=== PATIENT | male | born 1940 | race Caucasian/White ===

== ENCOUNTER 2023-04-29 07:05 | Outpatient (OUT) | payer MEDICARE, SELFPAY ==
[2023-04-29 07:43] LABS: Basophils Absolute Auto 0.1 10^3/uL (0.0-0.1); Basophils Percent Auto 0.6 % (0.2-2.0); Eosinophils Absolute Auto 0.2 10^3/uL (0.0-0.7); Eosinophils Percent Auto 1.9 % (0.9-7.0); Hematocrit 42.4 % (42.0-54.0); Hemoglobin 14.6 g/dL (14.0-18.0); Immature Granulocytes Abs Auto 0.09 10^3/uL (0.00-0.03); Immature Granulocytes Pct Auto 0.8 % (0.0-0.5); Lymphocytes Absolute Auto 1.8 10^3/uL (1.2-3.8); Lymphocytes Percent Auto 16.1 % (20.5-60.0); Mean Corpuscular HGB Conc 34.4 g/dL (29.9-35.2); Mean Corpuscular Hemoglobin 31.8 pg (25.9-34.0); Mean Corpuscular Volume 92.4 fL (80.0-94.0); Mean Platelet Volume 10.5 fL (9.5-13.5); Monocytes Absolute Auto 1.2 10^3/uL (0.3-0.8); Monocytes Percent Auto 10.7 % (1.7-12.0); Neutrophils Absolute Auto 7.7 10^3/uL (1.4-6.5); Neutrophils Percent Auto 69.9 % (43.0-75.0); Platelet Count 269 10^3/uL (150-450); Red Blood Count 4.59 10^6/uL (4.70-6.10); Red Cell Distribution Width 12.8 % (11.0-15.0); White Blood Count 11.1 10^3/uL (4.0-11.0)
[2023-04-29 08:25] LABS: Creatinine Urine Random 38.92 mg/dL (20.00-300.00); Microalbum Creatinine Ratio Ur 1384.8 mg/g (0.0-29.9); Microalbumin Urine Random 53.9 mg/dL (<=30.0)
[2023-04-29 08:27] LABS: Bilirubin Urine NEGATIVE (NEGATIVE); Blood Urine SMALL (NEGATIVE); Clarity Urine CLEAR (CLEAR); Color Urine LT. YELLOW (YELLOW); Glucose Urine UA NEGATIVE (NEGATIVE); Ketones Urine NEGATIVE (NEGATIVE); Leukocyte Esterase Urine NEGATIVE (NEGATIVE); Nitrite Urine NEGATIVE (NEGATIVE); Protein Urine 100 mg/dL (NEG/TRACE); Specific Gravity Urine 1.015 (1.005-1.025); Urobilinogen Urine 0.2 EU/dL (0.2-1.0); pH Urine 6.5 (5.0-9.0)
[2023-04-29 08:31] LABS: Percent Iron Saturation 34.3 %
[2023-04-29 08:34] LABS: Alanine Aminotransferase 17 U/L (16-63); Albumin Level 3.9 g/dL (3.4-5.0); Alkaline Phosphatase 97 U/L (46-116); Anion Gap 12.5; Aspartate Amino Transferase 16 U/L (15-37); BUN Creatinine Ratio 24.2; Bilirubin Total 0.6 mg/dL (0.2-1.0); Calcium 9.3 mg/dL (8.5-10.1); Carbon Dioxide 30.7 mmol/L (21.0-32.0); Chloride 97 mmol/L (98-107); Estimated GFR (African America >60 (>=60); Estimated GFR (Non-African Ame >60 (>=60); Globulin 3.9 g/dL; Glucose 148 mg/dL (74-106); Potassium 4.2 mmol/L (3.5-5.1); Sodium 136 mmol/L (136-145); Total Protein 7.8 g/dL (6.4-8.2)
[2023-04-29 08:41] LABS: Bacteria Urine NONE SEEN #/HPF (NONE SEEN); Cast Seen? NONE SEEN #/LPF (NONE SEEN); Crystals Seen? None Seen #/HPF (None Seen); Mucus Urine NONE SEEN (NONE SEEN); Squamous Epithelial Cell Urine NONE SEEN #/LPF (NONE/RARE); Urine Culture Indicated ALREADY ORDERED; WBC Urine NONE SEEN #/HPF (NONE SEEN)
[2023-04-29 13:12] LABS: Estimated Average Glucose 137 mg/dL; Glycohemoglobin A1C 6.4 % (4.5-6.2)
[2023-04-30 12:30] LABS: Chol HDL Ratio 4.1; Cholesterol 159 mg/dL (<=200); HDL Cholesterol 39 mg/dL (40-60); Triglycerides 175 mg/dL (<=150)
== END 2023-04-29 07:06 | disposition home or self-care (01) ==
LOC: LAB 07:11
PROVIDERS: PCP Family Medicine; Visit Provider Family Medicine
DX: E78.5 Hyperlipidemia, unspecified (principal); D64.9 Anemia, unspecified; E53.8 Deficiency of other specified B group vitamins; R79.89 Other specified abnormal findings of blood chemistry; E11.9 Type 2 diabetes mellitus without complications; R80.9 Proteinuria, unspecified; R35.1 Nocturia
CPT/HCPCS: 36415; 80053; 80061; 81001; 82043; 82570; 82607; 82728; 82746; 83036; 83540; 83550; 85025; 87086

== ENCOUNTER 2023-09-04 07:31 | Outpatient (OUT) | payer MEDICARE, SELFPAY ==
[2023-09-04 07:57] LABS: Basophils Absolute Auto 0.1 10^3/uL (0.0-0.1); Basophils Percent Auto 0.6 % (0.2-2.0); Eosinophils Absolute Auto 0.2 10^3/uL (0.0-0.7); Eosinophils Percent Auto 1.2 % (0.9-7.0); Hematocrit 40.8 % (42.0-54.0); Hemoglobin 13.7 g/dL (14.0-18.0); Immature Granulocytes Abs Auto 0.06 10^3/uL (0.00-0.03); Immature Granulocytes Pct Auto 0.5 % (0.0-0.5); Lymphocytes Absolute Auto 1.4 10^3/uL (1.2-3.8); Lymphocytes Percent Auto 11.2 % (20.5-60.0); Mean Corpuscular HGB Conc 33.6 g/dL (29.9-35.2); Mean Corpuscular Hemoglobin 31.8 pg (25.9-34.0); Mean Corpuscular Volume 94.7 fL (80.0-94.0); Mean Platelet Volume 10.5 fL (9.5-13.5); Monocytes Percent Auto 7.6 % (1.7-12.0); Neutrophils Percent Auto 78.9 % (43.0-75.0); Platelet Count 259 10^3/uL (150-450); Red Blood Count 4.31 10^6/uL (4.70-6.10); White Blood Count 12.6 10^3/uL (4.0-11.0)
[2023-09-04 08:29] LABS: Alanine Aminotransferase 15 U/L (16-63); Albumin Level 3.5 g/dL (3.4-5.0); Alkaline Phosphatase 88 U/L (46-116); Anion Gap 11.6; Aspartate Amino Transferase 15 U/L (15-37); Bilirubin Total 0.6 mg/dL (0.2-1.0); Calcium 8.7 mg/dL (8.5-10.1); Carbon Dioxide 30.3 mmol/L (21.0-32.0); Chloride 98 mmol/L (98-107); Chol HDL Ratio 3.5; Cholesterol 145 mg/dL (<=200); Estimated GFR (African America >60 (>=60); Estimated GFR (Non-African Ame >60 (>=60); Globulin 3.6 g/dL; Glucose 130 mg/dL (74-106); HDL Cholesterol 41 mg/dL (40-60); LDL Cholesterol Calculated 79.8 mg/dL; Potassium 3.9 mmol/L (3.5-5.1); Sodium 136 mmol/L (136-145); Thyroid Stimulating Hormone 1.117 uIU/mL (0.358-3.740); Total Protein 7.1 g/dL (6.4-8.2); Triglycerides 121 mg/dL (<=150); VLDL CHOLESTEROL 24.2 mg/dL
[2023-09-04 08:38] LABS: Estimated Average Glucose 134 mg/dL; Glycohemoglobin A1C 6.3 % (4.5-6.2)
[2023-09-04 08:56] LABS: Percent Iron Saturation 30.5 %
== END 2023-09-04 07:32 | disposition home or self-care (01) ==
LOC: LAB 07:33
PROVIDERS: PCP Family Medicine; Visit Provider Family Medicine
DX: D72.829 Elevated white blood cell count, unspecified (principal); E78.5 Hyperlipidemia, unspecified; E53.8 Deficiency of other specified B group vitamins; D64.9 Anemia, unspecified; E11.9 Type 2 diabetes mellitus without complications; R63.4 Abnormal weight loss
CPT/HCPCS: 36415; 80053; 80061; 82607; 82728; 82746; 83036; 83540; 83550; 84443; 85025

== ENCOUNTER 2024-01-20 07:09 | Outpatient (OUT) | payer MEDICARE, SELFPAY ==
--- OUTSIDE RECORDS SUMMARY | 2024-01-20 07:14 | XMS_ITS | CCD ---
Author Organization [facility] Care Team Providers Care Foundation Engineer Name Role Phone DUKE HEADLEY Surgeon Unavailable [place] Procedure Practitioner Unavailab MIGNON Felipe Primary Care Unavailable TRELL, MIGNON Referring Unavailable DUKE HEADLEY Admitting Unavailable DUKE HEADLEY Attending Unavailable Mignon Cai Unavailable TRELL, DR CROW Admitting Unavailable GIRVIN, DR CROW Attending Unavailable GIRVIN, DR CROW Primary Care Unavailable GIRVIN, DR CROW Consulting Unavailable GIRCAROLINA, DR CROW Primary Care Unavailable CHAPIS ., DR SVETLANA Abernathy Admitting Unavailable NATION ., DR SVETLANA Abernathy Attending Unavailable NATION ., DR SVETLANA Abernathy Consulting Unavailable ZIEBER, DR JOSEPH Martin Consulting Unavailable KATSRAVANTHI KONG Consulting Unavailable FAWSHAIKH Belen ANDERSON Consulting Unavailable GIRCAROLINA, DR CROW Admitting Unavailable GIRVIN, DR CROW Attending Unavailable GIRVIN, DR CROW Primary Care Unavailable GIRVIN, DR CROW Consulting Unavailable GIRVIN, DR CROW Admitting Unavailable GIRVIN, DR CROW Attending Unavailable GIRVIN, DR CROW Referring Unavailable GIRVIN, DR CROW Primary Care Unavailable GIRCAROLINA, DR CROW Consulting Unavailable GIRCAROLINA, DR CROW Admitting Unavailable GIRVIN, DR CROW Attending Unavailable GIRVIN, DR CROW Primary Care Unavailable GIRVIN, DR CROW Consulting Unavailable Mignon Cai DO Primary Care Provider SERVICE, RADHA Referring Unavailable MIGNON CAI Primary Care Unavailable SERVICE, RADHA Referring Unavailable MIGNON CAI Primary Care Unavailable SERVICE, RADHA Referring Unavailable MIGNON CAI Primary Care Unavailable Allergies Allergy Classification Reported Allergen(s) Allergy Type Date of Onset Reaction(s) Facility Unclassified (1 source) ASA; Translations: [ASA] Propensity to adverse reactions (disorder) 1 [facility] Repository (20 sources) Aspirin; Translations: [ASPIRIN] Drug Allergy 4 [facility] (1 source) Aspirin Drug Allergy 4 [facility] Repository Medications Current Medications Medication Drug Class(es) Dates Sig (Normalized) Sig (Original) amLODIPine 10 mg oral tablet (20 sources) Dihydropyridine Calcium Channel Jose Roberto take 1 tablet by mouth in the morning amLODIPine (NORVASC) 10 mg tablet Take 1 tablet (10 mg total) by mouth in the morning. 0 Active glyBURIDE 2.5 mg oral tablet (20 sources) Sulfonylurea glyBURIDE (DIABETA) 2.5 mg tablet Taking 1/2 tablet three times a day 0 Active glyBURIDE 2.5 TA KE ONE-HALF TABLET BY MOUTH THREE TIMES A DAY Orally Once a day for 90 days Active glyBURIDE 2.5 TA KE ONE-HALF TABLET BY MOUTH THREE TIMES A DAY Orally Once a day Active hydroCHLOROthiazide 25 mg / lisinopril 20 mg oral tablet (20 sources) Thiazide Diuretic, Angiotensin Converting Enzyme Inhibitor Start: 10-20-2017 take 1 tablet by mouth every twenty-four hours Lisinopril-hydroCHLOROthiazide 20-25 MG 1 tablet Orally Once a day Oct, Active take 1 tablet by vnaessa th once in the morning lisinopril-hydrochlorothiazide (PRINZIDE ,ZESTORETIC) 20-25 mg per tablet Take 1 tablet by mouth in the morning. 0 Active metoprolol tartrate 50 mg oral tablet (20 sources) beta-Adrenergic Jose Roberto Start: 09-26-2023 take 2 tablets by mouth once daily in the morning, then take 1 tablet by mouth once daily in the evening metoprolol tartrate (LOPRESSOR) 50 mg tablet TAKE 2 TABLETS BY MOUTH DAILY IN THE MORNING THEN TAKE 1 TABLET BY MOUTH DAILY IN THE EVENING 270 tablet 3 09/26/2023 Active take 2 tablets by mo uth in the morning, then take 1 tablet by mouth in the evening Metoprolol Tartrate 50 MG 2 tablets in A.m. Orally 1 tablet in p.m. Active OneTouch Ultra - (9 sources) OneTouch Ultra - USE TO TEST BLOOD SUGAR ONCE DAILY Active OneTouch Ultra - USE TO TEST BLOOD SUGAR ONCE DAILY for 50 Active OneTouch Ultra - USE ONE STRIP TO TEST DAILY Active OneTouch Ultra - USE ONE STRIP TO TEST DAILY for 50 Active OneTouch Ultra Blue - (8 sources) OneTouch Ultra B lue - TEST USE ONE STRIP TO TEST DAILY Active OneTouch Ultra B lue - TEST USE ONE STRIP TO TEST DAILY for 50 Active warfarin sodium 2.5 mg oral tablet (20 sources) Vitamin K Antagonist Start: 09-03-2023 take 0.5-1 tablets by mouth in the evening warfarin (COUMADIN) 2.5 mg tablet Indications: Persistent atrial fibrillation (CMS-HCC) , FPC (current) use of anticoagulants Take 0.5-1 tablets (1.25-2.5 mg total) by mouth in the evening. As directed by Radha DURONM.. 90 tablet 1 09/03/2023 Active take 1 tablet by vanessa th every week, then take 0.5 tablet by mouth every week Warfarin Sodium 5 MG 1 tablet Orally tab one day per week, then 1/2 tab the other days of the week 1/2/tab 2 days a week Active Completed/Discontinued Medications Medication Drug Class(es) Dates Sig (Normalized) Sig (Original) Fish Oils (2 sources) Start: 09-15-2013 take 1 capsule by mouth once daily Fish Oil 1000 MG 1 capsule Orally Once a day Sep, Not-Taking Problems Active Problems Problem Classification Problem Date Documented Da te Episodic/Chronic Cardiac dysrhythmias (20 sources) Atrial fibrillation; Translations: [Unspecified atrial fibrillation] Onset: 01-16-2017 Resolved: 04-25-2022 Chronic Deficiency and other anemia (17 sources) Anemia; Translations: [Anemia, unspecified] Episodic Deficiency and other anemia (6 sources) Anemia, unspecified; Translations: [ANEMIA UNSPECIFIED] Onset: 04-25-2022 Resolved: 04-25-2022 Episodic Diabetes mellitus with complications (1 source) Type 2 diabetes mellitus with hyperglycemia; Translations: [TYPE 2 DM W/HYPERGLYCEMIA] Onset: 03-06-2022 Chronic Diabetes mellitus without complication (20 sources) Type 2 diabetes mellitus well controlled; Translations: [Type 2 diabetes mellitus without complications] Onset: 08-23-2011 Resolved: 04-25-2022 Chronic Diseases of white blood cells (20 sources) Increased blood leukocyte number; Translations: [Elevated white blood cell count, unspecified] Onset: 04-25-2022 Resolved: 04-25-2022 Chronic Disorders of lipid metabolism (20 sources) Hyperlipidemia; Translations: [Hyperlipidemia, unspecified] Onset: 04-25-2022 Resolved: 04-25-2022 Chronic Essential hypertension (20 sources) Hypertensive disorder; Translations: [Essential (primary) hypertension] Onset: 07-12-2010 Resolved: 04-25-2022 Chronic Genitourinary symptoms and ill-defined conditions (20 sources) Nocturia; Translations: [Nocturia] Onset: 04-25-2022 Resolved: 04-25-2022 Episodic Nutritional deficiencies (20 sources) Vitamin B12 deficiency (non anemic); Translations: [Deficiency of other specified B group vitamins] Onset: 04-25-2022 Resolved: 04-25-2022 Episodic Open wounds of extremities (1 source) Laceration without foreign body, unspecified knee, initial encounter Episodic Other aftercare (6 sources) Long-term current use of anticoagulant; Translations: [terminologist (current) use of anticoagulants] Onset: 01-16-2017 10-14-2023 Episodic Other aftercare (1 source) Encounter for therapeutic drug level monitoring; Translations: [Encounter for therapeutic drug level monitoring] Onset: 12-23-2023 Episodic Other connective tissue disease (1 source) Presence of right artificial knee joint; Translations: [PRESENCE RT ARTIFICIAL KNEE JOINT] Onset: 03-06-2022 Chronic Other connective tissue disease (3 sources) History of total knee arthroplasty; Translations: [Presence of right artificial knee joint] Onset: 02-19-2022 02-19-2022 Chronic Other hereditary and degenerative nervous system conditions (1 source) Mild cognitive impairment, so stated; Translations: [MILD COGNITIVE IMPAIRMENT SO STATED] Onset: 03-06-2022 Chronic Other non-traumatic joint disorders (2 sources) Pain in unspecified knee Onset: 04-25-2022 Resolved: 04-25-2022 Episodic Other nutritional; endocrine; and metabolic disorders (5 sources) Abnormal weight loss; Translations: [ABNORMAL WEIGHT LOSS] Onset: 04-25-2022 Resolved: 04-25-2022 Episodic Other nutritional; endocrine; and metabolic disorders (1 source) Abnormal weight gain Episodic Other screening for suspected conditions (not mental disorders or infectious disease) (3 sources) Other specified abnormal findings of blood chemistry; Translations: [Encounter for screening for malignant neoplasm of prostate] Onset: 04-17-2022 Episodic Spondylosis; intervertebral disc disorders; other back problems (1 source) Cervicalgia Episodic Unclassified (1 source) CONTACT W/AND (SUSP) EXPOS COVID-19; Translations: [CONTACT W/AND (SUSP) EXPOS COVID-19] Onset: 03-06-2022 Unclassified (1 source) Other persistent atrial fibrillation; Translations: [Other persistent atrial fibrillation] Onset: 08-26-2017 Past or Other Problems Problem Classification Problem Date Documented Date Episodic/Chronic Acute posthemorrhagic anemia (1 source) Acute posthemorrhagic anemia; Translations: [ACUTE POSTHEMORRHAGIC ANEMIA] Onset: 03-06-2022 Episodic Malaise and fatigue (2 sources) Weakness; Translations: [WEAKNESS] Onset: 02-22-2022 Episodic Other aftercare (2 sources) FPC (current) use of anticoagulants; Translations: [SHELTER CURRNT USE ANTICOAGULANTS] Onset: 01-16-2017 Episodic Other aftercare (1 source) Other care home (current) drug therapy; Translations: [OTH SHELTER CURRENT DRUG THERAPY] Onset: 03-06-2022 Episodic Other connective tissue disease (1 source) Muscle weakness (generalized); Translations: [MUSCLE WEAKNESS GENERALIZED] Onset: 03-06-2022 Episodic Other non-traumatic joint disorders (1 source) Pain in right knee Onset: 11-14-2021 Resolved: 11-14-2021 Episodic Other non-traumatic joint disorders (1 source) Effusion, right knee; Translations: [EFFUSION RIGHT KNEE] Onset: 03-06-2022 Episodic Residual codes; unclassified (1 source) Patient's other noncompliance with medication regimen; Translations: [PT OTH NONCOMPLIANCE W/ MED REGIMEN] Onset: 03-06-2022 Episodic Screening and history of mental health and substance abuse codes (1 source) Personal history of nicotine dependence; Translations: [PERSONAL HISTORY OF NICOTINE DEPEND] Onset: 03-06-2022 Episodic Results Test Name Value Interpretation Reference Range Facility POCT Protime / INRon 12-22-2 024 INR Coag (PPP) [Relative time] 2.2 {INR} Abnormal 0.8 - 1.2 [facility] Interpretation and review of laboratory results Abnormal [facility] POCT Protime / INRon 11-11-2 024 INR Coag (PPP) [Relative time] 1.9 {INR} Abnormal 0.8 - 1.2 [facility] Interpretation and review of laboratory results Abnormal [facility] POCT Protime / INRon 024 INR Coag (PPP) [Relative time] 1.8 {INR} Abnormal 0.8 - 1.2 [facility] Interpretation and review of laboratory results Abnormal [facility] CBC AUTO DIFFon 12-24-2022 BASO # 0.1 103/ul Normal 0.0-0.1 [facility] Comment on above: Performed By: #### C MP, LIPID #### [facility] [address] [place] [address] Dr. Miles Murphy Basophils/100 WBC (Bld) 0.7 % Normal 0.2-2.0 [facility] Comment on above: Performed By: #### C MP, LIPID #### [facility] [address] [place] [address] Dr. Miles Murphy EO # 0.2 103/ul Normal 0.0-0.7 [facility] Comment on above: Performed By: #### C MP, LIPID #### [facility] [address] [place] [address] Dr. Miles Murphy Eosinophils/100 WBC (Bld) 1.5 % Normal 0.9-7.0 [facility] Comment on above: Performed By: #### C MP, LIPID #### [facility] [address] [place] [address] Dr. Miles Murphy Erythrocyte distribution width (RBC) [Ratio] 14.0 % Normal 11.0-15.0 [facility] Comment on above: Performed By: #### C MP, LIPID #### [facility] [address] [place] [address] Dr. Miles Murphy Hematocrit (Bld) [Volume fraction] 44.0 % Normal 42.0-54.0 [facility] Comment on above: Performed By: #### C MP, LIPID #### [facility] [address] [place] [address] Dr. Miles Murphy Hemoglobin (Bld) [Mass/Vol] 14.7 g/dL Normal 14.0-18.0 [facility] Comment on above: Performed By: #### C MP, LIPID #### [facility] [address] [address] [address] Miles Murphy IG # 0.08 10e3/ul Critically high 0.00-0.03 [facility] Comment on above: Performed By: #### C MP, LIPID #### [facility] [address] [address] [address] Miles Murphy IG % 0.8 % Critically high 0.0-0.5 [facility] Comment on above: Performed By: #### C MP, LIPID #### [facility] [address] [address] [address] Miles Murphy LYMPH # 2.0 103/ul Normal 1.2-3.8 [facility] Comment on above: Performed By: #### C MP, LIPID #### [facility] [address] [place] [address] Dr. Miles Murphy Lymphocytes/100 WBC (Bld) 19.2 % Critically low 20.5-60.0 [facility] Comment on above: Performed By: #### C MP, LIPID #### [facility] [address] [address] [address] Miles Murphy MANUAL DIFF REQ NO Normal [facility] Comment on above: Performed By: #### C MP, LIPID #### [facility] [address] [address] [address] Miles Murphy MCH (RBC) [Entitic mass] 31.0 pg Normal 25.9-34.0 [facility] Comment on above: Performed By: #### C MP, LIPID #### [facility] [address] [address] [address] Miles Murphy MCHC (RBC) [Mass/Vol] 33.4 g/dL Normal 29.9-35.2 [facility] Comment on above: Performed By: #### C MP, LIPID #### [facility] [address] [address] [address] Miles Murphy MCV (RBC) [Entitic vol] 92.8 fL Normal 80.0-94.0 [facility] Comment on above: Performed By: #### C MP, LIPID #### [facility] [address] [address] [address] Miles Murphy MONO # 1.0 103/ul Critically high 0.3-0.8 [facility] Comment on above: Performed By: #### C MP, LIPID #### [facility] [address] [address] [address] Miles Murphy Monocytes/100 WBC (Bld) 9.6 % Normal 1.7-12.0 [facility] Comment on above: Performed By: #### C MP, LIPID #### [facility] [address] [address] [address] Miles Murphy NEUT # 7.0 103/ul Critically high 1.4-6.5 [facility] Comment on above: Performed By: #### C MP, LIPID #### [facility] [address] [place] [address] Dr. Miles Murphy Neutrophils/100 WBC (Bld) 68.2 % Normal 43.0-75.0 [facility] Comment on above: Performed By: #### C MP, LIPID #### [facility] [address] [place] [address] Dr. Miles Murphy Platelet mean volume (Bld) [Entitic vol] 10.4 fL Normal 9.5-13.5 [facility] Comment on above: Performed By: #### C MP, LIPID #### [facility] [address] [place] [address] Dr. Miles Murphy PLT 266 103/ul Normal 150-450 [facility] Comment on above: Performed By: #### C MP, LIPID #### [facility] [address] [place] [address] Dr. Miles Murphy RBC 4.74 106/ul Normal 4.70-6.10 [facility] Comment on above: Performed By: #### C MP, LIPID #### [facility] [address] [place] [address] Dr. Miles Murphy WBC 10.3 103/ul Normal 4.0-11.0 [facility] Comment on above: Performed By: #### C MP, LIPID #### [facility] [address] [address] [address] Miles Murphy FERRITINon 12-24-2022 Ferritin [Mass/Vol] 144.0 ng/mL Normal 26.0-388.0 [facility] Comment on above: Performed By: #### P OCGLUC #### [facility] [address] [address] [address] Miles Murphy GLYCOHEMOGLOBIN A1Con 2022 ADA RECOMMENDATION SEE BELOW Normal [facility] Comment on above: Result Comment: ADA RECOMMENDED LIMIT 4.0 - 6.0 ADA THERAPEUTIC TARGET < 7.0 ACTION SUGGESTED > 7.0 Performed By: #### P OCGLUC #### [facility] [address] [address] [address] Miles Murphy Glucose [Mass/Vol] 137 mg/dL Normal [facility] Comment on above: Performed By: #### P OCGLUC #### [facility] [address] [address] [address] Miles Murphy HbA1c (Bld) [Mass fraction] 6.4 % Critically high 4.5-6.2 [facility] Comment on above: Performed By: #### P OCGLUC #### [facility] [address] [address] [address] Miles Murphy IRON AND TIBCon 12-24-2022 % SATURATION 39.2 % Normal [facility] Comment on above: Performed By: #### P OCGLUC #### [facility] [address] [address] [address] Miles Murphy Iron [Mass/Vol] 111.0 ug/dL Normal 65.0-175.[address] [facility] Comment on above: Performed By: #### P OCGLUC #### [facility] [address] [address] [address] Miles Murphy TIBC DIRECT 283.0 ug/dL Normal 250.0-450.0 [facility] Comment on above: Performed By: #### P OCGLUC #### [facility] [address] [address] [address] Miles Murphy LIPID PROFILEon 12-24-2022 CHOL-HDL RATIO NORM SEE BELOW Normal [facility] Comment on above: Result Comment: 3.3 - 4.4 LOW RISK 4.4 - 7.1 AVERAGE RISK 7.1 - 11.0 MODERATE RISK >11.0 HIGH RISK Performed By: #### F ERR, FETIBC, B12FOL, PSAD #### [facility] [address] [address] [address] Miles Murphy Cholesterol [Mass/Vol] 164 mg/dL Normal <=200 [facility] Comment on above: Performed By: #### F ERR, FETIBC, B12FOL, PSAD #### [facility] [address] [place] [address] Dr. Miles Murphy Cholesterol in HDL [Mass/Vol] 35 mg/dL Critically low 40-60 [facility] Comment on above: Performed By: #### F ERR, FETIBC, B12FOL, PSAD #### [facility] [address] [address] [address] Miles Murphy Cholesterol in LDL [Mass/Vol] 84.8 mg/dL Normal [facility] Comment on above: Performed By: #### F ERR, FETIBC, B12FOL, PSAD #### [facility] [address] [place] [address] Dr. Miles Murphy Cholesterol.total/C holesterol in HDL [Mass ratio] 4.7 {ratio} Normal [facility] Comment on above: Performed By: #### F ERR, FETIBC, B12FOL, PSAD #### [facility] [address] [address] [address] Miles Murhpy HDL NORMAL > or = 60 mg/dl - LO W CARDIOVASCULAR RISK <40 mg/dl - HIGH CARDIOVASCULAR RISK Normal [facility] Comment on above: Performed By: #### F ERR, FETIBC, B12FOL, PSAD #### [facility] [address] [place] [address] Dr. Miles Murphy LDL CALC NORMAL SEE BELOW Normal [facility] Comment on above: Result Comment: <100 mg/dl OPTIMAL 100 - 129 mg/dl NEAR OR ABOVE OPTIMAL 130 - 159 mg/dl BORDERLINE HIGH 160 - 189 mg/dl HIGH >190 mg/dl VERY HIGH Performed By: #### F ERR, FETIBC, B12FOL, PSAD #### [facility] [address] [place] [address] Dr. Miles Murphy Triglyceride [Mass/Vol] 221 mg/dL Critically high <=150 [facility] Comment on above: Performed By: #### F ERR, FETIBC, B12FOL, PSAD #### [facility] [address] [place] [address] Dr. Miles Murphy VLDL CALC 44.2 mg/dL Normal [facility] Comment on above: Performed By: #### F ERR, FETIBC, B12FOL, PSAD #### [facility] [address] [place] [address] Dr. Miles Murphy PROF 14(COMP METB)on 023 Albumin [Mass/Vol] 3.6 g/dL Normal 3.4-5.0 [facility] Comment on above: Performed By: #### F ERR, FETIBC, B12FOL, PSAD #### [facility] [address] [place] [address] Dr. Miles Murphy Albumin/Globulin [Mass ratio] 1.0 {ratio} Normal [facility] Comment on above: Performed By: #### F ERR, FETIBC, B12FOL, PSAD #### [facility] [address] [place] [address] Dr. Miles Murphy ALP [Catalytic activity/Vol] 79 U/L Normal 46-116 [facility] Comment on above: Performed By: #### F ERR, FETIBC, B12FOL, PSAD #### [facility] [address] [place] [address] Dr. Miles Murphy ALT [Catalytic activity/Vol] 16 U/L Normal 16-63 [facility] Comment on above: Performed By: #### F ERR, FETIBC, B12FOL, PSAD #### [facility] [address] [place] [address] Dr. Miles Murphy Anion gap [Moles/Vol] 12.7 mmol/L Normal [facility] Comment on above: Performed By: #### F ERR, FETIBC, B12FOL, PSAD #### [facility] [address] [place] [address] Dr. Miles Murphy AST [Catalytic activity/Vol] 17 U/L Normal 15-37 [facility] Comment on above: Performed By: #### F ERR, FETIBC, B12FOL, PSAD #### [facility] [address] [place] [address] Dr. Miles Murphy Bilirubin [Mass/Vol] 0.5 mg/dL Normal 0.2-1.0 [facility] Comment on above: Performed By: #### F ERR, FETIBC, B12FOL, PSAD #### [facility] [address] [place] [address] Dr. Miles Murphy Calcium [Mass/Vol] 9.3 mg/dL Normal 8.5-10.1 [facility] Comment on above: Performed By: #### F ERR, FETIBC, B12FOL, PSAD #### [facility] [address] [place] [address] Dr. Miles Murphy Chloride [Moles/Vol] 100 mmol/L Normal 98-107 [facility] Comment on above: Performed By: #### F ERR, FETIBC, B12FOL, PSAD #### [facility] [address] [place] [address] Dr. Miles Murphy CO2 [Moles/Vol] 29.8 mmol/L Normal 21.0-32.[address] [facility] Comment on above: Performed By: #### F ERR, FETIBC, B12FOL, PSAD #### [facility] [address] [place] [address] Dr. Miles Murphy Creatinine [Mass/Vol] 1.00 mg/dL Normal 0.70-1.30 [facility] Comment on above: Performed By: #### F ERR, FETIBC, B12FOL, PSAD #### [facility] [address] [place] [address] Dr. Miles Murphy EGFR-AF CZECH >60 Normal >=60 [facility] Comment on above: Performed By: #### F ERR, FETIBC, B12FOL, PSAD #### [facility] [address] [place] [address] Dr. Miles Murphy EGFR-NON AF CZECH >60 Normal >=60 [facility] Comment on above: Performed By: #### F ERR, FETIBC, B12FOL, PSAD #### [facility] [address] [place] [address] Dr. Miles Mruphy Globulin (S) [Mass/Vol] 3.5 g/dL Normal [facility] Comment on above: Performed By: #### F ERR, FETIBC, B12FOL, PSAD #### [facility] [address] [address] [address] Miles Murphy Glucose [Mass/Vol] 135 mg/dL Critically high 74-106 [facility] Comment on above: Performed By: #### F ERR, FETIBC, B12FOL, PSAD #### [facility] [address] [address] [address] Miles Murphy Potassium [Moles/Vol] 4.5 mmol/L Normal 3.5-5.1 [facility] Comment on above: Performed By: #### F ERR, FETIBC, B12FOL, PSAD #### [facility] [address] [address] [address] Miles Murphy Protein [Mass/Vol] 7.1 g/dL Normal 6.4-8.2 [facility] Comment on above: Performed By: #### F ERR, FETIBC, B12FOL, PSAD #### [facility] [address] [address] [address] Miles Murphy Sodium [Moles/Vol] 138 mmol/L Normal 136-145 [facility] Comment on above: Performed By: #### F ERR, FETIBC, B12FOL, PSAD #### [facility] [address] [place] [address] Dr. Miles Murphy Urea nitrogen [Mass/Vol] 21.0 mg/dL Critically high 7.0-18.0 [facility] Comment on above: Performed By: #### F ERR, FETIBC, B12FOL, PSAD #### [facility] [address] [place] [address] Dr. Miles Murphy Urea nitrogen/Creatinine [Mass ratio] 21.0 mg/mg Normal [facility] Comment on above: Performed By: #### F ERR, FETIBC, B12FOL, PSAD #### [facility] [address] [place] [address] Dr. Miles Murphy VIT B12 AND FOLATEon 023 Cobalamin (Vitamin B12) [Mass/Vol] 488.0 pg/mL Normal 193.0-986.0 [facility] Comment on above: Performed By: #### P OCGLUC #### [facility] [address] [place] [address] Dr. Miles Murphy FOLATE 21.30 ng/mL Normal 8.60-58.90 [facility] Comment on above: Performed By: #### P OCGLUC #### [facility] [address] [place] [address] Dr. Miles Murphy URINE MICROSCOPIC ONLYon BACTERIA NONE SEEN Normal NONE SEEN [facility] Comment on above: Performed By: #### F ERR, FETIBC, B12FOL, PSAD #### [facility] [address] [place] [address] Dr. Miles Murphy Bacteria identified Cx Nom (U) NOT INDICATED Normal [facility] Comment on above: Performed By: #### F ERR, FETIBC, B12FOL, PSAD #### [facility] [address] [place] [address] Dr. Miles Murphy CAST NONE SEEN Normal NONE SEEN [facility] Comment on above: Performed By: #### F ERR, FETIBC, B12FOL, PSAD #### [facility] [address] [place] [address] Dr. Miles Murphy Crystals LM Nom (Urine sed) NONE SEEN Normal NONE SEEN [facility] Comment on above: Performed By: #### F ERR, FETIBC, B12FOL, PSAD #### [facility] [address] [place] [address] Dr. Miles Murphy Epithelial cells LM Ql (Urine sed) NONE SEEN Normal NONE SEEN /RARE [facility] Comment on above: Performed By: #### F ERR, FETIBC, B12FOL, PSAD #### [facility] [address] [place] [address] Dr. Miles Murphy MUCOUS NONE SEEN Normal NONE SEEN [facility] Comment on above: Performed By: #### F ERR, FETIBC, B12FOL, PSAD #### [facility] [address] [place] [address] Dr. Miles Murphy RBC 2-5 Abnormal 0-2 [facility] Comment on above: Performed By: #### F ERR, FETIBC, B12FOL, PSAD #### [facility] [address] [place] [address] Dr. Miles Murphy WBC NONE SEEN Normal NONE SEEN [facility] Comment on above: Performed By: #### F ERR, FETIBC, B12FOL, PSAD #### [facility] [address] [place] [address] Dr. Miles Murphy CBC AUTO DIFFon 08-21-2022 BASO # 0.1 103/ul Normal 0.0-0.1 [facility] Comment on above: Performed By: #### F ERR, FETIBC, B12FOL, PSAD #### [facility] [address] [place] [address] Dr. Miles Murphy Basophils/100 WBC (Bld) 0.5 % Normal 0.2-2.0 [facility] Comment on above: Performed By: #### F ERR, FETIBC, B12FOL, PSAD #### [facility] [address] [place] [address] Dr. Miles Murphy EO # 0.2 103/ul Normal 0.0-0.7 [facility] Comment on above: Performed By: #### F ERR, FETIBC, B12FOL, PSAD #### [facility] [address] [place] [address] Dr. Miles Murphy Eosinophils/100 WBC (Bld) 1.6 % Normal 0.9-7.0 [facility] Comment on above: Performed By: #### F ERR, FETIBC, B12FOL, PSAD #### [facility] [address] [place] [address] Dr. Miles Murphy Erythrocyte distribution width (RBC) [Ratio] 13.7 % Normal 11.0-15.0 [facility] Comment on above: Performed By: #### F ERR, FETIBC, B12FOL, PSAD #### [facility] [address] [place] [address] Dr. Miles Murphy Hematocrit (Bld) [Volume fraction] 41.3 % Critically low 42.0-54.0 [facility] Comment on above: Performed By: #### F ERR, FETIBC, B12FOL, PSAD #### [facility] [address] [place] [address] Dr. Miles Murphy Hemoglobin (Bld) [Mass/Vol] 13.7 g/dL Critically low 14.0-18.0 [facility] Comment on above: Performed By: #### F ERR, FETIBC, B12FOL, PSAD #### [facility] [address] [place] [address] Dr. Miles Murphy IG # 0.07 10e3/ul Critically high 0.00-0.03 [facility] Comment on above: Performed By: #### F ERR, FETIBC, B12FOL, PSAD #### [facility] [address] [place] [address] Dr. Miles Murphy IG % 0.5 % Normal 0.0-0.5 [facility] Comment on above: Performed By: #### F ERR, FETIBC, B12FOL, PSAD #### [facility] [address] [place] [address] Dr. Miles Murphy LYMPH # 1.8 103/ul Normal 1.2-3.8 [facility] Comment on above: Performed By: #### F ERR, FETIBC, B12FOL, PSAD #### [facility] [address] [place] [address] Dr. Miles Murphy Lymphocytes/100 WBC (Bld) 13.3 % Critically low 20.5-60.0 [facility] Comment on above: Performed By: #### F ERR, FETIBC, B12FOL, PSAD #### [facility] [address] [place] [address] Dr. Miles Murphy MANUAL DIFF REQ NO Normal [facility] Comment on above: Performed By: #### F ERR, FETIBC, B12FOL, PSAD #### [facility] [address] [place] [address] Dr. Miles Murphy MCH (RBC) [Entitic mass] 31.6 pg Normal 25.9-34.0 [facility] Comment on above: Performed By: #### F ERR, FETIBC, B12FOL, PSAD #### [facility] [address] [place] [address] Dr. Miles Murphy MCHC (RBC) [Mass/Vol] 33.2 g/dL Normal 29.9-35.2 [facility] Comment on above: Performed By: #### F ERR, FETIBC, B12FOL, PSAD #### [facility] [address] [place] [address] Dr. Miles Murphy MCV (RBC) [Entitic vol] 95.2 fL Critically high 80.0-94.0 [facility] Comment on above: Performed By: #### F ERR, FETIBC, B12FOL, PSAD #### [facility] [address] [place] [address] Dr. Miles Murphy MONO # 1.1 103/ul Critically high 0.3-0.8 [facility] Comment on above: Performed By: #### F ERR, FETIBC, B12FOL, PSAD #### [facility] [address] [place] [address] Dr. Miles Murphy Monocytes/100 WBC (Bld) 8.7 % Normal 1.7-12.0 [facility] Comment on above: Performed By: #### F ERR, FETIBC, B12FOL, PSAD #### [facility] [address] [address] [address] Miles Murphy NEUT # 9.9 103/ul Critically high 1.4-6.5 [facility] Comment on above: Performed By: #### F ERR, FETIBC, B12FOL, PSAD #### [facility] [address] [place] [address] Dr. Miles Murphy Neutrophils/100 WBC (Bld) 75.4 % Critically high 43.0-75.0 [facility] Comment on above: Performed By: #### F ERR, FETIBC, B12FOL, PSAD #### [facility] [address] [place] [address] Dr. Miles Murphy Platelet mean volume (Bld) [Entitic vol] 10.5 fL Normal 9.5-13.5 [facility] Comment on above: Performed By: #### F ERR, FETIBC, B12FOL, PSAD #### [facility] [address] [place] [address] Dr. Miles Murphy PLT 295 103/ul Normal 150-450 [facility] Comment on above: Performed By: #### F ERR, FETIBC, B12FOL, PSAD #### [facility] [address] [place] [address] Dr. Miles Murphy RBC 4.34 106/ul Critically low 4.70-6.10 [facility] Comment on above: Performed By: #### F ERR, FETIBC, B12FOL, PSAD #### [facility] [address] [place] [address] Dr. Miles Murphy WBC 13.1 103/ul Critically high 4.0-11.[address] [facility] Comment on above: Performed By: #### F ERR, FETIBC, B12FOL, PSAD #### [facility] [address] [place] [address] Dr. Miles Murphy CULTURE URINEon 08-21-2022 CULTURE URINE Culture Observations : LIGHT GROWTH OF MIXED SKIN YOGI. NO POTENTIAL PATHOGENS SEEN. Normal [facility] Comment on above: Performed By: #### F ERR, FETIBC, B12FOL, PSAD #### [facility] [address] [address] [address] Miles Murphy FERRITINon 08-21-2022 Ferritin [Mass/Vol] 100.0 ng/mL Normal 26.0-388.0 [facility] Comment on above: Performed By: #### F ERR, FETIBC, B12FOL, PSAD #### [facility] [address] [place] [address] Dr. Miles Murphy GLYCOHEMOGLOBIN A1Con 2021 ADA RECOMMENDATION SEE BELOW Normal [facility] Comment on above: Result Comment: ADA RECOMMENDED LIMIT 4.0 - 6.0 ADA THERAPEUTIC TARGET < 7.0 ACTION SUGGESTED > 7.0 Performed By: #### F ERR, FETIBC, B12FOL, PSAD #### [facility] [address] [place] [address] Dr. Miles Murphy Glucose [Mass/Vol] 137 mg/dL Normal [facility] Comment on above: Performed By: #### F ERR, FETIBC, B12FOL, PSAD #### [facility] [address] [place] [address] Dr. Miles Murphy HbA1c (Bld) [Mass fraction] 6.4 % Critically high 4.5-6.2 [facility] Comment on above: Performed By: #### F ERR, FETIBC, B12FOL, PSAD #### [facility] [address] [address] [address] Miles Murphy IRON AND TIBCon 08-21-2022 % SATURATION 30.6 % Normal [facility] Comment on above: Performed By: #### F ERR, FETIBC, B12FOL, PSAD #### [facility] [address] [place] [address] Dr. Miles Murphy Iron [Mass/Vol] 97.0 ug/dL Normal 65.0-175.0 [facility] Comment on above: Performed By: #### F ERR, FETIBC, B12FOL, PSAD #### [facility] [address] [address] [address] Miles Murphy TIBC DIRECT 317.0 ug/dL Normal 250.0-450.0 [facility] Comment on above: Performed By: #### F ERR, FETIBC, B12FOL, PSAD #### [facility] [address] [address] [address] Miles Murphy LIPID PROFILEon 08-21-2022 CHOL-HDL RATIO NORM SEE BELOW Normal [facility] Comment on above: Result Comment: 3.3 - 4.4 LOW RISK 4.4 - 7.1 AVERAGE RISK 7.1 - 11.0 MODERATE RISK >11.0 HIGH RISK Performed By: #### F ERR, FETIBC, B12FOL, PSAD #### [facility] [address] [address] [address] Miles Murphy Cholesterol [Mass/Vol] 157 mg/dL Normal <=200 [facility] Comment on above: Performed By: #### F ERR, FETIBC, B12FOL, PSAD #### [facility] [address] [address] [address] Miles Murphy Cholesterol in HDL [Mass/Vol] 36 mg/dL Critically low 40-60 [facility] Comment on above: Performed By: #### F ERR, FETIBC, B12FOL, PSAD #### [facility] [address] [address] [address] Miles Murphy Cholesterol in LDL [Mass/Vol] 84.4 mg/dL Normal [facility] Comment on above: Performed By: #### F ERR, FETIBC, B12FOL, PSAD #### [facility] [address] [address] [address] Miles Murphy Cholesterol.total/C holesterol in HDL [Mass ratio] 4.4 {ratio} Normal [facility] Comment on above: Performed By: #### F ERR, FETIBC, B12FOL, PSAD #### [facility] [address] [address] [address] Miles Murphy HDL NORMAL > or = 60 mg/dl - LO W CARDIOVASCULAR RISK <40 mg/dl - HIGH CARDIOVASCULAR RISK Normal [facility] Comment on above: Performed By: #### F ERR, FETIBC, B12FOL, PSAD #### [facility] [address] [place] [address] Dr. Miles Murphy LDL CALC NORMAL SEE BELOW Normal [facility] Comment on above: Result Comment: <100 mg/dl OPTIMAL 100 - 129 mg/dl NEAR OR ABOVE OPTIMAL 130 - 159 mg/dl BORDERLINE HIGH 160 - 189 mg/dl HIGH >190 mg/dl VERY HIGH Performed By: #### F ERR, FETIBC, B12FOL, PSAD #### [facility] [address] [address] [address] Miles Muprhy Triglyceride [Mass/Vol] 183 mg/dL Critically high <=150 [facility] Comment on above: Performed By: #### F ERR, FETIBC, B12FOL, PSAD #### [facility] [address] [place] [address] Dr. Miles Murphy VLDL CALC 36.6 mg/dL Normal [facility] Comment on above: Performed By: #### F ERR, FETIBC, B12FOL, PSAD #### [facility] [address] [place] [address] Dr. Miles Murphy MICROALB CREAT RATIO RANDOMo n 08-21-2022 mALB 20.9 mg/L Normal <=30.0 [facility] Comment on above: Performed By: #### M CRR #### [facility] [address] [place] [address] Dr. Miles Murphy MALB CR RATIO 446.6 mg/g Critically high 0.0-29.9 [facility] Comment on above: Performed By: #### M CRR #### [facility] [address] [place] [address] Dr. Miles PRASADB CR RATIO RANGE SEE BELOW Normal [facility] Comment on above: Result Comment: NO M ICROALBUMINURIA 0-29 MG/G CLINICAL MICROALBUMINURIA 30-300 MG/G MACROALBUMINURIA >300 MG/G Performed By: #### M CRR #### [facility] [address] [place] [address] Dr. Miles Murphy URINE CREAT 46.80 mg/dL Normal 20.00-300.00 [facility] Comment on above: Performed By: #### M CRR #### [facility] [address] [place] [address] Dr. Miles Murphy PROF 14(COMP METB)on 022 Albumin [Mass/Vol] 3.5 g/dL Normal 3.4-5.0 [facility] Comment on above: Performed By: #### F ERR, FETIBC, B12FOL, PSAD #### [facility] [address] [place] [address] Dr. Miles Murphy Albumin/Globulin [Mass ratio] 0.9 {ratio} Normal [facility] Comment on above: Performed By: #### F ERR, FETIBC, B12FOL, PSAD #### [facility] [address] [place] [address] Dr. Miles Murphy ALP [Catalytic activity/Vol] 78 U/L Normal 46-116 [facility] Comment on above: Performed By: #### F ERR, FETIBC, B12FOL, PSAD #### [facility] [address] [place] [address] Dr. Miles Murphy ALT [Catalytic activity/Vol] 17 U/L Normal 16-63 [facility] Comment on above: Performed By: #### F ERR, FETIBC, B12FOL, PSAD #### [facility] [address] [place] [address] Dr. Miles Murphy Anion gap [Moles/Vol] 9.5 mmol/L Normal [facility] Comment on above: Performed By: #### F ERR, FETIBC, B12FOL, PSAD #### [facility] [address] [place] [address] Dr. Miles Murphy AST [Catalytic activity/Vol] 17 U/L Normal 15-37 [facility] Comment on above: Performed By: #### F ERR, FETIBC, B12FOL, PSAD #### [facility] [address] [address] [address] Miles Murphy Bilirubin [Mass/Vol] 0.6 mg/dL Normal 0.2-1.0 [facility] Comment on above: Performed By: #### F ERR, FETIBC, B12FOL, PSAD #### [facility] [address] [place] [address] Dr. Miles Murphy Calcium [Mass/Vol] 9.1 mg/dL Normal 8.5-10.1 [facility] Comment on above: Performed By: #### F ERR, FETIBC, B12FOL, PSAD #### [facility] [address] [place] [address] Dr. Miles Murphy Chloride [Moles/Vol] 99 mmol/L Normal 98-107 [facility] Comment on above: Performed By: #### F ERR, FETIBC, B12FOL, PSAD #### [facility] [address] [place] [address] Dr. Miles Murphy CO2 [Moles/Vol] 32.6 mmol/L Critically high 21.0-32.0 [facility] Comment on above: Performed By: #### F ERR, FETIBC, B12FOL, PSAD #### [facility] [address] [place] [address] Dr. Miles Murpyh Creatinine [Mass/Vol] 0.90 mg/dL Normal 0.70-1.30 [facility] Comment on above: Performed By: #### F ERR, FETIBC, B12FOL, PSAD #### [facility] [address] [place] [address] Dr. Miles Murphy EGFR-AF CZECH >60 Normal >=[address] [facility] Comment on above: Performed By: #### F ERR, FETIBC, B12FOL, PSAD #### [facility] [address] [place] [address] Dr. Miles Murphy EGFR-NON AF CZECH >60 Normal >=60 [facility] Comment on above: Performed By: #### F ERR, FETIBC, B12FOL, PSAD #### [facility] [address] [place], [place] [id number] Dr. Miles Murphy Globulin (S) [Mass/Vol] 3.7 g/dL Normal [facility] Comment on above: Performed By: #### F ERR, FETIBC, B12FOL, PSAD #### [facility] [address] [place] [address] Dr. Miles Murphy Glucose [Mass/Vol] 134 mg/dL Critically high 74-[address] [facility] Comment on above: Performed By: #### F ERR, FETIBC, B12FOL, PSAD #### [facility] [address] [place] [address] Dr. Miles Murphy Potassium [Moles/Vol] 4.1 mmol/L Normal 3.5-5.1 [facility] Comment on above: Performed By: #### F ERR, FETIBC, B12FOL, PSAD #### [facility] [address] [place] [address] Dr. Miles Murphy Protein [Mass/Vol] 7.2 g/dL Normal 6.4-8.2 [facility] Comment on above: Performed By: #### F ERR, FETIBC, B12FOL, PSAD #### [facility] [address] [place] [address] Dr. Miles Murphy Sodium [Moles/Vol] 137 mmol/L Normal 136-145 [facility] Comment on above: Performed By: #### F ERR, FETIBC, B12FOL, PSAD #### [facility] [address] [place] [address] Dr. Miles Murphy Urea nitrogen [Mass/Vol] 18.0 mg/dL Normal 7.0-18.0 [facility] Comment on above: Performed By: #### F ERR, FETIBC, B12FOL, PSAD #### [facility] [address] [place] [address] Dr. Miles Murphy Urea nitrogen/Creatinine [Mass ratio] 20.0 mg/mg Normal [facility] Comment on above: Performed By: #### F ERR, FETIBC, B12FOL, PSAD #### [facility] [address] [address] [address] Miles Murphy TSHon 08-21-2022 TSH 1.335 uIU/mL Normal 0.358-3.740 [facility] Comment on above: Performed By: #### F ERR, FETIBC, B12FOL, PSAD #### [facility] [address] [address] [address] Miles Murphy UA RANDOMon 08-21-2022 Bilirubin Ql (U) Negative Normal NEGATIVE [facility] Comment on above: Performed By: #### F ERR, FETIBC, B12FOL, PSAD #### [facility] [address] [address] [address] Miles Murphy Clarity (U) CLEAR Normal CLEAR [facility] Comment on above: Performed By: #### F ERR, FETIBC, B12FOL, PSAD #### [facility] [address] [place] [address] Dr. Miles Murphy Color (U) YELLOW Normal YELLOW [facility] Comment on above: Performed By: #### F ERR, FETIBC, B12FOL, PSAD #### [facility] [address] [place] [address] Dr. Miles Murphy Glucose Ql (U) Negative Normal NEGATIVE [facility] Comment on above: Performed By: #### F ERR, FETIBC, B12FOL, PSAD #### [facility] [address] [address] [address] Miles Murphy Hemoglobin Ql (U) SMALL Abnormal NEGATIVE [facility] Comment on above: Performed By: #### F ERR, FETIBC, B12FOL, PSAD #### [facility] [address] [address] [address] Miles Murphy Ketones Ql (U) Negative Normal NEGATIVE [facility] Comment on above: Performed By: #### F ERR, FETIBC, B12FOL, PSAD #### [facility] [address] [place] [address] Dr. Miles Murphy LEUKOCYTES Negative Normal NEGATIVE [facility] Comment on above: Performed By: #### F ERR, FETIBC, B12FOL, PSAD #### [facility] [address] [place] [address] Dr. Miles Murphy Nitrite Ql (U) Negative Normal NEGATIVE [facility] Comment on above: Performed By: #### F ERR, FETIBC, B12FOL, PSAD #### [facility] [address] [place] [address] Dr. Miles Murphy pH (U) 6.5 [pH] Normal 5-9 [facility] Comment on above: Performed By: #### F ERR, FETIBC, B12FOL, PSAD #### [facility] [address] [place] [address] Dr. Miles Murphy SPEC GRAVITY 1.020 Normal 1.005-<=1.025 [facility] Comment on above: Performed By: #### F ERR, FETIBC, B12FOL, PSAD #### [facility] [address] [place] [address] Dr. Miles Murphy UA PROTEIN 100 mg/dl Abnormal NEGATIVE/ TRACE [facility] Comment on above: Performed By: #### F ERR, FETIBC, B12FOL, PSAD #### [facility] [address] [place] [address] Dr. Miles Murphy Urobilinogen Qn (U) 0.2 {Christopher'U}/dL Normal 0.2 - 1. 0 [facility] Comment on above: Performed By: #### F ERR, FETIBC, B12FOL, PSAD #### [facility] [address] [place] [address] Dr. Miles Murphy VIT B12 AND FOLATEon 022 Cobalamin (Vitamin B12) [Mass/Vol] 483.0 pg/mL Normal 193.0-986.0 [facility] Comment on above: Performed By: #### F ERR, FETIBC, B12FOL, PSAD #### [facility] [address] [place] [address] Dr. Miles Murphy FOLATE 17.50 ng/mL Normal 8.60-58.90 [facility] Comment on above: Performed By: #### F ERR, FETIBC, B12FOL, PSAD #### [facility] [address] [place] [address] Dr. Miles Murphy CBC AUTO DIFFon 04-15-2022 BASO # 0.1 103/ul Normal 0.0-0.1 [facility] Comment on above: Performed By: #### F ERR, FETIBC, B12FOL, PSAD #### [facility] [address] [place] [address] Dr. Miles Murphy Basophils/100 WBC (Bld) 0.5 % Normal 0.2-2.0 [facility] Comment on above: Performed By: #### F ERR, FETIBC, B12FOL, PSAD #### [facility] [address] [place] [address] Dr. Miles Murphy EO # 0.2 103/ul Normal 0.0-0.7 [facility] Comment on above: Performed By: #### F ERR, FETIBC, B12FOL, PSAD #### [facility] [address] [place] [address] Dr. Miles Murphy Eosinophils/100 WBC (Bld) 1.4 % Normal 0.9-7.0 [facility] Comment on above: Performed By: #### F ERR, FETIBC, B12FOL, PSAD #### [facility] [address] [place] [address] Dr. Miles Murphy Erythrocyte distribution width (RBC) [Ratio] 13.4 % Normal 11.0-15.0 [facility] Comment on above: Performed By: #### F ERR, FETIBC, B12FOL, PSAD #### [facility] [address] [place] [address] Dr. Miles Murphy Hematocrit (Bld) [Volume fraction] 39.5 % Critically low 42.0-54.0 [facility] Comment on above: Performed By: #### F ERR, FETIBC, B12FOL, PSAD #### [facility] [address] [place] [address] Dr. Miles Murphy Hemoglobin (Bld) [Mass/Vol] 13.0 g/dL Critically low 14.0-18.0 [facility] Comment on above: Performed By: #### F ERR, FETIBC, B12FOL, PSAD #### [facility] [address] [address] [address] Miles Murphy IG # 0.10 10e3/ul Critically high 0.00-0.03 [facility] Comment on above: Performed By: #### F ERR, FETIBC, B12FOL, PSAD #### [facility] [address] [place] [address] Dr. Miles Murphy IG % 0.8 % Critically high 0.0-0.5 [facility] Comment on above: Performed By: #### F ERR, FETIBC, B12FOL, PSAD #### [facility] [address] [place] [address] Dr. Miles Murphy LYMPH # 2.0 103/ul Normal 1.2-3.8 [facility] Comment on above: Performed By: #### F ERR, FETIBC, B12FOL, PSAD #### [facility] [address] [place] [address] Dr. Miles Murphy Lymphocytes/100 WBC (Bld) 15.9 % Critically low 20.5-60.0 [facility] Comment on above: Performed By: #### F ERR, FETIBC, B12FOL, PSAD #### [facility] [address] [place] [address] Dr. Miles Murphy MANUAL DIFF REQ NO Normal [facility] Comment on above: Performed By: #### F ERR, FETIBC, B12FOL, PSAD #### [facility] [address] [place] [address] Dr. Miles Murphy MCH (RBC) [Entitic mass] 31.1 pg Normal 25.9-34.0 [facility] Comment on above: Performed By: #### F ERR, FETIBC, B12FOL, PSAD #### [facility] [address] [place] [address] Dr. Miles Murphy MCHC (RBC) [Mass/Vol] 32.9 g/dL Normal 29.9-35.2 [facility] Comment on above: Performed By: #### F ERR, FETIBC, B12FOL, PSAD #### [facility] [address] [place] [address] Dr. Miles Murphy MCV (RBC) [Entitic vol] 94.5 fL Critically high 80.0-94.0 [facility] Comment on above: Performed By: #### F ERR, FETIBC, B12FOL, PSAD #### [facility] [address] [place] [address] Dr. Miles Murphy MONO # 1.1 103/ul Critically high 0.3-0.8 [facility] Comment on above: Performed By: #### F ERR, FETIBC, B12FOL, PSAD #### [facility] [address] [place] [address] Dr. Miles Murphy Monocytes/100 WBC (Bld) 8.7 % Normal 1.7-12.0 [facility] Comment on above: Performed By: #### F ERR, FETIBC, B12FOL, PSAD #### [facility] [address] [place] [address] Dr. Miles Murphy NEUT # 9.0 103/ul Critically high 1.4-6.5 [facility] Comment on above: Performed By: #### F ERR, FETIBC, B12FOL, PSAD #### [facility] [address] [place] [address] Dr. Miles Murphy Neutrophils/100 WBC (Bld) 72.7 % Normal 43.0-75.0 [facility] Comment on above: Performed By: #### F ERR, FETIBC, B12FOL, PSAD #### [facility] [address] [place] [address] Dr. Miles Murphy Platelet mean volume (Bld) [Entitic vol] 9.6 fL Normal 9.5-13.5 [facility] Comment on above: Performed By: #### F ERR, FETIBC, B12FOL, PSAD #### [facility] [address] [address] [address] Miles Murphy PLT 267 103/ul Normal 150-450 [facility] Comment on above: Performed By: #### F ERR, FETIBC, B12FOL, PSAD #### [facility] [address] [address] [address] Miles Murphy RBC 4.18 106/ul Critically low 4.70-6.10 [facility] Comment on above: Performed By: #### F ERR, FETIBC, B12FOL, PSAD #### [facility] [address] [address] [address] Miles Murphy WBC 12.4 103/ul Critically high 4.0-11.[address] [facility] Comment on above: Performed By: #### F ERR, FETIBC, B12FOL, PSAD #### [facility] [address] [address] [address] Miles Murphy FERRITINon 04-15-2022 Ferritin [Mass/Vol] 175.0 ng/mL Normal 26.0-388.0 [facility] Comment on above: Performed By: #### F ERR, FETIBC, B12FOL, PSAD #### [facility] [address] [address] [address] Miles Murphy GLYCOHEMOGLOBIN A1Con 2021 ADA RECOMMENDATION SEE BELOW Normal [facility] Comment on above: Result Comment: ADA RECOMMENDED LIMIT 4.0 - 6.0 ADA THERAPEUTIC TARGET < 7.0 ACTION SUGGESTED > 7.0 Performed By: #### F ERR, FETIBC, B12FOL, PSAD #### [facility] [address] [address] [address] Miles Murphy Glucose [Mass/Vol] 117 mg/dL Normal [facility] Comment on above: Performed By: #### F ERR, FETIBC, B12FOL, PSAD #### [facility] [address] [address] [address] Miles Murphy HbA1c (Bld) [Mass fraction] 5.7 % Normal 4.5-6.2 [facility] Comment on above: Performed By: #### F ERR, FETIBC, B12FOL, PSAD #### [facility] [address] [address] [address] Miles Murphy IRON AND TIBCon 04-15-2022 % SATURATION 24.8 % Normal [facility] Comment on above: Performed By: #### F ERR, FETIBC, B12FOL, PSAD #### [facility] [address] [address] [address] Miles Murphy Iron [Mass/Vol] 78.0 ug/dL Normal 65.0-175.0 [facility] Comment on above: Performed By: #### F ERR, FETIBC, B12FOL, PSAD #### [facility] [address] [address] [address] Miles Murphy TIBC DIRECT 315.0 ug/dL Normal 250.0-450.0 [facility] Comment on above: Performed By: #### F ERR, FETIBC, B12FOL, PSAD #### [facility] [address] [place] [address] Dr. Miles Murphy LIPID PROFILEon 04-15-2022 CHOL-HDL RATIO NORM SEE BELOW Normal [facility] Comment on above: Result Comment: 3.3 - 4.4 LOW RISK 4.4 - 7.1 AVERAGE RISK 7.1 - 11.0 MODERATE RISK >11.0 HIGH RISK Performed By: #### C MP, LIPID #### [facility] [address] [place] [address] Dr. Miles Murphy Cholesterol [Mass/Vol] 161 mg/dL Normal <=200 [facility] Comment on above: Performed By: #### C MP, LIPID #### [facility] [address] [address] [address] Miles Murphy Cholesterol in HDL [Mass/Vol] 37 mg/dL Critically low 40-60 [facility] Comment on above: Performed By: #### C MP, LIPID #### [facility] [address] [address] [address] Miles Murphy Cholesterol in LDL [Mass/Vol] 94.0 mg/dL Normal [facility] Comment on above: Performed By: #### C MP, LIPID #### [facility] [address] [address] [address] Miles Murphy Cholesterol.total/C holesterol in HDL [Mass ratio] 4.4 {ratio} Normal [facility] Comment on above: Performed By: #### C MP, LIPID #### [facility] [address] [address] [address] Miles Murphy HDL NORMAL > or = 60 mg/dl - LO W CARDIOVASCULAR RISK <40 mg/dl - HIGH CARDIOVASCULAR RISK Normal [facility] Comment on above: Performed By: #### C MP, LIPID #### [facility] [address] [address] [address] Miles Murphy LDL CALC NORMAL SEE BELOW Normal [facility] Comment on above: Result Comment: <100 mg/dl OPTIMAL 100 - 129 mg/dl NEAR OR ABOVE OPTIMAL 130 - 159 mg/dl BORDERLINE HIGH 160 - 189 mg/dl HIGH >190 mg/dl VERY HIGH Performed By: #### C MP, LIPID #### [facility] [address] [address] [address] Miles Murphy Triglyceride [Mass/Vol] 150 mg/dL Normal <=150 [facility] Comment on above: Performed By: #### C MP, LIPID #### [facility] [address] [address] [address] Miels Murphy VLDL CALC 30.0 mg/dL Normal [facility] Comment on above: Performed By: #### C MP, LIPID #### [facility] [address] [address] [address] Miles Murphy MICROALB CREAT RATIO RANDOMo n 04-15-2022 mALB 25.9 mg/L Normal <=30.0 [facility] Comment on above: Performed By: #### F ERR, FETIBC, B12FOL, PSAD #### [facility] [address] [address] [address] Miles Murphy MALB CR RATIO 358.4 mg/g Critically high 0.0-29.9 [facility] Comment on above: Performed By: #### F ERR, FETIBC, B12FOL, PSAD #### [facility] [address] [place] [address] Dr. Miles Murphy MALB CR RATIO RANGE SEE BELOW Normal [facility] Comment on above: Result Comment: NO M ICROALBUMINURIA 0-29 MG/G CLINICAL MICROALBUMINURIA 30-300 MG/G MACROALBUMINURIA >300 MG/G Performed By: #### F ERR, FETIBC, B12FOL, PSAD #### [facility] [address] [address] [address] Miles Murphy URINE CREAT 72.27 mg/dL Normal 20.00-300.00 [facility] Comment on above: Performed By: #### F ERR, FETIBC, B12FOL, PSAD #### [facility] [address] [place] [address] Dr. Miles Murphy PROF 14(COMP METB)on 022 Albumin [Mass/Vol] 3.3 g/dL Critically low 3.4-5.0 [facility] Comment on above: Performed By: #### C MP, LIPID #### [facility] [address] [place] [address] Dr. Miles Murphy Albumin/Globulin [Mass ratio] 0.9 {ratio} [facility] Comment on above: Performed By: #### C MP, LIPID #### [facility] [address] [place] [address] Dr. Miles Murphy ALP [Catalytic activity/Vol] 91 U/L Normal 46-116 [facility] Comment on above: Performed By: #### C MP, LIPID #### [facility] [address] [place] [address] Dr. Miles Murphy ALT [Catalytic activity/Vol] 14 U/L Critically low 16-63 [facility] Comment on above: Performed By: #### C MP, LIPID #### [facility] [address] [place] [address] Dr. Miles Murphy Anion gap [Moles/Vol] 11.3 mmol/L Normal [facility] Comment on above: Performed By: #### C MP, LIPID #### [facility] [address] [address] [address] Miles Murphy AST [Catalytic activity/Vol] 14 U/L Critically low 15-37 [facility] Comment on above: Performed By: #### C MP, LIPID #### [facility] [address] [address] [address] Miles Murphy Bilirubin [Mass/Vol] 0.4 mg/dL Normal 0.2-1.0 [facility] Comment on above: Performed By: #### C MP, LIPID #### [facility] [address] [address] [address] Miles Murphy Calcium [Mass/Vol] 9.1 mg/dL Normal 8.5-10.1 [facility] Comment on above: Performed By: #### C MP, LIPID #### [facility] [address] [place] [address] Dr. Miles Murphy Chloride [Moles/Vol] 98 mmol/L Normal 98-107 [facility] Comment on above: Performed By: #### C MP, LIPID #### [facility] [address] [address] [address] Miles Murphy CO2 [Moles/Vol] 29.7 mmol/L Normal 21.0-32.0 [facility] Comment on above: Performed By: #### C MP, LIPID #### [facility] [address] [place] [address] Dr. Miles Murphy Creatinine [Mass/Vol] 0.89 mg/dL Normal 0.70-1.30 [facility] Comment on above: Performed By: #### C MP, LIPID #### [facility] [address] [place] [address] Dr. Miles Murphy EGFR-AF CZECH >60 Normal >=[address] [facility] Comment on above: Performed By: #### C MP, LIPID #### [facility] [address] [address] [address] Miles Murphy EGFR-NON AF CZECH >60 Normal >=60 [facility] Comment on above: Performed By: #### C MP, LIPID #### [facility] [address] [address] [address] Miles Murphy Globulin (S) [Mass/Vol] 3.7 g/dL Normal [facility] Comment on above: Performed By: #### C MP, LIPID #### [facility] [address] [address] [address] Miles Murphy Glucose [Mass/Vol] 142 mg/dL Critically high 74-[address] [facility] Comment on above: Performed By: #### C MP, LIPID #### [facility] [address] [place] [address] Dr. Miles Murphy Potassium [Moles/Vol] 4.0 mmol/L Normal 3.5-5.1 [facility] Comment on above: Performed By: #### C MP, LIPID #### [facility] [address] [place] [address] Dr. Miles Murphy Protein [Mass/Vol] 7.0 g/dL Normal 6.4-8.2 [facility] Comment on above: Performed By: #### C MP, LIPID #### [facility] [address] [address] [address] Miles Murphy Sodium [Moles/Vol] 135 mmol/L Critically low 136-145 [facility] Comment on above: Performed By: #### C MP, LIPID #### [facility] [address] [place] [address] Dr. Miles Murphy Urea nitrogen [Mass/Vol] 14.0 mg/dL Normal 7.0-18.0 [facility] Comment on above: Performed By: #### C MP, LIPID #### [facility] [address] [address] [address] Miles Murphy Urea nitrogen/Creatinine [Mass ratio] 15.7 mg/mg Normal [facility] Comment on above: Performed By: #### C MP, LIPID #### [facility] [address] [place] [address] Dr. Miles Murphy VIT B12 AND FOLATEon 022 Cobalamin (Vitamin B12) [Mass/Vol] 447.0 pg/mL Normal 193.0-986.0 [facility] Comment on above: Performed By: #### F ERR, FETIBC, B12FOL, PSAD #### [facility] [address] [place] [address] Dr. Miles Murphy FOLATE >20.00 Normal 8.60-58.90 [facility] Comment on above: Performed By: #### F ERR, FETIBC, B12FOL, PSAD #### [facility] [address] [place] [address] Dr. Miles Murphy CBC AUTO DIFFon 02-25-2022 BASO # 0.1 103/ul Normal 0.0-0.1 [facility] Comment on above: Performed By: #### P OCGLUC #### [facility] [address] [place] [address] Dr. Miles Murphy Basophils/100 WBC (Bld) 0.3 % Normal 0.2-2.0 [facility] Comment on above: Performed By: #### P OCGLUC #### [facility] [address] [place] [address] Dr. Miles Murphy EO # 0.1 103/ul Normal 0.0-0.7 [facility] Comment on above: Performed By: #### P OCGLUC #### [facility] [address] [place] [address] Dr. Miles Murphy Eosinophils/100 WBC (Bld) 0.7 % Critically low 0.9-7.0 [facility] Comment on above: Performed By: #### P OCGLUC #### [facility] [address] [place] [address] Dr. Miles Murphy Erythrocyte distribution width (RBC) [Ratio] 13.4 % Normal 11.0-15.0 [facility] Comment on above: Performed By: #### P OCGLUC #### [facility] [address] [place] [address] Dr. Miles Murphy Hematocrit (Bld) [Volume fraction] 28.1 % Critically low 42.0-54.0 [facility] Comment on above: Performed By: #### P OCGLUC #### [facility] [address] [place] [address] Dr. Miles Murphy Hemoglobin (Bld) [Mass/Vol] 9.1 g/dL Critically low 14.0-18.0 [facility] Comment on above: Performed By: #### P OCGLUC #### [facility] [address] [address] [address] Miles Murphy IG # 0.40 10e3/ul Critically high 0.00-0.03 [facility] Comment on above: Performed By: #### P OCGLUC #### [facility] [address] [address] [address] Miles Murphy IG % 2.3 % Critically high 0.0-0.5 [facility] Comment on above: Performed By: #### P OCGLUC #### [facility] [address] [address] [address] Miles Murphy LYMPH # 2.1 103/ul Normal 1.2-3.8 [facility] Comment on above: Performed By: #### P OCGLUC #### [facility] [address] [address] [address] Miles Murphy Lymphocytes/100 WBC (Bld) 11.7 % Critically low 20.5-60.0 [facility] Comment on above: Performed By: #### P OCGLUC #### [facility] [address] [address] [address] Miles Murphy MANUAL DIFF REQ NO Normal [facility] Comment on above: Performed By: #### P OCGLUC #### [facility] [address] [address] [address] Miles Murphy MCH (RBC) [Entitic mass] 32.3 pg Normal 25.9-34.0 [facility] Comment on above: Performed By: #### P OCGLUC #### [facility] [address] [address] [address] Miles Murphy MCHC (RBC) [Mass/Vol] 32.4 g/dL Normal 29.9-35.2 [facility] Comment on above: Performed By: #### P OCGLUC #### [facility] [address] [address] [address] Miles Murphy MCV (RBC) [Entitic vol] 99.6 fL Critically high 80.0-94.0 [facility] Comment on above: Performed By: #### P OCGLUC #### [facility] [address] [address] [address] Miles Murphy MONO # 2.4 103/ul Critically high 0.3-0.8 [facility] Comment on above: Performed By: #### P OCGLUC #### [facility] [address] [address] [address] Miles Murphy Monocytes/100 WBC (Bld) 13.6 % Critically high 1.7-12.0 [facility] Comment on above: Performed By: #### P OCGLUC #### [facility] [address] [address] [address] Miles Murphy NEUT # 12.5 103/ul Critically high 1.4-6.5 [facility] Comment on above: Performed By: #### P OCGLUC #### [facility] [address] [address] [address] Miles Murphy Neutrophils/100 WBC (Bld) 71.4 % Normal 43.0-75.0 [facility] Comment on above: Performed By: #### P OCGLUC #### [facility] [address] [address] [address] Miles Murphy Platelet mean volume (Bld) [Entitic vol] 10.1 fL Normal 9.5-13.5 [facility] Comment on above: Performed By: #### P OCGLUC #### [facility] [address] [address] [address] Miles Murphy PLT 297 103/ul Normal 150-450 [facility] Comment on above: Performed By: #### P OCGLUC #### [facility] [address] [address] [address] Miles Murphy RBC 2.82 106/ul Critically low 4.70-6.10 [facility] Comment on above: Performed By: #### P OCGLUC #### [facility] [address] [address] [address] Miles Murphy WBC 17.6 103/ul Critically high 4.0-11.0 [facility] Comment on above: Performed By: #### P OCGLUC #### [facility] [address] [address] [address] Miles Murphy POINT OF CARE GLUCOSEon 05 Glucose [Mass/Vol] 144 mg/dL Critically high 74-106 [facility] Comment on above: Performed By: #### C MP, LIPID #### [facility] [address] [address] [address] Miles Murphy Glucose [Mass/Vol] 172 mg/dL Critically high -106 [facility] Comment on above: Performed By: #### F ERR, FETIBC, B12FOL, PSAD #### [facility] [address] [address] [address] Miles Murphy Glucose [Mass/Vol] 190 mg/dL Critically high -106 [facility] Comment on above: Performed By: #### F ERR, FETIBC, B12FOL, PSAD #### [facility] [address] [address] [address] Miles Murphy PROF CHEM 8 (BAS METB)on Anion gap [Moles/Vol] 12.6 mmol/L Normal [facility] Comment on above: Performed By: #### F ERR, FETIBC, B12FOL, PSAD #### [facility] [address] [address] [address] Miles Murphy Calcium [Mass/Vol] 8.2 mg/dL Critically low 8.5-10.1 [facility] Comment on above: Performed By: #### F ERR, FETIBC, B12FOL, PSAD #### [facility] [address] [place] [address] Dr. Miles Murphy Chloride [Moles/Vol] 97 mmol/L Critically low 98-107 [facility] Comment on above: Performed By: #### F ERR, FETIBC, B12FOL, PSAD #### [facility] [address] [place] [address] Dr. Miles Murphy CO2 [Moles/Vol] 28.1 mmol/L Normal 21.0-32.0 [facility] Comment on above: Performed By: #### F ERR, FETIBC, B12FOL, PSAD #### [facility] [address] [place] [address] Dr. Miles Murphy Creatinine [Mass/Vol] 0.78 mg/dL Normal 0.70-1.30 [facility] Comment on above: Performed By: #### F ERR, FETIBC, B12FOL, PSAD #### [facility] [address] [place] [address] Dr. Miles Murphy EGFR-AF CZECH >60 Normal >=60 [facility] Comment on above: Performed By: #### F ERR, FETIBC, B12FOL, PSAD #### [facility] [address] [place] [address] Dr. Miles Murphy EGFR-NON AF CZECH >60 Normal >=60 [facility] Comment on above: Performed By: #### F ERR, FETIBC, B12FOL, PSAD #### [facility] [address] [place] [address] Dr. Miles Murphy Glucose [Mass/Vol] 147 mg/dL Critically high 74-[address] [facility] Comment on above: Performed By: #### F ERR, FETIBC, B12FOL, PSAD #### [facility] [address] [place] [address] Dr. Miles Murphy Potassium [Moles/Vol] 3.7 mmol/L Normal 3.5-5.1 [facility] Comment on above: Performed By: #### F ERR, FETIBC, B12FOL, PSAD #### [facility] [address] [place] [address] Dr. Miles Murphy Sodium [Moles/Vol] 134 mmol/L Critically low 136-145 [facility] Comment on above: Performed By: #### F ERR, FETIBC, B12FOL, PSAD #### [facility] [address] [place] [address] Dr. Miles Murphy Urea nitrogen [Mass/Vol] 20.0 mg/dL Critically high 7.0-18.0 [facility] Comment on above: Performed By: #### F ERR, FETIBC, B12FOL, PSAD #### [facility] [address] [place] [address] Dr. Miles Murphy Urea nitrogen/Creatinine [Mass ratio] 25.6 mg/mg Normal [facility] Comment on above: Performed By: #### F ERR, FETIBC, B12FOL, PSAD #### [facility] [address] [address] [address] Miles Murphy PROTIMEon 02-25-2022 INR Coag (PPP) [Relative time] 1.22 {INR} Normal [facility] Comment on above: Performed By: #### F ERR, FETIBC, B12FOL, PSAD #### [facility] [address] [place] [address] Dr. Miles Murphy INR GUIDELINES SEE BELOW Normal [facility] Comment on above: Result Comment: COLEEN RED INR: 2.0 - 3.0 CONDITIONS NOT LISTED BELOW 2.5 - 3.5 FOR PROSTHETIC HEART VALVE REPLACEMENT 2.5 - 3.5 RECURRENT THROMBOSIS Performed By: #### F ERR, FETIBC, B12FOL, PSAD #### [facility] [address] [place] [address] Dr. Miles Murphy PT Coag (PPP) [Time] 13.0 s Critically high 9.0-11.6 [facility] Comment on above: Performed By: #### F ERR, FETIBC, B12FOL, PSAD #### [facility] [address] [place] [address] Dr. Miles Murphy CBC AUTO DIFFon 02-24-2022 BASO # 0.1 103/ul Normal 0.0-0.1 [facility] Comment on above: Performed By: #### F ERR, FETIBC, B12FOL, PSAD #### [facility] [address] [place] [address] Dr. Miles Murphy Basophils/100 WBC (Bld) 0.4 % Normal 0.2-2.0 [facility] Comment on above: Performed By: #### F ERR, FETIBC, B12FOL, PSAD #### [facility] [address] [place] [address] Dr. Miles Murphy EO # 0.2 103/ul Normal 0.0-0.7 [facility] Comment on above: Performed By: #### F ERR, FETIBC, B12FOL, PSAD #### [facility] [address] [place] [address] Dr. Miles Murphy Eosinophils/100 WBC (Bld) 0.8 % Critically low 0.9-7.0 [facility] Comment on above: Performed By: #### F ERR, FETIBC, B12FOL, PSAD #### [facility] [address] [place] [address] Dr. Miles Murphy Erythrocyte distribution width (RBC) [Ratio] 13.4 % Normal 11.0-15.0 [facility] Comment on above: Performed By: #### F ERR, FETIBC, B12FOL, PSAD #### [facility] [address] [place] [address] Dr. Miles Murphy Hematocrit (Bld) [Volume fraction] 29.4 % Critically low 42.0-54.0 [facility] Comment on above: Performed By: #### F ERR, FETIBC, B12FOL, PSAD #### [facility] [address] [place] [address] Dr. Miles Murphy Hemoglobin (Bld) [Mass/Vol] 9.4 g/dL Critically low 14.0-18.0 [facility] Comment on above: Performed By: #### F ERR, FETIBC, B12FOL, PSAD #### [facility] [address] [place] [address] Dr. Miles Murphy IG # 0.48 10e3/ul Critically high 0.00-0.03 [facility] Comment on above: Performed By: #### F ERR, FETIBC, B12FOL, PSAD #### [facility] [address] [place] [address] Dr. Miles Murphy IG % 2.6 % Critically high 0.0-0.5 [facility] Comment on above: Performed By: #### F ERR, FETIBC, B12FOL, PSAD #### [facility] [address] [place] [address] Dr. Miles Murphy LYMPH # 1.6 103/ul Normal 1.2-3.8 [facility] Comment on above: Performed By: #### F ERR, FETIBC, B12FOL, PSAD #### [facility] [address] [place] [address] Dr. Miles Murphy Lymphocytes/100 WBC (Bld) 8.7 % Critically low 20.5-60.0 [facility] Comment on above: Performed By: #### F ERR, FETIBC, B12FOL, PSAD #### [facility] [address] [place] [address] Dr. Miles Murphy MANUAL DIFF REQ NO Normal [facility] Comment on above: Performed By: #### F ERR, FETIBC, B12FOL, PSAD #### [facility] [address] [place] [address] Dr. Miles Murphy MCH (RBC) [Entitic mass] 32.2 pg Normal 25.9-34.0 [facility] Comment on above: Performed By: #### F ERR, FETIBC, B12FOL, PSAD #### [facility] [address] [place] [address] Dr. Miles Murphy MCHC (RBC) [Mass/Vol] 32.0 g/dL Normal 29.9-35.2 [facility] Comment on above: Performed By: #### F ERR, FETIBC, B12FOL, PSAD #### [facility] [address] [place] [address] Dr. Miles Murphy MCV (RBC) [Entitic vol] 100.7 fL Critically high 80.0-94.0 [facility] Comment on above: Performed By: #### F ERR, FETIBC, B12FOL, PSAD #### [facility] [address] [place] [address] Dr. Miles Murphy MONO # 2.4 103/ul Critically high 0.3-0.8 [facility] Comment on above: Performed By: #### F ERR, FETIBC, B12FOL, PSAD #### [facility] [address] [place] [address] Dr. Miles Murphy Monocytes/100 WBC (Bld) 12.8 % Critically high 1.7-12.0 [facility] Comment on above: Performed By: #### F ERR, FETIBC, B12FOL, PSAD #### [facility] [address] [place] [address] Dr. Miles Murphy NEUT # 13.8 103/ul Critically high 1.4-6.[address] [facility] Comment on above: Performed By: #### F ERR, FETIBC, B12FOL, PSAD #### [facility] [address] [place] [address] Dr. Miles Murphy Neutrophils/100 WBC (Bld) 74.7 % Normal 43.0-75.0 [facility] Comment on above: Performed By: #### F ERR, FETIBC, B12FOL, PSAD #### [facility] [address] [place] [address] Dr. Miles Murphy Platelet mean volume (Bld) [Entitic vol] 10.3 fL Normal 9.5-13.5 [facility] Comment on above: Performed By: #### F ERR, FETIBC, B12FOL, PSAD #### [facility] [address] [place] [address] Dr. Miles Murphy PLT 278 103/ul Normal 150-450 [facility] Comment on above: Performed By: #### F ERR, FETIBC, B12FOL, PSAD #### [facility] [address] [place] [address] Dr. Miles Murphy RBC 2.92 106/ul Critically low 4.70-6.10 [facility] Comment on above: Performed By: #### F ERR, FETIBC, B12FOL, PSAD #### [facility] [address] [address] [address] Miles Murphy WBC 18.4 103/ul Critically high 4.0-11.0 [facility] Comment on above: Performed By: #### F ERR, FETIBC, B12FOL, PSAD #### [facility] [address] [address] [address] Miles Murphy POINT OF CARE GLUCOSEon 02-04 Glucose [Mass/Vol] 226 mg/dL Critically high 74-106 [facility] Comment on above: Performed By: #### F ERR, FETIBC, B12FOL, PSAD #### [facility] [address] [address] [address] Miles Murphy Glucose [Mass/Vol] 95 mg/dL Normal 74-106 [facility] Comment on above: Performed By: #### P OCGLUC #### [facility] [address] [place] [address] Dr. Miles Murphy Glucose [Mass/Vol] 138 mg/dL Critically high -106 [facility] Comment on above: Performed By: #### F ERR, FETIBC, B12FOL, PSAD #### [facility] [address] [place] [address] Dr. Miles Murphy Glucose [Mass/Vol] 143 mg/dL Critically high -106 [facility] Comment on above: Performed By: #### F ERR, FETIBC, B12FOL, PSAD #### [facility] [address] [place] [address] Dr. Miles Murphy PROF CHEM 8 (BAS METB)on Anion gap [Moles/Vol] 10.3 mmol/L Normal [facility] Comment on above: Performed By: #### F ERR, FETIBC, B12FOL, PSAD #### [facility] [address] [place] [address] Dr. Miles Murphy Calcium [Mass/Vol] 8.5 mg/dL Normal 8.5-10.1 [facility] Comment on above: Performed By: #### F ERR, FETIBC, B12FOL, PSAD #### [facility] [address] [address] [address] Miles Murphy Chloride [Moles/Vol] 99 mmol/L Normal 98-107 [facility] Comment on above: Performed By: #### F ERR, FETIBC, B12FOL, PSAD #### [facility] [address] [place] [address] Dr. Miles Murphy CO2 [Moles/Vol] 29.5 mmol/L Normal 21.0-32.[address] [facility] Comment on above: Performed By: #### F ERR, FETIBC, B12FOL, PSAD #### [facility] [address] [address] [address] Miles Murphy Creatinine [Mass/Vol] 0.89 mg/dL Normal 0.70-1.30 [facility] Comment on above: Performed By: #### F ERR, FETIBC, B12FOL, PSAD #### [facility] [address] [place] [address] Dr. Miles Murphy EGFR-AF CZECH >60 Normal >=60 [facility] Comment on above: Performed By: #### F ERR, FETIBC, B12FOL, PSAD #### [facility] [address] [place] [address] Dr. Miles Murphy EGFR-NON AF CZECH >60 Normal >=60 [facility] Comment on above: Performed By: #### F ERR, FETIBC, B12FOL, PSAD #### [facility] [address] [address] [address] Miles Murphy Glucose [Mass/Vol] 148 mg/dL Critically high 74-[address] [facility] Comment on above: Performed By: #### F ERR, FETIBC, B12FOL, PSAD #### [facility] [address] [place] [address] Dr. Miles Murphy Potassium [Moles/Vol] 3.8 mmol/L Normal 3.5-5.1 [facility] Comment on above: Performed By: #### F ERR, FETIBC, B12FOL, PSAD #### [facility] [address] [address] [address] Miles Murphy Sodium [Moles/Vol] 135 mmol/L Critically low 136-145 [facility] Comment on above: Performed By: #### F ERR, FETIBC, B12FOL, PSAD #### [facility] [address] [address] [address] Miles Murphy Urea nitrogen [Mass/Vol] 21.0 mg/dL Critically high 7.0-18.0 [facility] Comment on above: Performed By: #### F ERR, FETIBC, B12FOL, PSAD #### [facility] [address] [address] [address] Miles Murphy Urea nitrogen/Creatinine [Mass ratio] 23.6 mg/mg Normal [facility] Comment on above: Performed By: #### F ERR, FETIBC, B12FOL, PSAD #### [facility] [address] [place] [address] Dr. Miles Murphy PROTIMEon 02-24-2022 INR Coag (PPP) [Relative time] 1.13 {INR} Normal [facility] Comment on above: Performed By: #### F ERR, FETIBC, B12FOL, PSAD #### [facility] [address] [place] [address] Dr. Miles Murphy INR GUIDELINES SEE BELOW Normal [facility] Comment on above: Result Comment: COLEEN RED INR: 2.0 - 3.0 CONDITIONS NOT LISTED BELOW 2.5 - 3.5 FOR PROSTHETIC HEART VALVE REPLACEMENT 2.5 - 3.5 RECURRENT THROMBOSIS Performed By: #### F ERR, FETIBC, B12FOL, PSAD #### [facility] [address] [place] [address] Dr. Miles Murphy PT Coag (PPP) [Time] 12.1 s Critically high 9.0-11.6 [facility] Comment on above: Performed By: #### F ERR, FETIBC, B12FOL, PSAD #### [facility] [address] [place] [address] Dr. Miles Murphy CBC W MANUAL DIFFon 02-24-20 ATYPICAL LYMPH # Normal [facility] Comment on above: Performed By: #### F ERR, FETIBC, B12FOL, PSAD #### [facility] [address] [place] [address] Dr. Miles Murphy ATYPICAL LYMPH % Normal [facility] Comment on above: Performed By: #### F ERR, FETIBC, B12FOL, PSAD #### [facility] [address] [place] [address] Dr. Miles Murphy BAND # 0.3 103/ul Normal 0.0-0.3 [facility] Comment on above: Performed By: #### F ERR, FETIBC, B12FOL, PSAD #### [facility] [address] [place] [address] Dr. Miles Murphy BAND % 2 % Normal 0-5 [facility] Comment on above: Performed By: #### F ERR, FETIBC, B12FOL, PSAD #### [facility] [address] [place] [address] Dr. Miles Murphy BASOM # 0.00 103/ul Normal 0.00-0.10 [facility] Comment on above: Performed By: #### F ERR, FETIBC, B12FOL, PSAD #### [facility] [address] [place] [address] Dr. Miles Murphy BASOM % 0.0 % Critically low 0.2-2.0 [facility] Comment on above: Performed By: #### F ERR, FETIBC, B12FOL, PSAD #### [facility] [address] [place] [address] Dr. Miles Murphy BLAST # Normal [facility] Comment on above: Performed By: #### F ERR, FETIBC, B12FOL, PSAD #### [facility] [address] [place] [address] Dr. Miles Murphy BLAST % Normal [facility] Comment on above: Performed By: #### F ERR, FETIBC, B12FOL, PSAD #### [facility] [address] [place] [address] Dr. Miles Murphy CORRECTED WBC Normal 4.0-11.0 [facility] Comment on above: Performed By: #### F ERR, FETIBC, B12FOL, PSAD #### [facility] [address] [place] [address] Dr. Miles Murphy EOS # 0.17 103/ul Normal 0.00-0.70 [facility] Comment on above: Performed By: #### F ERR, FETIBC, B12FOL, PSAD #### [facility] [address] [place] [address] Dr. Miles Murphy EOS% 1.0 % Normal 0.9-7.0 [facility] Comment on above: Performed By: #### F ERR, FETIBC, B12FOL, PSAD #### [facility] [address] [place] [address] Dr. Miles Murphy HCT 30.2 % Critically low 42.0-54.0 [facility] Comment on above: Performed By: #### F ERR, FETIBC, B12FOL, PSAD #### [facility] [address] [place] [address] Dr. Miles Murphy HGB 9.8 g/dl Critically low 14.0-18.0 [facility] Comment on above: Performed By: #### F ERR, FETIBC, B12FOL, PSAD #### [facility] [address] [place] [address] Dr. Miles Murphy LYMPHM # 1.83 103/ul Normal 1.20-3.80 [facility] Comment on above: Performed By: #### F ERR, FETIBC, B12FOL, PSAD #### [facility] [address] [place] [address] Dr. Miles Murphy LYMPHM% 11.0 % Critically low 20.5-60.0 [facility] Comment on above: Performed By: #### F ERR, FETIBC, B12FOL, PSAD #### [facility] [address] [place] [address] Dr. Miles Murphy MCH 32.3 pg Normal 25.9-34.0 [facility] Comment on above: Performed By: #### F ERR, FETIBC, B12FOL, PSAD #### [facility] [address] [place] [address] Dr. Miles Murphy MCHC 32.5 g/dl Normal 29.9-35.2 [facility] Comment on above: Performed By: #### F ERR, FETIBC, B12FOL, PSAD #### [facility] [address] [place] [address] Dr. Miles Murphy MCV 99.7 fL Critically high 80.0-94.0 [facility] Comment on above: Performed By: #### F ERR, FETIBC, B12FOL, PSAD #### [facility] [address] [place] [address] Dr. Miles Murphy METAMYELOCYTE # Normal [facility] Comment on above: Performed By: #### F ERR, FETIBC, B12FOL, PSAD #### [facility] [address] [place] [address] Dr. Miles Murphy METAMYELOCYTE % Normal [facility] Comment on above: Performed By: #### F ERR, FETIBC, B12FOL, PSAD #### [facility] [address] [place] [address] Dr. Miles Murphy MONOM# 1.83 103/ul Critically high 0.30-0.[address] [facility] Comment on above: Performed By: #### F ERR, FETIBC, B12FOL, PSAD #### [facility] [address] [place] [address] Dr. Miles Murphy MONOM% 11.0 % Normal 1.7-12.0 [facility] Comment on above: Performed By: #### F ERR, FETIBC, B12FOL, PSAD #### [facility] [address] [place] [address] Dr. Miles Murphy MPV 10.5 fL Normal 9.5-13.5 [facility] Comment on above: Performed By: #### F ERR, FETIBC, B12FOL, PSAD #### [facility] [address] [address] [address] Miles Murphy MYELOCYTE # Normal [facility] Comment on above: Performed By: #### F ERR, FETIBC, B12FOL, PSAD #### [facility] [address] [address] [address] Miles Murphy MYELOCYTE % Normal [facility] Comment on above: Performed By: #### F ERR, FETIBC, B12FOL, PSAD #### [facility] [address] [address] [address] Miles Murphy NRBC Normal [facility] Comment on above: Performed By: #### F ERR, FETIBC, B12FOL, PSAD #### [facility] [address] [address] [address] Miles Murphy PLT 230 103/ul Normal 150-450 [facility] Comment on above: Performed By: #### F ERR, FETIBC, B12FOL, PSAD #### [facility] [address] [place] [address] Dr. Miles Murphy RBC 3.03 106/ul Critically low 4.70-6.10 [facility] Comment on above: Performed By: #### F ERR, FETIBC, B12FOL, PSAD #### [facility] [address] [address] [address] Miles Murphy RDW 13.5 % Normal 11.0-15.0 [facility] Comment on above: Performed By: #### F ERR, FETIBC, B12FOL, PSAD #### [facility] [address] [address] [address] Miles Murphy SEG # 12.45 103/ul Critically high 1.40-6.50 [facility] Comment on above: Performed By: #### F ERR, FETIBC, B12FOL, PSAD #### [facility] [address] [address] [address] Miles Murphy SEG % 75.0 % Normal 43.0-75.0 [facility] Comment on above: Performed By: #### F ERR, FETIBC, B12FOL, PSAD #### [facility] [address] [address] [address] Miles Murphy WBC 16.6 103/ul Critically high 4.0-11.0 [facility] Comment on above: Performed By: #### F ERR, FETIBC, B12FOL, PSAD #### [facility] [address] [address] [address] Miles Murphy IRON AND TIBCon 02-23-2022 % SATURATION 9.1 % Normal [facility] Comment on above: Performed By: #### F ERR, FETIBC, B12FOL, PSAD #### [facility] [address] [address] [address] Miles Murphy Iron [Mass/Vol] 17.0 ug/dL Critically low 65.0-175.0 [facility] Comment on above: Performed By: #### F ERR, FETIBC, B12FOL, PSAD #### [facility] [address] [address] [address] Miles Murphy TIBC DIRECT 186.0 ug/dL Critically low 250.0-450.0 [facility] Comment on above: Performed By: #### F ERR, FETIBC, B12FOL, PSAD #### [facility] [address] [address] [address] Miles Murphy POINT OF CARE GLUCOSEon 02-04 Glucose [Mass/Vol] 158 mg/dL Critically high 74-106 [facility] Comment on above: Performed By: #### F ERR, FETIBC, B12FOL, PSAD #### [facility] [address] [address] [address] Miles Murphy Glucose [Mass/Vol] 209 mg/dL Critically high 74-106 [facility] Comment on above: Performed By: #### F ERR, FETIBC, B12FOL, PSAD #### [facility] [address] [address] [address] Miles Murphy Glucose [Mass/Vol] 195 mg/dL Critically high 74-106 [facility] Comment on above: Performed By: #### F ERR, FETIBC, B12FOL, PSAD #### [facility] [address] [place] [address] Dr. Miles Murphy PROF CHEM 8 (BAS METB)on Anion gap [Moles/Vol] 11.8 mmol/L Normal [facility] Comment on above: Performed By: #### F ERR, FETIBC, B12FOL, PSAD #### [facility] [address] [place] [address] Dr. Miles Murphy Calcium [Mass/Vol] 8.5 mg/dL Normal 8.5-10.1 [facility] Comment on above: Performed By: #### F ERR, FETIBC, B12FOL, PSAD #### [facility] [address] [place] [address] Dr. Miles Mruphy Chloride [Moles/Vol] 98 mmol/L Normal 98-107 [facility] Comment on above: Performed By: #### F ERR, FETIBC, B12FOL, PSAD #### [facility] [address] [place] [address] Dr. Miles Murphy CO2 [Moles/Vol] 28.0 mmol/L Normal 21.0-32.0 [facility] Comment on above: Performed By: #### F ERR, FETIBC, B12FOL, PSAD #### [facility] [address] [place] [address] Dr. Miles Murphy Creatinine [Mass/Vol] 0.84 mg/dL Normal 0.70-1.30 [facility] Comment on above: Performed By: #### F ERR, FETIBC, B12FOL, PSAD #### [facility] [address] [place] [address] Dr. Miles Murphy EGFR-AF CZECH >60 Normal >=60 [facility] Comment on above: Performed By: #### F ERR, FETIBC, B12FOL, PSAD #### [facility] [address] [place] [address] Dr. Miles Murphy EGFR-NON AF CZECH >60 Normal >=60 [facility] Comment on above: Performed By: #### F ERR, FETIBC, B12FOL, PSAD #### [facility] [address] [place] [address] Dr. Miles Murphy Glucose [Mass/Vol] 122 mg/dL Critically high 74-[address] [facility] Comment on above: Performed By: #### F ERR, FETIBC, B12FOL, PSAD #### [facility] [address] [address] [address] Miles Murphy Potassium [Moles/Vol] 3.8 mmol/L Normal 3.5-5.1 [facility] Comment on above: Performed By: #### F ERR, FETIBC, B12FOL, PSAD #### [facility] [address] [place] [address] Dr. Miles Murphy Sodium [Moles/Vol] 134 mmol/L Critically low 136-145 [facility] Comment on above: Performed By: #### F ERR, FETIBC, B12FOL, PSAD #### [facility] [address] [place] [address] Dr. Miles Murphy Urea nitrogen [Mass/Vol] 22.0 mg/dL Critically high 7.0-18.0 [facility] Comment on above: Performed By: #### F ERR, FETIBC, B12FOL, PSAD #### [facility] [address] [place] [address] Dr. Miles Murphy Urea nitrogen/Creatinine [Mass ratio] 26.2 mg/mg Normal [facility] Comment on above: Performed By: #### F ERR, FETIBC, B12FOL, PSAD #### [facility] [address] [place] [address] Dr. Miles Murphy CBC W MANUAL DIFFon 02-23-20 ATYPICAL LYMPH # Normal [facility] Comment on above: Performed By: #### F ERR, FETIBC, B12FOL, PSAD #### [facility] [address] [place] [address] Dr. Miles Murphy ATYPICAL LYMPH % Normal [facility] Comment on above: Performed By: #### F ERR, FETIBC, B12FOL, PSAD #### [facility] [address] [place] [address] Dr. Miles Murphy BAND # 0.3 103/ul Normal 0.0-0.3 [facility] Comment on above: Performed By: #### F ERR, FETIBC, B12FOL, PSAD #### [facility] [address] [place] [address] Dr. Miles Murphy BAND % 2 % Normal 0-5 [facility] Comment on above: Performed By: #### F ERR, FETIBC, B12FOL, PSAD #### [facility] [address] [place], [place] [id number] Dr. Miles Murphy BASOM # 0.00 103/ul Normal 0.00-0.10 [facility] Comment on above: Performed By: #### F ERR, FETIBC, B12FOL, PSAD #### [facility] [address] [place] [address] Dr. Miles Murphy BASOM % 0.0 % Critically low 0.2-2.0 [facility] Comment on above: Performed By: #### F ERR, FETIBC, B12FOL, PSAD #### [facility] [address] [place] [address] Dr. Miles Murphy BLAST # Normal [facility] Comment on above: Performed By: #### F ERR, FETIBC, B12FOL, PSAD #### [facility] [address] [place] [address] Dr. Miles Murphy BLAST % Normal [facility] Comment on above: Performed By: #### F ERR, FETIBC, B12FOL, PSAD #### [facility] [address] [place] [address] Dr. Miles Murphy CORRECTED WBC Normal 4.0-11.0 [facility] Comment on above: Performed By: #### F ERR, FETIBC, B12FOL, PSAD #### [facility] [address] [place] [address] Dr. Miles Murphy EOS # 0.15 103/ul Normal 0.00-0.70 [facility] Comment on above: Performed By: #### F ERR, FETIBC, B12FOL, PSAD #### [facility] [address] [address] [address] Miles Murphy EOS% 1.0 % Normal 0.9-7.0 [facility] Comment on above: Performed By: #### F ERR, FETIBC, B12FOL, PSAD #### [facility] [address] [place] [address] Dr. Miles Murphy HCT 28.9 % Critically low 42.0-54.0 [facility] Comment on above: Performed By: #### F ERR, FETIBC, B12FOL, PSAD #### [facility] [address] [place] [address] Dr. Miles Murphy HGB 9.6 g/dl Critically low 14.0-18.0 [facility] Comment on above: Performed By: #### F ERR, FETIBC, B12FOL, PSAD #### [facility] [address] [place] [address] Dr. Miles Murphy LYMPHM # 1.80 103/ul Normal 1.20-3.80 [facility] Comment on above: Performed By: #### F ERR, FETIBC, B12FOL, PSAD #### [facility] [address] [place] [address] Dr. Miles Murphy LYMPHM% 12.0 % Critically low 20.5-60.0 [facility] Comment on above: Performed By: #### F ERR, FETIBC, B12FOL, PSAD #### [facility] [address] [place] [address] Dr. Miles Murphy MCH 32.9 pg Normal 25.9-34.0 [facility] Comment on above: Performed By: #### F ERR, FETIBC, B12FOL, PSAD #### [facility] [address] [place] [address] Dr. Miles Murphy MCHC 33.2 g/dl Normal 29.9-35.2 [facility] Comment on above: Performed By: #### F ERR, FETIBC, B12FOL, PSAD #### [facility] [address] [place] [address] Dr. Miles Murphy MCV 99.0 fL Critically high 80.0-94.0 [facility] Comment on above: Performed By: #### F ERR, FETIBC, B12FOL, PSAD #### [facility] [address] [place] [address] Dr. Miles Murphy METAMYELOCYTE # Normal [facility] Comment on above: Performed By: #### F ERR, FETIBC, B12FOL, PSAD #### [facility] [address] [place] [address] Dr. Miles Murphy METAMYELOCYTE % Normal [facility] Comment on above: Performed By: #### F ERR, FETIBC, B12FOL, PSAD #### [facility] [address] [place] [address] Dr. Miles Murphy MONOM# 1.95 103/ul Critically high 0.30-0.[address] [facility] Comment on above: Performed By: #### F ERR, FETIBC, B12FOL, PSAD #### [facility] [address] [place] [address] Dr. Miles Murphy MONOM% 13.0 % Critically high 1.7-12.0 [facility] Comment on above: Performed By: #### F ERR, FETIBC, B12FOL, PSAD #### [facility] [address] [place] [address] Dr. Miles Murphy MPV 10.8 fL Normal 9.5-13.5 [facility] Comment on above: Performed By: #### F ERR, FETIBC, B12FOL, PSAD #### [facility] [address] [place] [address] Dr. Miles Murphy MYELOCYTE # Normal [facility] Comment on above: Performed By: #### F ERR, FETIBC, B12FOL, PSAD #### [facility] [address] [address] [address] Miles Murphy MYELOCYTE % Normal [facility] Comment on above: Performed By: #### F ERR, FETIBC, B12FOL, PSAD #### [facility] [address] [address] [address] Miles Murphy NRBC Normal [facility] Comment on above: Performed By: #### F ERR, FETIBC, B12FOL, PSAD #### [facility] [address] [address] [address] Miles Murphy PLT 209 103/ul Normal 150-450 [facility] Comment on above: Performed By: #### F ERR, FETIBC, B12FOL, PSAD #### [facility] [address] [address] [address] Miles Murphy RBC 2.92 106/ul Critically low 4.70-6.10 [facility] Comment on above: Performed By: #### F ERR, FETIBC, B12FOL, PSAD #### [facility] [address] [place] [address] Dr. Miles Murphy RDW 13.7 % Normal 11.0-15.0 [facility] Comment on above: Performed By: #### F ERR, FETIBC, B12FOL, PSAD #### [facility] [address] [place] [address] Dr. Miles Murphy SEG # 10.80 103/ul Critically high 1.40-6.50 [facility] Comment on above: Performed By: #### F ERR, FETIBC, B12FOL, PSAD #### [facility] [address] [address] [address] Miles Murphy SEG % 72.0 % Normal 43.0-75.0 [facility] Comment on above: Performed By: #### F ERR, FETIBC, B12FOL, PSAD #### [facility] [address] [address] [address] Miles Murphy WBC 15.0 103/ul Critically high 4.0-11.0 [facility] Comment on above: Performed By: #### F ERR, FETIBC, B12FOL, PSAD #### [facility] [address] [address] [address] Miles Murphy POINT OF CARE GLUCOSEon 02-04 Glucose [Mass/Vol] 240 mg/dL Critically high 74-106 [facility] Comment on above: Performed By: #### F ERR, FETIBC, B12FOL, PSAD #### [facility] [address] [address] [address] Miles Murphy Glucose [Mass/Vol] 82 mg/dL Normal 74-106 [facility] Comment on above: Performed By: #### F ERR, FETIBC, B12FOL, PSAD #### [facility] [address] [place] [address] Dr. Miles Murphy Glucose [Mass/Vol] 214 mg/dL Critically high 74-106 [facility] Comment on above: Performed By: #### F ERR, FETIBC, B12FOL, PSAD #### [facility] [address] [place] [address] Dr. Miles Murphy Glucose [Mass/Vol] 110 mg/dL Critically high -106 [facility] Comment on above: Performed By: #### P OCGLUC #### [facility] [address] [place] [address] Dr. Miles Murphy PROF CHEM 8 (BAS METB)on Anion gap [Moles/Vol] 11.5 mmol/L Normal [facility] Comment on above: Performed By: #### F ERR, FETIBC, B12FOL, PSAD #### [facility] [address] [place] [address] Dr. Miles Murphy Calcium [Mass/Vol] 8.4 mg/dL Critically low 8.5-10.1 [facility] Comment on above: Performed By: #### F ERR, FETIBC, B12FOL, PSAD #### [facility] [address] [place] [address] Dr. Miles Murphy Chloride [Moles/Vol] 99 mmol/L Normal 98-107 [facility] Comment on above: Performed By: #### F ERR, FETIBC, B12FOL, PSAD #### [facility] [address] [place] [address] Dr. Miles Murphy CO2 [Moles/Vol] 28.2 mmol/L Normal 21.0-32.0 [facility] Comment on above: Performed By: #### F ERR, FETIBC, B12FOL, PSAD #### [facility] [address] [address] [address] Miles Murphy Creatinine [Mass/Vol] 0.77 mg/dL Normal 0.70-1.30 [facility] Comment on above: Performed By: #### F ERR, FETIBC, B12FOL, PSAD #### [facility] [address] [place] [address] Dr. Miles Murphy EGFR-AF CZECH >60 Normal >=60 [facility] Comment on above: Performed By: #### F ERR, FETIBC, B12FOL, PSAD #### [facility] [address] [place] [address] Dr. Miles Murphy EGFR-NON AF CZECH >60 Normal >=60 [facility] Comment on above: Performed By: #### F ERR, FETIBC, B12FOL, PSAD #### [facility] [address] [place] [address] Dr. Miles Murphy Glucose [Mass/Vol] 96 mg/dL Normal 74-106 [facility] Comment on above: Performed By: #### F ERR, FETIBC, B12FOL, PSAD #### [facility] [address] [place] [address] Dr. Milse Murphy Potassium [Moles/Vol] 3.7 mmol/L Normal 3.5-5.1 [facility] Comment on above: Performed By: #### F ERR, FETIBC, B12FOL, PSAD #### [facility] [address] [place] [address] Dr. Miles Murphy Sodium [Moles/Vol] 135 mmol/L Critically low 136-145 [facility] Comment on above: Performed By: #### F ERR, FETIBC, B12FOL, PSAD #### [facility] [address] [place] [address] Dr. Miles Murphy Urea nitrogen [Mass/Vol] 18.0 mg/dL Normal 7.0-18.0 [facility] Comment on above: Performed By: #### F ERR, FETIBC, B12FOL, PSAD #### [facility] [address] [place] [address] Dr. Miles Murphy Urea nitrogen/Creatinine [Mass ratio] 23.4 mg/mg Normal [facility] Comment on above: Performed By: #### F ERR, FETIBC, B12FOL, PSAD #### [facility] [address] [place] [address] Dr. Miles Murphy CBC AUTO DIFFon 02-21-2022 BASO # 0.1 103/ul Normal 0.0-0.1 [facility] Comment on above: Performed By: #### F ERR, FETIBC, B12FOL, PSAD #### [facility] [address] [place] [address] Dr. Miles Murphy Basophils/100 WBC (Bld) 0.3 % Normal 0.2-2.0 [facility] Comment on above: Performed By: #### F ERR, FETIBC, B12FOL, PSAD #### [facility] [address] [place] [address] Dr. Miles Murphy EO # 0.0 103/ul Normal 0.0-0.7 [facility] Comment on above: Performed By: #### F ERR, FETIBC, B12FOL, PSAD #### [facility] [address] [place] [address] Dr. Miles Murphy Eosinophils/100 WBC (Bld) 0.1 % Critically low 0.9-7.0 [facility] Comment on above: Performed By: #### F ERR, FETIBC, B12FOL, PSAD #### [facility] [address] [place] [address] Dr. Miles Murphy Erythrocyte distribution width (RBC) [Ratio] 13.8 % Normal 11.0-15.0 [facility] Comment on above: Performed By: #### F ERR, FETIBC, B12FOL, PSAD #### [facility] [address] [place] [address] Dr. Miles Murphy Hematocrit (Bld) [Volume fraction] 31.2 % Critically low 42.0-54.0 [facility] Comment on above: Performed By: #### F ERR, FETIBC, B12FOL, PSAD #### [facility] [address] [place] [address] Dr. Miles Murphy Hemoglobin (Bld) [Mass/Vol] 10.3 g/dL Critically low 14.0-18.0 [facility] Comment on above: Performed By: #### F ERR, FETIBC, B12FOL, PSAD #### [facility] [address] [place] [address] Dr. Miles Murphy IG # 0.15 10e3/ul Critically high 0.00-0.03 [facility] Comment on above: Performed By: #### F ERR, FETIBC, B12FOL, PSAD #### [facility] [address] [place] [address] Dr. Miles Murphy IG % 0.9 % Critically high 0.0-0.5 [facility] Comment on above: Performed By: #### F ERR, FETIBC, B12FOL, PSAD #### [facility] [address] [place] [address] Dr. Miles Murphy LYMPH # 1.4 103/ul Normal 1.2-3.8 [facility] Comment on above: Performed By: #### F ERR, FETIBC, B12FOL, PSAD #### [facility] [address] [place] [address] Dr. Miles Murphy Lymphocytes/100 WBC (Bld) 8.0 % Critically low 20.5-60.0 [facility] Comment on above: Performed By: #### F ERR, FETIBC, B12FOL, PSAD #### [facility] [address] [place] [address] Dr. Miles Murphy MANUAL DIFF REQ NO Normal [facility] Comment on above: Performed By: #### F ERR, FETIBC, B12FOL, PSAD #### [facility] [address] [place] [address] Dr. Miles Murphy MCH (RBC) [Entitic mass] 32.3 pg Normal 25.9-34.0 [facility] Comment on above: Performed By: #### F ERR, FETIBC, B12FOL, PSAD #### [facility] [address] [place] [address] Dr. Miles Murphy MCHC (RBC) [Mass/Vol] 33.0 g/dL Normal 29.9-35.2 [facility] Comment on above: Performed By: #### F ERR, FETIBC, B12FOL, PSAD #### [facility] [address] [place] [address] Dr. Miles Murphy MCV (RBC) [Entitic vol] 97.8 fL Critically high 80.0-94.0 [facility] Comment on above: Performed By: #### F ERR, FETIBC, B12FOL, PSAD #### [facility] [address] [place] [address] Dr. Miles Murphy MONO # 2.6 103/ul Critically high 0.3-0.8 [facility] Comment on above: Performed By: #### F ERR, FETIBC, B12FOL, PSAD #### [facility] [address] [place] [address] Dr. Miles Murphy Monocytes/100 WBC (Bld) 14.5 % Critically high 1.7-12.0 [facility] Comment on above: Performed By: #### F ERR, FETIBC, B12FOL, PSAD #### [facility] [address] [place] [address] Dr. Miles Murphy NEUT # 13.5 103/ul Critically high 1.4-6.5 [facility] Comment on above: Performed By: #### F ERR, FETIBC, B12FOL, PSAD #### [facility] [address] [place] [address] Dr. Miles Murphy Neutrophils/100 WBC (Bld) 76.2 % Critically high 43.0-75.0 [facility] Comment on above: Performed By: #### F ERR, FETIBC, B12FOL, PSAD #### [facility] [address] [address] [address] Miles Murphy Platelet mean volume (Bld) [Entitic vol] 10.8 fL Normal 9.5-13.5 [facility] Comment on above: Performed By: #### F ERR, FETIBC, B12FOL, PSAD #### [facility] [address] [place] [address] Dr. Miles Murphy PLT 223 103/ul Normal 150-450 [facility] Comment on above: Performed By: #### F ERR, FETIBC, B12FOL, PSAD #### [facility] [address] [place] [address] Dr. Miles Murphy RBC 3.19 106/ul Critically low 4.70-6.10 [facility] Comment on above: Performed By: #### F ERR, FETIBC, B12FOL, PSAD #### [facility] [address] [place] [address] Dr. Miles Murphy WBC 17.6 103/ul Critically high 4.0-11.[address] [facility] Comment on above: Performed By: #### F ERR, FETIBC, B12FOL, PSAD #### [facility] [address] [place] [address] Dr. Miles Murphy [facility]03 SARS-CoV-2 (COVID-19) RNA AZUCENA+probe Ql (Unsp spec) Not detected Normal NOT DETECTED [facility] Comment on above: Result Comment: This test is not yet approved or cleared by the [place] FDA. When there are no FDA-approved or cleared tests available, and other criteria are met, FDA can make tests available under an emergency access mechanism called an Emergency Use Authorization (EUA). The EUA for this test is supported by the Royal of Health and Human Service's (HHS's) declaration that circumstances exist to justify the emergency use of in vitro diagnostics for the detection and/or diagnosis of the virus that causes COVID-19. This EUA will remain in effect (meaning this test can be used) for the duration of the COVID-19 declaration justifying emergency of IVDs, unless it is terminated or revoked by FDA (after which the test may no longer be used). When diagnostic testing is negative, the possibility of a false negative should be considered in the context of a patient's recent exposures and the presence of clinical signs and symptoms consistent with SARS-CoV-2. Performed By: #### P OCGLUC #### [facility] [address] [place] [address] Dr. Miles Murphy ER URINE PROFILEon 2 Bilirubin Ql (U) Negative Normal NEGATIVE [facility] Comment on above: Performed By: #### U MICRO, ERUR #### [facility] [address] [place] [address] Dr. Miles Murphy Clarity (U) CLEAR Normal CLEAR [facility] Comment on above: Performed By: #### U MICRO, ERUR #### [facility] [address] [place] [address] Dr. Miles Murphy Color (U) YELLOW Normal YELLOW [facility] Comment on above: Performed By: #### U MICRO, ERUR #### [facility] [address] [place] [address] Dr. Miles MATA A micrscopic examination will be performed if indicated. Normal [facility] Comment on above: Performed By: #### U MICRO, ERUR #### [facility] [address] [place] [address] Dr. Miles Murphy Glucose Ql (U) Negative Normal NEGATIVE [facility] Comment on above: Performed By: #### U MICRO, ERUR #### [facility] [address] [place] [address] Dr. Miles Murphy Hemoglobin Ql (U) SMALL Abnormal NEGATIVE [facility] Comment on above: Performed By: #### U MICRO, ERUR #### [facility] [address] [place] [address] Dr. Yilan Murphy Ketones Ql (U) Negative Normal NEGATIVE [facility] Comment on above: Performed By: #### U MICRO, ERUR #### [facility] [address] [place] [address] Dr. Miles Murphy LEUKOCYTES Negative Normal NEGATIVE [facility] Comment on above: Performed By: #### U MICRO, ERUR #### [facility] [address] [address] [address] Miles Murphy Nitrite Ql (U) Negative Normal NEGATIVE [facility] Comment on above: Performed By: #### U MICRO, ERUR #### [facility] [address] [address] [address] Miles Murphy pH (U) 6.0 [pH] Normal 5-9 [facility] Comment on above: Performed By: #### U MICRO, ERUR #### [facility] [address] [place] [address] Dr. Miles Murphy SPEC GRAVITY 1.010 Normal 1.005-<=1.025 [facility] Comment on above: Performed By: #### U MICRO, ERUR #### [facility] [address] [address] [address] Miles Murphy UA PROTEIN Negative Normal NEGATIVE/ TRACE [facility] Comment on above: Performed By: #### U MICRO, ERUR #### [facility] [address] [place] [address] Dr. Miles Murphy UR MICRO IND INDICATED Normal [facility] Comment on above: Performed By: #### U MICRO, ERUR #### [facility] [address] [place] [address] Dr. Miles Murphy Urobilinogen Qn (U) 1.0 {Christopher'U}/dL Normal 0.2 - 1. 0 [facility] Comment on above: Performed By: #### U MICRO, ERUR #### [facility] [address] [place] [address] Dr. Miles Murphy POINT OF CARE GLUCOSEon 05-1 Glucose [Mass/Vol] 95 mg/dL Normal 74-106 [facility] Comment on above: Performed By: #### P OCGLUC #### [facility] [address] [place] [address] Dr. Miles Murphy PROF CHEM 8 (BAS METB)on Anion gap [Moles/Vol] 11.8 mmol/L Normal [facility] Comment on above: Performed By: #### F ERR, FETIBC, B12FOL, PSAD #### [facility] [address] [place] [address] Dr. Miles Murphy Calcium [Mass/Vol] 8.5 mg/dL Normal 8.5-10.1 [facility] Comment on above: Performed By: #### F ERR, FETIBC, B12FOL, PSAD #### [facility] [address] [place] [address] Dr. Miles Murphy Chloride [Moles/Vol] 104 mmol/L Normal 98-107 [facility] Comment on above: Performed By: #### F ERR, FETIBC, B12FOL, PSAD #### [facility] [address] [place] [address] Dr. Miles Murphy CO2 [Moles/Vol] 26.2 mmol/L Normal 21.0-32.[address] [facility] Comment on above: Performed By: #### F ERR, FETIBC, B12FOL, PSAD #### [facility] [address] [place] [address] Dr. Miles Murphy Creatinine [Mass/Vol] 0.95 mg/dL Normal 0.70-1.30 [facility] Comment on above: Performed By: #### F ERR, FETIBC, B12FOL, PSAD #### [facility] [address] [place] [address] Dr. Miles Murphy EGFR-AF CZECH >60 Normal >=[address] [facility] Comment on above: Performed By: #### F ERR, FETIBC, B12FOL, PSAD #### [facility] [address] [place] [address] Dr. Miles Murphy EGFR-NON AF CZECH >60 Normal >=60 [facility] Comment on above: Performed By: #### F ERR, FETIBC, B12FOL, PSAD #### [facility] [address] [address] [address] Miles Murphy Glucose [Mass/Vol] 119 mg/dL Critically high 74-[address] [facility] Comment on above: Performed By: #### F ERR, FETIBC, B12FOL, PSAD #### [facility] [address] [address] [address] Miles Murphy Potassium [Moles/Vol] 4.2 mmol/L Normal 3.5-5.1 [facility] Comment on above: Performed By: #### F ERR, FETIBC, B12FOL, PSAD #### [facility] [address] [address] [address] Miles Murphy Sodium [Moles/Vol] 138 mmol/L Normal 136-145 [facility] Comment on above: Performed By: #### F ERR, FETIBC, B12FOL, PSAD #### [facility] [address] [address] [address] Miles Murphy Urea nitrogen [Mass/Vol] 26.0 mg/dL Critically high 7.0-18.0 [facility] Comment on above: Performed By: #### F ERR, FETIBC, B12FOL, PSAD #### [facility] [address] [address] [address] Miles Murphy Urea nitrogen/Creatinine [Mass ratio] 27.3 mg/mg Normal [facility] Comment on above: Performed By: #### F ERR, FETIBC, B12FOL, PSAD #### [facility] [address] [place] [address] Dr. Miles Murphy PROTIMEon 02-21-2022 INR Coag (PPP) [Relative time] 1.48 {INR} Normal [facility] Comment on above: Performed By: #### P OCGLUC #### [facility] [address] [place] [address] Dr. Miles Murphy INR GUIDELINES SEE BELOW Normal [facility] Comment on above: Result Comment: COLEEN RED INR: 2.0 - 3.0 CONDITIONS NOT LISTED BELOW 2.5 - 3.5 FOR PROSTHETIC HEART VALVE REPLACEMENT 2.5 - 3.5 RECURRENT THROMBOSIS Performed By: #### P OCGLUC #### [facility] [address] [place] [address] Dr. Miles Murphy PT Coag (PPP) [Time] 15.6 s Critically high 9.0-11.6 [facility] Comment on above: Performed By: #### P OCGLUC #### [facility] [address] [place] [address] Dr. Miles Murphy URINE MICROSCOPIC ONLYon BACTERIA NONE SEEN Normal NONE SEEN [facility] Comment on above: Performed By: #### U MICRO, ERUR #### [facility] [address] [place] [address] Dr. Miles Murphy Bacteria identified Cx Nom (U) NOT INDICATED Normal [facility] Comment on above: Performed By: #### U MICRO, ERUR #### [facility] [address] [place] [address] Dr. Miles Murphy CAST NONE SEEN Normal NONE SEEN [facility] Comment on above: Performed By: #### U MICRO, ERUR #### [facility] [address] [place] [address] Dr. Miles Murphy Crystals LM Nom (Urine sed) NONE SEEN Normal NONE SEEN [facility] Comment on above: Performed By: #### U MICRO, ERUR #### [facility] [address] [place] [address] Dr. Miles Murphy Epithelial cells LM Ql (Urine sed) RARE Normal NONE SEEN /RARE [facility] Comment on above: Performed By: #### U MICRO, ERUR #### [facility] [address] [place] [address] Dr. Miles Murphy MUCOUS SMALL Abnormal NONE SEEN [facility] Comment on above: Performed By: #### U MICRO, ERUR #### [facility] [address] [place] [address] Dr. Miles Murphy RBC 5-10 Abnormal 0-2 [facility] Comment on above: Performed By: #### U MICRO, ERUR #### [facility] [address], [place] [address] Dr. Miles Murphy WBC NONE SEEN Normal NONE SEEN [facility] Comment on above: Performed By: #### U MICRO, ERUR #### [facility] [address], [place] [address] Dr. Miles Murphy XR CHEST 1 Von 02-21-2022 XR CHEST 1 V EXAMINATION: XR CHES T 1 V HISTORY: Asthenia COMPARISON: XR chest 11/13/2019 FINDINGS: LUNGS: No significant pulmonary parenchymal abnormalities. VASCULATURE: No increased pulmonary vasculature. PLEURA: No pneumothorax, effusion, or pleural thickening. CARDIAC: Mild cardiomegaly. MEDIASTINUM: No visible mass or adenopathy. BONES: No fracture or visible bone lesion. OTHER: Negative. IMPRESSION: 1. Low lung volume examination without infiltrates or acute process. Electronically authenticated by: JOSEPH PRINCE Date: 2022-02-21 14:38 Normal [facility] 12-26-2021 CNPN Telephone (HEMASA) LANI MCLEAN ([id number]) 1940 M Date Time Provider Department 12/26/21 JONNATHAN NATARAJAN During your visit today, we recorded the following information about you: Jonnathan Natarajan RN 12/26/2021 3:03 PM Signed Received call from pt's daughter wanting to know if pt's appt on 01/01 is needed since pt's labs were negative and also if Dr Sherman let Dr Tineo know pt is cleared for sx. BRM: Please advise. JENNIFER Villa MD 12/26/2021 4:49 PM Signed Okay to cancel upcoming appointment. Please contact Dr. Acosta's office in the morning that we can clear him for surgery (and if he is available I can talk with him). Thanks, BRM Jonnathan Natarajan RN 12/27/2021 2:00 PM Addendum Spoke with Saray at Dr Tineo's office. Office note faxed. They will fax over surgical clearance paper. Daughter, Aminta notified. PSS: Please cancel pt's appt on 01/01. Thank you. JENNIFER Villa Pss 12/27/2021 2:05 PM Signed Appointment on 01/01 cancelled Allergies As of Date: 12/26/2021 Noted Allergy Reaction ASPIRIN 11/29/2021 14 - Other: See Comments Date Reviewed: 12/04/2021 Reviewed by: Deirdre Liu - Fully Assessed Reason for Visit: Patient Question [5677] Prescriptions as of 12/27/2021 - warfarin (COUMADIN) 5 mg tablet Take 5 mg by mouth daily as directed. - metoprolol tartrate, short acting, (LOPRESSOR) 50 mg tablet Take 50 mg by mouth twice daily. - amLODIPine (NORVASC) 10 mg tablet Take 10 mg by mouth once daily. - lisinopril-hydroCHLORO thiazide (PRINZIDE, ZESTORETIC) 20-25 mg per tablet Take 1 tablet by mouth once daily. - glyBURIDE (DIABETA) 2.5 mg tablet Take 2.5 mg by mouth daily with breakfast. - blood sugar diagnostic (ONE TOUCH TEST [facility]) - Pnkvb-8-NUD-EPA-Fish Oil (FISH OIL) 1,000 mg (120 mg-180 mg) cap Take 2 g by mouth twice daily. Problem List As Of Date: 12/26/2021 (None) Encounter Status:Closed by JONNATHAN NATARAJAN on 12/27/21 [facility] 12-24-2021 [facility] Telephone (WILLIE) LANI MCLEAN ([id number]) 1940 M Date Time Provider Department 12/24/21 ULYSSES SHERMAN During your visit today, we recorded the following information about you: Deirdre Liu 12/24/2021 1:26 PM Signed Please add lab orders if needed. Patient coming in on Friday01/01/22 for follow up. 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 - metoprolol tartrate, short acting, (LOPRESSOR) 50 mg tablet Take 50 mg by mouth twice daily. - amLODIPine (NORVASC) 10 mg tablet Take 10 mg by mouth once daily. - lisinopril-hydroCHLORO thiazide (PRINZIDE, ZESTORETIC) 20-25 mg per tablet Take 1 tablet by mouth once daily. - glyBURIDE (DIABETA) 2.5 mg tablet Take 2.5 mg by mouth daily with breakfast. - blood sugar diagnostic (ONE TOUCH TEST [facility]) - Ioakq-7-TPU-EPA-Fish Oil (FISH OIL) 1,000 mg (120 mg-180 mg) cap Take 2 g by mouth twice daily. Problem List As Of Date: 12/24/2021 (None) Encounter Status:Closed by DEIRDRE LIU on 12/25/21 [facility] 12-19-2021 [place] Telephone (WILLIE) LANI MCLEAN ([id number]) 1940 M Date Time Provider Department 12/19/21 JONNATHAN NATARAJAN During your visit today, we recorded the following information about you: Jonnathan Natarajan RN 12/19/2021 12:55 PM Signed Received message from pt's requesting results for additional labs Dr Sherman orders. BRM: Please review and advise. JENNIFER Villa MD 12/19/2021 4:34 PM Signed Additional labs that were checked were negative. The patient has no evidence of an underlying bone marrow disease. Most likely the elevated WBC is reactive and not significant. For now I would recommend monitoring. I can see him back as scheduled to review, then discuss how often to monitor. Thanks, BRM Jonnathan Natarajan RN 12/20/2021 10:38 AM Signed Informed pt's of Dr Sherman's response. Aminta verbalized understanding and denies further needs at this time. Jonnathan Natarajan RN Allergies As of Date: 12/19/2021 Noted Allergy Reaction ASPIRIN 11/29/2021 14 - Other: See Comments Date Reviewed: 12/04/2021 Reviewed by: Deirdre Liu - Fully Assessed Reason for Visit: Results [95] Prescriptions as of 12/20/2021 - warfarin (COUMADIN) 5 mg tablet Take 5 mg by mouth daily as directed. - metoprolol tartrate, short acting, (LOPRESSOR) 50 mg tablet Take 50 mg by mouth twice daily. - amLODIPine (NORVASC) 10 mg tablet Take 10 mg by mouth once daily. - lisinopril-hydroCHLORO thiazide (PRINZIDE, ZESTORETIC) 20-25 mg per tablet Take 1 tablet by mouth once daily. - glyBURIDE (DIABETA) 2.5 mg tablet Take 2.5 mg by mouth daily with breakfast. - blood sugar diagnostic (ONE TOUCH TEST [facility]) - Rietd-2-VFJ-EPA-Fish Oil (FISH OIL) 1,000 mg (120 mg-180 mg) cap Take 2 g by mouth twice daily. Problem List As Of Date: 12/19/2021 (None) Encounter Status:Closed by JONNATHAN NATARAJAN on 12/20/21 Normal [facility] BCR-ABL QUALITATIVE MULTIPLE X RT-PCRon 12-04-2021 BCR-ABL QUAL, MULTIPLEX RT-PCR Normal [facility] Comment on above: Order Comment: Order ing Facility: [facility] Address: [address] [id number] Result Comment: BCR ABL1 Multiplex RT-PCR Qualitative Laboratory Accession Number: [id number] Result: BCR/ABL1 fusion transcripts are NOT DETECTED Interpretation: RT-PCR studies are negative for BCR/ABL1 fusion transcripts. For more sensitive residual disease detection in patients with a history of BCR/ABL1 positive chronic myeloid leukemia or acute lymphoblastic leukemia, please order BCR/ABL1 p210 RT-PCR, Quantitative or BCR/ABL1 p190 RT-PCR, Quantitative. Limitations: The limit of detection of this assay is approximately 1% BCR/ABL1 normalized copy numbers (BCRABL1/ABL1). Methodology: RNA was purified from this sample, and cDNA prepared by reverse frame table operator. Multiplex RT-PCR studies were performed using fluorescently labeled primers for BCR/ABL1 fusion transcripts including p210 (e13a2, e14a2, e13a3, e14a3), p190 (e1a2, e1a3), p230 (e19a2) and e6a2 isoforms. As an amplification control, primers for wild-type BCR are also included. PCR products are analyzed by capillary electrophoresis. Although the test is designed to detect certain rare variants, (e13a3, e14a3, e19a2, e6a2), these variants are not reliably evaluated by this test given the absence of available samples for validation. Samples that appear to contain these variants are reflexed to BCR/ABL1 FISH testing and if confirmed are reported as positive for a non-specific rare variant. Disclaimer: This test was developed and its performance characteristics determined by [facility] [place] [facility] [place] ([facility]). It has not been cleared or approved by the FDA. [facility] is regulated under CLIA as certified to perform high- complexity testing. This test is used for clinical purposes. It should not be regarded as investigational or for research. Testing and interpretation performed at [facility], [address] [place] [address]. CLIA Number: [id number] As reviewed by Jaimee Mahan, PhD, [facility] Performed By: #### B CRQL #### [facility] CLIA [id number] [address] [place], [place] [address] [place] [address] [place] CBC W Auto Differential pane l (Bld)on 12-04-2021 Basophils (Bld) [#/Vol] 0.06 10*3/uL Normal <0.11 [facility] Comment on above: Order Comment: Speci men Type: BLOOD SPECIMEN Ordering Facility: [facility] Address: [address] Performed By: #### 5 7021-8 #### [facility] CLIA [id number] [address] [place] [address] Basophils/100 WBC (Bld) 0.4 % Normal [facility] Comment on above: Order Comment: Speci men Type: BLOOD SPECIMEN Ordering Facility: [facility] Address: [address] [place] [address] Performed By: #### 5 7021-8 #### [facility] CLIA [id number] [address] [place] [address]90[address] Differential cell count method Nom (Bld) Auto Normal [facility] Comment on above: Order Comment: Speci men Type: BLOOD SPECIMEN Ordering Facility: [facility] Address: [address] [place], [place] [address] Performed By: #### 5 7021-8 #### [facility] CLIA [id number] [address] [place] [address] Eosinophils (Bld) [#/Vol] 0.11 10*3/uL Normal <0.46 [facility] Comment on above: Order Comment: Speci men Type: BLOOD SPECIMEN Ordering Facility: [facility] Address: [address] [place], [place] [address] Performed By: #### 5 7021-8 #### [facility] CLIA [id number] [address] [place] [address] Eosinophils/100 WBC (Bld) 0.8 % Normal [facility] Comment on above: Order Comment: Speci men Type: BLOOD SPECIMEN Ordering Facility: [facility] Address: [address] [place], [place] [address] Performed By: #### 5 7021-8 #### [facility] CLIA [id number] [address] [place] [address] Erythrocyte distribution width (RBC) [Ratio] 13.7 % Normal 11.5-15.0 [facility] Comment on above: Order Comment: Speci men Type: BLOOD SPECIMEN Ordering Facility: [facility] Address: [address] [place] [address] Performed By: #### 5 7021-8 #### [facility] CLIA [id number] [address] [place] [address] Hematocrit (Bld) [Volume fraction] 44.3 % Normal 39.0-51.0 [facility] Comment on above: Order Comment: Speci men Type: BLOOD SPECIMEN Ordering Facility: [facility] Address: [address] [place] [address] Performed By: #### 5 7021-8 #### [facility] CLIA [id number] [address] [place] [address] Hemoglobin (Bld) [Mass/Vol] 14.6 g/dL Normal 13.0-17.0 [facility] Comment on above: Order Comment: Speci men Type: BLOOD SPECIMEN Ordering Facility: [facility] Address: [address] [place] [address] Performed By: #### 5 7021-8 #### [facility] CLIA [id number] [address] [place] [address]14 IMMATURE GRAN % 0.7 % Normal [facility] Comment on above: Order Comment: Speci men Type: BLOOD SPECIMEN Ordering Facility: [facility] Address: [address] [place] [address] Performed By: #### 5 7021-8 #### [facility] CLIA [id number] [address] [place] [address]77 IMMATURE GRAN ABS 0.10 k/uL High <0.10 [facility] Comment on above: Order Comment: Speci men Type: BLOOD SPECIMEN Ordering Facility: [facility] Address: [address] [place] [address] Performed By: #### 5 7021-8 #### [facility] CLIA [id number] [address] [place] [address] Lymphocytes (Bld) [#/Vol] 2.19 10*3/uL Normal 1.00-4.00 [facility] Comment on above: Order Comment: Speci men Type: BLOOD SPECIMEN Ordering Facility: [facility] Address: [address] [place] [address] Performed By: #### 5 7021-8 #### [facility] CLIA [id number] [address] [place] [address]508 Lymphocytes/100 WBC (Bld) 16.3 % Normal [facility] Comment on above: Order Comment: Speci men Type: BLOOD SPECIMEN Ordering Facility: [facility] Address: [address] [place] [address] Performed By: #### 5 7021-8 #### [facility] CLIA [id number] [address] [place] [address] 60011 MCH (RBC) [Entitic mass] 31.8 pg Normal 26.0-34.0 [facility] Comment on above: Order Comment: Speci men Type: BLOOD SPECIMEN Ordering Facility: [facility] Address: [address] [place] [address] Performed By: #### 5 7021-8 #### [facility] CLIA [id number] [address] [place] [address] 10576 MCHC (RBC) [Mass/Vol] 33.0 g/dL Normal 30.5-36.0 [facility] Comment on above: Order Comment: Speci men Type: BLOOD SPECIMEN Ordering Facility: [facility] Address: [address] [place] [address] Performed By: #### 5 7021-8 #### [facility] CLIA [id number] [address] [place] [address]605 MCV (RBC) [Entitic vol] 96.5 fL Normal 80.0-100.0 [facility] Comment on above: Order Comment: Speci men Type: BLOOD SPECIMEN Ordering Facility: [facility] Address: [address] [place], [place] [address] Performed By: #### 5 7021-8 #### [facility] CLIA [id number] [address] [place] [address] 54627 Monocytes (Bld) [#/Vol] 1.26 10*3/uL High <0.87 [facility] Comment on above: Order Comment: Speci men Type: BLOOD SPECIMEN Ordering Facility: [facility] Address: [address] [place], [place] [address] Performed By: #### 5 7021-8 #### [facility] CLIA [id number] [address] [place] [address] 81168 Monocytes/100 WBC (Bld) 9.4 % Normal [facility] Comment on above: Order Comment: Speci men Type: BLOOD SPECIMEN Ordering Facility: [facility] Address: [address] [place], [place] [address] Performed By: #### 5 7021-8 #### [facility] CLIA [id number] [address] [place] [address]006 Neutrophils (Bld) [#/Vol] 9.73 10*3/uL High 1.45-7.50 [facility] Comment on above: Order Comment: Speci men Type: BLOOD SPECIMEN Ordering Facility: [facility] Address: [address] [place], [place] [address] Performed By: #### 5 7021-8 #### [facility] CLIA [id number] [address] [place] [address] 31356 Neutrophils/100 WBC (Bld) 72.4 % Normal [facility] Comment on above: Order Comment: Speci men Type: BLOOD SPECIMEN Ordering Facility: [facility] Address: [address] [place], [place] [address] Performed By: #### 5 7021-8 #### [facility] CLIA [id number] [address] [place] [address] 30985 Nucleated RBC (Bld) [#/Vol] 10*3/uL Normal <0.01 [facility] Comment on above: Order Comment: Speci men Type: BLOOD SPECIMEN Ordering Facility: [facility] Address: [address] [place] [address] Performed By: #### 5 7021-8 #### [facility] CLIA [id number] [address] [place] [address] 23988 Nucleated RBC/100 WBC (Bld) [Ratio] 0.0 /100 WBC Normal [facility] Comment on above: Order Comment: Speci men Type: BLOOD SPECIMEN Ordering Facility: [facility] Address: [address] [place] [address] Performed By: #### 5 7021-8 #### [facility] CLIA [id number] [address] [place] [address] 54194 Platelet mean volume (Bld) [Entitic vol] 10.7 fL Normal 9.0-12.7 [facility] Comment on above: Order Comment: Speci men Type: BLOOD SPECIMEN Ordering Facility: [facility] Address: [address] [place] [address] Performed By: #### 5 7021-8 #### [facility] CLIA [id number] [address] [place] [address] 22699 Platelets (Bld) [#/Vol] 270 10*3/uL Normal 150-400 [facility] Comment on above: Order Comment: Speci men Type: BLOOD SPECIMEN Ordering Facility: [facility] Address: [address] [place] [address] Performed By: #### 5 7021-8 #### [facility] CLIA [id number] [address] [place] [address] 69137 RBC (Bld) [#/Vol] 4.59 10*6/uL Normal 4.20-6.00 [facility] Comment on above: Order Comment: Speci men Type: BLOOD SPECIMEN Ordering Facility: [facility] Address: [address] [place] [address] Performed By: #### 5 7021-8 #### [facility] CLIA [id number] [address] [place] [address] 69232 WBC (Bld) [#/Vol] 13.45 10*3/uL High 3.70-11.00 [facility] Comment on above: Order Comment: Speci men Type: BLOOD SPECIMEN Ordering Facility: [facility] Address: [address] [place] [address] Performed By: #### 5 7021-8 #### [facility] CLIA [id number] [address] [place] [address] 81060 CNOVSPon 12-04-2021 CNOVSP Visit (SP) Office (HEMASA) LANI MCLEAN ([id number]) 1940 M Date Time Provider Department 12/04/21 11:00 AM ULYSSES SHERMAN During your visit today, we recorded the following information about you: Temperature Pulse Respiration Blood pressure 97.3 degrees 67/minute 16/minute 124/64 Weight Height 84.6 kg 1.72 m Ulysses Sherman MD 12/04/2021 2:34 PM Signed PATIENT NAME: Lani Mclean DATE: 12/04/2021 PRIMARY CARE PHYSICIAN: Mignon Cai, DO OTHER PHYSICIANS: Dr. Tineo, [facility] HPI: This is an 81 year old male with chronic neutrophilia, referred for evaluation. The patient has multiple medical problems, but overall is fairly healthy. Labs since at least 2018 have revealed persistent mild neutrophilia and monocytosis with a total WBC ranging between 11 and 13,000, with 70 to 80% neutrophils and 10% monocytes. His CBC is otherwise fairly normal. The patient was recently seen by orthopedic surgery to evaluate for a right knee replacement. Apparently there are concerns as to the significance of his elevated WBC, and whether or not surgery would be safe. 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 Clinically the patient appears fairly well at this time with no particular complaints. He has been on a diet and lost a few pounds, otherwise no unexplained weight loss, fevers or night sweats. He has chronic arthritic pain, nothing new or severe. He denies any abdominal pain or change in bowel habits. No unusual rash. No fevers or signs of infection. The patient has a history of tobacco abuse, quit in 2003. Does not drink. MEDICATIONS: Current Outpatient Medications Medication Sig - warfarin (COUMADIN) 5 mg tablet Take 5 mg by mouth daily as directed. - metoprolol tartrate, short acting, (LOPRESSOR) 50 mg tablet Take 50 mg by mouth twice daily. - amLODIPine (NORVASC) 10 mg tablet Take 10 mg by mouth once daily. - lisinopril-hydroCHLORO thiazide (PRINZIDE, ZESTORETIC) 20-25 mg per tablet Take 1 tablet by mouth once daily. - glyBURIDE (DIABETA) 2.5 mg tablet Take 2.5 mg by mouth daily with breakfast. - blood sugar diagnostic (ONE TOUCH TEST [facility]) - Klxmv-5-UQJ-EPA-Fish Oil (FISH OIL) 1,000 mg (120 mg-180 mg) cap Take 2 g by mouth twice daily. No current facility-administered medications for this visit. ALLERGIES: ALLERGIES Allergen Reactions - Aspirin Other: See Comments PAST MEDICAL HISTORY: PAST MEDICAL HISTORY Diagnosis Date - Atrial fibrillation (HCC) - Pneumonia PAST SURGICAL HISTORY: PAST SURGICAL HISTORY Procedure Laterality Date - COLONOSCOPY - EKG - EXPLORER EVENT MONITOR - STRESS TEST - TOTAL KNEE REPLACEMENT Left FAMILY HISTORY: FAMILY HISTORY Problem Relation Age of Onset - Aneurysm Mother SOCIAL HISTORY: Social History Tobacco Use - Smoking status: Not on file - Smokeless tobacco: Not on file Substance Use Topics - Alcohol use: Not on file - Drug use: Not on file COMPLETE REVIEW OF SYSTEMS: CONSTITUTION: Negative for pain, fatigue, weight loss, or appetite loss. EENT: Negative for mouth soreness, antibiotics use, epistaxis, visual problems, neck or facial swelling, fever/chills, bleeding gums, or hearing loss. CV: Negative for edema, calf swelling, palpitations, or chest pain. RESPIRATORY: Negative for cough, SOB, hemoptysis, or wheezing. GI: Negative for nausea/vomiting, heartburn, vomiting blood, dysphasia, diarrhea, blood in stool, constipation, early satiety, PICA, vegetarian, poor nutrition, abdominal fullness, or abdominal pain. NEUROLOGICAL: Negative for numbness/tingling, dizziness, gait disturbance, headache, speech disturbance, tremor, hemiparesis/sensory loss, or change in mental status. MUSCULOSKELETAL: Negative for joint pain, joint swelling, or proximal muscle weakness. SKIN: Negative for hair loss, bruising, nail changes, rash, itching, pallor, or jaundice. ENDO/URO: Negative for hot flashes, cold or heat intolerance, urinary frequency, urinary hesitancy, menorrhagia, or hematuria. PSYCH: Negative for anxiety, depression, or other. PHYSICAL EXAM: BP 124/64 Pulse 67 Temp 36.3 ?C (97.3 ?F) (Temporal) Resp 16 Ht 172 cm (5' 7.72 ) Wt 84.6 kg (186 lb 9.6 oz) SpO2 96% BMI 28.61 kg/m? GENERAL EXAM: Well developed/well nourished; in no acute distress. SKIN: Negative for lesions, rashes, or ulcers on the upper and lower extremities and face. Negative for palpations/nodules, purpura, and ecchymosis. EENT: Negative for conjunctiva, mucosal pallor, JVD, LAP, thyromegaly, and glossitis. Supple AND PERRL. EXTREMITIES: Negative for cyanosis, clubbing, and crepitus. LUNGS: Negative to auscultation, respiratory effort, and percussion. CARDIOVASCULAR: Regular rate. Nega (more content not included)... Normal [facility] CRP SerPl-ncon 12-04-2021 CRP [Mass/Vol] 1.2 mg/dL High <0.9 [facility] Comment on above: Order Comment: Speci men Type: BLOOD SPECIMEN Ordering Facility: [facility] Address: [address] [place] [id number] Performed By: #### 1 988-5 #### [facility] CLIA [id number] [address] [facility] [facility] [id number] [id number] [facility] Comprehensive metabolic 2000 panelon 12-04-2021 Albumin [Mass/Vol] 4.5 g/dL Normal 3.9-4.9 [facility] Comment on above: Order Comment: Speci men Type: BLOOD SPECIMEN Ordering Facility: [facility] Address: [address] [place] [address] Performed By: #### 2 4323-8 #### [facility] CLIA [id number] [address] [place] [address]55 ALP [Catalytic activity/Vol] 86 U/L Normal 38-113 [facility] Comment on above: Order Comment: Speci men Type: BLOOD SPECIMEN Ordering Facility: [facility] Address: [address] [place] [address] Performed By: #### 2 4323-8 #### [facility] CLIA [id number] [address] [place] [address] 93124 ALT [Catalytic activity/Vol] 13 U/L Normal 10-54 [facility] Comment on above: Order Comment: Speci men Type: BLOOD SPECIMEN Ordering Facility: [facility] Address: [address] [place] [address] Performed By: #### 2 4323-8 #### [facility] CLIA [id number] [address] [place] [address]3260 Anion gap [Moles/Vol] 11 mmol/L Normal 9-18 [facility] Comment on above: Order Comment: Speci men Type: BLOOD SPECIMEN Ordering Facility: [facility] Address: [address] [place] [address] Performed By: #### 2 4323-8 #### [facility] CLIA [id number] [address] [place] [address] 47659 AST [Catalytic activity/Vol] 16 U/L Normal 14-40 [facility] Comment on above: Order Comment: Speci men Type: BLOOD SPECIMEN Ordering Facility: [facility] Address: [address] [place] [address] Performed By: #### 2 4323-8 #### [facility] CLIA [id number] [address] [place] [address]154 Bilirubin [Mass/Vol] 0.3 mg/dL Normal 0.2-1.3 [facility] Comment on above: Order Comment: Speci men Type: BLOOD SPECIMEN Ordering Facility: [facility] Address: [address] [place] [address] Performed By: #### 2 4323-8 #### [facility] CLIA [id number] [address] [place] [address] 46661 Calcium [Mass/Vol] 10.1 mg/dL Normal 8.5-10.2 [facility] Comment on above: Order Comment: Speci men Type: BLOOD SPECIMEN Ordering Facility: [facility] Address: [address] [place] [address] Performed By: #### 2 4323-8 #### [facility] CLIA [id number] [address] [place] [address] 12877 Chloride [Moles/Vol] 96 mmol/L Low 97-105 [facility] Comment on above: Order Comment: Speci men Type: BLOOD SPECIMEN Ordering Facility: [facility] Address: [address] [place] [address] Performed By: #### 2 4323-8 #### [facility] CLIA [id number] [address] [place] [address] 51584 CO2 [Moles/Vol] 29 mmol/L Normal 22-30 [facility] Comment on above: Order Comment: Speci men Type: BLOOD SPECIMEN Ordering Facility: [facility] Address: [address] [place] [address] Performed By: #### 2 4323-8 #### [facility] CLIA [id number] [address] [place] [address] 14468 Creatinine [Mass/Vol] 1.01 mg/dL Normal 0.73-1.22 [facility] Comment on above: Order Comment: Laura singh Type: BLOOD SPECIMEN Ordering Facility: [facility] Address: [address] [id number] Performed By: #### 2 4323-8 #### [facility] CLIA [id number] [address] [place] [address] ESTIMATED GLOMERULAR FILTRATION RATE 74 mL/min/1.73m??? Normal >=60 [facility] Comment on above: Order Comment: aLura singh Type: BLOOD SPECIMEN Ordering Facility: [facility] Address: [address] [place], [place] [id number] Result Comment: Brit mated Glomerular Filtration Rate (eGFR) is calculated using the 2020 CKD-EPI creatinine equation. This equation utilizes serum creatinine, sex, and age as parameters. The creatinine assay has traceable calibration to isotope dilution-mass spectrometry. Refer to KDIGO guidelines for clinical interpretation. In patients with unstable renal function, e.g. those with acute kidney injury, the eGFR may not accurately reflect actual GFR. Performed By: #### 2 4323-8 #### [facility] CLIA [id number] [address] [place] [address] 07750 Glucose [Mass/Vol] 115 mg/dL High 74-99 [facility] Comment on above: Order Comment: Laura singh Type: BLOOD SPECIMEN Ordering Facility: [facility] Address: [address] [place] [address] Result Comment: The [place] Diabetes Association (ADA) provides guidance for cutoff values for fasting glucose and random glucose. The ADA defines fasting as no caloric intake for at least 8 hours. Fasting plasma glucose results between 100 to 125 mg/dL indicate increased risk for diabetes (prediabetes). Fasting plasma glucose results greater than or equal to 126 mg/dL meet the criteria for diagnosis of diabetes. In the absence of unequivocal hyperglycemia, results should be confirmed by repeat testing. In a patient with classic symptoms of hyperglycemia or hyperglycemic crisis, random plasma glucose results greater than or equal to 200 mg/dL meet the criteria for diagnosis of diabetes. Reference: Standards of Medical Care in Diabetes 2016, [place] Diabetes Association. Diabetes Care. 2016.39(Suppl 1). Performed By: #### 2 4323-8 #### [facility] CLIA [id number] [address] [place] [address] 45776 Potassium [Moles/Vol] 4.2 mmol/L Normal 3.7-5.1 [facility] Comment on above: Order Comment: Speci men Type: BLOOD SPECIMEN Ordering Facility: [facility] Address: [address] [place] [address] Performed By: #### 2 4323-8 #### [facility] CLIA [id number] [address] [place] [address] 83608 Protein [Mass/Vol] 7.4 g/dL Normal 6.3-8.0 [facility] Comment on above: Order Comment: Speci men Type: BLOOD SPECIMEN Ordering Facility: [facility] Address: [address] [place] [address] Performed By: #### 2 4323-8 #### [facility] CLIA [id number] [address] [place] [address] 32713 Sodium [Moles/Vol] 136 mmol/L Normal 136-144 [facility] Comment on above: Order Comment: Speci men Type: BLOOD SPECIMEN Ordering Facility: [facility] Address: [address] [place] [address] Performed By: #### 2 4323-8 #### [facility] CLIA [id number] [address] [place] [address] 13410 Urea nitrogen [Mass/Vol] 25 mg/dL High 9-24 [facility] Comment on above: Order Comment: Speci men Type: BLOOD SPECIMEN Ordering Facility: [facility] Address: [address] [place] [address] Performed By: #### 2 4323-8 #### [facility] CLIA [id number] [address] [place] [address] 43942 ESR Westergren method (Bld) [Velocity]on 12-04-2021 ESR (Bld) [Velocity] 5 mm/h Normal 0-15 [facility] Comment on above: Order Comment: Laura singh Type: BLOOD SPECIMEN Ordering Facility: [facility] Address: [address] [place], [place] [id number] Performed By: #### 4 537-7 #### [facility] CLIA [id number] [address] [place] [address] [id number] JAK2 V617F MUTATION BLOODon 12-04-2021 JAK2 V617F MUTATION RESULT/INTERPRETATI ON Normal [facility] Comment on above: Order Comment: Laura singh Type: BLOOD SPECIMEN Ordering Facility: [facility] Address: [address] [place], [place] [id number] Result Comment: JAK2 V617F Mutation Analysis Laboratory Accession Number: [id number] Sample Type: Peripheral Blood Result: No variant detected. Interpretation: The JAK2 V617F (c.1849G>T, p.Ezd706Owd) variant is not detected. V617F has been reported in a high percentage of cases of polycythemia vera, approximately half of the cases of essential thrombocythemia and chronic idiopathic myelofibrosis, and in a smaller proportion of other myeloid disorders. Methodology: DNA extracted from blood or bone marrow is interrogated for the presence or absence of the V617F (c.1849G>T, p.[id number]; g.[id number]; [id number]) variant (mutation) in JAK2 (NM_[id number]) using droplet digital polymerase chain reaction (PCR). Droplet digital PCR includes partitioning of DNA into droplets, droplet independent PCR, interrogation using allele specific hydrolysis probes, and analysis of droplets using Poisson distribution to calculate the copy number of JAK2 V617F and wild-type JAK2. The reference genome used is GRCh38/hg38. Limitations: This test is designed to detect the V617F variant in the JAK2 gene. Uncommon variants or single nucleotide polymorphisms may affect binding of probes or primers and may rarely result in false negative, false positive, or indeterminate results. Other variants in JAK2 will not be identified by this test. The lower limit of detection of this assay is approximately 0.1% variant allele fraction (vaf) for the JAK2 V617F variant. Although vaf is provided for reference, this value should be interpreted with caution as this test is intended for qualitative purposes and is not validated as a quantitative test. The JAK2 V617F result cannot be used on a standalone basis for diagnosis of myeloid neoplasm. Very low level JAK2 results (eg. less than 1%) in particular may be of unclear significance and should be considered in the context of clinical and morphologic presentation. Disclaimer: This test was developed and its performance characteristics determined by [facility]'s Donte Benja [facility] [place] [facility] [place] ([facility]). It has not been cleared or approved by the FDA. [facility] is regulated under CLIA as certified to perform high- complexity testing. This test is used for clinical purposes. It should not be regarded as investigational or for research. Testing and interpretation performed at [facility], [address] [place] [address]. CLIA Number: [id number] References: 1) Gurwinder DA, Low Smart, Ferdinand R, et al. The 2016 revision to the World Health Organization (WHO) classification of myeloid neoplasms and acute leukemia. Blood 2016. 127(20): 2391-405. 2) Neno Smart, Mishel R, Charanjit IZQUIERDO. Myeloproliferative neoplasms: contemporary diagnosis using histology and genetics. Wilma Rev Clin Oncol 2009. 6:627-37. As reviewed by Mignon Frey MD Performed By: #### J AK2 #### [facility] CLIA [id number] [address] [place], [place] [address] [place] [address] [place] Progress Note - Nurseon 11-07 Progress Note - Nurse spoke to pt's daughter and she stated her father had blood work redrawn today at [facility] due to being elevated oh PAT day and possibly if still high that his procedure would be canceled. Instructed daughter to call [facility] surgery department to keep us informed of lab results and she verbalized understanding. ticket writer will inform charge nurse. [Electronically Signed on: 11/28/2021 11:53 EST] Roseann Landon RN [Verified on: 11/28/2021 11:53 EST] Roseann Landon RN [facility] Progress Note - Nurseon - Progress Note - Nurse Dr Donato requested office notes from latest [facility] cardiology visit- notes from 11-20-21 visit received via fax from [facility] and PAT chart returned to Dr. Donato for further review. Dr. Donato requested to notify Dr. Salguero office of elevated WBC- office had already been notified on 11-15-21 by phone and fax. Dr. Donato also requested labwork CBC and INR on day of surgery. [Electronically Signed on: 11/21/2021 14:19 EST] Chika Chi RN [Verified on: 11/21/2021 14:19 EST] Chika Chi RN [facility] Progress Note - Nurseon 11-06 Progress Note - Nurse Dr. Tineo's office called, wants WBC repeated preop the day of surgery on 11/29/21 [Electronically Signed on: 11/20/2021 11:48 EST] Irina Saini RN [Verified on: 11/20/2021 11:48 EST] Irina Saini RN [facility] Coding Summaryon 11-15-2021 Coding Summary HTMLBase 64 FqtbsduhVIc0oUc+PGhlYW Q+TH6AKESwR44ahTXscP8U Y3vKAV3LBJRIVPONBL7UNA 7vfDI8FUbuK9QsqzHz GfxgfERnNZ96WDl5GGF7sA eiATsjcN3awQLlW1w0PdRm QR80rY87ENdiRLXvMpN9Tw ZpbjsgbWFy B0igMiLdyIFeQdk+PHRhYm xlIHdpZHRoPScxMDAlJyBz yAysCL9vGw1iZDQiLWIzrD xhcHNlOiBj s0uaKJQaGInsZI8wrImoL2 VgaZU4JXCfm5q9Zj28sXP+ RZHgKFF0jIlmSYrci040Zh Jnn2udPRP4 sUTtHLjkIZM4X19xm9P0DO YzNUQnNOG3rEO2aY9hyMns rrlkK8OqqLAqHnH8HJD6aA UogM3viEcc xraneC8eOwa+S02EUD1TPN IBVC6VZbw2F9JlHtyfwOB+ SL53FZDpBA32yVTgsMSah7 idrWy2RaNt WLMnDRT6dTinMNyjm0LkEX RnZ57wlYIdz3D5WZNitGpa cHStIgGmrZF2oJ5dOTlwxh zzq9vnwxji Msdkz9crrk35tL78J00hFK krDXEcCJC7OOKlETUecDvc xr8qtU9yPo2+QNzof4tnn9 dxeQo0LmGt BXGdzaNhiVekVYW0z3DaNw 20X5UwjKhwb1PeZdd3ua37 pWIej3P4oQU1AGrnDZIyxA 5rDOhxGtX4 BRUqJbIjfB46vCJhYMtwWk 8fvNiapWpmQM2nCLBegwxy RIBfxA3iZOTkkDQbmMmfMP 4wNTBpbjtm k536LdDmHXT5YJDqlNFsF3 DrdZ5yGpQnYAOzINOnT2Fw iQYyXUvhB231FDpiYyB8IU JzdzSoS2Ry CVEweNbpKlI8w6Q0Ww5Hu9 WthtatPVO1MJvdIMOiGyOf JiEiPiT3P0WdXhf0JVMilP dqFZ9aB5Hg HJAgeqfigwcejPT6OLBeZB AhhW21aJEeRVztTk9fs7O7 e194UFEfARKxcI88Zc6vpT ogMTBwdCBU kT2fqpwqo5hoyazqZqOkVP DwMCu2NRa9ISSlkUayCxOr AUH4AcE6TKQ1aNZdnR4rpE voqyinfT2f Oyc+Y77paH2sSTV2HOU3da gvHOYligVcSS51SV72Z8Xu PjwvdGFibGU+PGRpdiBzdH onEN2bVaVn z1ihc3LeHKdnC8KrKNFfOT zoAua2LUVkXUE3jJV7bE5v NVNmBGfhd9O3rPY7E9Smvn Fsgc4mo6qw YHPbSCxyS73vaMLqs5C1YK ZosDJ1AKVprYkeCoBldQ04 Oyc+KEScyFhqb0ToTjwhf1 adu5qykMy4 OsKwCOMxycAroGzuXXR6q6 PtRi40O95bKGgwFPOlPYRv EKAjVXMfbJmwls9bmD6fZa 8+PGNvbCB3 nJP5zF3qKPZxGbY8WKfgO6 04MtUytWXhHbgim1ryw6th cLg1RxBtEOBmpzLzmPtdPF M4g1EbSd08 G65oFRcwONWzTZBiWDQnQR UifUybet6lcJ2gWe6+PC9j c0eslm53qH87cPS+PHRkIH V9vKndWTjd ZZNzmI9vLAjaWqD0TTVdIt DtyR07fGYmPFbtSb2yeItq mWbtOC6hOXZqclupo819Wh Ehj9bvWQOf nXCmHOcrNRE4T86pf8U5WR TuIYGfYER5xHM7oV3cxCbs bjogbGVmdDsgdmVydGljYW wsPEooK960 IHRvcDsnPlBhdGllbnQgTm JtQXy7C1OaIjn1FNVfhKnl RT8wsDOcKAfuJg0fqYpreB gdJW8pOCRo cpsda482IsCdo3ppMEOnbG MaJMykMTE9C67jo5T2UENv TPDcXQZ2aEV8fB0pxSshzy ogbGVmdDsg nqMpnRqeUSgdYOrkC211GD RvcDsnPkJpcnRoIERhdGU6 NA22AS66eJRye0L3lIZ6Z9 BhZGRpbmct nvoooWG7OSGuCSNzhS59Lf 5ikLjpPv2lHTUwNWK3MISx wGNrB2IufY5hQjCkBFPoOI NgO0BeoPRn LSkwA859GPftNqI2JEMaqq KhC8EgRSBbcYclYxJ7m4Y3 Pj7AS6H2JC22ID27uVIev9 T4sGC8G2Ms FUArzwxhxdszmFK5IKHdVF VerT57Xg1trBciRm5aKBEm KFG5XCTpwSYcN9FbmJ6uSu AjMDAwMDAw L0GczHIxNHarX630IKprFk V9WOOvxzNyF8WcLMOaqDms DiQ5t9U1Pj2LSZm1XN96KR 71aKCrb4X2 mUC9J9DqDBUnkukqbrbyuZ N0TUNnLEExhQ42Nh7qgCsj Ed3eUFKhOCG4ZYKrsWOmS7 SlhS7jSxZp EDYaRUUsH7NqlRUvPLkwY2 76QVbqSkW3RCZhfuBbV9Zn AGOneCzlKeK1r2E3Dn4WTF DlOZ79OYC2 qAJ4RF43PS40O6GlOwcirX FibGU+PHRhYmxlIHdpZHRo BQgyWLPsWxZdjKmzSH8sRd 9yZGVyLWNv xXdpfKPgEhXfg1osSONzUC svTL9hgChnY6FaxPS6ACVh s6c9Nv83A00mE4ExfYI+PG PhiQK7vUP2 zK0qMzWuRsQ1QZjoJ428Ak SdsMDiLaauu8hxd8fwhEn8 WjL0EARwcnZalMouPLU4u3 QjXz66I73n IHdpZHRoPSIxNSUiIHZhbG fraf1jgH7qYy6+PGNvbCB3 nUH5sJ2oPrZdUuP6IHgmL5 49InRvcCIv Gymqq4gkl7yfcXs6ZrQaIY XntfHwzMucCYZ5q4JzJw47 K3GyrUhcv4PiVtd9go33jL Hwk9G2sNK6 G2XkEXVmidbirBEqjVxgKN 3uVPJbnhztYFYyqW3cZPKi W8u6RaLcPqK4PXuvM8Xggp P7MBItjHNp NJuqQRP7H96lo6T0SCDuKC BoQPW1kIT7iQ5ooAuenxgd bGVmdDsgdmVydGljYWwtYW noC138DDYf oOkhNEOstT2bPCMbeQMhfI rhNO8jIFQdxdwzKunBHT8X ZbhkBj3GQuQDZA93NH87oS Dwr2L0jLL1 T6WjXQNfhvmqhtyuhNX9MO OtKACyxR19mCYdJBmjEs0y k9S4b854INIjLJLboU89Ml 9udDogMTBw yZHIgT8seouhr1hcrjzuFc FgMGKpMLj2PVu8HMPbjNlv OuYpMPY1FeY7LOT0jXMktE 1hbGlnbjog yU6iOew+MDQvMDgvMTkzOD wvdGQ+UCQiGPB6oQmmRLqf MLGanI6zDBVcI3m5DoPfVb T3KIarS9Uz TDIxgfuaQi84yE6kIjQgKf D7MKouY1KuytZ2TDZkaHJw CFhdJZR0W68wp0P6IEAbRL TcMNU0iDK7 zL3pyGahcnoclELyeCmcbn NqhNpfMZylLQyvE363FTPj xRwqCgseQDfyNSOqXZ59ZO 94kPAmh0A3 tLT4Z3AzFJKjnmmphwknuQ W5NAScOZIalU73cVFxOQmx Wp9gh0U0y209KTNyPZDujP 22El7bmDau YEQwsMTPrQ0kexrsg1umga xwAjYoPWJmAMj3FSv9ARZj mWpzEhAmPMC2WcJ4PSM9lS ZpdK4dmLyf fmibcV6fPmt+TUFMRTwvdG Q+RCOsGHP9hZemWTzlLRGe xH9jDTKoP5v6JjAoOcU4BW txE6QnNCPg utxsTt35cP0wMnFtLbL7UD yxQ2TqdbF2RUMjdEAbECvc FYA2P37ne3H5DECmHPOeDL W0qOJ8hM7v bGlnbjogbGVmdDsgdmVydG tvWVbaTNoqJ928ZVZsjFnn Gu0DOC77ER28E5ToZqktfS FibGU+PHRh YmxlIHdpZHRoPScxMDAlJy ZhtNhkHU2bOu2bRIFyIKVa eOlweYOxQlAem3jwUXEcSL exGQ4fkNhn R2JdyWJ9HEUdu9l2Fy30E0 4gA8HztOJ+MTRhxGI0uFT7 pK1cKpFrNlE7YAfaD102Mk RvcCIvPjxj y7nlt1qsiTr9RrIwKTNjiv AonPwcAOD7j3RfLu18W59n IHdpZHRoPSIyMCUiIHZhbG hviq0dwP9o Ii8+RTKhkXF7oUG6dN5aVm QmFzH0TZpsF051BhLxkBNj QjojN94eP9IrmSO+PHRyPj x1XKEplUqi YR2lcKCwVCvwKw2qBAB7Wd DqCkCoWVliZ5AuWEZsxfkc kolkwSX5EABoYZEyjB99Le 3seCfsHy8z YVRdNIW3IRKgrTZqZ4DygE 7xJwNtDEFjBKFwO0YpdXWa QPwqQ211WLuzOmG0GGNjxh CwS6RaUBMg xIvtDlI5r7V6Yw0OqMcpaE SuFW6uXiBsBKa3S4YzNsl4 ZEUazVauNZ2hhULhLCozWu 1yaWdodDog MY9uMHIjvjobr607BiFtw1 mbLHWtmXXxDWbfAVA8F72k k9J6DBVsJYPpYTA9iOB4lV 1hbGlnbjog bGVmdDsgdmVydGljYWwtYW ioX719MXBxqSfwBwNAXli0 C0QvLzy2FFExbXypMQ8rlQ XdMCiaJi7p bHvlnEqsUD2xDMEnspata4 24AfAra5wcXLHkxOMzYSad CAA9Y31lh6Q5PSAaFOIlZX B7hIX0kL3l bGlnbjogbGVmdDsgdmVydG lsGSxvEXbeJ600QWEusOrb Eg8RKex8Y0VpStg6SQYcgC gaIO3mpQTl RUisOs2keRmjgUqsYS1sRW Qrucpxc644IqCoz3vxIIDo nKMkFMlhIIG2R45pn1R6GV MwMDAwMDA7 qHB1gI8suXmmubtnxTDkoU rjegVnrYdhBEyoQCdfP533 IHRvcDsnPlBheWVyOjwvdG Q+NB89ys77 X0WcWvbfCbl9VKFfQVX2yF A1uD1oIZVlHWlpp4Q1uMO8 W0XtaiIcjx7vg3uwIEJfVE ozY02bpDJn c2U (more content not included)... [facility] Progress Note - Nurseon 11-06 Progress Note - Nurse Chart reviewed by Dr. Quesada. Order for INR day of surgery in computer. Called Dr. Tineo's office regarding elevated WBC, results faxed to [facility]. Pt will be seen by cardiology on Friday11/16/2021. Will request notes. [Electronically Signed on: 11/15/2021 10:56 EST] Elsie Gregory RN [Verified on: 11/15/2021 10:56 EST] Elsie Gregory RN [facility] Provider Orderson 11-13-2021 Provider Orders [id number]#1.0 [id number] [facility] .Auto Diff 1on 11-12-2021 [place] % 11 % Normal 12 [facility] Comment on above: Performed By: #### 1 [id number], [id number], [id number] #### [facility] (DEFAULT) [address] [place] [address] Baso Abs# 0.0 x10 Normal 0.0-0.2 [facility] Comment on above: Performed By: #### 1 [id number], [id number], [id number] #### [facility] (DEFAULT) [address] [place] [address] Basophils/100 WBC (Bld) 0.3 % Normal 0.2-2.0 [facility] Comment on above: Performed By: #### 1 [id number], [id number], [id number] #### [facility] (DEFAULT) [address] [place] [address] 16909 Eos Abs# 0.2 x10 Normal 0.0-0.4 [facility] Comment on above: Performed By: #### 1 [id number], [id number], [id number], [id number] #### [facility] (DEFAULT) [address] [place] [address] 30558 Eosinophils/100 WBC (Bld) 1.6 % Normal 0.9-4.0 [facility] Comment on above: Performed By: #### 1 [id number], [id number], [id number], [id number] #### [facility] (DEFAULT) [address] [place] [address] 06851 Lymph Abs# 2.6 x10 Normal 1.3-2.9 [facility] Comment on above: Performed By: #### 1 [id number], [id number], [id number], [id number] #### [facility] (DEFAULT) [address] [place] [address] 40227 Lymphocytes/100 WBC (Bld) 19 % Normal 14-48 [facility] Comment on above: Performed By: #### 1 [id number], [id number], [id number], [id number] #### [facility] (DEFAULT) [address] [place] [address] 23441 [place] Abs# 1.5 x10 High 0.0-0.8 [facility] Comment on above: Performed By: #### 1 [id number], [id number], [id number], [id number] #### [facility] (DEFAULT) [address] [place] [address] 86856 Neut Abs# 9.1 x10 Normal 1.5-9.2 [facility] Comment on above: Performed By: #### 1 [id number], [id number], [id number], [id number] #### [facility] (DEFAULT) [address] [place] [address] 43203 Neutrophils/100 WBC (Bld) 68 % Normal 44-88 [facility] Comment on above: Performed By: #### 1 [id number], [id number], [id number], [id number] #### [facility] (DEFAULT) [address] [place] [address] 81948 BMP Standardon 11-12-2021 eGFR Non AA >60 Invalid Interpretation Code [facility] Comment on above: Performed By: #### 1 [id number], [id number], [id number], [id number] #### [facility] (DEFAULT) [address] [place] [address] 80247 eGFR AA >60 Invalid Interpretation Code [facility] Comment on above: Result Comment: Direct Support Staff Member jasiel Kidney disease could be indicated at eGFRs of less than 60 ml/min/1.73m2. Kidney Failure is indicated at less than 15 ml/min/1.73m2 Performed By: #### 1 [id number], [id number], [id number], [id number] #### [facility] (DEFAULT) [address] [place] [address] 51342 Anion gap [Moles/Vol] 15.0 mmol/L Normal 5.0-19.0 [facility] Comment on above: Performed By: #### 1 [id number], [id number], [id number], [id number] #### [facility] (DEFAULT) [address] [place] [address] 87742 Calcium [Mass/Vol] 9.4 mg/dL Normal 8.9-10.3 [facility] Comment on above: Performed By: #### 1 [id number], [id number], [id number], [id number] #### [facility] (DEFAULT) [address] [place] [address] 31875 Chloride [Moles/Vol] 98 mmol/L Low 101-111 [facility] Comment on above: Performed By: #### 1 [id number], [id number], [id number], [id number] #### [facility] (DEFAULT) [address] [place] [address] 78682 CO2 [Moles/Vol] 26 mmol/L Normal 21-32 [facility] Comment on above: Performed By: #### 1 [id number], [id number], [id number], [id number] #### [facility] (DEFAULT) [address] [place] [address] 10003 Creatinine [Mass/Vol] 0.95 mg/dL Normal 0.90-1.30 [facility] Comment on above: Performed By: #### 1 [id number], [id number], [id number], [id number] #### [facility] (DEFAULT) [address] [place] [address] Glucose [Mass/Vol] 104.0 mg/dL Normal 74.0-118.[address] [facility] Comment on above: Performed By: #### 1 [id number], [id number], [id number], [id number] #### [facility] (DEFAULT) [address] [place] [address] Osmolality 274 mOsm/L Invalid Interpretation Code [facility] Comment on above: Performed By: #### 1 [id number], [id number], [id number], [id number] #### [facility] (DEFAULT) [address] [place] [address] Potassium [Moles/Vol] 4.0 mmol/L Normal 3.6-5.1 [facility] Comment on above: Performed By: #### 1 [id number], [id number], [id number], [id number] #### [facility] (DEFAULT) [address] [place] [address] Sodium [Moles/Vol] 135.0 mmol/L Low 136.0-144.0 [facility] Comment on above: Performed By: #### 1 [id number], [id number], [id number], [id number] #### [facility] (DEFAULT) [address] [place] [address] Urea nitrogen [Mass/Vol] 23 mg/dL Normal 8-26 [facility] Comment on above: Performed By: #### 1 [id number], [id number], [id number], [id number] #### [facility] (DEFAULT) [address] [place] [address] Urea nitrogen/Creatinine [Mass ratio] 24.0 mg/mg High 4.6-16.2 [facility] Comment on above: Performed By: #### 1 [id number], [id number], [id number], [id number] #### [facility] (DEFAULT) [address] [place] [address] CBC w/ Auto Diffon 2 Erythrocyte distribution width (RBC) [Ratio] 14.3 % Normal 11.5-15.0 [facility] Comment on above: Performed By: #### 1 [id number], [id number], [id number], [id number] #### [facility] (DEFAULT) [address] [place] [address] Hematocrit (Bld) [Volume fraction] 45.4 % Normal 34.8-51.9 [facility] Comment on above: Performed By: #### 1 [id number], 6402951, [id number], [id number] #### [facility] (DEFAULT) [address] [place] [address] Hemoglobin (Bld) [Mass/Vol] 14.8 g/dL Normal 11.8-17.7 [facility] Comment on above: Performed By: #### 1 [id number], 7074206, [id number], [id number] #### [facility] (DEFAULT) [address] [place] [address] Instr WBC 13.4 x10 Invalid Interpretation Code [facility] Comment on above: Performed By: #### 1 [id number], 6192216, [id number], [id number] #### [facility] (DEFAULT) [address] [place] [address] Man Diff? Auto Normal [facility] Comment on above: Performed By: #### 1 [id number], [id number], [id number], [id number] #### [facility] (DEFAULT) [address] [place] [address]15 MCH (RBC) [Entitic mass] 32 pg Normal 24-34 [facility] Comment on above: Performed By: #### 1 [id number], 4763911, [id number], [id number] #### [facility] (DEFAULT) [address] [place] [address] MCHC (RBC) [Mass/Vol] 33 g/dL Normal 26-37 [facility] Comment on above: Performed By: #### 1 [id number], [id number], [id number], [id number] #### [facility] (DEFAULT) [address] [place] [address] MCV (RBC) [Entitic vol] 97 fL Normal 81-100 [facility] Comment on above: Performed By: #### 1 [id number], 8608697, [id number], [id number] #### [facility] (DEFAULT) [address] [place] [address] Platelet 274 x10 Normal 138-427 [facility] Comment on above: Performed By: #### 1 [id number], [id number], [id number], [id number] #### [facility] (DEFAULT) [address] [place] [address] Platelet mean volume (Bld) [Entitic vol] 10.0 fL Normal 6.3-10.2 [facility] Comment on above: Performed By: #### 1 [id number], 2789641, [id number], [id number] #### [facility] (DEFAULT) [address] [place] [address] RBC 4.70 x10 Normal 3.70-5.30 [facility] Comment on above: Performed By: #### 1 [id number], 7563196, [id number], [id number] #### [facility] (DEFAULT) [address] [place] [address] WBC 13.4 x10 High 3.5-10.5 [facility] Comment on above: Result Comment: Slid e Reviewed Performed By: #### 1 [id number], 5005407, [id number], [id number] #### [facility] (DEFAULT) [address] [place] [address] HgbA1c Standardon 11-12-2021 .Hb 16.4 Invalid Interpretation Code [facility] Comment on above: Performed By: #### 1 [id number], 8709097, [id number], [id number] #### [facility] (DEFAULT) [address] [place] [address] .Hgb A1c 0.86 g/dL Invalid Interpretation Code [facility] Comment on above: Performed By: #### 1 [id number], 7884011, [id number], [id number] #### [facility] (DEFAULT) [address] [place] [address] Glucose [Mass/Vol] 153 mg/dL Invalid Interpretation Code [facility] Comment on above: Performed By: #### 1 [id number], 3708591, [id number], [id number] #### [facility] (DEFAULT) [address] [place] [address] HbA1c (Bld) [Mass fraction] 6.9 % High 4.6-6.2 [facility] Comment on above: Performed By: #### 1 [id number], 3318748, [id number], [id number] #### [facility] (DEFAULT) [address] [place] [address] UA Yyzra3eu 11-12-2021 UA Bacteria Trace Normal [facility] Comment on above: Order Comment: Urina lysis Microscopic order added on by [employer] Expert Rules system. Performed By: #### 5 [id number], [id number] ####[facility] (DEFAULT)[address] [place] [address] UA RBC 0-2 Normal [facility] Comment on above: Order Comment: Urina lysis Microscopic order added on by [employer] Rules system. Performed By: #### 5 [id number], [id number] ####[facility] (DEFAULT)[address] [place] [address] UA Squam Epi Rare Normal [facility] Comment on above: Order Comment: Urina lysis Microscopic order added on by [employer] Rules system. Performed By: #### 5 [id number], [id number] ####[facility] (DEFAULT)[address] [place] [address] UA WBC 0-2 [facility] Comment on above: Order Comment: Urina lysis Microscopic order added on by [employer] Rules system. Performed By: #### 5 [id number], [id number] ####[facility] (DEFAULT)[address] [place] [address] UA w Culture if Ind Standard on 11-12-2021 Breakpoint UA [facility] Comment on above: Performed By: #### 5 [id number], [id number] ####[facility] (DEFAULT)[address] [place] [address] Color (U) Yellow [facility] Comment on above: Performed By: #### 5 [id number], [id number] ####[facility] (DEFAULT)[address] [place] [address] Culture? Not Indicated Invalid Interpretation Code [facility] Comment on above: Result Comment: Resu lt created by rule GL_MAGR_ADD_UA_CULT Result created by rule GL_MAGR_ADD_UA_CULT Result created by rule GL_MAGR_ADD_UA_CULT1 Performed By: #### 5 [id number], [id number] ####[facility] (DEFAULT)[address] [place] [address] Glucose (U) [Mass/Vol] Negative [facility] Comment on above: Performed By: #### 5 [id number], [id number] ####[facility] (DEFAULT)[address] [place] [address] Ketones Ql (U) Negative [facility] Comment on above: Performed By: #### 5 [id number], [id number] ####[facility] (DEFAULT)[address] [place] [address] Micro? Indicated Invalid Interpretation Code [facility] Comment on above: Result Comment: Resu lt created by rule GL_MAGR_ADD_UA_MICRO Performed By: #### 5 [id number], [id number] ####[facility] (DEFAULT)[address] [place] [address] UA Bilirubin Negative Normal [facility] Comment on above: Performed By: #### 5 [id number], [id number] ####[facility] (DEFAULT)[address] [place] [address] UA Blood SMALL Abnormal NEGATIVE [facility] Comment on above: Performed By: #### 5 [id number], [id number] ####[facility] (DEFAULT)[address] [place] [address] UA Clarity CLEAR Normal CLEAR [facility] Comment on above: Performed By: #### 5 [id number], [id number] ####[facility] (DEFAULT)[address] [place] [address]47[address] UA Leuk Est Negative Normal NEGATIVE [facility] Comment on above: Performed By: #### 5 [id number], [id number] ####[facility] (DEFAULT)[address] [place] [address] UA Nitrite Negative Normal NEGATIVE [facility] Comment on above: Performed By: #### 5 [id number], [id number] ####[facility] (DEFAULT)[address] [place] [address] UA pH 5.5 Normal 5-8 [facility] Comment on above: Performed By: #### 5 [id number], [id number] ####[facility] (DEFAULT)[address] [place] [address] UA Protein 30 Abnormal NEGATIVE [facility] Comment on above: Performed By: #### 5 [id number], [id number] ####[facility] (DEFAULT)[address] [place] [address]571 UA Spec Grav 1.025 Normal 1.001-1.035 [facility] Comment on above: Performed By: #### 5 [id number], [id number] ####[facility] (DEFAULT)[address] [place] [address]23[address] UA Urobilinogen 0.2 mg/dL Normal 0.2-1.0 [facility] Comment on above: Performed By: #### 5 [id number], [id number] ####[facility] (DEFAULT)[address] [place] [address] Urine Source Clean Catch [facility] Comment on above: Performed By: #### 5 [id number], [id number] ####[facility] (DEFAULT)[address] [place] [address] XR Bone Length Studies Scano gramson 11-12-2021 XR Bone Length Studies Scanograms EXAM: XR Bone Length Studies Scanograms HISTORY: B/l Leg Length Study for Total Knee Replacement COMPARISON: None TECHNIQUE: Bone length study was performed with images obtained from the superior pelvic level to the level of the ankle joints. FINDINGS: Marked medial compartment narrowing of the right knee with genu varum noted. Prominent area of degenerative cystic change suggested about the proximal tibia at the tibial plateau level in the midline. There are prosthetic devices about the distal left femur and left tibia plateau which appear unremarkable. Mild degenerative changes about the hip joints. Length of the right lower extremity from the humeral head to the ankle joint measures 89.5 cm, length of the left extremity measures 90.6 cm. The 1.1 cm discrepancy with left lower extremity longer than the right likely related to the degenerative change and the genu varum on the right. IMPRESSION: 1. 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 2. Unremarkable post-arthroplasty changes of the left knee on the provided images. 3. Leg length discrepancy, left lower extremity 1.1 cm longer than the right likely related to advanced degenerative change in the right knee and the right genu varum. 4. Follow-up as needed. Final Dictated by: David Cui MD Dictated DT/TM: 11/13/21 12:05 Signed (Electronic Signature): David Cui MD 11/13/21 2:15 pm Technologist: LT ELVIRA [facility] Operative Reporton 1 Operative Report MR#: [id number] [facility] Pt. Name: Lani Mclean Room #: [id number] Discharge Date: Birthdate: 1940 OPERATIVE REPORT DATE OF SURGERY: 01/08/2021 SURGEON: Duke Headley M.D. ASSISTANTS: 1. Dave Whitehead MD. 2. ALAN Sexton. ANESTHESIA: General anesthesia. ESTIMATED BLOOD LOSS: 100 mL. FLUIDS: Per Anesthesia note. COMPLICATIONS: None. SPECIMENS: None. PREOPERATIVE DIAGNOSIS: Left knee osteoarthritis. POSTOPERATIVE DIAGNOSIS: Left knee osteoarthritis. PROCEDURE: Left total knee arthroplasty. COMPONENTS: 1. Biomet Vanguard size 67.5 femoral component. 2. Size 75 tibial component. 3. 34 oval patella. 4. 14 PS polyethylene insert. 5. Biomet bone cement. INDICATION FOR PROCEDURES: This is an 80-year-old male, who has had persistent pain in his left knee was severe and unremitting pain over time. He also has deformity that is significant as well. He has elected for total knee arthroplasty for treatment of his pain. OPERATIVE COURSE: The patient was brought to the operating room and placed supine on the operating table. General anesthesia was obtained. Left lower extremity a nonsterile tourniquet placed, prepped and draped sterilely. Time-out was completed. Preoperative antibiotics were confirmed and given. The leg was gravity exsanguinated. Tourniquet was inflated. The midline incision was utilized and dissected down the overlying retinaculum. A full-thickness medial flap was raised. Medial parapatellar arthrotomy was made. Fluid was evacuated and appeared to be normal. I dissected the soft tissue away from the anteromedial aspect of the tibia and the medial lateral synovectomy as well. The capsule tissue was injected with Marcaine, epinephrine total solution. I everted the patella and placing the knee in flexion. I then drilled the femur and suctioned the canal. I placed the intramedullary guide jazmin into position and made a distal femoral cut. I made a +2 cut, given his flexion contracture. I then incised some soft tissue from within the box and then marked off the epicondylar axis. I set rotation based on the epicondylar axis. I drilled for the 2 PEG holes and placed the 4 in 1 cut jig into position and made the anterior, posterior, and chamfer cuts. I then subluxed the tibia anteriorly. I cleaned this tibial tray and then set the extramedullary jig into position. I set the appropriate varus valgus slope and height. I then made the cut. The cut appeared to be appropriate. The excess bone was removed. I then incised some soft tissue in the lateral aspect to get the tray clear overall soft tissue. I then injected the posterior capsule Marcaine, epinephrine total solution. I impacted the posterior condyles with osteotome mallet. I then checked the gaps and noted the gaps were equal and symmetric with 14. I then re-exposed the tibia. The tibial tray was set rotation based off the tibial tubercle. I then pinned in position, drilled and punch for the keel. I placed trial in position. I placed a CR femoral trial in position as well and trialed this noted was acceptable with a 14 polyethylene insert. The patella tracked appropriately. I everted the patella and freehand cut the patella and then drilled for 3 PEG holes placed trial in position. I removed some excess bone around the periphery of the patella. This also tracked appropriately. I removed all the trials. The box cut jig was placed in position and the osteotome and his oscillating saw was used to complete the box cut. I removed excess bone to plug the canal. We some extra bone to plug up some subchondral cyst to be out on the femur as well. I then irrigated and dried the bony surfaces. The tourniquet was temporarily deflated and then reinflated. The tibia and the femur cemented in position. Excess bone cement was removed. The polyethylene insert trials placed. Knee was placed in extension. The polyethylene was then cemented the patella as well. I then noted that the 14 was most appropriate. I placed the real polyethylene in position in a locking bar. The arthrotomy was closed itself with #2 interrupted kukgip-ic-opirg suture. The remainder of the incision in layered fashion. Sterile dressing applied. At the conclusion of the case, all sponge and needle counts correct. I was present for the critical portions of this case. Electronically Signed by: Duke Headley M.D. 01/22/2021 05:56 P Duke Headley M.D. Date Dict: 01/08/2021/07:09 P/Duke Headley M.D. Date Trans: 01/09/2021 01:49 A/travis [id number] cc: Mignon Cai D.O. [address] [place] [address] Normal [facility] POC GLUCOSE LABon 01-09-2021 Glucose [Mass/Vol] 201 mg/dL High 70-100 [facility] Comment on above: Performed By: #### 8 [id number] #### [facility] [address] [place] [address], [facility] Glucose [Mass/Vol] 200 mg/dL High 70-100 [facility] Comment on above: Performed By: #### 8 [id number] #### [facility] [address] [place] [address], [facility] POC GLUCOSE LABon 01-08-2021 Glucose [Mass/Vol] 394 mg/dL High 70-100 [facility] Comment on above: Order Comment: NOTE: Result Checked Performed By: #### 8 [id number] #### [facility] [address] [place] [address], [facility] Glucose [Mass/Vol] 134 mg/dL High 70-100 [facility] Comment on above: Performed By: #### 8 [id number] #### [facility] [address] [place] [address], [facility] PORTABLE KNEE LEFT 2 VWSon 0 01-08-2021 PORTABLE KNEE LEFT 2 [facility] Department of Radiology [address] [place] [id number] ======== Patient Name: LANI MCLEAN : 1940 Sex: M Age: Race: White Pt. Location: OUTP Patient Status: O Ordered Date: 01/08/2021 8:45:00 AM Completed Date: 01/08/2021 10:57 AM Requesting Provider: DAVE WHITEHEAD Attending Provider: DUKE HEADLEY Report Copy To: Signs & Symptoms: Pain History: Comments: Hardware Evaluation, will call when in pacu Exam: PORTABLE KNEE LEFT 2 [facility] ======== PORTABLE KNEE LEFT 2 [facility] 01/08/2021 10:57 AM CLINICAL INDICATIONS: Pain TECHNOLOGIST COMMENTS: Post-op hardware evaluation QUESTION FOR THE RADIOLOGIST: Hardware Evaluation, will call when in pacu PROTOCOL: AP(PA) and Lateral views were obtained. COMPARISON: November 16, 2020 FINDINGS: A postoperative imaging. Soft tissue gas and swelling from recent total knee arthroscopy procedure. Vascular calcification. Appropriate positioning of the hardware identified within the knee. IMPRESSION: As above. Electronically signed: Twan Stewart. Transcribed by: [email or web address], User Resident: Electronically Signed by: TWAN STEWART @ 01/08/2021 03:56 PM Normal [facility] Comment on above: Order Comment: Hardw are Evaluation, will call when in pacu KNEE LEFT 3 [facility] 11-16-2020 KNEE LEFT 3 [facility] Department of Radiology [address] [place] [phone] ======== Patient Name: LANI MCLEAN : 1940 Sex: M Age: Race: NA Pt. Location: Patient Status: O Ordered Date: 11/16/2020 2:30:00 PM Completed Date: 11/16/2020 03:01 PM Requesting Provider: DUKE HEADLEY Attending Provider: DUKE HEADLEY Report Copy To: Signs & Symptoms: M17.12 Unilateral primary osteoarthritis, left knee I10 History: [place] Comments: evaluate Exam: KNEE LEFT 3 V[facility] ======== KNEE LEFT 3 VWS CLINICAL INFORMATION: Patient complains of left knee pain for years. VIEWS: AP,Lateral and Tangential views were obtained. COMPARISON: None. IMPRESSION: 1. No evidence of acute fracture. There is varus alignment with severe medial and moderate patellofemoral degenerative changes. Vascular calcifications. Osteopenia. Small knee joint effusion. Normal patellar alignment. Electronically signed: Kota Sierra. Transcribed by: [email or web address], User Resident: Electronically Signed by: KOTA SIERRA @ 11/16/2020 07:42 PM Normal [facility] Comment on above: Order Comment: evalu ate Vital Signs Date Time Vital Sign Value Performing Clinician Facility 09-11-2023 10:30-0500 Body height 172.72 cm Mignon Cai Other [facility] Other 09-11-2023 10:30-0500 Body mass index (BMI) [Ratio] 27.06 kg/m2 Mignon Cai Other [facility] Other 09-11-2023 10:30-0500 Body temperature 98.2 [degF] Mignon Cai Other [facility] Other 09-11-2023 10:30-0500 Body weight 80.74 kg Mignon Cai Other [facility] Other 09-11-2023 10:30-0500 Diastolic blood pressure 82 mm[Hg] Mignon Cai Other [facility] Other 09-11-2023 10:30-0500 Respiratory rate 18 /min Mignon Cai Other [facility] Other 09-11-2023 10:30-0500 SaO2% (BldA) [Mass fraction] 95 % Mignon Cai Other [facility] Other 09-11-2023 10:30-0500 Systolic blood pressure 136 mm[Hg] Mignon Cai Other [facility] Other 05-08-2023 09:10-0400 Body height 172.72 cm Mignon Cai Other [facility] Other 05-08-2023 09:10-0400 Body mass index (BMI) [Ratio] 27.67 kg/m2 Mignon Cai Other [facility] Other 05-08-2023 09:10-0400 Body temperature 98 [degF] Mignon Cai Other [facility] Other 05-08-2023 09:10-0400 Body weight 82.56 kg Mignon Cai Other [facility] Other 05-08-2023 09:10-0400 Diastolic blood pressure 70 mm[Hg] Mignon Cai Other [facility] Other 05-08-2023 09:10-0400 Respiratory rate 18 /min Mignon Cai Other [facility] Other 05-08-2023 09:10-0400 SaO2% (BldA) [Mass fraction] 95 % Mignon Cai Other [facility] Other 05-08-2023 09:10-0400 Systolic blood pressure 138 mm[Hg] Mignon Cai Other [facility] Other 01-02-2023 10:10-0400 Body height 172.72 cm Mignon Cai Other [facility] Other 01-02-2023 10:10-0400 Body mass index (BMI) [Ratio] 27.67 kg/m2 Mignon Cai Other [facility] Other 01-02-2023 10:10-0400 Body weight 82.56 kg Mignon Cai Other [facility] Other 01-02-2023 10:10-0400 Diastolic blood pressure 64 mm[Hg] Mignon Cai Other [facility] Other 01-02-2023 10:10-0400 Respiratory rate 18 /min Mignon Cai Other [facility] Other 01-02-2023 10:10-0400 SaO2% (BldA) [Mass fraction] 97 % Mignon Cai Other [facility] Other 01-02-2023 10:10-0400 Systolic blood pressure 116 mm[Hg] Mignon Cai Other [facility] Other 08-28-2022 10:50-0500 Body height 172.72 cm Mignon Cai Other [facility] Other 08-28-2022 10:50-0500 Body mass index (BMI) [Ratio] 28.89 kg/m2 Mignon Cai Other [facility] Other 08-28-2022 10:50-0500 Body temperature 97.7 [degF] Mignon Cai Other [facility] Other 08-28-2022 10:50-0500 Body weight 86.18 kg Mignon Cai Other [facility] Other 08-28-2022 10:50-0500 Diastolic blood pressure 72 mm[Hg] Mignon Cai Other [facility] Other 08-28-2022 10:50-0500 Respiratory rate 18 /min Mignon Cai Other [facility] Other 08-28-2022 10:50-0500 SaO2% (BldA) [Mass fraction] 97 % Mignon Cai Other [facility] Other 08-28-2022 10:50-0500 Systolic blood pressure 126 mm[Hg] Mignon Cai Other [facility] Other 04-25-2022 10:10-0400 Body height 172.72 cm Mignon Cai Other [facility] Other 04-25-2022 10:10-0400 Body mass index (BMI) [Ratio] 26.45 kg/m2 Mignon Cai Other [facility] Other 04-25-2022 10:10-0400 Body temperature 97.6 [degF] Mignon Cai Other [facility] Other 04-25-2022 10:10-0400 Body weight 78.93 kg Mignon Cai Other [facility] Other 04-25-2022 10:10-0400 Diastolic blood pressure 74 mm[Hg] Mignon Cai Other [facility] Other 04-25-2022 10:10-0400 Respiratory rate 18 /min Mignon Cai Other [facility] Other 04-25-2022 10:10-0400 SaO2% (BldA) [Mass fraction] 98 % Mignon Cai Other [facility] Other 04-25-2022 10:10-0400 Systolic blood pressure 122 mm[Hg] Mignon Cai Other [facility] Other 11-14-2021 15:40-0500 Body height 172.72 cm Mignon Cai Other [facility] Other 11-14-2021 15:40-0500 Body mass index (BMI) [Ratio] 28.73 kg/m2 Mignon Cai Other [facility] Other 11-14-2021 15:40-0500 Body temperature 98.3 [degF] Mignon Cai Other [facility] Other 11-14-2021 15:40-0500 Body weight 85.73 kg Mignon Cai Other [facility] Other 11-14-2021 15:40-0500 Diastolic blood pressure 76 mm[Hg] Mignon Cai Other [facility] Other 11-14-2021 15:40-0500 Respiratory rate 18 /min Mignon Cai Other [facility] Other 11-14-2021 15:40-0500 SaO2% (BldA) [Mass fraction] 96 % Mignon Cai Other [facility] Other 11-14-2021 15:40-0500 Systolic blood pressure 138 mm[Hg] Mignon Cai Other [facility] Other Encounters Encounter Date Encounter Type Care Provider Facility Start: 12-23-2023 End: 12-23-2023 [facility] Start: 12-23-2023 End: 12-23-2023 Follow-up encounter Lani Birmingham MD Work Phone: [facility] Medication Therapy Management Comment on above: Persistent atrial fi brillation (CMS-HCC) (Primary Dx); FPC (current) use of anticoagulants [Z79.01] Start: 11-11-2023 End: 11-11-2023 [facility] Start: 11-11-2023 End: 11-11-2023 Follow-up encounter Lani Birmingham MD Work Phone: [facility] Medication Therapy Management Comment on above: Persistent atrial fi brillation (CMS-HCC) (Primary Dx); FPC (current) use of anticoagulants [Z79.01] Start: 10-14-2023 End: 10-14-2023 [facility] Start: 10-14-2023 End: 10-14-2023 Follow-up encounter Lani Birmingham MD Work Phone: [facility] Medication Therapy Management Comment on above: Persistent atrial fi brillation (CMS-HCC) (Primary Dx); FPC (current) use of anticoagulants [Z79.01] Start: 09-11-2023 End: 09-11-2023 ambulatory Mignon Cai Other [facility] Other Start: 09-11-2023 Office outpatient vi sit 25 minutes Mignon Cai [facility] Start: 09-05-2023 End: 09-05-2023 ambulatory Mignon Cai Other [facility] Other Start: 09-05-2023 Telephone encounter Mignon Cai [facility] Start: 07-14-2023 End: 07-14-2023 ambulatory Mignon Cai Other [facility] Other Start: 07-14-2023 Telephone encounter Mignon Cai [facility] Start: 05-08-2023 End: 05-08-2023 ambulatory Mignon Cai Other [facility] Other Start: 05-08-2023 Office outpatient vi sit 25 minutes Mignon Cai [facility] [place] Start: 01-02-2023 End: 01-02-2023 ambulatory Mignon Cai Other [facility] Other Start: 01-02-2023 Office outpatient vi sit 25 minutes Mignon Cai [facility] Start: 12-27-2022 End: 12-27-2022 ambulatory Mignon Cai Other [facility] Other Start: 12-27-2022 Telephone encounter Mignon Cai [facility] [place] Start: 12-24-2022 End: 12-25-[address] MIGNON CAI Facility:[facility] Start: 09-09-2022 Telephone encounter Mignon Cai [facility] [place] Start: 09-09-2022 End: 09-10-[address] MIGNON CAI [facility] Other Start: 08-28-2022 End: 08-28-2022 ambulatory Mignon Cai Other [facility] Other Start: 08-28-2022 Office outpatient vi sit 25 minutes Mignon Cai [facility] [place] Start: 08-21-2022 End: 08-22-[address] MIGNON CAI Facility:[facility] Start: 08-19-2022 End: 08-19-2022 ambulatory Mignon Cai Other [facility] Other Start: 08-19-2022 Telephone encounter Mignon Cai [facility] [place] Start: 04-25-2022 End: 04-25-2022 ambulatory Mignon Cai Other [facility] Other Start: 04-25-2022 Office outpatient vi sit 25 minutes Mignon Cai [facility] [place] Start: 04-15-2022 End: 04-16-[address] MIGNON CAI Facility:[facility] Start: 04-02-2022 End: 04-02-2022 ambulatory Mignon Cai Other [facility] Other Start: 04-02-2022 Telephone encounter Mignon Cai [facility] [place] Start: 03-19-2022 End: 03-19-2022 ambulatory Mignon Cai Other [facility] Other Start: 03-19-2022 Telephone encounter Mignon Cai [facility] [place] Start: 02-22-2022 End: 02-25-2022 Evaluation and management of inpatient DR MIGNON CAI Facility:[facility] Start: 02-20-2022 End: 02-20-2022 ambulatory Mignon Cai Other [facility] Other Start: 02-20-2022 Telephone encounter Mignon Cai [facility] [place] Start: 12-19-2021 End: 12-19-2021 ambulatory Mignon Cai Other [facility] Other Start: 12-19-2021 Telephone encounter Mignon Cai [facility] [place] Start: 11-28-2021 End: 11-28-2021 ambulatory Mignon Cai Other [facility] Other Start: 11-28-2021 Telephone encounter Mignon Cai [facility] [place] Start: 11-14-2021 End: 11-14-2021 ambulatory Mignon Cai Other [facility] Other Start: 11-14-2021 Encounter for other preprocedural examination Mignon Cai [facility] [place] Start: 11-14-2021 Office outpatient vi sit 15 minutes Mignon Cai [facility] Start: 11-14-2021 Telephone encounter Mignon Cai [facility] Start: 01-08-2021 End: 01-09-2021 ambulatory [facility] Facility:[facility] Procedures Date Procedure Procedure Detail Performing Clinician Start: 12-23-2023 [employer] Work Phone: Start: 11-11-2023 [employer] Work Phone: Start: 10-14-2023 [employer] Work Phone: Start: 08-21-[address] MIGNON CAI Comment on above: Performed By: #### F ERR, FETIBC, B12FOL, PSAD #### [facility] [address] [place] [address] Dr. Miles Murphy Start: 01-08-2021 ANESTH KNEE ARTHROPLASTY [facility] Start: 01-08-2021 Arthrp kne condyle&p latu medial&lat compartments [facility] Plan of Treatment Date Care Activity Detail Author Start: 08-08-2024 Adult BMI Screening Adult BMI Screening [facility] Start: 08-08-2024 Tobacco Screening Tobacco Screening [facility] Start: 02-03-2024 End: 02-03-2024 Follow-up encounter 02/03/2024 11:00 AM EDT Follow Up Anticoagulation [facility] Medication Therapy Management [address] [place] [address] Lani Birmingham MD [address] [place] [address] [facility] Medication Therapy [facility] Start: 12-23-2023 End: 12-23-2023 Follow-up encounter 12/23/2023 11:00 AM EDT Follow Up Anticoagulation [facility] Medication Therapy Management [address] [place] [address] Lani Birmingham MD [address] [place] [address] [facility] Medication Therapy Management Start: 11-11-2023 End: 11-11-2023 Follow-up encounter 11/11/2023 11:00 AM EST Follow Up Anticoagulation [facility] Medication Therapy Management [address] [place] [address] Lani Birmingham MD [address] [place] [address], [address] [place] [address] [facility] Medication Therapy Management Start: 06-06-2023 COVID-19 Vaccine ( season) COVID-19 Vaccine ( season) [facility] Start: 2003 Fall Risk Screening Fall Risk Screening [facility] Start: 01-12-1988 Administration of varicella zoster vaccine Zoster (Shingles) Vaccine (1 of 2) [facility] Start: 1957 DTaP,Tdap and Td Vaccines (1 - Tdap) DTaP,Tdap and Td Vaccines (1 - Tdap) [facility] Start: 01-12-1956 Adult BMI Follow Up Plan Adult BMI Follow Up Plan [facility] Start: 1950 Depression Screening Depression Screening [facility] Start: 1938 Medicare Annual Wellness Visit Medicare Annual Wellness Visit [facility] Immunizations Immunization Date Immunization Notes Care Provider Randa shi 07-15-2023 influenza, seasonal, injectable Mignon Cai Other [facility] Other 09-13-2022 COVID-19 Pfizer (bivalent) Mignon Cai Other [facility] Other 07-04-2021 COVID-19 Vaccine Pfi zer - Documentation Purposes Only Mignon Cai Other [facility] Other 12-15-2020 COVID-19 Vaccine Pfi zer - Documentation Purposes Only Mignon Cai Other [facility] Other 11-24-2020 COVID-19 Vaccine Pfi zer - Documentation Purposes Only Mignon Cai Other [facility] Other 07-10-2020 influenza, seasonal, injectable Mignon Cai Other [facility] Other 07-14-2019 influenza, seasonal, injectable Mignon Cai Other [facility] Other Payers Date Payer Category Payer Medicare AN[employer]M MEDICARE [facility] MEDIC[facility] ADVANTAGE [id number] 2022-[facility] [phone] [address] [place] [address] [id number] 1961 Medicare [id number] 1959 Unknown [id number] 1959 Unknown [id number] 1938 Unknown [id number] 1938 Unknown [id number] 1938 Unknown [id number] 1938 Unknown [id number] 1938 Unknown [id number] 1938 Unknown [id number] 1938 Unknown [id number] 6 1938 Unknown [id number] 6 1938 Unknown [id number] 6 Social History Date Type Detail Facility Unknown if ever smoked [facility] Other Start: 11-02-2020 End: 08-08-2023 Sex Assigned At [facility] [employer] Other Start: 08-08-2023 Tobacco smoking stat [facility] Ex-smoker [facility] History of tobacco use Current smoker Pro [facility] History of tobacco use Cigarette Smoker [employer] [facility] Start: 11-02-2020 End: 08-08-2023 Cigarettes smoked current (pack per day) - Reported 3 [facility] Start: 08-08-2023 Tobacco use and exposure Smokeless tobacco non-user [facility] Start: 08-08-2023 Alcohol intake Current non-dr networking administrator of alcohol (finding) [facility] Housing Instability Unknown [facility] Start: 08-08-2023 Tobacco Comment Quit smoking 2 5 years ago [facility] Start: 1940 Sex Assigned At Not on file [facility] [facility] Medical Equipment Procedure Code Equipment Code Equipment Origin al Text Equipment Identifier Dates One Touch Ultra Test Strips One Touch Cement Bn Bio 40 gm Rpl [id number] - [id number] Start: 02-19-2022 Component Ptlr 3 2mm Persona Alply Kn Strl Lf - Sna - [id number] Start: 02-19-2022 Plate Tib 74x46m m Nxgn Kn Cmnt Mdlr Stm Prect 5 Tiv Pmma Rpl [id number] - Sna - [id number])[id number], [id number] FDA Start: 02-19-2022 Screw Bn 35mm 6. 5mm St Hip Actb Trlg Strl Rpl [id number] + 32 - Sna - [id number])[id number], [id number] [facility] Start: 02-19-2022 Goals Date Patient Goal Desired Activity /State Personal health goal Comment on above: Formatting of this n ote might be different from the original. Evaluation of progress towards goal: Safe dc transition home with [facility] PT and family support. Clinical Notes 11-14-2021 to 12-23-2023 Jonnathan Angeles [facility] - 12/23/2023 11:00 AM Smiley Angeles, [facility] - 11/11/2023 11:00 AM Evie Angeles, [facility] - 10/14/2023 11:00 AM EST Note Date & Type Note Facility 12-23-2023 History of Present illness Narrative 15 minute rupn-iz-nutf follow-up anticoagulation appointment. INR performed in office per protocol. INR 2.2 (goal range: 2.0-3.0). Patient reports: Taking warfarin dosing as documented. Missed or extra doses of warfarin: No Changes to medications: No Changes to lifestyle (diet / alcohol / smoking / activity): No Recent emergency department visit / hospitalization / health changes / new contraindication to current anticoagulant: No Signs/symptoms of bruising/bleeding or clotting or any intolerable adverse events: No Upcoming procedures: No Anticoagulant prescription needed: No Seen referring provider in the last year Duration of therapy reviewed Assessment: INR is remaining stable in therapeutic range on current warfarin regimen. Plan: Patient instructed to continue warfarin 1.25 mg Mon/Fri and 2.5 mg AOD. Check INR in 6 week(s). Patient verbalizes understanding of anticoagulant dosing instructions and information discussed. Dosing regimen, counseling, and follow-up appointment were provided to the patient. Patient reminded to call with questions or any medication changes. Patient instructed to seek medical attention if any major bleeding/bleeding that persists or worsens. Jonnathan Angeles [facility] 12/23/23 1056 documented in this encounter [facility] 11-11-2023 History of Present illness Narrative 15 minute dsky-ut-usoe follow-up anticoagulation appointment. INR performed in office per protocol. INR 1.9 (goal range: 2.0-3.0). Patient reports: Taking warfarin dosing as documented. Missed or extra doses of warfarin: No Changes to medications: No Changes to lifestyle (diet / alcohol / smoking / activity): No Recent emergency department visit / hospitalization / health changes / new contraindication to current anticoagulant: No Signs/symptoms of bruising/bleeding or clotting or any intolerable adverse events: No Upcoming procedures: No Anticoagulant prescription needed: No Seen referring provider in the last year Duration of therapy reviewed Assessment: INR is remaining stable in therapeutic range on current warfarin regimen. Plan: Patient instructed to continue warfarin 1.25 mg Mon/Fri and 2.5 mg AOD. Check INR in 6 week(s). Patient verbalizes understanding of anticoagulant dosing instructions and information discussed. Dosing regimen, counseling, and follow-up appointment were provided to the patient. Patient reminded to call with questions or any medication changes. Patient instructed to seek medical attention if any major bleeding/bleeding that persists or worsens. Jonnathan Angeles RPH 11/11/23 1102 documented in this encounter [employer] 10-14-2023 History of Present illness Narrative 15 minute wjfn-qb-dmyt follow-up anticoagulation appointment. INR performed in office per protocol. INR 1.8 (goal range: 2.0-3.0). Patient reports: Taking warfarin dosing as documented. Missed or extra doses of warfarin: No Changes to medications: No Changes to lifestyle (diet / alcohol / smoking / activity): No Recent emergency department visit / hospitalization / health changes / new contraindication to current anticoagulant: No Signs/symptoms of bruising/bleeding or clotting or any intolerable adverse events: No Upcoming procedures: No Anticoagulant prescription needed: No Seen referring provider in the last year Duration of therapy reviewed Assessment: INR is slightly subtherapeutic for unidentifiable reason. We will boost x1, then resume home dose. Plan: Patient instructed to increase to warfarin 3.75 mg 10/14, then resume 1.25 mg Mon/Fri and 2.5 mg AOD. Check INR in 4 week(s). Patient is usually a 6 week follow up. Patient verbalizes understanding of anticoagulant dosing instructions and information discussed. Dosing regimen, counseling, and follow-up appointment were provided to the patient. Patient reminded to call with questions or any medication changes. Patient instructed to seek medical attention if any major bleeding/bleeding that persists or worsens. Jonnathan Angeles RPH 10/14/23 1110 documented in this encounter [facility] 09-11-2023 Evaluation note Encounter Date Diagnosis Assessment Notes Sep, Hypertension (ICD-10 - I10) His blood pressure is controlled, continue with above medications daily as directed. Sep, Diabetes mellitus, type 2 (ICD-10 - E11.9) Discussed blood sugar results with patient today. Glucose is 130. HgA1C is controlled at 6.3. He is to test his blood sugar one time a day. He voices that he tests his sugar every day in the morning. Today his blood sugar was 140. Again, continue to monitor intake of carbs and sugars. Stay active as tolerated. He does try to walk, he had an issue with his sciatica but he treated this on his own with a heating pad and it is improving. Sep, Hyperlipidemia (ICD-10 - E78.5) Discussed cholesterol results with patient today. Total is 145. HDL is 41. LDL is 79.8. Triglycerides are 121. VLDL is 24.2. I would like him to continue to monitor his intake of carbs and sugars. Stay active as tolerated. Sep, Leukocytosis (ICD-10 - D72.829) His white blood cell count is 12.6. He saw Dr. Sherman in the past for an elevated white count. I did explain to him that this is something that we can continue to monitor. Dr. Sherman felt this was caused by inflammation. He is comfortable continuing to monitor. Sep, Vitamin B12 deficiency (ICD-10 - E53.8) His B12 level is 475.0. Folate is 23.40. Will continue to monitor. Sep, Anemia (ICD-10 - D64.9) His HGB is 13.7. Iron is 90. Ferritin is 137.0. Will continue to monitor. Sep, Atrial fibrillation (ICD-10 - I48.91) Continue to follow with cracking and fanning machine operator as directed. Sep, Nocturia (ICD-10 - R35.1) Sep, Prostate cancer screening (ICD-10 - Z12.5) Sep, Weight loss (ICD-10 - R63.4) He has lost four pounds since last seen. His TSH is normal at 1.117. Sep, Other He voices that he was having trouble with his sciatica, he began to use a heating pad on the area and it is improving. If he is standing his back will hurt so he has to sit down for a period of time and then it will improve. [facility] Other 12-01-2023 Evaluation note* Encounter Date Diagnosis Assessment Notes Treatment Notes Treatment Clinical Notes Sep, Diabetes mellitus, type 2 (ICD-10 - E11.9) Sep, Hypertension (ICD-10 - I10) [facility] Other 10-09-2023 Evaluation note* Encounter Date Diagnosis Assessment Notes Treatment Notes Treatment Clinical Notes Jul, Hypertension (ICD-10 - I10) [facility] Other 08-03-2023 Evaluation note* Encounter Date Diagnosis Assessment Notes Treatment Notes Treatment Clinical Notes May, Hypertension (ICD-10 - I10) Blood pressure is controlled. Continue with above medications daily as directed. May, Diabetes mellitus, type 2 (ICD-10 - E11.9) Discussed blood sugar results with patient today. Glucose is 148. HgA1C is 6.4. He tests his blood sugar once a day and his readings are in the 130. He is to continue with what he is doing. Watch intake of carbs and sugars. Stay active as tolerated. He admits to eating some sweets but he has tried to cut back on these. May, Hyperlipidemia (ICD-10 - E78.5) Discussed cholesterol results with patient today. Total is 159. HDL is 39. LDL is 85. Triglycerides are 175. VLDL is 35. I would like him to continue to monitor his intake of carbs and sugars. Stay active. May, Vitamin B12 deficiency (ICD-10 - E53.8) His B12 is 488. Folate is 20.60. Will continue to monitor. May, Anemia (ICD-10 - D64.9) His HGB is 14.6. Iron is 109. Ferritin is 158. He is not anemic right now, will continue to monitor. May, Leukocytosis (ICD-10 - D72.829) His white blood cell count was 11.1. This is something that we can continue to monitor. May, Atrial fibrillation (ICD-10 - I48.91) He voices that he has his PT/INR checked every six weeks and it has been good. He should continue with above medication as directed. May, Proteinuria (ICD-10 - R80.9) We discussed that his microalbumin/creati nine urine was elevated but he is already on the treatment for this. His microalbumin was 53.9. urine creatinine was 38.92. His ratio was 1384.8. His blood sugar is under control and his kidney studies are good. Will continue to monitor. He needs to keep his blood sugar under control. May, Weight loss (ICD-10 - R63.4) May, Hematuria (ICD-10 - R31.9) His urine showed blood in it, he has never seen any blood. He has never seen a urologist. May, Cervical pain (ICD-10 - M54.2) He saw a chiropractor in [place] for evaluation of his neck. He voices that he was told that the left side of his neck/muscles were the cause of his pain. On exam the muscles are tight. [facility] Other 03-30-2023 Evaluation note* Encounter Date Diagnosis Assessment Notes Treatment Notes Treatment Clinical Notes Dec, Hypertension (ICD-10 - I10) Blood pressure is controlled. Continue with above medication daily as directed. Dec, Diabetes mellitus, type 2 (ICD-10 - E11.9) Discussed blood sugar results with patient today. Glucose is 135. HgA1C is 6.4. He is to test his blood sugar one time a day. He is to continue to monitor his intake of carbs and sugars. Stay active. Dec, Hyperlipidemia (ICD-10 - E78.5) Discussed cholesterol results with patient today. Total is 164. HDL is 35. LDL is 84.8. Triglycerides are 221. VLDL is 44.2. He is to continue to monitor his intake of carbs and sugars. Stay active as tolerated. He expects to be more active as the weather improves. Dec, Vitamin B12 deficiency (ICD-10 - E53.8) His Vitamin B12 level is 488.0. Folate is 21.30. Will continue to monitor. Dec, Leukocytosis (ICD-10 - D72.829) His white blood cell count is 10.3. This is something that we will continue to monitor. Dec, Anemia (ICD-10 - D64.9) His HGB is 14.7. Iron is 111.0. Ferritin is 144.0. He is not anemic at this time. Will continue to monitor. Dec, Nocturia (ICD-10 - R35.1) Dec, Atrial fibrillation (ICD-10 - I48.91) He is to continue to follow with his cracking and fanning machine operator. He voices that he will see his cracking and fanning machine operator once a year and has his blood checked for his Coumadin every six weeks. Dec, Other abnormal blood chemistry (ICD-10 - R79.89) His BUN is 21. Creatinine is up from 0.90 to 1.00. EGFR is >60.0. Will continue to monitor. Dec, Proteinuria (ICD-10 - R80.9) Dec, Weight loss (ICD-10 - R63.4) He voices that he does not feel like eating so he does not eat as much as he used to. He does not think there is anything wrong, feels it is due to aging. Will continue to monitor. [facility] Other 12-05-2022 Evaluation note* Encounter Date Diagnosis Assessment Notes Treatment Notes Treatment Clinical Notes Sep, Hematuria (ICD-10 - R31.9) [facility] Other 11-23-2022 Evaluation note* Encounter Date Diagnosis Assessment Notes Treatment Notes Treatment Clinical Notes Aug, Diabetes mellitus, type 2 (ICD-10 - E11.9) Discussed blood sugar results with patient today. Glucose is 134. HgA1C is up from 5.7 to 6.4 which is higher than we would like to see. He voices that he does drink alot of pop so I did recommend that he cut back on his intake of pop and instead drink water. Cut back on intake of carbs and sugars. Stay active as tolerated. Aug, Hypertension (ICD-10 - I10) Blood pressure is controlled. He is to continue with above medication as directed. Aug, Hyperlipidemia (ICD-10 - E78.5) Discussed cholesterol results with patient today. Total is 157. HDL is 36. LDL is 84.4. Triglycerides are 183. VLDL is 36.6. He is to continue to monitor his intake of carbs and sugars. Stay active. Aug, Atrial fibrillation (ICD-10 - I48.91) Continue to follow with cracking and fanning machine operator as scheduled. Aug, Vitamin B12 deficiency (ICD-10 - E53.8) His Vitamin B12 is 483. Folate is 17.50. Aug, Anemia (ICD-10 - D64.9) His HGB is 13.7. Iron is 97. Ferritin is 100.0. His blood counts are improving. Aug, Leukocytosis (ICD-10 - D72.829) His white blood cell count is 13.1. Will continue to monitor. Aug, Knee pain (ICD-10 - M25.569) right knee He did have a right knee replacement done in the spring. Aug, Nocturia (ICD-10 - R35.1) His PSA is 0.79, no sign of prostate cancer at this time. Aug, Laceration of knee (ICD-10 - S81.019A) A week and a half ago he fell down steps at his daughters house and landed on his right knee that he had surgery on in the spring. He voices that the area is healing well and he believes it is getting better. He has been monitoring this and will continue to monitor it. He did not go to the ER for evaluation. It does not appear to be infected. He is putting Neosporin on the area and covering it with a bandage. He is to continue with this. Aug, Proteinuria (ICD-10 - R80.9) We discussed that his urine has protein in it. His microalbumin/creati nine ratio results were reviewed. I explained to him that this indicates his kidneys are leaking protein. He is already on Lisinopril which is used to help protect his kidneys. He admits to drinking alot of PEPSI and COKE, I did recommend that he instead drink more water, he could alternate between the soda and drink water instead. If his urine protein continues to worsen we may need to discuss having him see a in file operator. Aug, Hematuria (ICD-10 - R31.9) I did advise him that his urine did show blood in it. I would like him to have a urinalysis repeated. He voices that he will take a sample to the hospital lab for further evaluation. He can call for results. Aug, Weight gain (ICD-10 - R63.5) His TSH is 1.335 which is normal. Aug, Other After auscultat ion of his lungs I did recommend that he have a chest x-ray done and he refuses. He voices that he has alot of sinus issues and feels this is the problem. He does not want any testing done. He voices that he chokes sometimes on his food, when he swallows it may come up and then go back down. I do not see anything abnormal on exam but explained to him that the swallowing mechanism is down further. He voices that it only does this 1-2 times a week. On an average day he can eat and drink normally without any issues. He is not worried about it and is going to continue to monitor this. He will call if it worsens. [employer] Other 07-21-2022 Evaluation note* Encounter Date Diagnosis Assessment Notes Treatment Notes Treatment Clinical Notes Apr, Diabetes type 2, controlled (ICD-10 - E11.9) Discussed blood sugar results with patient today. Glucose is 142. HgA1C is down from 6.8 to 5.7 which is excellent. I encouraged him to continue with what he is doing as it is working well. He admits that he still eats ice cream at night but only 2-3 spoonfuls. He is to watch his intake of carbs and sugars. Stay active as tolerated. Apr, Hypertension (ICD-10 - I10) Blood pressure is controlled, continue with above medications. Apr, Proteinuria (ICD-10 - R80.9) I discussed with him that his microalbumin is okay but his ratio was elevated. The treatment for this would be Lisinopril and he is already on this. I would like to check this again in four months. If his ratio is still elevated then we will need to discuss referring him to a in file operator for evaluation. Apr, Hyperlipidemia (ICD-10 - E78.5) Discussed his cholesterol results with him today. His total is 161. HDL is 37. LDL is 94. Triglycerides are 150. Readings are at goal. Apr, Vitamin B12 deficiency (ICD-10 - E53.8) B12 is 447. Folate is >20.00. Will continue to monitor. Apr, Anemia (ICD-10 - D64.9) His hemoglobin has gone back up to 13.0 since surgery. His Iron is 78. Ferritin is 175. He voices that he was given Iron after surgery due to being anemic and this caused him to have black stools but he is no longer on any Iron supplementation. Apr, Atrial fibrillation (ICD-10 - I48.91) He continues to follow with his cracking and fanning machine operator who controls his Coumadin. Apr, Nocturia (ICD-10 - R35.1) Apr, Leukocytosis (ICD-10 - D72.829) His WBC count is 12.4 which is back to his baseline. He did see Dr. Sherman prior to surgery but does not need to return to see him again. Apr, Knee pain (ICD-10 - M25.569) right knee He did have his right knee replaced by Dr. Tineo in February (02-20-22). He is currently going to physical therapy and has three more sessions. Apr, Weight loss (ICD-10 - R63.4) He voices that he has lost weight on purpose by watching what he is eating. He is to continue with what he is doing. He feels that his weight loss is explained by his diet and he is not concerned about this. Apr, Other He voices that he previously had issues with diarrhea so he started watching his diet and avoided coffee and chocolate and he has not had any issues with diarrhea. [employer] Other 05-19-2022 NotePROCEDURE: XR KNEE RT 3V HISTORY: Pain of right knee joint , swelling post surgery COMPARISON: None. FINDINGS: BONES:Total knee replacement without appreciable hardware abnormality or acute bone abnormality. SOFT TISSUES:Prominent anterior soft tissue swelling and edema. Subcutaneous air consistent with recent surgery. Overlying skin marco antonio. EFFUSION:None visible. OTHER: Moderate marked atherosclerotic disease. IMPRESSION: 1. Total knee replacement with prominent anterior soft tissue swelling. Electronically authenticated by: JOSEPH PRINCE Date: 2022-02-21 19:31[facility]03-01-2022 NoteHNO ID: [id number] Author: Ulysses Sherman MD Service: ? Author Type: Physician Type: Progress Notes Filed: 12/04/2021 2:34 PM Note Text: PATIENT NAME: Lani Mclean DATE: 12/04/2021 PRIMARY CARE PHYSICIAN: Mignon Cai, OTHER PHYSICIANS: Dr. Tineo, Dr. 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 The patient has multiple medical problems, but overall is fairly healthy. Labs since at least 2017 have revealed persistent mild neutrophilia and monocytosis with a total WBC ranging between 11 and 13,000, with 70 to 80% neutrophils and 10% monocytes. His CBC is otherwise fairly normal. The patient was recently seen by orthopedic surgery to evaluate for a right knee replacement. Apparently there are concerns as to the significance of his elevated WBC, and whether or not surgery would be safe. 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 Clinically the patient appears fairly well at this time with no particular complaints. He has been on a diet and lost a few pounds, otherwise no unexplained weight loss, fevers or night sweats. He has chronic arthritic pain, nothing new or severe. He denies any abdominal pain or change in bowel habits. No unusual rash. No fevers or signs of infection. The patient has a history of tobacco abuse, quit in 2003. Does not drink. MEDICATIONS: Current Outpatient Medications Medication Sig - warfarin (COUMADIN) 5 mg tablet Take 5 mg by mouth daily as directed. - metoprolol tartrate, short acting, (LOPRESSOR) 50 mg tablet Take 50 mg by mouth twice daily. - amLODIPine (NORVASC) 10 mg tablet Take 10 mg by mouth once daily. - lisinopril-hydroCHLOROthiazide (PRINZIDE, ZESTORETIC) 20-25 mg per tablet Take 1 tablet by mouth once daily. - glyBURIDE (DIABETA) 2.5 mg tablet Take 2.5 mg by mouth daily with breakfast. - blood sugar diagnostic (ONE TOUCH TEST [facility]) - Ebvyk-1-HZW-EPA-Fish Oil (FISH OIL) 1,000 mg (120 mg-180 mg) cap Take 2 g by mouth twice daily. No current facility-administered medications for this visit. ALLERGIES: ALLERGIES Allergen Reactions - Aspirin Other: See Comments PAST MEDICAL HISTORY: PAST MEDICAL HISTORY Diagnosis Date - Atrial fibrillation (HCC) - Pneumonia PAST SURGICAL HISTORY: PAST SURGICAL HISTORY Procedure Laterality Date - COLONOSCOPY - EKG - EXPLORER EVENT MONITOR - STRESS TEST - TOTAL KNEE REPLACEMENT Left FAMILY HISTORY: FAMILY HISTORY Problem Relation Age of Onset - Aneurysm Mother SOCIAL HISTORY: Social History Tobacco Use - Smoking status: Not on file - Smokeless tobacco: Not on file Substance Use Topics - Alcohol use: Not on file - Drug use: Not on file COMPLETE REVIEW OF SYSTEMS: CONSTITUTION: Negative for pain, fatigue, weight loss, or appetite loss. EENT: Negative for mouth soreness, antibiotics use, epistaxis, visual problems, neck or facial swelling, fever/chills, bleeding gums, or hearing loss. CV: Negative for edema, calf swelling, palpitations, or chest pain. RESPIRATORY: Negative for cough, SOB, hemoptysis, or wheezing. GI: Negative for nausea/vomiting, heartburn, vomiting blood, dysphasia, diarrhea, blood in stool, constipation, early satiety, PICA, vegetarian, poor nutrition, abdominal fullness, or abdominal pain. NEUROLOGICAL: Negative for numbness/tingling, dizziness, gait disturbance, headache, speech disturbance, tremor, hemiparesis/sensory loss, or change in mental status. MUSCULOSKELETAL: Negative for joint pain, joint swelling, or proximal muscle weakness. SKIN: Negative for hair loss, bruising, nail changes, rash, itching, pallor, or jaundice. ENDO/URO: Negative for hot flashes, cold or heat intolerance, urinary frequency, urinary hesitancy, menorrhagia, or hematuria. PSYCH: Negative for anxiety, depression, or other. PHYSICAL EXAM: BP 124/64 Pulse 67 Temp 36.3 ?C (97.3 ?F) (Temporal) Resp 16 Ht 172 cm (5' 7.72 ) Wt 84.6 kg (186 lb 9.6 oz) SpO2 96% BMI 28.61 kg/m? GENERAL EXAM: Well developed/well nourished; in no acute distress. SKIN: Negative for lesions, rashes, or ulcers on the upper and lower extremities and face. Negative for palpations/nodules, purpura, and ecchymosis. EENT: Negative for conjunctiva, mucosal pallor, JVD, LAP, thyromegaly, and glossitis. Supple AND PERRL. EXTREMITIES: Negative for cyanosis, clubbing, and crepitus. LUNGS: Negative to auscultation, respiratory effort, and percussion. CARDIOVASCULAR: Regular rate. Negative for murmurs/S3S4/abnormal sounds, edema, and carotid bruits. ABDOMEN: Negative for masses, hernia, and spleen/liver abnormalities. RECTAL: Not done PSYCHIATRIC: Negative for mood/affect changes, recent AND remote memory changes, and judgement and insight. NEUROLOGICAL: Alert, oriented x person, (more content not included)...[facility]02-09-2022 Evaluation note* Encounter Date Diagnosis Assessment Notes Treatment Notes Treatment Clinical Notes Nov, Knee pain, right (ICD-10 - M25.561) He is going to have a right total knee arthroplasty done on 11-29-[address] Tineo. After evaluation he is provided with a letter stating that he is medically cleared for the surgery. He plans on attending physical therapy right after surgery through [facility]. His surgery will be at [facility]. Nov, Pre-op evaluation (ICD-10 - Z01.818) He is here for pre-surgical clearance today. He has had presurgical clearance done and has plans in place for bridging for his Coumadin. He was also started on an Iron supplement and will possibly start Glucerna. [employer] Other Evaluation noteNo InformationNort [place] Other Evaluation note* Diagnosis Persistent atrial fibrillation (CMS-HCC)- Primary Atrial fibrillation terminologist (current) use of anticoagulants [Z79.01] Long-term (current) use of anticoagulants [facility] - Reported* Type Description Date Medical History Follows with [facility] f or Arrhythmia-Atrial Fibrillation Medical History History of Stress Test, EKG, Col onoscopy, Medical History No history of CT Scan Abdomen an d Pelvis Medical History History of Chicken Pox, Measles and Mumps as a child Medical History No history of Fractures Medical History Hx of Rheumatic Fever when child Medical History Pneumonia Vaccine 11-15-14 Surgical History right index fingernail removed due to infection Surgical History heart monitor - Dr Mitchell 08/2017 Surgical History left knee replacement 01/08/2021 Hospitalization History ear aches as a child Hospitalization History pneumonia 06/2014 [employer] Other History general Narrative - Reported* Type Description Date Medical History Follows with [facility] f or Arrhythmia-Atrial Fibrillation Medical History History of Stress Test, EKG, Col onoscopy, Medical History No history of CT Scan Abdomen an d Pelvis Medical History History of Chicken Pox, Measles and Mumps as a child Medical History No history of Fractures Medical History Hx of Rheumatic Fever when child Medical History Pneumonia Vaccine 11-15-14 Surgical History right index fingernail removed due to infection Surgical History heart monitor - Dr Mitchell 08/2017 Surgical History left knee replacement 01/08/2021 Surgical History right knee replacement- Dr. Correa 02-20-22 Hospitalization History ear aches as a child Hospitalization History pneumonia 06/2014 [employer] Other InstructionsNot on filedocumented in this encounter [facility] Summary Purpose Family History No Family History Records FoundNo Family History Records FoundNo Family History Records FoundNo Family History Records FoundNo Family History Records Found Advance Directives No Advanced Directives Records FoundLatest Code Status on File Code Status Date Activated Date Inactivated Comments Full Code 02/19/2022 1:17 PM 02/20/2022 6:18 PM Reason for Referral Reason appt consult for e brit and treatment of hematuria Diagnosis 1 Hematuria (R31.9) Referral Organization [facility] Referring Provider First Name Mignon Referring Provider Last Name Trell Referring Provider Specialty Family Prac gasper Referred Organization Unknown Facility Referred Provider JULISA,EVELYN Referred Provider Specialty Urology Referral Priority Routine General Notes Danielle Rice 09/09/2022 02:17:04 PM > referral faxed with TE message, last visit note, last several UA/culture results and current insurance cards. pt understands he will be contacted to schedule this appt. Additional Source Comments (unrecognized sect ion and content) No Status Records FoundNo Status Records FoundNo Status Records FoundNo Status Records FoundNo Status Records Found INFORMATION SOURCE (unrecogn ized section and content) DATE CREATED AUTHOR 02/08/2021 [facility] DATE CREATED AUTHOR AUTHOR'S ORGANIZ ATION 12/28/2021 [facility] DATE CREATED AUTHOR AUTHOR'S ORGANIZ ATION 02/28/2022 [facility] DATE CREATED AUTHOR AUTHOR'S ORGANIZ ATION 12/29/2022 [facility] DATE CREATED AUTHOR AUTHOR'S ORGANIZ ATION 12/24/2023 [facility] REASON FOR VISIT (unrecogniz ed section and content) fyipresurgical clearanceclin icalclinicalApptAPPTClinical Acute Illnessreview labsclinical FYIreview labsClinicalrefillreview labsreview labsClinicalrefillsreview labs Care Teams (unrecognized sec tion and content) Foundation Engineer Relationship Specialty Start Date End Date Mignon Cai DO [address] [place] [address] [place] [address] PCP - General 03/10/17 FOR RECORDS PERTAINING TO PATIENTS WHO ARE OR HAVE BEEN ENROLLED IN A CHEMICAL DEPENDENCY/SUBSTANCEABUSE PROGRAM, SOME INFORMATION MAY BE OMITTED. This clinical summary was aggregated from multiple sources. Caution should be exercised in using it in the provision of clinical care. This summary normalizes information from multiple sources, and as a consequence, information in this document may materially change the coding, format and clinical context of patient data. In addition, data may be omitted in some cases. CLINICAL DECISIONS SHOULD BE BASED ON THE PRIMARY CLINICAL RECORDS. [employer] [facility]. provides no warranty or guarantee of the accuracy or completeness of information in this document.
[2024-01-20 08:20] LABS: Estimated Average Glucose 143 mg/dL; Glycohemoglobin A1C 6.6 % (4.5-6.2)
[2024-01-20 08:21] LABS: Alanine Aminotransferase 14 U/L (16-63); Albumin Globulin Ratio 0.8; Albumin Level 3.2 g/dL (3.4-5.0); Alkaline Phosphatase 89 U/L (46-116); Anion Gap 14.9; Aspartate Amino Transferase 17 U/L (15-37); Bilirubin Total 0.6 mg/dL (0.2-1.0); Calcium 9.4 mg/dL (8.5-10.1); Carbon Dioxide 27.9 mmol/L (21.0-32.0); Chloride 101 mmol/L (98-107); Chol HDL Ratio 3.9; Cholesterol 156 mg/dL (<=200); Estimated GFR (African America >60 (>=60); Estimated GFR (Non-African Ame >60 (>=60); Glucose 141 mg/dL (74-106); HDL Cholesterol 40 mg/dL (40-60); Potassium 3.8 mmol/L (3.5-5.1); Sodium 140 mmol/L (136-145); Total Protein 7.2 g/dL (6.4-8.2); Triglycerides 151 mg/dL (<=150); VLDL CHOLESTEROL 30.2 mg/dL
[2024-01-20 08:37] LABS: Basophils Absolute Auto 0.1 10^3/uL (0.0-0.1); Basophils Percent Auto 0.6 % (0.2-2.0); Eosinophils Absolute Auto 0.2 10^3/uL (0.0-0.7); Eosinophils Percent Auto 1.4 % (0.9-7.0); Hematocrit 42.6 % (42.0-54.0); Hemoglobin 13.9 g/dL (14.0-18.0); Immature Granulocytes Abs Auto 0.07 10^3/uL (0.00-0.03); Immature Granulocytes Pct Auto 0.6 % (0.0-0.5); Lymphocytes Absolute Auto 1.8 10^3/uL (1.2-3.8); Lymphocytes Percent Auto 13.8 % (20.5-60.0); Mean Corpuscular HGB Conc 32.6 g/dL (29.9-35.2); Mean Corpuscular Hemoglobin 30.8 pg (25.9-34.0); Mean Corpuscular Volume 94.5 fL (80.0-94.0); Mean Platelet Volume 11.4 fL (9.5-13.5); Monocytes Absolute Auto 1.2 10^3/uL (0.3-0.8); Monocytes Percent Auto 9.6 % (1.7-12.0); Neutrophils Absolute Auto 9.4 10^3/uL (1.4-6.5); Platelet Count 321 10^3/uL (150-450); Red Blood Count 4.51 10^6/uL (4.70-6.10); Red Cell Distribution Width 14.1 % (11.0-15.0); White Blood Count 12.6 10^3/uL (4.0-11.0)
[2024-01-20 09:00] LABS: Percent Iron Saturation 33.6 %
[2024-01-20 09:14] LABS: Prostate Specific Antigen Dx 1.18 ng/mL (<=4.00)
== END 2024-01-20 07:10 | disposition home or self-care (01) ==
LOC: LAB 07:11
PROVIDERS: PCP Family Medicine; Visit Provider Family Medicine
DX: E78.5 Hyperlipidemia, unspecified (principal); E53.8 Deficiency of other specified B group vitamins; D64.9 Anemia, unspecified; E11.9 Type 2 diabetes mellitus without complications; R35.1 Nocturia; Z12.5 Encounter for screening for malignant neoplasm of prostate
CPT/HCPCS: 36415; 80053; 80061; 82607; 82728; 82746; 83036; 83540; 83550; 84153; 85025

== ENCOUNTER 2024-03-13 20:05 | Emergency (ER) | payer MEDICARE, SELFPAY ==
[2024-03-13] VITALS (7 sets, daily range): BP systolic 134–148; BP diastolic 61–90; PULSE 64–74; TEMP 36.6–36.7; O2SAT 90–93; BMI 28.2
--- OUTSIDE RECORDS SUMMARY | 2024-03-13 20:15 | XMS_ITS | CCD ---
Author Organization [facility] Care Team Providers Care Administrative Specialist Name Role Phone DUKE HEADLEY Surgeon Unavailable [facility] Procedure Practitioner Unavailab MIGNON Felipe Primary Care Unavailable TRELL, MIGNON Referring Unavailable DUKE HEADLEY Admitting Unavailable DUKE HEADLEY Attending Unavailable Mignon Cai Unavailable TRELL, DR CROW Admitting Unavailable GIRCAROLINA, DR CROW Attending Unavailable GIRCAROLINA, DR CROW Primary Care Unavailable GIRCAROLINA, DR CROW Consulting Unavailable GIRCAROLINA, DR CROW Primary Care Unavailable CHAPIS ., DR SVETLANA Abernathy Admitting Unavailable NATION ., DR SVETLANA Abernathy Attending Unavailable NATION ., DR SVETLANA Abernathy Consulting Unavailable ZIEBER, DR JOSEPH Martin Consulting Unavailable KATSRAVANTHI KONG Consulting Unavailable FAWSHAIKH Belen ANDERSON Consulting Unavailable GIRCAROLINA, DR CROW Admitting Unavailable GIRCAROLINA, DR CROW Attending Unavailable GIRVIN, DR CROW Primary Care Unavailable GIRVIN, DR CROW Consulting Unavailable GIRVIN, DR CROW Admitting Unavailable GIRVIN, DR CROW Attending Unavailable GIRCAROLINA, DR CROW Referring Unavailable GIRCAROLINA, DR CROW Primary Care Unavailable GIRCAROLINA, DR [...] Propensity to adverse reactions (disorder) 1 [facility] Repository (20 sources) Aspirin; Translations: [ASPIRIN] Drug Allergy 4 [facility] (1 source) Aspirin Drug Allergy 4 [facility] Repository Medications Current Medications Medication Drug Class(es) Dates Sig (Normalized) Sig (Original) amLODIPine 10 mg oral tablet (20 sources) Dihydropyridine Calcium Channel Jose Roberto Start: 01-28-2024 End: 01-28-2024 take 1 tablet by mouth once daily Amlodipine Active 10 MG PO Daily January 28, 2024 10:31am FreeTextSig: TAKE ONE TABLET BY MOUTH DAILY; Note: Source Status: Continue; Provider: Trell Swain take 1 tablet by mouth in the mo rning amLODIPine (NORVASC) 10 mg tablet Take 1 tablet (10 mg total) by mouth in the morning. 0 Active glyBURIDE 2.5 mg oral tablet (20 sources) Sulfonylurea Start: 01-28-2024 take 0.5 tablet by mouth three times daily Glyburide Active 2.5 MG PO Three times daily January 28, 2024 12:00am FreeTextSig: TAKE 1/2 TABLET BY MOUTH THREE TIMES A DAY; Note: Source Status: Continue; Provider: Trell Swain glyBURIDE (DIABE TA) 2.5 mg tablet Taking 1/2 tablet three [...] Thiazide Diuretic, Angiotensin Converting Enzyme Inhibitor Start: 01-28-2024 take 1 tablet by mouth once daily Lisinopril-Hydrochlorothiazide Active 1 TAB PO Daily January 28, 2024 12:00am FreeTextSig: TAKE ONE TABLET BY MOUTH DAILY; Note: Source Status: Continue; Provider: Trell Swain Start: 10-20-2017 take 1 tablet by vanessa th every twenty-four hours Lisinopril-hydroCHLOROthiazide 20-25 MG 1 tablet Orally Once a day Oct, Active take 1 tablet by vanessa th once in the morning lisinopril-hydrochlorothiazide (PRINZIDE,ZESTORETIC) 20-25 mg per tablet Take 1 tablet by mouth in the morning. 0 Active metoprolol tartrate 50 mg oral tablet (20 sources) beta-Adrenergic Jose Roberto Start: 01-28-2024 End: 01-28-2024 take 2 tablets by mouth in the morning, then take 1 tablet by mouth in the evening Metoprolol Tartrate Active 50 MG PO January 28, 2024 10:38am FreeTextSi tablets in A.m. Orally 1 tablet in p.m.; Note: Source Status: Continue; Provider: Trell Swain Start: 09-26-2023 take 2 tablets by mo uth once daily in the morning, then take [...] TEST DAILY for 50 Active warfarin sodium 5 mg oral tablet (20 sources) Vitamin K Antagonist Start: 01-28-2024 take 1 tablet by mouth every week, then take 0.5 tablet by mouth every week Warfarin Active MG PO January 28, 2024 12:00am FreeTextSi tablet Orally tab one day per week, then 1/2 tab the other days of the week; Note: Source Status: Continue1/2/tab 2 days a week; Provider: Trell Crow ( ) Start: 09-03-2023 take 0.5-1 tablets b y mouth in the evening warfarin (COUMADIN) 2.5 mg tablet Indications: Persistent atrial fibrillation (CMS-HCC) , skilled nursing (current) use of anticoagulants Take 0.5-1 tablets (1.25-2.5 mg total) by mouth in the evening. As directed by Radha RODRIGUEZ. 90 tablet 1 09/03/2023 Active take 1 [...] Resolved: 04-25-2022 Chronic Deficiency and other anemia (18 sources) Anemia; Translations: [Anemia, unspecified] 01-28-2024 Episodic Deficiency and other anemia (7 sources) Anemia, unspecified; Translations: [Anemia, unspecified] Onset: 04-25-2022 Resolved: 04-25-2022 Episodic Diabetes mellitus [...] unspecified knee, initial encounter Episodic Other aftercare (2 sources) Other custodial (current) drug therapy; Translations: [Long-term (current) use of other medications] Onset: 03-06-2022 01-28-2024 Episodic Other aftercare (6 sources) Long-term current use of anticoagulant; Translations: [skilled nursing (current) use of anticoagulants] Onset: 01-16-2017 10-14-2023 Episodic Other aftercare (1 source) Long-term current use of drug therapy; Translations: [Other buttermaker helper (current) drug therapy] 01-28-2024 Episodic Other aftercare (1 source) Encounter for [...] Onset: 02-22-2022 Episodic Other aftercare (2 sources) skilled nursing (current) use of anticoagulants; Translations: [JAIL CURRNT USE ANTICOAGULANTS] Onset: 01-16-2017 Episodic Other connective tissue disease (1 source) [...] Test Name Value Interpretation Reference Range Facility Basophils Auto (Bld) [#/Vol] on 01-20-2024 Basophils (Bld) [#/Vol] 0.1 10 3/uL 0.0-0.1 [facility] Basophils/100 WBC Auto (Bld) on 01-20-2024 Basophils/100 WBC (Bld) 0.6 % 0.2-2.0 [facility] Cholesterol in LDL Calc [Mas s/Vol]on 01-20-2024 Cholesterol in LDL [Mass/Vol] 86.0 mg/dL [facility] Comment on above: <100 mg/dl [id number] 0-129 mg/dl NEAR OR ABOVE [id number] mg/dl BORDERLINE [id number] mg/dl HIGH>190 mg/dl VERY HIGH Cholesterol in VLDL Calc [Ma ss/Vol]on 01-20-2024 Cholesterol in VLDL [Mass/Vol] 30.2 mg/dL [facility] Eosinophils/100 WBC Auto (Bl d)on 01-20-2024 Eosinophils/100 WBC (Bld) 1.4 % 0.9-7.0 [facility] Erythrocyte distribution wid th Auto (RBC) [Ratio]on 01-20-2024 Erythrocyte distribution width (RBC) [Ratio] 14.1 % 11.0-15.0 [facility] Estimated glomerular filtrat ion rate (GFR) non- Americanon 01-20-2024 GFR/1.73 sq M.predicted among non-blacks MDRD (S/P/Bld) [Vol rate/Area] mL/min/{1.73_m2} >=60 [facility] Globulin Calc (S) [Mass/Vol] on 01-20-2024 Globulin (S) [Mass/Vol] 4.0 g/dL [facility] Glucose mean value [Mass/vol ume] in Blood Estimated from glycated hemoglobinon 01-20-2024 Average glucose Estimated from glycated hemoglobin (Bld) [Mass/Vol] 143 mg/dL [facility] Hematocrit Auto (Bld) [Volum e fraction]on 01-20-2024 Hematocrit (Bld) [Volume fraction] 42.6 % 42.0-54.0 [facility] Hemoglobin [Mass/volume] in Bloodon 01-20-2024 Hemoglobin (Bld) [Mass/Vol] 13.9 g/dL 14.0-18.0 [facility] Iron binding capacity [Mass/ volume] in Serum or Plasmaon 01-20-2024 Iron binding capacity [Mass/Vol] 304.0 ug/dL 250.0-450.0 [facility] Iron saturation [Mass Fracti on] in Serum or Plasmaon 01-20-2024 Iron saturation [Mass fraction] 33.6 % [facility] Laboratory - Chemistry and C hemistry - challengeon 01-20-2024 Albumin [Mass/Vol] 3.2 g/dL 3.4-5.0 [facility] ALP [Catalytic activity/Vol] 89 U/L 46-116 [facility] ALT [Catalytic activity/Vol] 14 U/L 16-63 [facility] AST [Catalytic activity/Vol] 17 U/L 15-37 [facility] Bilirubin [Mass/Vol] 0.6 mg/dL 0.2-1.0 [facility] Calcium [Mass/Vol] 9.4 mg/dL 8.5-10.1 [facility] Chloride [Moles/Vol] 101 mmol/L 98-107 [facility] Cholesterol [Mass/Vol] 156 mg/dL <=200 [facility] Cholesterol in HDL [Mass/Vol] 40 mg/dL 40-60 [facility] Comment on above: > or =60 mg/dl - LOW CARDIOVASCULAR RISK<40 mg/dl - HIGH CARDIOVASCULAR RISK CO2 [Moles/Vol] 27.9 mmol/L 21.0-32.0 [facility] Cobalamin (Vitamin B12) [Mass/Vol] 501.0 pg/mL 193.0-986.0 [facility] Creatinine [Mass/Vol] 1.00 mg/dL 0.70-1.30 [facility] Ferritin [Mass/Vol] 126.0 ng/mL 26.0-388.0 [facility] GFR/1.73 sq M.predicted MDRD (S/P/Bld) [Vol rate/Area] mL/min/{1.73_m2} >=60 [facility] Glucose [Mass/Vol] 141 mg/dL 74-106 [facility] Iron [Mass/Vol] 102.0 ug/dL 65.0-175.0 [facility] Potassium [Moles/Vol] 3.8 mmol/L 3.5-5.1 [facility] Protein [Mass/Vol] 7.2 g/dL 6.4-8.2 [facility] Sodium [Moles/Vol] 140 mmol/L 136-145 [facility] Triglyceride [Mass/Vol] 151 mg/dL <=150 [facility] Urea nitrogen [Mass/Vol] 18.0 mg/dL 7.0-18.0 [facility] Urea nitrogen/Creatinine [Mass ratio] 18.0 mg/mg [facility] Laboratory - Hematology and Cell countson 01-20-2024 HbA1c (Bld) [Mass fraction] 6.6 % 4.5-6.2 [facility] Comment on above: ADA RECOMMENDED LIMI T 4.0 - 6.0ADA THERAPEUTIC TARGET < 7.0ACTION SUGGESTED> 7.0 Immature granulocytes/100 WBC (Bld) 0.6 % 0.0-0.5 [facility] Leukocytes [#/volume] correc rosendo for nucleated erythrocytes in Blood by Automated counon 01-20-2024 WBC corrected for nucl RBC Auto (Bld) [#/Vol] 12.6 10 3/uL 4.0-11.0 [facility] Lymphocytes Auto (Bld) [#/Vo l]on 01-20-2024 Lymphocytes (Bld) [#/Vol] 1.8 10 3/uL 1.2-3.8 [facility] Lymphocytes/100 WBC Auto (Bl d)on 01-20-2024 Lymphocytes/100 WBC (Bld) 13.8 % 20.5-60.0 [facility] MCH Auto (RBC) [Entitic mass ]on 01-20-2024 MCH (RBC) [Entitic mass] 30.8 pg 25.9-34.0 [facility] MCHC Auto (RBC) [Mass/Vol]on 01-20-2024 MCHC (RBC) [Mass/Vol] 32.6 g/dL 29.9-35.2 [facility] MCV Auto (RBC) [Entitic vol] on 01-20-2024 MCV (RBC) [Entitic vol] 94.5 fL 80.0-94.0 [facility] Monocytes Auto (Bld) [#/Vol] on 01-20-2024 Monocytes (Bld) [#/Vol] 1.2 10 3/uL 0.3-0.8 [facility] Monocytes/100 WBC Auto (Bld) on 01-20-2024 Monocytes/100 WBC (Bld) 9.6 % 1.7-12.0 [facility] Neutrophils Auto (Bld) [#/Vo l]on 01-20-2024 Neutrophils (Bld) [#/Vol] 9.4 10 3/uL 1.4-6.5 [facility] Neutrophils/100 WBC Auto (Bl d)on 01-20-2024 Neutrophils/100 WBC (Bld) 74.0 % 43.0-75.0 [facility] No Panel Informationon 01-19 Eosinophils # (Auto) 0.2 10 3/uL 0.0-0.7 [facility] Folate 22.90 ng/mL 8.60-58.90 [facility] Immature Granulocyte # (Auto) 0.07 10 3/uL 0.00-0.03 [facility] Prostate Specific Antigen Total 1.18 ng/mL <=4.00 [facility] Platelet mean volume Auto (B ld) [Entitic vol]on 01-20-2024 Platelet mean volume (Bld) [Entitic vol] 11.4 fL 9.5-13.5 [facility] Platelets Auto (Bld) [#/Vol] on 01-20-2024 Platelets (Bld) [#/Vol] 321 10 3/uL 150-450 [facility] RBC Auto (Bld) [#/Vol]on RBC (Bld) [#/Vol] 4.51 10 6/uL 4.70-6.10 [facility] Serum or plasma albumin/glob ulin mass ratioon 01-20-2024 Albumin/Globulin [Mass ratio] 0.8 {ratio} [facility] Serum or plasma anion gap de terminationon 01-20-2024 Anion gap [Moles/Vol] 14.9 mmol/L [facility] Serum or plasma total choles terol/high density lipoprotein (HDL) cholesterol mass cash 01-20-2024 Cholesterol.total/C holesterol in HDL [Mass ratio] 3.9 {ratio} [facility] Comment on above: 3.3 - 4.4 LOW RISK4. 4 - 7.1 AVERAGE RISK7.1 - 11.0 MODERATE RISK>11.0 HIGH RISK POCT Protime / INRon 12-22- 024 INR Coag (PPP) [Relative time] 2.2 {INR} Abnormal 0.8 - 1.2 [facility] Interpretation and review of laboratory results Abnormal [facility] POCT Protime / INRon 024 INR Coag (PPP) [Relative time] 1.9 {INR} Abnormal 0.8 - 1.2 [facility] Interpretation and review of laboratory results Abnormal [facility] POCT Protime / INRon 024 INR Coag (PPP) [Relative time] 1.8 {INR} Abnormal 0.8 - 1.[address] [facility] Interpretation and review of laboratory results Abnormal [facility] CBC AUTO DIFFon 12-24-2022 BASO # 0.1 103/ul Normal 0.0-0.1 [facility] Comment on above: Performed By: #### C MP, LIPID #### [facility] [address] [place] [address] Dr. Miles Murphy Basophils/100 WBC (Bld) 0.7 % Normal 0.2-2.0 [facility] Comment on above: Performed By: #### C MP, LIPID #### [facility] [address] [place] [address] Dr. Miles Murphy EO # 0.2 103/ul Normal 0.0-0.7 [facility] Comment on above: Performed By: #### C MP, LIPID #### [facility] [address] [place] [address] Dr. Miles Murphy Eosinophils/100 WBC (Bld) 1.5 % Normal 0.9-7.0 [facility] Comment on above: Performed By: #### C MP, LIPID #### [facility] [address] [place] [address] Dr. Miles Murphy Erythrocyte distribution width (RBC) [Ratio] 14.0 % Normal 11.0-15.0 [facility] Comment on above: Performed By: #### C MP, LIPID #### [facility] [address] [place] [address] Dr. Miles Murphy Hematocrit (Bld) [Volume fraction] 44.0 % Normal 42.0-54.0 [facility] Comment on above: Performed By: #### C MP, LIPID #### [facility] [address] [place] [address] Dr. Miles Murphy Hemoglobin (Bld) [Mass/Vol] 14.7 g/dL Normal 14.0-18.0 [facility] Comment on above: Performed By: #### C MP, LIPID #### [facility] [address] [place] [address] Dr. Miles Murphy IG # 0.08 10e3/ul Critically high 0.00-0.03 [facility] Comment on above: Performed By: #### C MP, LIPID #### [facility] [address] [place] [address] Dr. Miles Murphy IG % 0.8 % Critically high 0.0-0.5 [facility] Comment on above: Performed By: #### C MP, LIPID #### [facility] [address] [place] [address] Dr. Miles Murphy LYMPH # 2.0 103/ul Normal 1.2-3.8 [facility] Comment on above: Performed By: #### C MP, LIPID #### [facility] [address] [place] [address] Dr. Miles Murphy Lymphocytes/100 WBC (Bld) 19.2 % Critically low 20.5-60.0 [facility] Comment on above: Performed By: #### C MP, LIPID #### [facility] [address] [place] [address] Dr. Miles Murphy MANUAL DIFF REQ NO Normal [facility] Comment on above: Performed By: #### C MP, LIPID #### [facility] [address] [place] [address] Dr. Miles Murphy MCH (RBC) [Entitic mass] 31.0 pg Normal 25.9-34.0 [facility] Comment on above: Performed By: #### C MP, LIPID #### [facility] [address] [place] [address] Dr. Miles Murphy MCHC (RBC) [Mass/Vol] 33.4 g/dL Normal 29.9-35.2 [facility] Comment on above: Performed By: #### C MP, LIPID #### [facility] [address] [address] [address] Miles Murphy MCV (RBC) [Entitic vol] 92.8 fL Normal 80.0-94.0 [facility] Comment on above: Performed By: #### C MP, LIPID #### [facility] [address] [place] [address] Dr. Miles Murphy MONO # 1.0 103/ul Critically high 0.3-0.8 [facility] Comment on above: Performed By: #### C MP, LIPID #### [facility] [address] [place] [address] Dr. Miles Murphy Monocytes/100 WBC (Bld) 9.6 % Normal 1.7-12.0 [facility] Comment on above: Performed By: #### C MP, LIPID #### [facility] [address] [place] [address] Dr. Miles Murphy NEUT # 7.0 103/ul Critically high 1.4-6.5 [facility] Comment on above: Performed By: #### C MP, LIPID #### [facility] [address] [place] [address] Dr. Miles Murphy Neutrophils/100 WBC (Bld) 68.2 % Normal 43.0-75.0 [facility] Comment on above: Performed By: #### C MP, LIPID #### [facility] [address] [place] [address] Dr. Miles Murphy Platelet mean volume (Bld) [Entitic vol] 10.4 fL Normal 9.5-13.5 [facility] Comment on above: Performed By: #### C MP, LIPID #### [facility] [address] [place] [address] Dr. Miles Murphy PLT 266 103/ul Normal 150-450 [facility] Comment on above: Performed By: #### C MP, LIPID #### [facility] [address] [place] [address] Dr. Miles Murphy RBC 4.74 106/ul Normal 4.70-6.10 [facility] Comment on above: Performed By: #### C MP, LIPID #### [facility] [address] [address] [address] Miles Murphy WBC 10.3 103/ul Normal 4.0-11.0 [facility] Comment on above: Performed By: #### C MP, LIPID #### [facility] [address] [address] [address] Miles Murphy FERRITINon 12-24-2022 Ferritin [Mass/Vol] 144.0 ng/mL Normal 26.0-388.0 [facility] Comment on above: Performed By: #### P OCGLUC #### [facility] [address] [address] [address] Miles Murphy GLYCOHEMOGLOBIN A1Con 2022 ADA RECOMMENDATION SEE BELOW Normal [facility] Comment on above: Result Comment: ADA RECOMMENDED LIMIT 4.0 - 6.0 ADA THERAPEUTIC TARGET < 7.0 ACTION SUGGESTED > 7.0 Performed By: #### P OCGLUC #### [facility] [address] [address] [address] Miles Murphy Glucose [Mass/Vol] 137 mg/dL Normal [facility] Comment on above: Performed By: #### P OCGLUC #### [facility] [address] [address] [address] Miles Murphy HbA1c (Bld) [Mass fraction] 6.4 % Critically high 4.5-6.2 [facility] Comment on above: Performed By: #### P OCGLUC #### [facility] [address] [address] [address] Miles Murphy IRON AND TIBCon 12-24-2022 % SATURATION 39.2 % Normal [facility] Comment on above: Performed By: #### P OCGLUC #### [facility] [address] [address] [address] Miles Murphy Iron [Mass/Vol] 111.0 ug/dL Normal 65.0-175.0 [facility] Comment on above: Performed By: #### P OCGLUC #### [facility] [address] [address] [address] Miles Murphy TIBC DIRECT 283.0 ug/dL Normal 250.0-450.0 [facility] Comment on above: Performed By: #### P OCGLUC #### [facility] [address] [place] [address] Dr. Miles Murphy LIPID PROFILEon 12-24-2022 CHOL-HDL RATIO NORM SEE BELOW Normal [facility] Comment on above: Result Comment: 3.3 - 4.4 LOW RISK 4.4 - 7.1 AVERAGE RISK 7.1 - 11.0 MODERATE RISK >11.0 HIGH RISK Performed By: #### F ERR, FETIBC, B12FOL, PSAD #### [facility] [address] [address] [address] Miles Murphy Cholesterol [Mass/Vol] 164 mg/dL Normal <=200 [facility] Comment on above: Performed By: #### F ERR, FETIBC, B12FOL, PSAD #### [facility] [address] [place] [address] Dr. Miles Murphy Cholesterol in HDL [Mass/Vol] 35 mg/dL Critically low 40-60 [facility] Comment on above: Performed By: #### F ERR, FETIBC, B12FOL, PSAD #### [facility] [address] [place] [address] Dr. Miles Murphy Cholesterol in LDL [Mass/Vol] 84.8 mg/dL Normal [facility] Comment on above: Performed By: #### F ERR, FETIBC, B12FOL, PSAD #### [facility] [address] [place] [address] Dr. Miles Murphy Cholesterol.total/C holesterol in HDL [Mass ratio] 4.7 {ratio} Normal [facility] Comment on above: Performed By: #### F ERR, FETIBC, B12FOL, PSAD #### [facility] [address] [place] [address] Dr. Miles Murphy HDL NORMAL > or = 60 mg/dl - LO W CARDIOVASCULAR RISK <40 mg/dl - HIGH CARDIOVASCULAR RISK Normal [facility] Comment on above: Performed By: #### F ERR, FETIBC, B12FOL, PSAD #### [facility] [address] [address] [address] Miles Murphy LDL CALC NORMAL SEE BELOW Normal [facility] Comment on above: Result Comment: <100 mg/dl OPTIMAL 100 - 129 mg/dl NEAR OR ABOVE OPTIMAL 130 - 159 mg/dl BORDERLINE HIGH 160 - 189 mg/dl HIGH >190 mg/dl VERY HIGH Performed By: #### F ERR, FETIBC, B12FOL, PSAD #### [facility] [address] [address] [address] Miles Murphy Triglyceride [Mass/Vol] 221 mg/dL Critically high <=150 [facility] Comment on above: Performed By: #### F ERR, FETIBC, B12FOL, PSAD #### [facility] [address] [place] [address] Dr. Miles Murphy VLDL CALC 44.2 mg/dL Normal [facility] Comment on above: Performed By: #### F ERR, FETIBC, B12FOL, PSAD #### [facility] [address] [place] [address] Dr. Miles Murphy PROF 14(COMP METB)on 023 Albumin [Mass/Vol] 3.6 g/dL Normal 3.4-5.0 [facility] Comment on above: Performed By: #### F ERR, FETIBC, B12FOL, PSAD #### [facility] [address] [address] [address] Miles Murphy Albumin/Globulin [Mass ratio] 1.0 {ratio} Normal [facility] Comment on above: Performed By: #### F ERR, FETIBC, B12FOL, PSAD #### [facility] [address] [address] [address] Miles Murphy ALP [Catalytic activity/Vol] 79 U/L Normal 46-116 [facility] Comment on above: Performed By: #### F ERR, FETIBC, B12FOL, PSAD #### [facility] [address] [address] [address] Miles Murphy ALT [Catalytic activity/Vol] 16 U/L Normal 16-63 [facility] Comment on above: Performed By: #### F ERR, FETIBC, B12FOL, PSAD #### [facility] [address] [place] [address] Dr. Miles Murphy Anion gap [Moles/Vol] 12.7 mmol/L Normal [facility] Comment on above: Performed By: #### F ERR, FETIBC, B12FOL, PSAD #### [facility] [address] [place] [address] Dr. Miles Murphy AST [Catalytic activity/Vol] 17 U/L Normal 15-37 [facility] Comment on above: Performed By: #### F ERR, FETIBC, B12FOL, PSAD #### [facility] [address] [place] [address] Dr. Miles Murphy Bilirubin [Mass/Vol] 0.5 mg/dL Normal 0.2-1.0 [facility] Comment on above: Performed By: #### F ERR, FETIBC, B12FOL, PSAD #### [facility] [address] [place] [address] Dr. Miles Murphy Calcium [Mass/Vol] 9.3 mg/dL Normal 8.5-10.1 [facility] Comment on above: Performed By: #### F ERR, FETIBC, B12FOL, PSAD #### [facility] [address] [place] [address] Dr. Miles Murphy Chloride [Moles/Vol] 100 mmol/L Normal 98-107 [facility] Comment on above: Performed By: #### F ERR, FETIBC, B12FOL, PSAD #### [facility] [address] [place] [address] Dr. Miles Murphy CO2 [Moles/Vol] 29.8 mmol/L Normal 21.0-32.0 [facility] Comment on above: Performed By: #### F ERR, FETIBC, B12FOL, PSAD #### [facility] [address] [place] [address] Dr. Miles Murphy Creatinine [Mass/Vol] 1.00 mg/dL Normal 0.70-1.30 [facility] Comment on above: Performed By: #### F ERR, FETIBC, B12FOL, PSAD #### [facility] [address] [address] [address] Miles Murphy EGFR-AF AZERBAIJANI >60 Normal >=60 [facility] Comment on above: Performed By: #### F ERR, FETIBC, B12FOL, PSAD #### [facility] [address] [address] [address] Miles Murphy EGFR-NON AF AZERBAIJANI >60 Normal >=60 [facility] Comment on above: Performed By: #### F ERR, FETIBC, B12FOL, PSAD #### [facility] [address] [place] [address] Dr. Miles Murphy Globulin (S) [Mass/Vol] 3.5 g/dL Normal [facility] Comment on above: Performed By: #### F ERR, FETIBC, B12FOL, PSAD #### [facility] [address] [place] [address] Dr. Miles Murphy Glucose [Mass/Vol] 135 mg/dL Critically high 74-106 [facility] Comment on above: Performed By: #### F ERR, FETIBC, B12FOL, PSAD #### [facility] [address] [place] [address] Dr. Miles Murphy Potassium [Moles/Vol] 4.5 mmol/L Normal 3.5-5.1 [facility] Comment on above: Performed By: #### F ERR, FETIBC, B12FOL, PSAD #### [facility] [address] [place] [address] Dr. Miles Murphy Protein [Mass/Vol] 7.1 g/dL Normal 6.4-8.2 [facility] Comment on above: Performed By: #### F ERR, FETIBC, B12FOL, PSAD #### [facility] [address] [place] [address] Dr. Miles Murphy Sodium [Moles/Vol] 138 mmol/L Normal 136-145 [facility] Comment on above: Performed By: #### F ERR, FETIBC, B12FOL, PSAD #### [facility] [address] [place] [address] Dr. Miles Murphy Urea nitrogen [Mass/Vol] 21.0 mg/dL Critically high 7.0-18.0 [facility] Comment on above: Performed By: #### F ERR, FETIBC, B12FOL, PSAD #### [facility] [address] [place] [address] Dr. Miles Murphy Urea nitrogen/Creatinine [Mass ratio] 21.0 mg/mg Normal [facility] Comment on above: Performed By: #### F ERR, FETIBC, B12FOL, PSAD #### [facility] [address] [place] [address] Dr. Miles Murphy VIT B12 AND FOLATEon 023 Cobalamin (Vitamin B12) [Mass/Vol] 488.0 pg/mL Normal 193.0-986.0 [facility] Comment on above: Performed By: #### P OCGLUC #### [facility] [address] [place] [address] Dr. Miles Murphy FOLATE 21.30 ng/mL Normal 8.60-58.90 [facility] Comment on above: Performed By: #### P OCGLUC #### [facility] [address] [place] [address] Dr. Miles Murphy URINE MICROSCOPIC ONLYon BACTERIA NONE SEEN Normal NONE SEEN [facility] Comment on above: Performed By: #### F ERR, FETIBC, B12FOL, PSAD #### [facility] [address] [place] [address] Dr. Miles Murphy Bacteria identified Cx Nom (U) NOT INDICATED Normal [facility] Comment on above: Performed By: #### F ERR, FETIBC, B12FOL, PSAD #### [facility] [address] [place] [address] Dr. Miles Murphy CAST NONE SEEN Normal NONE SEEN [facility] Comment on above: Performed By: #### F ERR, FETIBC, B12FOL, PSAD #### [facility] [address] [place] [address] Dr. Miles Murphy Crystals LM Nom (Urine sed) NONE SEEN Normal NONE SEEN [facility] Comment on above: Performed By: #### F ERR, FETIBC, B12FOL, PSAD #### [facility] [address] [place] [address] Dr. Miles Murphy Epithelial cells LM Ql (Urine sed) NONE SEEN Normal NONE SEEN /RARE [facility] Comment on above: Performed By: #### F ERR, FETIBC, B12FOL, PSAD #### [facility] [address] [place] [address] Dr. Miles Murphy MUCOUS NONE SEEN Normal NONE SEEN [facility] Comment on above: Performed By: #### F ERR, FETIBC, B12FOL, PSAD #### [facility] [address] [place] [address] Dr. Miles Murphy RBC 2-5 Abnormal 0-2 [facility] Comment on above: Performed By: #### F ERR, FETIBC, B12FOL, PSAD #### [facility] [address] [place] [address] Dr. Miles Murphy WBC NONE SEEN Normal NONE SEEN [facility] Comment on above: Performed By: #### F ERR, FETIBC, B12FOL, PSAD #### [facility] [address] [place] [address] Dr. Miles Murphy CBC AUTO DIFFon 08-21-2022 BASO # 0.1 103/ul Normal 0.0-0.1 [facility] Comment on above: Performed By: #### F ERR, FETIBC, B12FOL, PSAD #### [facility] [address] [place] [address] Dr. Miles Murphy Basophils/100 WBC (Bld) 0.5 % Normal 0.2-2.0 [facility] Comment on above: Performed By: #### F ERR, FETIBC, B12FOL, PSAD #### [facility] [address] [place] [address] Dr. Miles Murphy EO # 0.2 103/ul Normal 0.0-0.7 [facility] Comment on above: Performed By: #### F ERR, FETIBC, B12FOL, PSAD #### [facility] [address] [place] [address] Dr. Miles Murphy Eosinophils/100 WBC (Bld) 1.6 % Normal 0.9-7.0 [facility] Comment on above: Performed By: #### F ERR, FETIBC, B12FOL, PSAD #### [facility] [address] [place] [address] Dr. Miles Murphy Erythrocyte distribution width (RBC) [Ratio] 13.7 % Normal 11.0-15.0 [facility] Comment on above: Performed By: #### F ERR, FETIBC, B12FOL, PSAD #### [facility] [address] [place] [address] Dr. Miles Murphy Hematocrit (Bld) [Volume fraction] 41.3 % Critically low 42.0-54.0 [facility] Comment on above: Performed By: #### F ERR, FETIBC, B12FOL, PSAD #### [facility] [address] [place] [address] Dr. Miles Murphy Hemoglobin (Bld) [Mass/Vol] 13.7 g/dL Critically low 14.0-18.0 [facility] Comment on above: Performed By: #### F ERR, FETIBC, B12FOL, PSAD #### [facility] [address] [place] [address] Dr. Miles Murphy IG # 0.07 10e3/ul Critically high 0.00-0.03 [facility] Comment on above: Performed By: #### F ERR, FETIBC, B12FOL, PSAD #### [facility] [address] [place] [address] Dr. Miles Murphy IG % 0.5 % Normal 0.0-0.5 [facility] Comment on above: Performed By: #### F ERR, FETIBC, B12FOL, PSAD #### [facility] [address] [place] [address] Dr. Miles Murphy LYMPH # 1.8 103/ul Normal 1.2-3.8 [facility] Comment on above: Performed By: #### F ERR, FETIBC, B12FOL, PSAD #### [facility] [address] [place] [address] Dr. Miles Murphy Lymphocytes/100 WBC (Bld) 13.3 % Critically low 20.5-60.0 [facility] Comment on above: Performed By: #### F ERR, FETIBC, B12FOL, PSAD #### [facility] [address] [place] [address] Dr. Miles Murphy MANUAL DIFF REQ NO Normal [facility] Comment on above: Performed By: #### F ERR, FETIBC, B12FOL, PSAD #### [facility] [address] [place] [address] Dr. Miles Murphy MCH (RBC) [Entitic mass] 31.6 pg Normal 25.9-34.0 [facility] Comment on above: Performed By: #### F ERR, FETIBC, B12FOL, PSAD #### [facility] [address] [place] [address] Dr. Miles Murphy MCHC (RBC) [Mass/Vol] 33.2 g/dL Normal 29.9-35.2 [facility] Comment on above: Performed By: #### F ERR, FETIBC, B12FOL, PSAD #### [facility] [address] [place] [address] Dr. Miles Murphy MCV (RBC) [Entitic vol] 95.2 fL Critically high 80.0-94.0 [facility] Comment on above: Performed By: #### F ERR, FETIBC, B12FOL, PSAD #### [facility] [address] [place] [address] Dr. Miles Murphy MONO # 1.1 103/ul Critically high 0.3-0.8 [facility] Comment on above: Performed By: #### F ERR, FETIBC, B12FOL, PSAD #### [facility] [address] [address] [address] Miles Murphy Monocytes/100 WBC (Bld) 8.7 % Normal 1.7-12.0 [facility] Comment on above: Performed By: #### F ERR, FETIBC, B12FOL, PSAD #### [facility] [address] [place] [address] Dr. Miles Murphy NEUT # 9.9 103/ul Critically high 1.4-6.5 [facility] Comment on above: Performed By: #### F ERR, FETIBC, B12FOL, PSAD #### [facility] [address] [place] [address] Dr. Miles Murphy Neutrophils/100 WBC (Bld) 75.4 % Critically high 43.0-75.0 [facility] Comment on above: Performed By: #### F ERR, FETIBC, B12FOL, PSAD #### [facility] [address] [place] [address] Dr. Miles Murphy Platelet mean volume (Bld) [Entitic vol] 10.5 fL Normal 9.5-13.5 [facility] Comment on above: Performed By: #### F ERR, FETIBC, B12FOL, PSAD #### [facility] [address] [place] [address] Dr. Miles Murphy PLT 295 103/ul Normal 150-450 [facility] Comment on above: Performed By: #### F ERR, FETIBC, B12FOL, PSAD #### [facility] [address] [place] [address] Dr. Miles Murphy RBC 4.34 106/ul Critically low 4.70-6.10 [facility] Comment on above: Performed By: #### F ERR, FETIBC, B12FOL, PSAD #### [facility] [address] [place] [address] Dr. Miles Murphy WBC 13.1 103/ul Critically high 4.0-11.0 [facility] Comment on above: Performed By: #### F ERR, FETIBC, B12FOL, PSAD #### [facility] [address] [address] [address] Miles Murphy CULTURE URINEon 08-21-2022 CULTURE URINE Culture Observations : LIGHT GROWTH OF MIXED SKIN YOGI. NO POTENTIAL PATHOGENS SEEN. Normal [facility] Comment on above: Performed By: #### F ERR, FETIBC, B12FOL, PSAD #### [facility] [address] [address] [address] Miles Murphy FERRITINon 08-21-2022 Ferritin [Mass/Vol] 100.0 ng/mL Normal 26.0-388.0 [facility] Comment on above: Performed By: #### F ERR, FETIBC, B12FOL, PSAD #### [facility] [address] [place] [address] Dr. Miles Murphy GLYCOHEMOGLOBIN A1Con 2021 ADA RECOMMENDATION SEE BELOW Normal [facility] Comment on above: Result Comment: ADA RECOMMENDED LIMIT 4.0 - 6.0 ADA THERAPEUTIC TARGET < 7.0 ACTION SUGGESTED > 7.0 Performed By: #### F ERR, FETIBC, B12FOL, PSAD #### [facility] [address] [place] [address] Dr. Miles Murphy Glucose [Mass/Vol] 137 mg/dL Normal [facility] Comment on above: Performed By: #### F ERR, FETIBC, B12FOL, PSAD #### [facility] [address] [address] [address] Miles Murphy HbA1c (Bld) [Mass fraction] 6.4 % Critically high 4.5-6.2 [facility] Comment on above: Performed By: #### F ERR, FETIBC, B12FOL, PSAD #### [facility] [address] [place] [address] Dr. Miles Murphy IRON AND TIBCon 08-21-2022 % SATURATION 30.6 % Normal [facility] Comment on above: Performed By: #### F ERR, FETIBC, B12FOL, PSAD #### [facility] [address] [place] [address] Dr. Miles Murphy Iron [Mass/Vol] 97.0 ug/dL Normal 65.0-175.0 [facility] Comment on above: Performed By: #### F ERR, FETIBC, B12FOL, PSAD #### [facility] [address] [address] [address] Miles Murphy TIBC DIRECT 317.0 ug/dL Normal 250.0-450.0 [facility] [place] Comment on above: Performed By: #### F ERR, FETIBC, B12FOL, PSAD #### [facility] [address] [address] [address] Miles Murphy LIPID PROFILEon 08-21-2022 CHOL-HDL RATIO NORM SEE BELOW Normal [facility] Comment on above: Result Comment: 3.3 - 4.4 LOW RISK 4.4 - 7.1 AVERAGE RISK 7.1 - 11.0 MODERATE RISK >11.0 HIGH RISK Performed By: #### F ERR, FETIBC, B12FOL, PSAD #### [facility] [address] [address] [address] Miles Murphy Cholesterol [Mass/Vol] 157 mg/dL Normal <=200 [facility] Comment on above: Performed By: #### F ERR, FETIBC, B12FOL, PSAD #### [facility] [address] [address] [address] Miles Murphy Cholesterol in HDL [Mass/Vol] 36 mg/dL Critically low 40-60 [facility] Comment on above: Performed By: #### F ERR, FETIBC, B12FOL, PSAD #### [facility] [address] [address] [address] Miles Murphy Cholesterol in LDL [Mass/Vol] 84.4 mg/dL Normal [facility] Comment on above: Performed By: #### F ERR, FETIBC, B12FOL, PSAD #### [facility] [address] [address] [address] Miles Murphy Cholesterol.total/C holesterol in HDL [Mass ratio] 4.4 {ratio} Normal [facility] Comment on above: Performed By: #### F ERR, FETIBC, B12FOL, PSAD #### [facility] [address] [address] [address] Miles Murphy HDL NORMAL > or = 60 mg/dl - LO W CARDIOVASCULAR RISK <40 mg/dl - HIGH CARDIOVASCULAR RISK Normal [facility] Comment on above: Performed By: #### F ERR, FETIBC, B12FOL, PSAD #### [facility] [address] [address] [address] Miles Murphy LDL CALC NORMAL SEE BELOW Normal [facility] Comment on above: Result Comment: <100 mg/dl OPTIMAL 100 - 129 mg/dl NEAR OR ABOVE OPTIMAL 130 - 159 mg/dl BORDERLINE HIGH 160 - 189 mg/dl HIGH >190 mg/dl VERY HIGH Performed By: #### F ERR, FETIBC, B12FOL, PSAD #### [facility] [address] [address] [address] Miles Murphy Triglyceride [Mass/Vol] 183 mg/dL Critically high <=150 [facility] Comment on above: Performed By: #### F ERR, FETIBC, B12FOL, PSAD #### [facility] [address] [address] [address] Miles Murphy VLDL CALC 36.6 mg/dL Normal [facility] Comment on above: Performed By: #### F ERR, FETIBC, B12FOL, PSAD #### [facility] [address] [address] [address] Miles Murphy MICROALB CREAT RATIO RANDOMo n 08-21-2022 mALB 20.9 mg/L Normal <=30.0 [facility] Comment on above: Performed By: #### M CRR #### [facility] [address] [address] [address] Miles PRASADB CR RATIO 446.6 mg/g Critically high 0.0-29.9 [facility] Comment on above: Performed By: #### M CRR #### [facility] [address] [address] [address] Miles PRASDAB CR RATIO RANGE SEE BELOW Normal [facility] Comment on above: Result Comment: NO M ICROALBUMINURIA 0-29 MG/G CLINICAL MICROALBUMINURIA 30-300 MG/G MACROALBUMINURIA >300 MG/G Performed By: #### M CRR #### [facility] [address] [place] [address] Dr. Miles Murphy URINE CREAT 46.80 mg/dL Normal 20.00-300.00 [facility] Comment on above: Performed By: #### M CRR #### [facility] [address] [place] [address] Dr. Miles Murphy PROF 14(COMP METB)on 022 Albumin [Mass/Vol] 3.5 g/dL Normal 3.4-5.0 [facility] Comment on above: Performed By: #### F ERR, FETIBC, B12FOL, PSAD #### [facility] [address] [place] [address] Dr. Miles Murphy Albumin/Globulin [Mass ratio] 0.9 {ratio} Normal [facility] Comment on above: Performed By: #### F ERR, FETIBC, B12FOL, PSAD #### [facility] [address] [place] [address] Dr. Miles Murphy ALP [Catalytic activity/Vol] 78 U/L Normal 46-116 [facility] Comment on above: Performed By: #### F ERR, FETIBC, B12FOL, PSAD #### [facility] [address] [place] [address] Dr. Miles Murphy ALT [Catalytic activity/Vol] 17 U/L Normal 16-63 [facility] Comment on above: Performed By: #### F ERR, FETIBC, B12FOL, PSAD #### [facility] [address] [place] [address] Dr. Miles Murphy Anion gap [Moles/Vol] 9.5 mmol/L Normal [facility] Comment on above: Performed By: #### F ERR, FETIBC, B12FOL, PSAD #### [facility] [address] [place] [address] Dr. Miles Murphy AST [Catalytic activity/Vol] 17 U/L Normal 15-37 [facility] Comment on above: Performed By: #### F ERR, FETIBC, B12FOL, PSAD #### [facility] [address] [place] [address] Dr. Miles Murphy Bilirubin [Mass/Vol] 0.6 mg/dL Normal 0.2-1.0 [facility] Comment on above: Performed By: #### F ERR, FETIBC, B12FOL, PSAD #### [facility] [address] [place] [address] Dr. Miles Murphy Calcium [Mass/Vol] 9.1 mg/dL Normal 8.5-10.1 [facility] Comment on above: Performed By: #### F ERR, FETIBC, B12FOL, PSAD #### [facility] [address] [place] [address] Dr. Miles Murphy Chloride [Moles/Vol] 99 mmol/L Normal 98-107 [facility] Comment on above: Performed By: #### F ERR, FETIBC, B12FOL, PSAD #### [facility] [address] [place] [address] Dr. Miles Murphy CO2 [Moles/Vol] 32.6 mmol/L Critically high 21.0-32.0 [facility] Comment on above: Performed By: #### F ERR, FETIBC, B12FOL, PSAD #### [facility] [address] [place] [address] Dr. Miles Murphy Creatinine [Mass/Vol] 0.90 mg/dL Normal 0.70-1.30 [facility] Comment on above: Performed By: #### F ERR, FETIBC, B12FOL, PSAD #### [facility] [address] [place] [address] Dr. Miles Murphy EGFR-AF AZERBAIJANI >60 Normal >=60 [facility] Comment on above: Performed By: #### F ERR, FETIBC, B12FOL, PSAD #### [facility] [address] [place] [address] Dr. Miles Murphy EGFR-NON AF AZERBAIJANI >60 Normal >=60 [facility] Comment on above: Performed By: #### F ERR, FETIBC, B12FOL, PSAD #### [facility] [address] [place] [address] Dr. Miles Murphy Globulin (S) [Mass/Vol] 3.7 g/dL Normal [facility] Comment on above: Performed By: #### F ERR, FETIBC, B12FOL, PSAD #### [facility] [address] [place] [address] Dr. Miles Murphy Glucose [Mass/Vol] 134 mg/dL Critically high 74-106 [facility] Comment on above: Performed By: #### F ERR, FETIBC, B12FOL, PSAD #### [facility] [address] [place] [address] Dr. Miles Murphy Potassium [Moles/Vol] 4.1 mmol/L Normal 3.5-5.1 [facility] Comment on above: Performed By: #### F ERR, FETIBC, B12FOL, PSAD #### [facility] [address] [place] [address] Dr. Miles Murphy Protein [Mass/Vol] 7.2 g/dL Normal 6.4-8.2 [facility] Comment on above: Performed By: #### F ERR, FETIBC, B12FOL, PSAD #### [facility] [address] [place] [address] Dr. Miles Murphy Sodium [Moles/Vol] 137 mmol/L Normal 136-145 [facility] Comment on above: Performed By: #### F ERR, FETIBC, B12FOL, PSAD #### [facility] [address] [place] [address] Dr. Miles Murphy Urea nitrogen [Mass/Vol] 18.0 mg/dL Normal 7.0-18.0 [facility] Comment on above: Performed By: #### F ERR, FETIBC, B12FOL, PSAD #### [facility] [address] [place] [address] Dr. Miles Murphy Urea nitrogen/Creatinine [Mass ratio] 20.0 mg/mg Normal [facility] Comment on above: Performed By: #### F ERR, FETIBC, B12FOL, PSAD #### [facility] [address] [address] [address] Miles Murphy TSHon 08-21-2022 TSH 1.335 uIU/mL Normal 0.358-3.740 [facility] Comment on above: Performed By: #### F ERR, FETIBC, B12FOL, PSAD #### [facility] [address] [address] [address] Miles Murphy UA RANDOMon 08-21-2022 Bilirubin Ql (U) Negative Normal NEGATIVE [facility] Comment on above: Performed By: #### F ERR, FETIBC, B12FOL, PSAD #### [facility] [address] [place] [address] Dr. Miles Murphy Clarity (U) CLEAR Normal CLEAR [facility] Comment on above: Performed By: #### F ERR, FETIBC, B12FOL, PSAD #### [facility] [address] [place] [address] Dr. Miles Murphy Color (U) YELLOW Normal YELLOW [facility] Comment on above: Performed By: #### F ERR, FETIBC, B12FOL, PSAD #### [facility] [address] [place] [address] Dr. Miles Murphy Glucose Ql (U) Negative Normal NEGATIVE [facility] Comment on above: Performed By: #### F ERR, FETIBC, B12FOL, PSAD #### [facility] [address] [place] [address] Dr. Miles Murphy Hemoglobin Ql (U) SMALL Abnormal NEGATIVE [facility] Comment on above: Performed By: #### F ERR, FETIBC, B12FOL, PSAD #### [facility] [address] [place] [address] Dr. Miles Murphy Ketones Ql (U) Negative Normal NEGATIVE [facility] Comment on above: Performed By: #### F ERR, FETIBC, B12FOL, PSAD #### [facility] [address] [place] [address] Dr. Miles Murphy LEUKOCYTES Negative Normal NEGATIVE [facility] Comment on above: Performed By: #### F ERR, FETIBC, B12FOL, PSAD #### [facility] [address] [place] [address] Dr. Miles Murphy Nitrite Ql (U) Negative Normal NEGATIVE [facility] Comment on above: Performed By: #### F ERR, FETIBC, B12FOL, PSAD #### [facility] [address] [place] [address] Dr. Miles Murphy pH (U) 6.5 [pH] Normal 5-9 [facility] Comment on above: Performed By: #### F ERR, FETIBC, B12FOL, PSAD #### [facility] [address] [place] [address] Dr. Miles Murphy SPEC GRAVITY 1.020 Normal 1.005-<=1.025 [facility] Comment on above: Performed By: #### F ERR, FETIBC, B12FOL, PSAD #### [facility] [address] [place] [address] Dr. Miles Murphy UA PROTEIN 100 mg/dl Abnormal NEGATIVE/ TRACE [facility] Comment on above: Performed By: #### F ERR, FETIBC, B12FOL, PSAD #### [facility] [address] [place] [address] Dr. Miles Murphy Urobilinogen Qn (U) 0.2 {Christopher'U}/dL Normal 0.2 - 1. 0 [facility] Comment on above: Performed By: #### F ERR, FETIBC, B12FOL, PSAD #### [facility] [address] [place] [address] Dr. Miles Murphy VIT B12 AND FOLATEon 022 Cobalamin (Vitamin B12) [Mass/Vol] 483.0 pg/mL Normal 193.0-986.0 [facility] Comment on above: Performed By: #### F ERR, FETIBC, B12FOL, PSAD #### [facility] [address] [place] [address] Dr. Miles Murphy FOLATE 17.50 ng/mL Normal 8.60-58.90 [facility] Comment on above: Performed By: #### F ERR, FETIBC, B12FOL, PSAD #### [facility] [address] [place] [address] Dr. Miles Murphy CBC AUTO DIFFon 04-15-2022 BASO # 0.1 103/ul Normal 0.0-0.1 [facility] Comment on above: Performed By: #### F ERR, FETIBC, B12FOL, PSAD #### [facility] [address] [place] [address] Dr. Miles Murphy Basophils/100 WBC (Bld) 0.5 % Normal 0.2-2.0 [facility] Comment on above: Performed By: #### F ERR, FETIBC, B12FOL, PSAD #### [facility] [address] [place] [address] Dr. Miles Murphy EO # 0.2 103/ul Normal 0.0-0.7 [facility] Comment on above: Performed By: #### F ERR, FETIBC, B12FOL, PSAD #### [facility] [address] [place] [address] Dr. Miles Murphy Eosinophils/100 WBC (Bld) 1.4 % Normal 0.9-7.0 [facility] Comment on above: Performed By: #### F ERR, FETIBC, B12FOL, PSAD #### [facility] [address] [place] [address] Dr. Miles Murphy Erythrocyte distribution width (RBC) [Ratio] 13.4 % Normal 11.0-15.0 [facility] Comment on above: Performed By: #### F ERR, FETIBC, B12FOL, PSAD #### [facility] [address] [place] [address] Dr. Miles Murphy Hematocrit (Bld) [Volume fraction] 39.5 % Critically low 42.0-54.0 [facility] Comment on above: Performed By: #### F ERR, FETIBC, B12FOL, PSAD #### [facility] [address] [place] [address] Dr. Miles Murphy Hemoglobin (Bld) [Mass/Vol] 13.0 g/dL Critically low 14.0-18.0 [facility] Comment on above: Performed By: #### F ERR, FETIBC, B12FOL, PSAD #### [facility] [address] [place] [address] Dr. Miles Murphy IG # 0.10 10e3/ul Critically high 0.00-0.03 [facility] Comment on above: Performed By: #### F ERR, FETIBC, B12FOL, PSAD #### [facility] [address] [place] [address] Dr. Miles Murphy IG % 0.8 % Critically high 0.0-0.5 [facility] Comment on above: Performed By: #### F ERR, FETIBC, B12FOL, PSAD #### [facility] [address] [place] [address] Dr. Miles Murphy LYMPH # 2.0 103/ul Normal 1.2-3.8 [facility] Comment on above: Performed By: #### F ERR, FETIBC, B12FOL, PSAD #### [facility] [address] [place] [address] Dr. Miles Murphy Lymphocytes/100 WBC (Bld) 15.9 % Critically low 20.5-60.0 [facility] Comment on above: Performed By: #### F ERR, FETIBC, B12FOL, PSAD #### [facility] [address] [place] [address] Dr. Miles Murphy MANUAL DIFF REQ NO Normal [facility] Comment on above: Performed By: #### F ERR, FETIBC, B12FOL, PSAD #### [facility] [address] [place] [address] Dr. Miles Murphy MCH (RBC) [Entitic mass] 31.1 pg Normal 25.9-34.0 [facility] Comment on above: Performed By: #### F ERR, FETIBC, B12FOL, PSAD #### [facility] [address] [address] [address] Miles Murphy MCHC (RBC) [Mass/Vol] 32.9 g/dL Normal 29.9-35.2 [facility] Comment on above: Performed By: #### F ERR, FETIBC, B12FOL, PSAD #### [facility] [address] [address] [address] Miles Murphy MCV (RBC) [Entitic vol] 94.5 fL Critically high 80.0-94.0 [facility] Comment on above: Performed By: #### F ERR, FETIBC, B12FOL, PSAD #### [facility] [address] [place] [address] Dr. Miles Murphy MONO # 1.1 103/ul Critically high 0.3-0.8 [facility] Comment on above: Performed By: #### F ERR, FETIBC, B12FOL, PSAD #### [facility] [address] [place] [address] Dr. Miles Murphy Monocytes/100 WBC (Bld) 8.7 % Normal 1.7-12.0 [facility] Comment on above: Performed By: #### F ERR, FETIBC, B12FOL, PSAD #### [facility] [address] [place] [address] Dr. Miles Murphy NEUT # 9.0 103/ul Critically high 1.4-6.5 [facility] Comment on above: Performed By: #### F ERR, FETIBC, B12FOL, PSAD #### [facility] [address] [place] [address] Dr. Miles Murphy Neutrophils/100 WBC (Bld) 72.7 % Normal 43.0-75.0 [facility] Comment on above: Performed By: #### F ERR, FETIBC, B12FOL, PSAD #### [facility] [address] [place] [address] Dr. Miles Murphy Platelet mean volume (Bld) [Entitic vol] 9.6 fL Normal 9.5-13.5 [facility] Comment on above: Performed By: #### F ERR, FETIBC, B12FOL, PSAD #### [facility] [address] [address] [address] Miles Murphy PLT 267 103/ul Normal 150-450 [facility] Comment on above: Performed By: #### F ERR, FETIBC, B12FOL, PSAD #### [facility] [address] [address] [address] Miles Murphy RBC 4.18 106/ul Critically low 4.70-6.10 [facility] Comment on above: Performed By: #### F ERR, FETIBC, B12FOL, PSAD #### [facility] [address] [address] [address] Miles Murphy WBC 12.4 103/ul Critically high 4.0-11.0 [facility] Comment on above: Performed By: #### F ERR, FETIBC, B12FOL, PSAD #### [facility] [address] [address] [address] Miles Murphy FERRITINon 04-15-2022 Ferritin [Mass/Vol] 175.0 ng/mL Normal 26.0-388.0 [facility] Comment on above: Performed By: #### F ERR, FETIBC, B12FOL, PSAD #### [facility] [address] [address] [address] Miles Murphy GLYCOHEMOGLOBIN A1Con 2021 ADA RECOMMENDATION SEE BELOW Normal [facility] Comment on above: Result Comment: ADA RECOMMENDED LIMIT 4.0 - 6.0 ADA THERAPEUTIC TARGET < 7.0 ACTION SUGGESTED > 7.0 Performed By: #### F ERR, FETIBC, B12FOL, PSAD #### [facility] [address] [place] [address] Dr. Miles Murphy Glucose [Mass/Vol] 117 mg/dL Normal [facility] Comment on above: Performed By: #### F ERR, FETIBC, B12FOL, PSAD #### [facility] [address] [address] [address] Miles Murphy HbA1c (Bld) [Mass fraction] 5.7 % Normal 4.5-6.2 [facility] Comment on above: Performed By: #### F ERR, FETIBC, B12FOL, PSAD #### [facility] [address] [address] [address] Miles Murphy IRON AND TIBCon 04-15-2022 % SATURATION 24.8 % Normal [facility] Comment on above: Performed By: #### F ERR, FETIBC, B12FOL, PSAD #### [facility] [address] [address] [address] Miles Murphy Iron [Mass/Vol] 78.0 ug/dL Normal 65.0-175.0 [facility] Comment on above: Performed By: #### F ERR, FETIBC, B12FOL, PSAD #### [facility] [address] [address] [address] Miles Murphy TIBC DIRECT 315.0 ug/dL Normal 250.0-450.0 [facility] [place] Comment on above: Performed By: #### F ERR, FETIBC, B12FOL, PSAD #### [facility] [address] [place] [address] Dr. Miles Murphy LIPID PROFILEon 04-15-2022 CHOL-HDL RATIO NORM SEE BELOW Normal [facility] Comment on above: Result Comment: 3.3 - 4.4 LOW RISK 4.4 - 7.1 AVERAGE RISK 7.1 - 11.0 MODERATE RISK >11.0 HIGH RISK Performed By: #### C MP, LIPID #### [facility] [address] [address] [address] Miles Murphy Cholesterol [Mass/Vol] 161 mg/dL Normal <=200 [facility] Comment on above: Performed By: #### C MP, LIPID #### [facility] [address] [address] [address] Miles uMrphy Cholesterol in HDL [Mass/Vol] 37 mg/dL Critically low 40-60 [facility] Comment on above: Performed By: #### C MP, LIPID #### [facility] [address] [address] [address] Miles Murphy Cholesterol in LDL [Mass/Vol] 94.0 mg/dL Normal [facility] Comment on above: Performed By: #### C MP, LIPID #### [facility] [address] [address] [address] Miles Murphy Cholesterol.total/C holesterol in HDL [Mass ratio] 4.4 {ratio} Normal [facility] Comment on above: Performed By: #### C MP, LIPID #### [facility] [address] [address] [address] Miles Murphy HDL NORMAL > or = 60 mg/dl - LO W CARDIOVASCULAR RISK <40 mg/dl - HIGH CARDIOVASCULAR RISK Normal [facility] Comment on above: Performed By: #### C MP, LIPID #### [facility] [address] [address] [address] Miles Murphy LDL CALC NORMAL SEE BELOW Normal [facility] Comment on above: Result Comment: <100 mg/dl OPTIMAL 100 - 129 mg/dl NEAR OR ABOVE OPTIMAL 130 - 159 mg/dl BORDERLINE HIGH 160 - 189 mg/dl HIGH >190 mg/dl VERY HIGH Performed By: #### C MP, LIPID #### [facility] [address] [address] [address] Miles Murphy Triglyceride [Mass/Vol] 150 mg/dL Normal <=150 [facility] Comment on above: Performed By: #### C MP, LIPID #### [facility] [address] [address] [address] Miles Murphy VLDL CALC 30.0 mg/dL Normal [facility] Comment on above: Performed By: #### C MP, LIPID #### [facility] [address] [address] [address] Miles Murphy MICROALB CREAT RATIO RANDOMo n 04-15-2022 mALB 25.9 mg/L Normal <=30.0 [facility] Comment on above: Performed By: #### F ERR, FETIBC, B12FOL, PSAD #### [facility] [address] [place] [address] Dr. Miles Murphy MALB CR RATIO 358.4 mg/g Critically high 0.0-29.9 [facility] Comment on above: Performed By: #### F ERR, FETIBC, B12FOL, PSAD #### [facility] [address] [place] [address] Dr. Miles FAULKNER CR RATIO RANGE SEE BELOW Normal [facility] Comment on above: Result Comment: NO M ICROALBUMINURIA 0-29 MG/G CLINICAL MICROALBUMINURIA 30-300 MG/G MACROALBUMINURIA >300 MG/G Performed By: #### F ERR, FETIBC, B12FOL, PSAD #### [facility] [address] [place] [address] Dr. Miles Murphy URINE CREAT 72.27 mg/dL Normal 20.00-300.00 [facility] Comment on above: Performed By: #### F ERR, FETIBC, B12FOL, PSAD #### [facility] [address] [place] [address] Dr. Miles Murphy PROF 14(COMP METB)on 022 Albumin [Mass/Vol] 3.3 g/dL Critically low 3.4-5.0 [facility] Comment on above: Performed By: #### C MP, LIPID #### [facility] [address] [place] [address] Dr. Miles Murphy Albumin/Globulin [Mass ratio] 0.9 {ratio} Normal [facility] Comment on above: Performed By: #### C MP, LIPID #### [facility] [address] [place] [address] Dr. Miles Murphy ALP [Catalytic activity/Vol] 91 U/L Normal 46-116 [facility] Comment on above: Performed By: #### C MP, LIPID #### [facility] [address] [place] [address] Dr. Miles Murphy ALT [Catalytic activity/Vol] 14 U/L Critically low 16-63 [facility] Comment on above: Performed By: #### C MP, LIPID #### [facility] [address] [address] [address] Miles Murphy Anion gap [Moles/Vol] 11.3 mmol/L Normal [facility] Comment on above: Performed By: #### C MP, LIPID #### [facility] [address] [address] [address] Miles Murphy AST [Catalytic activity/Vol] 14 U/L Critically low 15-37 [facility] Comment on above: Performed By: #### C MP, LIPID #### [facility] [address] [address] [address] Miles Murphy Bilirubin [Mass/Vol] 0.4 mg/dL Normal 0.2-1.0 [facility] Comment on above: Performed By: #### C MP, LIPID #### [facility] [address] [place] [address] Dr. Miles Murphy Calcium [Mass/Vol] 9.1 mg/dL Normal 8.5-10.1 [facility] Comment on above: Performed By: #### C MP, LIPID #### [facility] [address] [place] [address] Dr. Miles Murphy Chloride [Moles/Vol] 98 mmol/L Normal 98-107 [facility] Comment on above: Performed By: #### C MP, LIPID #### [facility] [address] [place] [address] Dr. Miles Murphy CO2 [Moles/Vol] 29.7 mmol/L Normal 21.0-32.0 [facility] Comment on above: Performed By: #### C MP, LIPID #### [facility] [address] [address] [address] Miles Murphy Creatinine [Mass/Vol] 0.89 mg/dL Normal 0.70-1.30 [facility] Comment on above: Performed By: #### C MP, LIPID #### [facility] [address] [address] [address] Miles Murphy EGFR-AF AZERBAIJANI >60 Normal >=60 [facility] Comment on above: Performed By: #### C MP, LIPID #### [facility] [address] [address] [address] Miles Murphy EGFR-NON AF AZERBAIJANI >60 Normal >=60 [facility] Comment on above: Performed By: #### C MP, LIPID #### [facility] [address] [address] [address] Miles Murphy Globulin (S) [Mass/Vol] 3.7 g/dL Normal [facility] Comment on above: Performed By: #### C MP, LIPID #### [facility] [address] [address] [address] Miles Murphy Glucose [Mass/Vol] 142 mg/dL Critically high 74-106 [facility] Comment on above: Performed By: #### C MP, LIPID #### [facility] [address] [place] [address] Dr. Miles Murphy Potassium [Moles/Vol] 4.0 mmol/L Normal 3.5-5.1 [facility] Comment on above: Performed By: #### C MP, LIPID #### [facility] [address] [place] [address] Dr. Miles Murphy Protein [Mass/Vol] 7.0 g/dL Normal 6.4-8.2 [facility] Comment on above: Performed By: #### C MP, LIPID #### [facility] [address] [place] [address] Dr. Miles Murphy Sodium [Moles/Vol] 135 mmol/L Critically low 136-145 [facility] Comment on above: Performed By: #### C MP, LIPID #### [facility] [address] [place] [address] Dr. Miles Murphy Urea nitrogen [Mass/Vol] 14.0 mg/dL Normal 7.0-18.0 [facility] Comment on above: Performed By: #### C MP, LIPID #### [facility] [address] [place] [address] Dr. Miles Murphy Urea nitrogen/Creatinine [Mass ratio] 15.7 mg/mg Normal [facility] Comment on above: Performed By: #### C MP, LIPID #### [facility] [address] [place] [address] Dr. Miles Murphy VIT B12 AND FOLATEon 022 Cobalamin (Vitamin B12) [Mass/Vol] 447.0 pg/mL Normal 193.0-986.0 [facility] Comment on above: Performed By: #### F ERR, FETIBC, B12FOL, PSAD #### [facility] [address] [place] [address] Dr. Miles Murphy FOLATE >20.00 Normal 8.60-58.90 [facility] Comment on above: Performed By: #### F ERR, FETIBC, B12FOL, PSAD #### [facility] [address] [place] [address] Dr. Miles Murphy CBC AUTO DIFFon 02-25-2022 BASO # 0.1 103/ul Normal 0.0-0.1 [facility] Comment on above: Performed By: #### P OCGLUC #### [facility] [address] [place] [address] Dr. Miles Murphy Basophils/100 WBC (Bld) 0.3 % Normal 0.2-2.0 [facility] Comment on above: Performed By: #### P OCGLUC #### [facility] [address] [place] [address] Dr. Miles Murphy EO # 0.1 103/ul Normal 0.0-0.7 [facility] Comment on above: Performed By: #### P OCGLUC #### [facility] [address] [place] [address] Dr. Miles Murphy Eosinophils/100 WBC (Bld) 0.7 % Critically low 0.9-7.0 [facility] Comment on above: Performed By: #### P OCGLUC #### [facility] [address] [place] [address] Dr. Miles Murphy Erythrocyte distribution width (RBC) [Ratio] 13.4 % Normal 11.0-15.0 [facility] Comment on above: Performed By: #### P OCGLUC #### [facility] [address] [place] [address] Dr. Miles Murphy Hematocrit (Bld) [Volume fraction] 28.1 % Critically low 42.0-54.0 [facility] Comment on above: Performed By: #### P OCGLUC #### [facility] [address] [address] [address] Miles Murphy Hemoglobin (Bld) [Mass/Vol] 9.1 g/dL Critically low 14.0-18.0 [facility] Comment on above: Performed By: #### P OCGLUC #### [facility] [address] [address] [address] Miles Murphy IG # 0.40 10e3/ul Critically high 0.00-0.03 [facility] Comment on above: Performed By: #### P OCGLUC #### [facility] [address] [place] [address] Dr. Miles Murphy IG % 2.3 % Critically high 0.0-0.5 [facility] Comment on above: Performed By: #### P OCGLUC #### [facility] [address] [place] [address] Dr. Miles Murphy LYMPH # 2.1 103/ul Normal 1.2-3.8 [facility] Comment on above: Performed By: #### P OCGLUC #### [facility] [address] [place] [address] Dr. Miles Murphy Lymphocytes/100 WBC (Bld) 11.7 % Critically low 20.5-60.0 [facility] Comment on above: Performed By: #### P OCGLUC #### [facility] [address] [place] [address] Dr. Miles Murphy MANUAL DIFF REQ NO Normal [facility] Comment on above: Performed By: #### P OCGLUC #### [facility] [address] [place] [address] Dr. Miles Murphy MCH (RBC) [Entitic mass] 32.3 pg Normal 25.9-34.0 [facility] Comment on above: Performed By: #### P OCGLUC #### [facility] [address] [place] [address] Dr. Miles Murphy MCHC (RBC) [Mass/Vol] 32.4 g/dL Normal 29.9-35.2 [facility] Comment on above: Performed By: #### P OCGLUC #### [facility] [address] [address] [address] Miles Murphy MCV (RBC) [Entitic vol] 99.6 fL Critically high 80.0-94.0 [facility] Comment on above: Performed By: #### P OCGLUC #### [facility] [address] [address] [address] Miles Murphy MONO # 2.4 103/ul Critically high 0.3-0.8 [facility] Comment on above: Performed By: #### P OCGLUC #### [facility] [address] [place] [address] Dr. Miles Murphy Monocytes/100 WBC (Bld) 13.6 % Critically high 1.7-12.0 [facility] Comment on above: Performed By: #### P OCGLUC #### [facility] [address] [place] [address] Dr. Miles Murphy NEUT # 12.5 103/ul Critically high 1.4-6.5 [facility] Comment on above: Performed By: #### P OCGLUC #### [facility] [address] [place] [address] Dr. Miles Murphy Neutrophils/100 WBC (Bld) 71.4 % Normal 43.0-75.0 [facility] Comment on above: Performed By: #### P OCGLUC #### [facility] [address] [place] [address] Dr. Miles Murphy Platelet mean volume (Bld) [Entitic vol] 10.1 fL Normal 9.5-13.5 [facility] Comment on above: Performed By: #### P OCGLUC #### [facility] [address] [place] [address] Dr. Miles Murphy PLT 297 103/ul Normal 150-450 [facility] Comment on above: Performed By: #### P OCGLUC #### [facility] [address] [place] [address] Dr. Miles Murphy RBC 2.82 106/ul Critically low 4.70-6.10 [facility] Comment on above: Performed By: #### P OCGLUC #### [facility] [address] [address] [address] Miles Murphy WBC 17.6 103/ul Critically high 4.0-11.0 [facility] Comment on above: Performed By: #### P OCGLUC #### [facility] [address] [address] [address] Miles Murphy POINT OF CARE GLUCOSEon 02-04 Glucose [Mass/Vol] 144 mg/dL Critically high 74-106 [facility] Comment on above: Performed By: #### C MP, LIPID #### [facility] [address] [place] [address] Dr. Miles Murphy Glucose [Mass/Vol] 172 mg/dL Critically high 74-106 [facility] Comment on above: Performed By: #### F ERR, FETIBC, B12FOL, PSAD #### [facility] [address] [place] [address] Dr. Miles Murphy Glucose [Mass/Vol] 190 mg/dL Critically high 74-106 [facility] Comment on above: Performed By: #### F ERR, FETIBC, B12FOL, PSAD #### [facility] [address] [place] [address] Dr. Miles Murphy PROF CHEM 8 (BAS METB)on Anion gap [Moles/Vol] 12.6 mmol/L [facility] Comment on above: Performed By: #### F ERR, FETIBC, B12FOL, PSAD #### [facility] [address] [address] [address] Miles Murphy Calcium [Mass/Vol] 8.2 mg/dL Critically low 8.5-10.1 [facility] Comment on above: Performed By: #### F ERR, FETIBC, B12FOL, PSAD #### [facility] [address] [place] [address] Dr. Miles Murphy Chloride [Moles/Vol] 97 mmol/L Critically low 98-107 [facility] Comment on above: Performed By: #### F ERR, FETIBC, B12FOL, PSAD #### [facility] [address] [address] [address] Miles Murphy CO2 [Moles/Vol] 28.1 mmol/L Normal 21.0-32.0 [facility] Comment on above: Performed By: #### F ERR, FETIBC, B12FOL, PSAD #### [facility] [address] [address] [address] Miles Murphy Creatinine [Mass/Vol] 0.78 mg/dL Normal 0.70-1.30 [facility] Comment on above: Performed By: #### F ERR, FETIBC, B12FOL, PSAD #### [facility] [address] [place] [address] Dr. Miles Murphy EGFR-AF AZERBAIJANI >60 Normal >=60 [facility] Comment on above: Performed By: #### F ERR, FETIBC, B12FOL, PSAD #### [facility] [address] [place] [address] Dr. Miles Murphy EGFR-NON AF AZERBAIJANI >60 Normal >=60 [facility] Comment on above: Performed By: #### F ERR, FETIBC, B12FOL, PSAD #### [facility] [address] [address] [address] Miles Murphy Glucose [Mass/Vol] 147 mg/dL Critically high 74-106 [facility] Comment on above: Performed By: #### F ERR, FETIBC, B12FOL, PSAD #### [facility] [address] [place] [address] Dr. Miles Murphy Potassium [Moles/Vol] 3.7 mmol/L Normal 3.5-5.1 [facility] Comment on above: Performed By: #### F ERR, FETIBC, B12FOL, PSAD #### [facility] [address] [address] [address] Miles Murphy Sodium [Moles/Vol] 134 mmol/L Critically low 136-145 [facility] Comment on above: Performed By: #### F ERR, FETIBC, B12FOL, PSAD #### [facility] [address] [place] [address] Dr. Miles Murphy Urea nitrogen [Mass/Vol] 20.0 mg/dL Critically high 7.0-18.0 [facility] Comment on above: Performed By: #### F ERR, FETIBC, B12FOL, PSAD #### [facility] [address] [place] [address] Dr. Miles Murphy Urea nitrogen/Creatinine [Mass ratio] 25.6 mg/mg Normal [facility] Comment on above: Performed By: #### F ERR, FETIBC, B12FOL, PSAD #### [facility] [address] [place] [address] Dr. Miles Murphy PROTIMEon 02-25-2022 INR Coag (PPP) [Relative time] 1.22 {INR} Normal [facility] Comment on above: Performed By: #### F ERR, FETIBC, B12FOL, PSAD #### [facility] [address] [place] [address] Dr. Miles Murphy INR GUIDELINES SEE BELOW Normal [facility] Comment on above: Result Comment: COLEEN RED INR: 2.0 - 3.0 CONDITIONS NOT LISTED BELOW 2.5 - 3.5 FOR PROSTHETIC HEART VALVE REPLACEMENT 2.5 - 3.5 RECURRENT THROMBOSIS Performed By: #### F ERR, FETIBC, B12FOL, PSAD #### [facility] [address] [place] [address] Dr. Miles Murphy PT Coag (PPP) [Time] 13.0 s Critically high 9.0-11.6 [facility] Comment on above: Performed By: #### F ERR, FETIBC, B12FOL, PSAD #### [facility] [address] [place] [address] Dr. Miles Murphy CBC AUTO DIFFon 02-24-2022 BASO # 0.1 103/ul Normal 0.0-0.1 [facility] Comment on above: Performed By: #### F ERR, FETIBC, B12FOL, PSAD #### [facility] [address] [place] [address] Dr. Miles Murphy Basophils/100 WBC (Bld) 0.4 % Normal 0.2-2.0 [facility] Comment on above: Performed By: #### F ERR, FETIBC, B12FOL, PSAD #### [facility] [address] [place] [address] Dr. Miles Murphy EO # 0.2 103/ul Normal 0.0-0.7 [facility] Comment on above: Performed By: #### F ERR, FETIBC, B12FOL, PSAD #### [facility] [address] [place] [address] Dr. Miles Murphy Eosinophils/100 WBC (Bld) 0.8 % Critically low 0.9-7.0 [facility] Comment on above: Performed By: #### F ERR, FETIBC, B12FOL, PSAD #### [facility] [address] [place] [address] Dr. Miles Murphy Erythrocyte distribution width (RBC) [Ratio] 13.4 % Normal 11.0-15.0 [facility] Comment on above: Performed By: #### F ERR, FETIBC, B12FOL, PSAD #### [facility] [address] [place] [address] Dr. Miles Murphy Hematocrit (Bld) [Volume fraction] 29.4 % Critically low 42.0-54.0 [facility] Comment on above: Performed By: #### F ERR, FETIBC, B12FOL, PSAD #### [facility] [address] [place] [address] Dr. Miles Murphy Hemoglobin (Bld) [Mass/Vol] 9.4 g/dL Critically low 14.0-18.0 [facility] Comment on above: Performed By: #### F ERR, FETIBC, B12FOL, PSAD #### [facility] [address] [place] [address] Dr. Miles Murphy IG # 0.48 10e3/ul Critically high 0.00-0.03 [facility] Comment on above: Performed By: #### F ERR, FETIBC, B12FOL, PSAD #### [facility] [address] [place] [address] Dr. Miles Murphy IG % 2.6 % Critically high 0.0-0.5 [facility] Comment on above: Performed By: #### F ERR, FETIBC, B12FOL, PSAD #### [facility] [address] [place] [address] Dr. Miles Murphy LYMPH # 1.6 103/ul Normal 1.2-3.8 [facility] Comment on above: Performed By: #### F ERR, FETIBC, B12FOL, PSAD #### [facility] [address] [place] [address] Dr. Miles Murphy Lymphocytes/100 WBC (Bld) 8.7 % Critically low 20.5-60.0 [facility] Comment on above: Performed By: #### F ERR, FETIBC, B12FOL, PSAD #### [facility] [address] [place] [address] Dr. Miles Murphy MANUAL DIFF REQ NO Normal [facility] Comment on above: Performed By: #### F ERR, FETIBC, B12FOL, PSAD #### [facility] [address] [place] [address] Dr. Miles Murphy MCH (RBC) [Entitic mass] 32.2 pg Normal 25.9-34.0 [facility] Comment on above: Performed By: #### F ERR, FETIBC, B12FOL, PSAD #### [facility] [address] [place] [address] Dr. Miles Murphy MCHC (RBC) [Mass/Vol] 32.0 g/dL Normal 29.9-35.2 [facility] Comment on above: Performed By: #### F ERR, FETIBC, B12FOL, PSAD #### [facility] [address] [place] [address] Dr. Miles Murphy MCV (RBC) [Entitic vol] 100.7 fL Critically high 80.0-94.0 [facility] Comment on above: Performed By: #### F ERR, FETIBC, B12FOL, PSAD #### [facility] [address] [place] [address] Dr. Miles Murphy MONO # 2.4 103/ul Critically high 0.3-0.8 [facility] Comment on above: Performed By: #### F ERR, FETIBC, B12FOL, PSAD #### [facility] [address] [place] [address] Dr. Miles Murphy Monocytes/100 WBC (Bld) 12.8 % Critically high 1.7-12.0 [facility] Comment on above: Performed By: #### F ERR, FETIBC, B12FOL, PSAD #### [facility] [address] [place] [address] Dr. Miles Murphy NEUT # 13.8 103/ul Critically high 1.4-6.5 [facility] Comment on above: Performed By: #### F ERR, FETIBC, B12FOL, PSAD #### [facility] [address] [place] [address] Dr. Miles Murphy Neutrophils/100 WBC (Bld) 74.7 % Normal 43.0-75.0 [facility] Comment on above: Performed By: #### F ERR, FETIBC, B12FOL, PSAD #### [facility] [address] [place] [address] Dr. Miles Murphy Platelet mean volume (Bld) [Entitic vol] 10.3 fL Normal 9.5-13.5 [facility] Comment on above: Performed By: #### F ERR, FETIBC, B12FOL, PSAD #### [facility] [address] [place] [address] Dr. Miles Murphy PLT 278 103/ul Normal 150-450 [facility] Comment on above: Performed By: #### F ERR, FETIBC, B12FOL, PSAD #### [facility] [address] [place] [address] Dr. Miles Murphy RBC 2.92 106/ul Critically low 4.70-6.10 [facility] Comment on above: Performed By: #### F ERR, FETIBC, B12FOL, PSAD #### [facility] [address] [place] [address] Dr. Miles Murphy WBC 18.4 103/ul Critically high 4.0-11.0 [facility] Comment on above: Performed By: #### F ERR, FETIBC, B12FOL, PSAD #### [facility] [address] [place] [address] Dr. Miles Murphy POINT OF CARE GLUCOSEon 02-04 Glucose [Mass/Vol] 226 mg/dL Critically high 74-106 [facility] Comment on above: Performed By: #### F ERR, FETIBC, B12FOL, PSAD #### [facility] [address] [place] [address] Dr. Miles Murphy Glucose [Mass/Vol] 95 mg/dL Normal 74-106 [facility] Comment on above: Performed By: #### P OCGLUC #### [facility] [address] [address] [address] Miles Murphy Glucose [Mass/Vol] 138 mg/dL Critically high -106 [facility] Comment on above: Performed By: #### F ERR, FETIBC, B12FOL, PSAD #### [facility] [address] [place] [address] Dr. Miles Murphy Glucose [Mass/Vol] 143 mg/dL Critically high -106 [facility] Comment on above: Performed By: #### F ERR, FETIBC, B12FOL, PSAD #### [facility] [address] [place] [address] Dr. Miles Murphy PROF CHEM 8 (BAS METB)on Anion gap [Moles/Vol] 10.3 mmol/L Normal [facility] Comment on above: Performed By: #### F ERR, FETIBC, B12FOL, PSAD #### [facility] [address] [place] [address] Dr. Miles Murphy Calcium [Mass/Vol] 8.5 mg/dL Normal 8.5-10.1 [facility] Comment on above: Performed By: #### F ERR, FETIBC, B12FOL, PSAD #### [facility] [address] [address] [address] Miles Murphy Chloride [Moles/Vol] 99 mmol/L Normal 98-107 [facility] Comment on above: Performed By: #### F ERR, FETIBC, B12FOL, PSAD #### [facility] [address] [address] [address] Miles Murphy CO2 [Moles/Vol] 29.5 mmol/L Normal 21.0-32.0 [facility] Comment on above: Performed By: #### F ERR, FETIBC, B12FOL, PSAD #### [facility] [address] [place] [address] Dr. Miles Murphy Creatinine [Mass/Vol] 0.89 mg/dL Normal 0.70-1.30 [facility] Comment on above: Performed By: #### F ERR, FETIBC, B12FOL, PSAD #### [facility] [address] [address] [address] Miles Murphy EGFR-AF AZERBAIJANI >60 Normal >=60 [facility] Comment on above: Performed By: #### F ERR, FETIBC, B12FOL, PSAD #### [facility] [address] [place] [address] Dr. Miles Murphy EGFR-NON AF AZERBAIJANI >60 Normal >=60 [facility] Comment on above: Performed By: #### F ERR, FETIBC, B12FOL, PSAD #### [facility] [address] [address] [address] Miles Murphy Glucose [Mass/Vol] 148 mg/dL Critically high 74-106 [facility] Comment on above: Performed By: #### F ERR, FETIBC, B12FOL, PSAD #### [facility] [address] [place] [address] Dr. Miles Murphy Potassium [Moles/Vol] 3.8 mmol/L Normal 3.5-5.1 [facility] Comment on above: Performed By: #### F ERR, FETIBC, B12FOL, PSAD #### [facility] [address] [place] [address] Dr. Miles Murphy Sodium [Moles/Vol] 135 mmol/L Critically low 136-145 [facility] Comment on above: Performed By: #### F ERR, FETIBC, B12FOL, PSAD #### [facility] [address] [place] [address] Dr. Miles Murphy Urea nitrogen [Mass/Vol] 21.0 mg/dL Critically high 7.0-18.0 [facility] Comment on above: Performed By: #### F ERR, FETIBC, B12FOL, PSAD #### [facility] [address] [place] [address] Dr. Miles Murphy Urea nitrogen/Creatinine [Mass ratio] 23.6 mg/mg Normal [facility] Comment on above: Performed By: #### F ERR, FETIBC, B12FOL, PSAD #### [facility] [address] [place] [address] Dr. Miles Murphy PROTIMEon 02-24-2022 INR Coag (PPP) [Relative time] 1.13 {INR} Normal [facility] Comment on above: Performed By: #### F ERR, FETIBC, B12FOL, PSAD #### [facility] [address] [place] [address] Dr. Miles Murphy INR GUIDELINES SEE BELOW Normal [facility] Comment on above: Result Comment: COLEEN RED INR: 2.0 - 3.0 CONDITIONS NOT LISTED BELOW 2.5 - 3.5 FOR PROSTHETIC HEART VALVE REPLACEMENT 2.5 - 3.5 RECURRENT THROMBOSIS Performed By: #### F ERR, FETIBC, B12FOL, PSAD #### [facility] [address] [place] [address] Dr. Miles Murphy PT Coag (PPP) [Time] 12.1 s Critically high 9.0-11.6 [facility] Comment on above: Performed By: #### F ERR, FETIBC, B12FOL, PSAD #### [facility] [address] [place] [address] Dr. Miles Murphy CBC W MANUAL DIFFon 02-24-20 22 ATYPICAL LYMPH # Normal [facility] Comment on above: Performed By: #### F ERR, FETIBC, B12FOL, PSAD #### [facility] [address] [place] [address] Dr. Miles Murphy ATYPICAL LYMPH % Normal [facility] Comment on above: Performed By: #### F ERR, FETIBC, B12FOL, PSAD #### [facility] [address] [place] [address] Dr. Miles Murphy BAND # 0.3 103/ul Normal 0.0-0.3 [facility] Comment on above: Performed By: #### F ERR, FETIBC, B12FOL, PSAD #### [facility] [address] [place] [address] Dr. Miles Murphy BAND % 2 % Normal 0-5 [facility] Comment on above: Performed By: #### F ERR, FETIBC, B12FOL, PSAD #### [facility] [address] [place] [address] Dr. Miles Murphy BASOM # 0.00 103/ul Normal 0.00-0.10 [facility] Comment on above: Performed By: #### F ERR, FETIBC, B12FOL, PSAD #### [facility] [address] [place] [address] Dr. Miles Murphy BASOM % 0.0 % Critically low 0.2-2.0 [facility] Comment on above: Performed By: #### F ERR, FETIBC, B12FOL, PSAD #### [facility] [address] [place] [address] Dr. Miles Murphy BLAST # Normal [facility] Comment on above: Performed By: #### F ERR, FETIBC, B12FOL, PSAD #### [facility] [address] [place] [address] Dr. Miles Murphy BLAST % Normal [facility] Comment on above: Performed By: #### F ERR, FETIBC, B12FOL, PSAD #### [facility] [address] [place] [address] Dr. Miles Murphy CORRECTED WBC Normal 4.0-11.0 [facility] Comment on above: Performed By: #### F ERR, FETIBC, B12FOL, PSAD #### [facility] [address] [place] [address] Dr. Miles Murphy EOS # 0.17 103/ul Normal 0.00-0.70 [facility] Comment on above: Performed By: #### F ERR, FETIBC, B12FOL, PSAD #### [facility] [address] [place] [address] Dr. Miles Murphy EOS% 1.0 % Normal 0.9-7.0 [facility] Comment on above: Performed By: #### F ERR, FETIBC, B12FOL, PSAD #### [facility] [address] [place] [address] Dr. Miles Murphy HCT 30.2 % Critically low 42.0-54.0 [facility] Comment on above: Performed By: #### F ERR, FETIBC, B12FOL, PSAD #### [facility] [address] [place] [address] Dr. Miles Murphy HGB 9.8 g/dl Critically low 14.0-18.0 [facility] Comment on above: Performed By: #### F ERR, FETIBC, B12FOL, PSAD #### [facility] [address] [place] [address] Dr. Miles Murphy LYMPHM # 1.83 103/ul Normal 1.20-3.80 [facility] Comment on above: Performed By: #### F ERR, FETIBC, B12FOL, PSAD #### [facility] [address] [place] [address] Dr. Miles Murphy LYMPHM% 11.0 % Critically low 20.5-60.0 [facility] Comment on above: Performed By: #### F ERR, FETIBC, B12FOL, PSAD #### [facility] [address] [address] [address] Miles Murphy MCH 32.3 pg Normal 25.9-34.0 [facility] Comment on above: Performed By: #### F ERR, FETIBC, B12FOL, PSAD #### [facility] [address] [place] [address] Dr. Miles Murphy MCHC 32.5 g/dl Normal 29.9-35.2 [facility] Comment on above: Performed By: #### F ERR, FETIBC, B12FOL, PSAD #### [facility] [address] [place] [address] Dr. Miles Murphy MCV 99.7 fL Critically high 80.0-94.0 [facility] Comment on above: Performed By: #### F ERR, FETIBC, B12FOL, PSAD #### [facility] [address] [place] [address] Dr. Miles Murphy METAMYELOCYTE # Normal [facility] Comment on above: Performed By: #### F ERR, FETIBC, B12FOL, PSAD #### [facility] [address] [place] [address] Dr. Miles Murphy METAMYELOCYTE % Normal [facility] Comment on above: Performed By: #### F ERR, FETIBC, B12FOL, PSAD #### [facility] [address] [place] [address] Dr. Miles Murphy MONOM# 1.83 103/ul Critically high 0.30-0.80 [facility] Comment on above: Performed By: #### F ERR, FETIBC, B12FOL, PSAD #### [facility] [address] [place] [address] Dr. Miles Murphy MONOM% 11.0 % Normal 1.7-12.0 [facility] Comment on above: Performed By: #### F ERR, FETIBC, B12FOL, PSAD #### [facility] [address] [address] [address] Miles Murphy MPV 10.5 fL Normal 9.5-13.5 [facility] Comment on above: Performed By: #### F ERR, FETIBC, B12FOL, PSAD #### [facility] [address] [address] [address] Miles Murphy MYELOCYTE # Normal [facility] Comment on above: Performed By: #### F ERR, FETIBC, B12FOL, PSAD #### [facility] [address] [address] [address] Miles Murphy MYELOCYTE % Normal [facility] Comment on above: Performed By: #### F ERR, FETIBC, B12FOL, PSAD #### [facility] [address] [place] [address] Dr. Miles Murphy NRBC Normal [facility] Comment on above: Performed By: #### F ERR, FETIBC, B12FOL, PSAD #### [facility] [address] [address] [address] Miles Murphy PLT 230 103/ul Normal 150-450 [facility] Comment on above: Performed By: #### F ERR, FETIBC, B12FOL, PSAD #### [facility] [address] [address] [address] Miles Murphy RBC 3.03 106/ul Critically low 4.70-6.10 [facility] Comment on above: Performed By: #### F ERR, FETIBC, B12FOL, PSAD #### [facility] [address] [place] [address] Dr. Miles Murphy RDW 13.5 % Normal 11.0-15.0 [facility] Comment on above: Performed By: #### F ERR, FETIBC, B12FOL, PSAD #### [facility] [address] [address] [address] Miles Murphy SEG # 12.45 103/ul Critically high 1.40-6.50 [facility] Comment on above: Performed By: #### F ERR, FETIBC, B12FOL, PSAD #### [facility] [address] [place] [address] Dr. Miles Murphy SEG % 75.0 % Normal 43.0-75.0 [facility] Comment on above: Performed By: #### F ERR, FETIBC, B12FOL, PSAD #### [facility] [address] [place] [address] Dr. Miles Murphy WBC 16.6 103/ul Critically high 4.0-11.0 [facility] Comment on above: Performed By: #### F ERR, FETIBC, B12FOL, PSAD #### [facility] [address] [place] [address] Dr. Miles Murphy IRON AND TIBCon 02-23-2022 % SATURATION 9.1 % Normal [facility] Comment on above: Performed By: #### F ERR, FETIBC, B12FOL, PSAD #### [facility] [address] [place] [address] Dr. Miles Murphy Iron [Mass/Vol] 17.0 ug/dL Critically low 65.0-175.0 [facility] Comment on above: Performed By: #### F ERR, FETIBC, B12FOL, PSAD #### [facility] [address] [place] [address] Dr. Miles Murphy TIBC DIRECT 186.0 ug/dL Critically low 250.0-450.0 [facility] Comment on above: Performed By: #### F ERR, FETIBC, B12FOL, PSAD #### [facility] [address] [place] [address] Dr. Miles Murphy POINT OF CARE GLUCOSEon 02-04 Glucose [Mass/Vol] 158 mg/dL Critically high 74-106 [facility] Comment on above: Performed By: #### F ERR, FETIBC, B12FOL, PSAD #### [facility] [address] [place] [address] Dr. Miles Murphy Glucose [Mass/Vol] 209 mg/dL Critically high 74-106 [facility] Comment on above: Performed By: #### F ERR, FETIBC, B12FOL, PSAD #### [facility] [address] [address] [address] Miles Murphy Glucose [Mass/Vol] 195 mg/dL Critically high 74-106 [facility] Comment on above: Performed By: #### F ERR, FETIBC, B12FOL, PSAD #### [facility] [address] [address] [address] Miles Murphy PROF CHEM 8 (BAS METB)on Anion gap [Moles/Vol] 11.8 mmol/L Normal [facility] Comment on above: Performed By: #### F ERR, FETIBC, B12FOL, PSAD #### [facility] [address] [address] [address] Miles Murphy Calcium [Mass/Vol] 8.5 mg/dL Normal 8.5-10.1 [facility] Comment on above: Performed By: #### F ERR, FETIBC, B12FOL, PSAD #### [facility] [address] [address] [address] Miles Murphy Chloride [Moles/Vol] 98 mmol/L Normal 98-107 [facility] Comment on above: Performed By: #### F ERR, FETIBC, B12FOL, PSAD #### [facility] [address] [address] [address] Miles Murphy CO2 [Moles/Vol] 28.0 mmol/L Normal 21.0-32.0 [facility] Comment on above: Performed By: #### F ERR, FETIBC, B12FOL, PSAD #### [facility] [address] [place] [address] Dr. Miles Murphy Creatinine [Mass/Vol] 0.84 mg/dL Normal 0.70-1.30 [facility] Comment on above: Performed By: #### F ERR, FETIBC, B12FOL, PSAD #### [facility] [address] [address] [address] Miles Murphy EGFR-AF AZERBAIJANI >60 Normal >=60 [facility] Comment on above: Performed By: #### F ERR, FETIBC, B12FOL, PSAD #### [facility] [address] [place] [address] Dr. Miles Murphy EGFR-NON AF AZERBAIJANI >60 Normal >=60 [facility] Comment on above: Performed By: #### F ERR, FETIBC, B12FOL, PSAD #### [facility] [address] [place] [address] Dr. Miles Murphy Glucose [Mass/Vol] 122 mg/dL Critically high 74-106 [facility] Comment on above: Performed By: #### F ERR, FETIBC, B12FOL, PSAD #### [facility] [address] [place] [address] Dr. Miles Murphy Potassium [Moles/Vol] 3.8 mmol/L Normal 3.5-5.1 [facility] Comment on above: Performed By: #### F ERR, FETIBC, B12FOL, PSAD #### [facility] [address] [place] [address] Dr. Miles Murphy Sodium [Moles/Vol] 134 mmol/L Critically low 136-145 [facility] Comment on above: Performed By: #### F ERR, FETIBC, B12FOL, PSAD #### [facility] [address] [place] [address] Dr. Miles Murphy Urea nitrogen [Mass/Vol] 22.0 mg/dL Critically high 7.0-18.0 [facility] Comment on above: Performed By: #### F ERR, FETIBC, B12FOL, PSAD #### [facility] [address] [place] [address] Dr. Miles Murphy Urea nitrogen/Creatinine [Mass ratio] 26.2 mg/mg Normal [facility] Comment on above: Performed By: #### F ERR, FETIBC, B12FOL, PSAD #### [facility] [address] [place] [address] Dr. Miles Murphy CBC W MANUAL DIFFon 02-23-20 22 ATYPICAL LYMPH # Normal [facility] Comment on above: Performed By: #### F ERR, FETIBC, B12FOL, PSAD #### [facility] [address] [place] [address] Dr. Miles Murphy ATYPICAL LYMPH % Normal [facility] Comment on above: Performed By: #### F ERR, FETIBC, B12FOL, PSAD #### [facility] [address] [place] [address] Dr. Miles Murphy BAND # 0.3 103/ul Normal 0.0-0.3 [facility] Comment on above: Performed By: #### F ERR, FETIBC, B12FOL, PSAD #### [facility] [address] [place] [address] Dr. Miles Murphy BAND % 2 % Normal 0-5 [facility] Comment on above: Performed By: #### F ERR, FETIBC, B12FOL, PSAD #### [facility] [address] [place] [address] Dr. Miles Murphy BASOM # 0.00 103/ul Normal 0.00-0.10 [facility] Comment on above: Performed By: #### F ERR, FETIBC, B12FOL, PSAD #### [facility] [address] [place] [address] Dr. Miles Murphy BASOM % 0.0 % Critically low 0.2-2.0 [facility] Comment on above: Performed By: #### F ERR, FETIBC, B12FOL, PSAD #### [facility] [address] [place] [address] Dr. Miles Murphy BLAST # Normal [facility] Comment on above: Performed By: #### F ERR, FETIBC, B12FOL, PSAD #### [facility] [address] [place] [address] Dr. Miles Murphy BLAST % Normal [facility] Comment on above: Performed By: #### F ERR, FETIBC, B12FOL, PSAD #### [facility] [address] [place] [address] Dr. Miles Murphy CORRECTED WBC Normal 4.0-11.0 [facility] Comment on above: Performed By: #### F ERR, FETIBC, B12FOL, PSAD #### [facility] [address] [place] [address] Dr. Miles Murphy EOS # 0.15 103/ul Normal 0.00-0.70 [facility] Comment on above: Performed By: #### F ERR, FETIBC, B12FOL, PSAD #### [facility] [address] [place] [address] Dr. Miles Murphy EOS% 1.0 % Normal 0.9-7.0 [facility] Comment on above: Performed By: #### F ERR, FETIBC, B12FOL, PSAD #### [facility] [address] [place] [address] Dr. Miles Murphy HCT 28.9 % Critically low 42.0-54.0 [facility] Comment on above: Performed By: #### F ERR, FETIBC, B12FOL, PSAD #### [facility] [address] [place] [address] Dr. Miles Murphy HGB 9.6 g/dl Critically low 14.0-18.0 [facility] Comment on above: Performed By: #### F ERR, FETIBC, B12FOL, PSAD #### [facility] [address] [place] [address] Dr. Miles Murphy LYMPHM # 1.80 103/ul Normal 1.20-3.80 [facility] Comment on above: Performed By: #### F ERR, FETIBC, B12FOL, PSAD #### [facility] [address] [place] [address] Dr. Miles Murphy LYMPHM% 12.0 % Critically low 20.5-60.0 [facility] Comment on above: Performed By: #### F ERR, FETIBC, B12FOL, PSAD #### [facility] [address] [place] [address] Dr. Miles Murphy MCH 32.9 pg Normal 25.9-34.0 [facility] Comment on above: Performed By: #### F ERR, FETIBC, B12FOL, PSAD #### [facility] [address] [place] [address] Dr. Miles Murphy MCHC 33.2 g/dl Normal 29.9-35.2 [facility] Comment on above: Performed By: #### F ERR, FETIBC, B12FOL, PSAD #### [facility] [address] [place] [address] Dr. Miles Murphy MCV 99.0 fL Critically high 80.0-94.0 [facility] Comment on above: Performed By: #### F ERR, FETIBC, B12FOL, PSAD #### [facility] [address] [place] [address] Dr. Miles Murphy METAMYELOCYTE # Normal [facility] Comment on above: Performed By: #### F ERR, FETIBC, B12FOL, PSAD #### [facility] [address] [place] [address] Dr. Miles Murphy METAMYELOCYTE % Normal [facility] Comment on above: Performed By: #### F ERR, FETIBC, B12FOL, PSAD #### [facility] [address] [place] [address] Dr. Miles Murphy MONOM# 1.95 103/ul Critically high 0.30-0.80 [facility] Comment on above: Performed By: #### F ERR, FETIBC, B12FOL, PSAD #### [facility] [address] [place] [address] Dr. Miles Murphy MONOM% 13.0 % Critically high 1.7-12.0 [facility] Comment on above: Performed By: #### F ERR, FETIBC, B12FOL, PSAD #### [facility] [address] [place] [address] Dr. Miles Murphy MPV 10.8 fL Normal 9.5-13.5 [facility] Comment on above: Performed By: #### F ERR, FETIBC, B12FOL, PSAD #### [facility] [address] [address] [address] Miles Murphy MYELOCYTE # Normal [facility] Comment on above: Performed By: #### F ERR, FETIBC, B12FOL, PSAD #### [facility] [address] [address] [address] Miles Murphy MYELOCYTE % Normal [facility] Comment on above: Performed By: #### F ERR, FETIBC, B12FOL, PSAD #### [facility] [address] [address] [address] Miles Murphy NRBC Normal [facility] Comment on above: Performed By: #### F ERR, FETIBC, B12FOL, PSAD #### [facility] [address] [place] [address] Dr. Miles Murphy PLT 209 103/ul Normal 150-450 [facility] Comment on above: Performed By: #### F ERR, FETIBC, B12FOL, PSAD #### [facility] [address] [place] [address] Dr. Miles Murphy RBC 2.92 106/ul Critically low 4.70-6.10 [facility] Comment on above: Performed By: #### F ERR, FETIBC, B12FOL, PSAD #### [facility] [address] [place] [address] Dr. Miles Murphy RDW 13.7 % Normal 11.0-15.0 [facility] Comment on above: Performed By: #### F ERR, FETIBC, B12FOL, PSAD #### [facility] [address] [place] [address] Dr. Miles Murphy SEG # 10.80 103/ul Critically high 1.40-6.50 [facility] Comment on above: Performed By: #### F ERR, FETIBC, B12FOL, PSAD #### [facility] [address] [place] [address] Dr. Miles Murphy SEG % 72.0 % Normal 43.0-75.0 [facility] Comment on above: Performed By: #### F ERR, FETIBC, B12FOL, PSAD #### [facility] [address] [place] [address] Dr. Miles Murphy WBC 15.0 103/ul Critically high 4.0-11.0 [facility] Comment on above: Performed By: #### F ERR, FETIBC, B12FOL, PSAD #### [facility] [address] [place] [address] Dr. Miles Murphy POINT OF CARE GLUCOSEon 02-04 Glucose [Mass/Vol] 240 mg/dL Critically high 74-106 [facility] Comment on above: Performed By: #### F ERR, FETIBC, B12FOL, PSAD #### [facility] [address] [place] [address] Dr. Miles Murphy Glucose [Mass/Vol] 82 mg/dL Normal 74-106 [facility] Comment on above: Performed By: #### F ERR, FETIBC, B12FOL, PSAD #### [facility] [address] [address] [address] Miles Murphy Glucose [Mass/Vol] 214 mg/dL Critically high 74-106 [facility] Comment on above: Performed By: #### F ERR, FETIBC, B12FOL, PSAD #### [facility] [address] [place] [address] Dr. Miles Murphy Glucose [Mass/Vol] 110 mg/dL Critically high -106 [facility] Comment on above: Performed By: #### P OCGLUC #### [facility] [address] [place] [address] Dr. Miles Murphy PROF CHEM 8 (BAS METB)on Anion gap [Moles/Vol] 11.5 mmol/L Normal [facility] Comment on above: Performed By: #### F ERR, FETIBC, B12FOL, PSAD #### [facility] [address] [place] [address] Dr. Miles Murphy Calcium [Mass/Vol] 8.4 mg/dL Critically low 8.5-10.1 [facility] Comment on above: Performed By: #### F ERR, FETIBC, B12FOL, PSAD #### [facility] [address] [place] [address] Dr. Miels Murphy Chloride [Moles/Vol] 99 mmol/L Normal 98-107 [facility] Comment on above: Performed By: #### F ERR, FETIBC, B12FOL, PSAD #### [facility] [address] [place] [address] Dr. Miles Murphy CO2 [Moles/Vol] 28.2 mmol/L Normal 21.0-32.0 [facility] Comment on above: Performed By: #### F ERR, FETIBC, B12FOL, PSAD #### [facility] [address] [place] [address] Dr. Miles Murphy Creatinine [Mass/Vol] 0.77 mg/dL Normal 0.70-1.30 [facility] Comment on above: Performed By: #### F ERR, FETIBC, B12FOL, PSAD #### [facility] [address] [place] [address] Dr. Miles Murphy EGFR-AF AZERBAIJANI >60 Normal >=60 [facility] Comment on above: Performed By: #### F ERR, FETIBC, B12FOL, PSAD #### [facility] [address] [place] [address] Dr. Miles Murphy EGFR-NON AF AZERBAIJANI >60 Normal >=60 [facility] Comment on above: Performed By: #### F ERR, FETIBC, B12FOL, PSAD #### [facility] [address] [place] [address] Dr. Miles Murphy Glucose [Mass/Vol] 96 mg/dL Normal 74-106 [facility] Comment on above: Performed By: #### F ERR, FETIBC, B12FOL, PSAD #### [facility] [address] [place] [address] Dr. Miles Murphy Potassium [Moles/Vol] 3.7 mmol/L Normal 3.5-5.1 [facility] Comment on above: Performed By: #### F ERR, FETIBC, B12FOL, PSAD #### [facility] [address] [place] [address] Dr. Miles Murphy Sodium [Moles/Vol] 135 mmol/L Critically low 136-145 [facility] Comment on above: Performed By: #### F ERR, FETIBC, B12FOL, PSAD #### [facility] [address] [place] [address] Dr. Miles Murphy Urea nitrogen [Mass/Vol] 18.0 mg/dL Normal 7.0-18.0 [facility] Comment on above: Performed By: #### F ERR, FETIBC, B12FOL, PSAD #### [facility] [address] [place] [address] Dr. Miles Murphy Urea nitrogen/Creatinine [Mass ratio] 23.4 mg/mg Normal [facility] Comment on above: Performed By: #### F ERR, FETIBC, B12FOL, PSAD #### [facility] [address] [place] [address] Dr. Miles Murphy CBC AUTO DIFFon 02-21-2022 BASO # 0.1 103/ul Normal 0.0-0.1 [facility] Comment on above: Performed By: #### F ERR, FETIBC, B12FOL, PSAD #### [facility] [address] [place] [address] Dr. Miles Murphy Basophils/100 WBC (Bld) 0.3 % Normal 0.2-2.0 [facility] Comment on above: Performed By: #### F ERR, FETIBC, B12FOL, PSAD #### [facility] [address] [place] [address] Dr. Miles Murphy EO # 0.0 103/ul Normal 0.0-0.7 [facility] Comment on above: Performed By: #### F ERR, FETIBC, B12FOL, PSAD #### [facility] [address] [place] [address] Dr. Miles Murphy Eosinophils/100 WBC (Bld) 0.1 % Critically low 0.9-7.0 [facility] Comment on above: Performed By: #### F ERR, FETIBC, B12FOL, PSAD #### [facility] [address] [place] [address] Dr. Miles Murphy Erythrocyte distribution width (RBC) [Ratio] 13.8 % Normal 11.0-15.0 [facility] Comment on above: Performed By: #### F ERR, FETIBC, B12FOL, PSAD #### [facility] [address] [place] [address] Dr. Miles Murphy Hematocrit (Bld) [Volume fraction] 31.2 % Critically low 42.0-54.0 [facility] Comment on above: Performed By: #### F ERR, FETIBC, B12FOL, PSAD #### [facility] [address] [place] [address] Dr. Miles Murphy Hemoglobin (Bld) [Mass/Vol] 10.3 g/dL Critically low 14.0-18.0 [facility] Comment on above: Performed By: #### F ERR, FETIBC, B12FOL, PSAD #### [facility] [address] [place] [address] Dr. Miles Murphy IG # 0.15 10e3/ul Critically high 0.00-0.03 [facility] Comment on above: Performed By: #### F ERR, FETIBC, B12FOL, PSAD #### [facility] [address] [place] [address] Dr. Miles Murphy IG % 0.9 % Critically high 0.0-0.5 [facility] Comment on above: Performed By: #### F ERR, FETIBC, B12FOL, PSAD #### [facility] [address] [place] [address] Dr. Miles Murphy LYMPH # 1.4 103/ul Normal 1.2-3.8 [facility] Comment on above: Performed By: #### F ERR, FETIBC, B12FOL, PSAD #### [facility] [address] [place] [address] Dr. Miles Murphy Lymphocytes/100 WBC (Bld) 8.0 % Critically low 20.5-60.0 [facility] Comment on above: Performed By: #### F ERR, FETIBC, B12FOL, PSAD #### [facility] [address] [place] [address] Dr. Miles Murphy MANUAL DIFF REQ NO Normal [facility] Comment on above: Performed By: #### F ERR, FETIBC, B12FOL, PSAD #### [facility] [address] [place] [address] Dr. Miles Murphy MCH (RBC) [Entitic mass] 32.3 pg Normal 25.9-34.0 [facility] Comment on above: Performed By: #### F ERR, FETIBC, B12FOL, PSAD #### [facility] [address] [place] [address] Dr. Miles Murphy MCHC (RBC) [Mass/Vol] 33.0 g/dL Normal 29.9-35.2 [facility] Comment on above: Performed By: #### F ERR, FETIBC, B12FOL, PSAD #### [facility] [address] [place] [address] Dr. Miles Murphy MCV (RBC) [Entitic vol] 97.8 fL Critically high 80.0-94.0 [facility] Comment on above: Performed By: #### F ERR, FETIBC, B12FOL, PSAD #### [facility] [address] [place] [address] Dr. Miles Murphy MONO # 2.6 103/ul Critically high 0.3-0.8 [facility] Comment on above: Performed By: #### F ERR, FETIBC, B12FOL, PSAD #### [facility] [address] [place] [address] Dr. Miles Murphy Monocytes/100 WBC (Bld) 14.5 % Critically high 1.7-12.0 [facility] Comment on above: Performed By: #### F ERR, FETIBC, B12FOL, PSAD #### [facility] [address] [place] [address] Dr. Miles Murphy NEUT # 13.5 103/ul Critically high 1.4-6.5 [facility] Comment on above: Performed By: #### F ERR, FETIBC, B12FOL, PSAD #### [facility] [address] [address] [address] Miles Murphy Neutrophils/100 WBC (Bld) 76.2 % Critically high 43.0-75.0 [facility] Comment on above: Performed By: #### F ERR, FETIBC, B12FOL, PSAD #### [facility] [address] [address] [address] Miles Murphy Platelet mean volume (Bld) [Entitic vol] 10.8 fL Normal 9.5-13.5 [facility] Comment on above: Performed By: #### F ERR, FETIBC, B12FOL, PSAD #### [facility] [address] [place] [address] Dr. Miles Murphy PLT 223 103/ul Normal 150-450 [facility] Comment on above: Performed By: #### F ERR, FETIBC, B12FOL, PSAD #### [facility] [address] [place] [address] Dr. Miles Murphy RBC 3.19 106/ul Critically low 4.70-6.10 [facility] Comment on above: Performed By: #### F ERR, FETIBC, B12FOL, PSAD #### [facility] [address] [place] [address] Dr. Miles Murphy WBC 17.6 103/ul Critically high 4.0-11.0 [facility] Comment on above: Performed By: #### F ERR, FETIBC, B12FOL, PSAD #### [facility] [address] [place] [address] Dr. Miles Murphy Covid-19 PCR [facility]on 02[facility]03 SARS-CoV-2 (COVID-19) RNA AZUCENA+probe Ql (Unsp spec) Not detected Normal NOT DETECTED [facility] Comment on above: Result Comment: This test is not yet approved or cleared by the [place] FDA. When there are no FDA-approved or cleared tests available, and other criteria are met, FDA can make tests available under an emergency access mechanism called an Emergency Use Authorization (EUA). The EUA for this test is supported by the [place] of Health and Human Service's (HHS's) declaration [...] SARS-CoV-2. Performed By: #### P OCGLUC #### [facility] [address] [place] [address] Dr. Miles Murphy ER URINE PROFILEon 2 Bilirubin Ql (U) Negative Normal NEGATIVE [facility] Comment on above: Performed By: #### U MICRO, ERUR #### [facility] [address] [place] [address] Dr. Miles Murphy Clarity (U) CLEAR Normal CLEAR [facility] Comment on above: Performed By: #### U MICRO, ERUR #### [facility] [address] [place] [address] Dr. Miles Murphy Color (U) YELLOW Normal YELLOW [facility] Comment on above: Performed By: #### U MICRO, ERUR #### [facility] [address] [place] [address] Dr. Miles Murphy ERUAHD A micrscopic examination will be performed if indicated. Normal [facility] Comment on above: Performed By: #### U MICRO, ERUR #### [facility] [address] [place] [address] Dr. Miles Murphy Glucose Ql (U) Negative Normal NEGATIVE [facility] Comment on above: Performed By: #### U MICRO, ERUR #### [facility] [address] [place] [address] Dr. Miles Murphy Hemoglobin Ql (U) SMALL Abnormal NEGATIVE [facility] Comment on above: Performed By: #### U MICRO, ERUR #### [facility] [address] [place] [address] Dr. Miles Murphy Ketones Ql (U) Negative Normal NEGATIVE [facility] Comment on above: Performed By: #### U MICRO, ERUR #### [facility] [address] [place] [address] Dr. Miles Murphy LEUKOCYTES Negative Normal NEGATIVE [facility] Comment on above: Performed By: #### U MICRO, ERUR #### [facility] [address] [place] [address] Dr. Miles Murphy Nitrite Ql (U) Negative Normal NEGATIVE [facility] Comment on above: Performed By: #### U MICRO, ERUR #### [facility] [address] [place] [address] Dr. Miles Murphy pH (U) 6.0 [pH] Normal 5-9 [facility] Comment on above: Performed By: #### U MICRO, ERUR #### [facility] [address] [place] [address] Dr. Miles Murphy SPEC GRAVITY 1.010 Normal 1.005-<=1.025 [facility] Comment on above: Performed By: #### U MICRO, ERUR #### [facility] [address] [place] [address] Dr. Miles Murphy UA PROTEIN Negative Normal NEGATIVE/ TRACE [facility] Comment on above: Performed By: #### U MICRO, ERUR #### [facility] [address] [place] [address] Dr. Miles Murphy UR MICRO IND INDICATED Normal [facility] Comment on above: Performed By: #### U MICRO, ERUR #### [facility] [address] [place] [address] Dr. Miles Murphy Urobilinogen Qn (U) 1.0 {Christopher'U}/dL Normal 0.2 - 1. 0 [facility] Comment on above: Performed By: #### U MICRO, ERUR #### [facility] [address] [address] [address] Miles Murphy POINT OF CARE GLUCOSEon 02-03 Glucose [Mass/Vol] 95 mg/dL Normal 74-106 [facility] Comment on above: Performed By: #### P OCGLUC #### [facility] [address] [place] [address] Dr. Miles Murphy PROF CHEM 8 (BAS METB)on Anion gap [Moles/Vol] 11.8 mmol/L Normal [facility] Comment on above: Performed By: #### F ERR, FETIBC, B12FOL, PSAD #### [facility] [address] [place] [address] Dr. Miles Murphy Calcium [Mass/Vol] 8.5 mg/dL Normal 8.5-10.1 [facility] Comment on above: Performed By: #### F ERR, FETIBC, B12FOL, PSAD #### [facility] [address] [address] [address] Miles Murhpy Chloride [Moles/Vol] 104 mmol/L Normal 98-107 [facility] Comment on above: Performed By: #### F ERR, FETIBC, B12FOL, PSAD #### [facility] [address] [place] [address] Dr. Miles Murphy CO2 [Moles/Vol] 26.2 mmol/L Normal 21.0-32.0 [facility] Comment on above: Performed By: #### F ERR, FETIBC, B12FOL, PSAD #### [facility] [address] [place] [address] Dr. Miles Murphy Creatinine [Mass/Vol] 0.95 mg/dL Normal 0.70-1.30 [facility] Comment on above: Performed By: #### F ERR, FETIBC, B12FOL, PSAD #### [facility] [address] [place] [address] Dr. Miles Murphy EGFR-AF AZERBAIJANI >60 Normal >=60 [facility] Comment on above: Performed By: #### F ERR, FETIBC, B12FOL, PSAD #### [facility] [address] [place] [address] Dr. Miles Murphy EGFR-NON AF AZERBAIJANI >60 Normal >=60 [facility] Comment on above: Performed By: #### F ERR, FETIBC, B12FOL, PSAD #### [facility] [address] [place] [address] Dr. Miles Murphy Glucose [Mass/Vol] 119 mg/dL Critically high 74-106 [facility] Comment on above: Performed By: #### F ERR, FETIBC, B12FOL, PSAD #### [facility] [address] [address] [address] Miles Murphy Potassium [Moles/Vol] 4.2 mmol/L Normal 3.5-5.1 [facility] Comment on above: Performed By: #### F ERR, FETIBC, B12FOL, PSAD #### [facility] [address] [place] [address] Dr. Miles Murphy Sodium [Moles/Vol] 138 mmol/L Normal 136-145 [facility] Comment on above: Performed By: #### F ERR, FETIBC, B12FOL, PSAD #### [facility] [address] [address] [address] Miles Murphy Urea nitrogen [Mass/Vol] 26.0 mg/dL Critically high 7.0-18.0 [facility] Comment on above: Performed By: #### F ERR, FETIBC, B12FOL, PSAD #### [facility] [address] [place] [address] Dr. Miles Murphy Urea nitrogen/Creatinine [Mass ratio] 27.3 mg/mg Normal [facility] Comment on above: Performed By: #### F ERR, FETIBC, B12FOL, PSAD #### [facility] [address] [place] [address] Dr. Miles Murphy PROTIMEon 02-21-2022 INR Coag (PPP) [Relative time] 1.48 {INR} Normal [facility] Comment on above: Performed By: #### P OCGLUC #### [facility] [address] [address] [address] Miles Murphy INR GUIDELINES SEE BELOW Normal [facility] Comment on above: Result Comment: COLEEN RED INR: 2.0 - 3.0 CONDITIONS NOT LISTED BELOW 2.5 - 3.5 FOR PROSTHETIC HEART VALVE REPLACEMENT 2.5 - 3.5 RECURRENT THROMBOSIS Performed By: #### P OCGLUC #### [facility] [address] [place] [address] Dr. Miles Murphy PT Coag (PPP) [Time] 15.6 s Critically high 9.0-11.6 [facility] Comment on above: Performed By: #### P OCGLUC #### [facility] [address] [place] [address] Dr. Miles Murphy URINE MICROSCOPIC ONLYon BACTERIA NONE SEEN Normal NONE SEEN [facility] Comment on above: Performed By: #### U MICRO, ERUR #### [facility] [address] [place] [address] Dr. Miles Murphy Bacteria identified Cx Nom (U) NOT INDICATED Normal [facility] Comment on above: Performed By: #### U MICRO, ERUR #### [facility] [address] [place] [address] Dr. Miles Murphy CAST NONE SEEN Normal NONE SEEN [facility] Comment on above: Performed By: #### U MICRO, ERUR #### [facility] [address] [place] [address] Dr. Miles Murphy Crystals LM Nom (Urine sed) NONE SEEN Normal NONE SEEN [facility] Comment on above: Performed By: #### U MICRO, ERUR #### [facility] [address] [place] [address] Dr. Miles Murphy Epithelial cells LM Ql (Urine sed) RARE Normal NONE SEEN /RARE [facility] Comment on above: Performed By: #### U MICRO, ERUR #### [facility] [address] [place] [address] Dr. Miles Murphy MUCOUS SMALL Abnormal NONE SEEN [facility] Comment on above: Performed By: #### U MICRO, ERUR #### [facility] [address] [address] [address] Miles Murphy RBC 5-10 Abnormal 0-2 [facility] Comment on above: Performed By: #### U MICRO, ERUR #### [facility] [address] [address] [address] Miles Murphy WBC NONE SEEN Normal NONE SEEN [facility] Comment on above: Performed By: #### U MICRO, ERUR #### [facility] [address] [address] [address] Miles Murphy XR CHEST 1 Von [...] JOSEPH PRINCE Date: 2022-02-21 14:38 Normal [facility] LANI MCLEAN ([id number]) 1940 M Date Time Provider Department 12/26/21 [...] available I can talk with him). Thanks, ALBERT Natarajan RN 12/27/2021 2:00 PM Addendum Spoke with Saray at Dr Tineo's office. Office note faxed. They will fax over surgical clearance paper. Daughter, Aminta notified. PSS: Please cancel pt's appt on 01/01. Thank you. Jonnathan Natarajan RN Gegeladonna Gonzales Pss 12/27/2021 2:05 PM Signed Appointment on 01/01 cancelled Allergies As of Date: 12/26/2021 Noted Allergy Reaction ASPIRIN 11/29/2021 14 - Other: See Comments Date Reviewed: 12/04/2021 Reviewed by: Deirdre Liu - Fully Assessed Reason for Visit: Patient Question [6417] Prescriptions as of 12/27/2021 - warfarin (COUMADIN) [...] - blood sugar diagnostic ([place]CH [place] [facility] - Qqndx-5-UDJ-EPA-Fish Oil (FISH OIL) 1,000 mg (120 mg-180 mg) cap Take 2 g by mouth twice daily. 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 Problem List As Of Date: 12/24/2021 (None) Encounter Status:Closed by DEIRDRE LIU on 12/25/21 [facility] Linda 12-19-2021 [place] Telephone (WILLIE) LANI MCLEAN ([id number]) 1940 M Date Time Provider Department 12/19/21 [...] - blood sugar diagnostic ([place]OUCH [place] [facility] - Aktut-4-FCP-EPA-Fish Oil (FISH OIL) 1,000 mg (120 mg-180 mg) cap Take 2 g by mouth twice daily. Problem List As Of Date: 12/19/2021 (None) Encounter Status:Closed by JONNATHAN NATARAJAN on 12/20/21 Normal [facility] BCR-ABL QUALITATIVE MULTIPLE X RT-PCRon 12-04-2021 BCR-ABL QUAL, MULTIPLEX RT-PCR Normal [facility] Comment on above: Order Comment: Order ing Facility: [facility] Address: [address] [place] [id number] Result Comment: BCR ABL1 Multiplex RT-PCR Qualitative Laboratory Accession Number: [id number] Result: BCR/ABL1 fusion transcripts are NOT DETECTED [...] this sample, and cDNA prepared by reverse lead systems analyst. Multiplex RT-PCR studies were performed using fluorescently [...] developed and its performance characteristics determined by [facility]'s [facility] ([facility]). It has not been cleared or approved by the FDA. -[facility] is regulated under CLIA as certified to perform high- complexity testing. This test is used for clinical purposes. It should not be regarded as investigational or for research. Testing and interpretation performed at [facility], [address] [place] [address]. CLIA Number: [id number] As reviewed by Jaimee Mahan, PhD, [facility] Performed By: #### B CRQL #### [facility] CLIA [id number] [address] [facility] DESK [id number] [place] CBC W Auto Differential pane l (Bld)on 12-04-2021 Basophils (Bld) [#/Vol] 0.06 10*3/uL Normal <0.11 [facility] Comment on above: Order Comment: Speci men Type: BLOOD SPECIMEN Ordering Facility: [facility] Address: [address] [place] [address] Performed By: #### 5 7021-8 #### [facility] CLIA [id number] [address] [place] [address] Basophils/100 WBC (Bld) 0.4 % Normal [facility] Comment on above: Order Comment: Speci men Type: BLOOD SPECIMEN Ordering Facility: [facility] Address: [address] [place] [address] Performed By: #### 5 7021-8 #### [facility] CLIA [id number] [address] [place] [address] Differential cell count method Nom (Bld) Auto Normal [facility] Comment on above: Order Comment: Speci men Type: BLOOD SPECIMEN Ordering Facility: [facility] Address: [address] [place] [address] Performed By: #### 5 7021-8 #### [facility] CLIA [id number] [address] [place] [address] Eosinophils (Bld) [#/Vol] 0.11 10*3/uL Normal <0.46 [facility] Comment on above: Order Comment: Speci men Type: BLOOD SPECIMEN Ordering Facility: [facility] Address: [address] [place] [address] Performed By: #### 5 7021-8 #### [facility] CLIA [id number] [address] [place] [address]39 Eosinophils/100 WBC (Bld) 0.8 % Normal [facility] Comment on above: Order Comment: Speci men Type: BLOOD SPECIMEN Ordering Facility: [facility] Address: [address] [place] [address] Performed By: #### 5 7021-8 #### [facility] CLIA [id number] [address] [place] [address]36 Erythrocyte distribution width (RBC) [Ratio] 13.7 % Normal 11.5-15.0 [facility] Comment on above: Order Comment: Speci men Type: BLOOD SPECIMEN Ordering Facility: [facility] Address: [address] [place] [address] Performed By: #### 5 7021-8 #### [facility] CLIA [id number] [address] [place] [address]43 Hematocrit (Bld) [Volume fraction] 44.3 % Normal 39.0-51.0 [facility] Comment on above: Order Comment: Speci men Type: BLOOD SPECIMEN Ordering Facility: [facility] Address: [address] [place] [address] Performed By: #### 5 7021-8 #### [facility] CLIA [id number] [address] [place] [address]951 Hemoglobin (Bld) [Mass/Vol] 14.6 g/dL Normal 13.0-17.0 [facility] Comment on above: Order Comment: Speci men Type: BLOOD SPECIMEN Ordering Facility: [facility] Address: [address] [place] [address] Performed By: #### 5 7021-8 #### [facility] CLIA [id number] [address] [place] [address]194 IMMATURE GRAN % 0.7 % Normal [facility] Comment on above: Order Comment: Speci men Type: BLOOD SPECIMEN Ordering Facility: [facility] Address: [address] [place] [address] Performed By: #### 5 7021-8 #### [facility] CLIA [id number] [address] [place] [address] 15234 IMMATURE GRAN ABS 0.10 k/uL High <0.10 [facility] Comment on above: Order Comment: Speci men Type: BLOOD SPECIMEN Ordering Facility: [facility] Address: [address] [place] [address] Performed By: #### 5 7021-8 #### [facility] CLIA [id number] [address] [place] [address] 86721 Lymphocytes (Bld) [#/Vol] 2.19 10*3/uL Normal 1.00-4.00 [facility] Comment on above: Order Comment: Speci men Type: BLOOD SPECIMEN Ordering Facility: [facility] Address: [address] [place] [address] Performed By: #### 5 7021-8 #### [facility] CLIA [id number] [address] [place] [address] 65369 Lymphocytes/100 WBC (Bld) 16.3 % Normal [facility] Comment on above: Order Comment: Speci men Type: BLOOD SPECIMEN Ordering Facility: [facility] Address: [address] [place] [address] Performed By: #### 5 7021-8 #### [facility] CLIA [id number] [address] [place] [address] 95821 MCH (RBC) [Entitic mass] 31.8 pg Normal 26.0-34.0 [facility] Comment on above: Order Comment: Speci men Type: BLOOD SPECIMEN Ordering Facility: [facility] Address: [address] [place], [place] [address] Performed By: #### 5 7021-8 #### [facility] CLIA [id number] [address] [place] [address] 92735 MCHC (RBC) [Mass/Vol] 33.0 g/dL Normal 30.5-36.0 [facility] Comment on above: Order Comment: Speci men Type: BLOOD SPECIMEN Ordering Facility: [facility] Address: [address] [place], [place] [address] Performed By: #### 5 7021-8 #### [facility] CLIA [id number] [address] [place] [address] MCV (RBC) [Entitic vol] 96.5 fL Normal 80.0-100.0 [facility] Comment on above: Order Comment: Speci men Type: BLOOD SPECIMEN Ordering Facility: [facility] Address: [address] [place] [address] Performed By: #### 5 7021-8 #### [facility] CLIA [id number] [address] [place] [address] 64405 Monocytes (Bld) [#/Vol] 1.26 10*3/uL High <0.87 [facility] Comment on above: Order Comment: Speci men Type: BLOOD SPECIMEN Ordering Facility: [facility] Address: [address] [place] [address] Performed By: #### 5 7021-8 #### [facility] CLIA [id number] [address] [place] [address] 48851 Monocytes/100 WBC (Bld) 9.4 % Normal [facility] Comment on above: Order Comment: Speci men Type: BLOOD SPECIMEN Ordering Facility: [facility] Address: [address] [place] [address] Performed By: #### 5 7021-8 #### [facility] CLIA [id number] [address] [place] [address] 92645 Neutrophils (Bld) [#/Vol] 9.73 10*3/uL High 1.45-7.50 [facility] Comment on above: Order Comment: Speci men Type: BLOOD SPECIMEN Ordering Facility: [facility] Address: [address] [place] [address] Performed By: #### 5 7021-8 #### [facility] CLIA [id number] [address] [place] [address] 75346 Neutrophils/100 WBC (Bld) 72.4 % Normal [facility] Comment on above: Order Comment: Speci men Type: BLOOD SPECIMEN Ordering Facility: [facility] Address: [address] [place], [place] [address] Performed By: #### 5 7021-8 #### [facility] CLIA [id number] [address] [place] [address] 82848 Nucleated RBC (Bld) [#/Vol] 10*3/uL Normal <0.01 [facility] Comment on above: Order Comment: Speci men Type: BLOOD SPECIMEN Ordering Facility: [facility] Address: [address] [place], [place] [address] Performed By: #### 5 7021-8 #### [facility] CLIA [id number] [address] [place] [address] 28459 Nucleated RBC/100 WBC (Bld) [Ratio] 0.0 /100 WBC Normal [facility] Comment on above: Order Comment: Speci men Type: BLOOD SPECIMEN Ordering Facility: [facility] Address: [address] [place], [place] [address] Performed By: #### 5 7021-8 #### [facility] CLIA [id number] [address] [place] [address] 70446 Platelet mean volume (Bld) [Entitic vol] 10.7 fL Normal 9.0-12.7 [facility] Comment on above: Order Comment: Speci men Type: BLOOD SPECIMEN Ordering Facility: [facility] Address: [address] [place], [place] [address] Performed By: #### 5 7021-8 #### [facility] CLIA [id number] [address] [place] [address] 97509 Platelets (Bld) [#/Vol] 270 10*3/uL Normal 150-400 [facility] Comment on above: Order Comment: Speci men Type: BLOOD SPECIMEN Ordering Facility: [facility] Address: [address] [place], [place] [address] Performed By: #### 5 7021-8 #### [facility] CLIA [id number] [address] [place] [address] RBC (Bld) [#/Vol] 4.59 10*6/uL Normal 4.20-6.00 [facility] Comment on above: Order Comment: Speckaley singh Type: BLOOD SPECIMEN Ordering Facility: [facility] Address: [address] [place] [address] Performed By: #### 5 7021-8 #### [facility] CLIA [id number] [address] [place] [address] 80803 WBC (Bld) [#/Vol] 13.45 10*3/uL High 3.70-11.00 [facility] Comment on above: Order Comment: Speci men Type: BLOOD SPECIMEN Ordering Facility: [facility] Address: [address] [place] [address] Performed By: #### 5 7021-8 #### [facility] CLIA [id number] [address] [place] [address] 42446 CNOVSPon 12-04-2021 CNOVSP Visit (SP) Office (HEMASA) LANI MCLEAN ([id number]) 1940 M Date Time Provider Department 12/04/21 11:00 AM ULYSSES SHERMAN During your visit today, we recorded the following information about you: Temperature Pulse Respiration Blood pressure 97.3 degrees 67/minute 16/minute 124/64 Weight Height 84.6 kg 1.72 m Ulysses Sherman MD 12/04/2021 2:34 PM Signed PATIENT NAME: Lani Mclean DATE: 12/04/2021 PRIMARY CARE PHYSICIAN: Mignon Cai, DO OTHER PHYSICIANS: Dr. Tineo, Dr. Mitchell [facility] HPI: This is an 81 year [...] - blood sugar diagnostic (ONE TOUCH TEST [facility] - Rpkia-2-KDE-EPA-Fish Oil (FISH OIL) 1,000 mg (120 mg-180 [...] rate. Nega (more content not included)... Normal [facility] CRP SerPl-mCncon 12-04-2021 CRP [Mass/Vol] 1.2 mg/dL High <0.9 [facility] Comment on above: Order Comment: Speci men Type: BLOOD SPECIMEN Ordering Facility: [facility] Address: [address] [place] [address] Performed By: #### 1 988-5 #### [facility] CLIA [id number] [address] [facility] DESK [place] [id number] [facility] [place] Comprehensive metabolic 2000 panelon 12-04-2021 Albumin [Mass/Vol] 4.5 g/dL Normal 3.9-4.9 [facility] Comment on above: Order Comment: Speci men Type: BLOOD SPECIMEN Ordering Facility: [facility] Address: [address] [place] [address] Performed By: #### 2 4323-8 #### [facility] CLIA [id number] [address] [place] [address] 27040 ALP [Catalytic activity/Vol] 86 U/L Normal 38-113 [facility] Comment on above: Order Comment: Speci men Type: BLOOD SPECIMEN Ordering Facility: [facility] Address: [address] [place] [address] Performed By: #### 2 4323-8 #### [facility] CLIA [id number] [address] [place] [address] 39731 ALT [Catalytic activity/Vol] 13 U/L Normal 10-54 [facility] Comment on above: Order Comment: Speci men Type: BLOOD SPECIMEN Ordering Facility: [facility] Address: [address] [place], [place] [address] Performed By: #### 2 4323-8 #### [facility] CLIA [id number] [address] [place] [address] 03604 Anion gap [Moles/Vol] 11 mmol/L Normal 9-18 [facility] Comment on above: Order Comment: Speci men Type: BLOOD SPECIMEN Ordering Facility: [facility] Address: [address] [place] [address] Performed By: #### 2 4323-8 #### [facility] CLIA [id number] [address] [place] [address] AST [Catalytic activity/Vol] 16 U/L Normal 14-40 [facility] Comment on above: Order Comment: Speci men Type: BLOOD SPECIMEN Ordering Facility: [facility] Address: [address] [place] [address] Performed By: #### 2 4323-8 #### [facility] CLIA [id number] [address] [place] [address] Bilirubin [Mass/Vol] 0.3 mg/dL Normal 0.2-1.3 [facility] Comment on above: Order Comment: Speci men Type: BLOOD SPECIMEN Ordering Facility: [facility] Address: [address] [place] [address] Performed By: #### 2 4323-8 #### [facility] CLIA [id number] [address] [place] [address]40 Calcium [Mass/Vol] 10.1 mg/dL Normal 8.5-10.2 [facility] Comment on above: Order Comment: Speci men Type: BLOOD SPECIMEN Ordering Facility: [facility] Address: [address] [place] [address] Performed By: #### 2 4323-8 #### [facility] CLIA [id number] [address] [place] [address] 33128 Chloride [Moles/Vol] 96 mmol/L Low 97-105 [facility] Comment on above: Order Comment: Speci men Type: BLOOD SPECIMEN Ordering Facility: [facility] Address: [address] [place] [address] Performed By: #### 2 4323-8 #### [facility] CLIA [id number] [address] [place] [address] 63009 CO2 [Moles/Vol] 29 mmol/L Normal 22-30 [facility] Comment on above: Order Comment: Speci men Type: BLOOD SPECIMEN Ordering Facility: [facility] Address: [address] [place] [address] Performed By: #### 2 4323-8 #### [facility] CLIA [id number] [address] [place] [address] Creatinine [Mass/Vol] 1.01 mg/dL Normal 0.73-1.22 [facility] Comment on above: Order Comment: Speci men Type: BLOOD SPECIMEN Ordering Facility: [facility] Address: [address] [place] [address] Performed By: #### 2 4323-8 #### [facility] CLIA [id number] [address] [place] [address] ESTIMATED GLOMERULAR FILTRATION RATE 74 mL/min/1.73m??? Normal >=60 [facility] Comment on above: Order Comment: Laura singh Type: BLOOD SPECIMEN Ordering Facility: [facility] Address: [address] [place] [address] Result Comment: Brit mated Glomerular Filtration Rate [...] GFR. Performed By: #### 2 4323-8 #### [facility] CLIA [id number] [address] [place] [address] 76657 Glucose [Mass/Vol] 115 mg/dL High 74-99 [facility] Comment on above: Order Comment: Laura singh Type: BLOOD SPECIMEN Ordering Facility: [facility] Address: [address] [place] [address] Result Comment: The [place] Diabetes Association (ADA) provides guidance for cutoff [...] Standards of Medical Care in Diabetes 2016, [place] [employer] Association. Diabetes Care. 2016.39(Suppl 1). Performed By: #### 2 4323-8 #### [facility] CLIA [id number] [address] [place] [address] 90013 Potassium [Moles/Vol] 4.2 mmol/L Normal 3.7-5.1 [facility] Comment on above: Order Comment: Speci men Type: BLOOD SPECIMEN Ordering Facility: [facility] Address: [address] [place] [address] Performed By: #### 2 4322-8 #### [facility] CLIA [id number] [address] [place] [address] 54729 Protein [Mass/Vol] 7.4 g/dL Normal 6.3-8.0 [facility] Comment on above: Order Comment: Speci men Type: BLOOD SPECIMEN Ordering Facility: [facility] Address: [address] [place] [address] Performed By: #### 2 4322-8 #### [facility] CLIA [id number] [address] [place] [address] 07274 Sodium [Moles/Vol] 136 mmol/L Normal 136-144 [facility] Comment on above: Order Comment: Speci men Type: BLOOD SPECIMEN Ordering Facility: [facility] Address: [address] [place] [address] Performed By: #### 2 3-8 #### [facility] CLIA [id number] [address] [place] [address] 52263 Urea nitrogen [Mass/Vol] 25 mg/dL High 9-24 [facility] Comment on above: Order Comment: Speci men Type: BLOOD SPECIMEN Ordering Facility: [facility] Address: [address] [place] [address] Performed By: #### 2 4323-8 #### [facility] CLIA [id number] [address] [place] [address] 95599 ESR Westergren method (Bld) [Velocity]on 12-04-2021 ESR (Bld) [Velocity] 5 mm/h Normal 0-15 [facility] Comment on above: Order Comment: Speci men Type: BLOOD SPECIMEN Ordering Facility: [facility] Address: [address] [place] [address] Performed By: #### 4 537-7 #### [facility] CLIA [id number] [address] [place], [place] [address] [address] [facility] JAK2 V617F MUTATION BLOODon 12-04-2021 JAK2 V617F MUTATION RESULT/INTERPRETATI ON Normal [facility] Comment on above: Order Comment: Laura singh Type: BLOOD SPECIMEN Ordering Facility: [facility] Address: [address] [place] [address] Result Comment: JAK2 V617F Mutation Analysis Laboratory Accession Number: [id number] Sample Type: Peripheral Blood Result: No variant detected. Interpretation: The JAK2 V617F (c.1849G>T, p.Tfi721Dop) variant is not detected. V617F has been reported in a high percentage of cases of polycythemia vera, approximately half of the cases of essential thrombocythemia and chronic idiopathic myelofibrosis, and in a smaller proportion of other myeloid disorders. Methodology: DNA extracted from blood or bone marrow is interrogated for the presence or absence of the V617F (c.1849G>T, p.Pee198Ksm; g.2818723; [id number]) variant (mutation) in JAK2 (NM_004972.3) using droplet [...] developed and its performance characteristics determined by [facility]'s [facility] ([facility]). It has not been cleared or approved by the FDA. [facility] is regulated under CLIA as certified to perform high- complexity testing. This test is used for clinical purposes. It should not be regarded as investigational or for research. Testing and interpretation performed at [facility], [address] [place] [address]. CLIA Number: [id number] References: 1) Rebeccaer DA, Low A, Ferdinand R, et al. The 2016 revision to the World Health Organization (WHO) classification of myeloid neoplasms and acute leukemia. Blood 2016. 127(20): 2391-405. 2) Neno Smart, Mishel R, Charanjit JW. Myeloproliferative neoplasms: contemporary diagnosis using histology and genetics. Wilma Rev Clin Oncol 2009. 6:627-37. As reviewed by Mignon Frey MD Performed By: #### J AK2 #### [facility] [place] [id number] [address] [place], [place] [address] [address] [place] Progress Note - Nurseon 11-07 Progress Note - Nurse spoke to pt's daughter and she stated her father had blood work redrawn today at [facility] due to being elevated oh PAT day and possibly if still high that his procedure would be canceled. Instructed daughter to call [facility] surgery department to keep us informed of lab results and she verbalized understanding. mortgage or loan underwriter will inform charge nurse. [Electronically Signed on: 11/28/2021 11:53 EST] Roseann Landon RN [Verified on: 11/28/2021 11:53 EST] Roseann Landon RN [facility] Progress Note - Nurseon 11-06 Progress Note - Nurse Dr Donato requested office notes from latest [facility] cardiology visit- notes from 11-20-21 visit received via fax from [facility] and PAT chart returned to Dr. Donato for further review. Dr. Donato requested to notify Dr. Salguero office of elevated WBC- office had already been notified on 11-15-21 by phone and fax. Dr. Donato also requested labwork CBC and INR on day of surgery. [Electronically Signed on: 11/21/2021 14:19 EST] Chika Chi RN [Verified on: 11/21/2021 14:19 EST] Chika Chi RN [facility] Progress Note - Nurseon 11-06 Progress Note - Nurse Dr. Tineo's office called, wants WBC repeated preop the day of surgery on 11/29/21 [Electronically Signed on: 11/20/2021 11:48 EST] Irina Saini RN [Verified on: 11/20/2021 11:48 EST] Irina Saini [facility] Coding Summaryon 11-15-2021 Coding Summary HTMLBase 64 SubcbtohSQu6oGt+PGhlYW Q+HL5JICPwO58oiSKvyK3A Y7eROO8WEYXATROAGN2TSO 2pyEA5UTtvS5DfkoXs EmpsnJCrEG99SLh1HAA4kX wnBOlzcO9dsJMvV2t0LjEx HM76iW94TIdcJBYhGqI7Mg ZpbjsgbWFy K4frFhAdhWUeUvj+PHRhYm xlIHdpZHRoPScxMDAlJyBz kVbhYK6mHh8fYVPuJGSdnL xhcHNlOiBj i2xrVXJyFWfeLE4pzWlbF3 ZjnGN2FJJld9x0Mg91rLN+ SBAuNVC2qNkmTZwfe360Cs Yrf3wjALP6 jFEfDEvfGZF0Z29hn7L2TA IyKRSnVJB6fYD3eJ0xpVxt tewkM3McwKEuGnK0UAK7kW SusR1dgSqn hhtauJ0kToo+K87TGB4GCU EMFO7EFfb3G9LgBmkajLM+ JM38LXPjOQ57jGQeeQDob3 jraTn4RpUh RHYwLEE5lSkbBTgld6DlNE UcH91niHOvx7Y8QYDjgHxh pSGvFoUnmST8fM3sSWfyxu osh7wyalev Hzohq9kzoc92hV86A70bHL yiCJEqHUS6JHIkRXLxjAkp wf7muR7gYm8+NLcqu1lsa0 ioyAl8NaQj SFAsnjXdfZfjFKU2g3YfAs 70M2LobLdal0AuAgx5jb35 nGKhx4I4pXX9FYytPPUndN 6bJGrqIiH8 ZQTkJbIyuY71xELbVSooBx 2rgPsdtZsqJD9rYLFzrmrp ZYHvfZ9cEYLyqEBsrDbtBE 4wNTBpbjtm r359EvGcLVW9NVGpjJSvN6 RgzU9eUiYqEVKjQFKaX8Fm zSJzJPmlR384FMezJnF9UA UtftXbW8Mz JIBcdTxlPgQ7r9K8Xr3Wr2 VjhbjxJLG0GQioGGLaPmGm RhQmCrA2S5NwFxt6EVDgsG nhHO8cY8Tc OHOlmawvjtntcOF3HIDwKD NnbC50bXMbGXbwGu6km8E9 d503VCNwAEOtoF39Dg7duN ogMTBwdCBU mZ2jqnlhc6nbupqeDvMoPB YoZEw0UXb2KREceXwhWqNy UDY5DkM6GSO0qFQbaL0iuQ mnpdcdmG0j Oyc+K31ryG7xAMU0HLA8va rcVEGgevNgUT19CO92H6Uf PjwvdGFibGU+PGRpdiBzdH afFV8jEkOc d4spw7YtQXzcZ1RwARXbTY duRrq4IVEqMOE5wYE3cD6p QLVdLGevh5Q3zZO3W6Oypc Jvac3sj7qx MJCaXKisK33ajTNga7R5EP IbzQN9WUDykBdpJtPfqU28 Oyc+JYBtmHvqi7DnRsbuk0 mco5xpbWj4 CvKhFRXmcuGhlTfmCIM2l3 BsTh08L56oUDinBJAoEREg LCYhUCVmgEuyih4djT4cGe 8+PGNvbCB3 gLC2cI1vRKTpLfK0SXgiW5 41EjAstUPzOubmr2oob6pu mJp4FsLkVQPiilFkjZipAF V4k9RmRo36 R86fBNncUDUsNZPaMQUfET KxmIwqlg2wtF3iEn8+PC9j l1dbnc10rP83aKO+PHRkIH S4dPtiOQtt KCWejE3sYBmeDsG6HQZeXl CbhM03hNMgGEzrOr9mfHmx wAruHO6jXLQxoujgn852Az Bkx7wzHTQv iQOlPCtfNUH4K66fg4M5JS NcGFYzBGK0gHW8qH0crOlg bjogbGVmdDsgdmVydGljYW ttAXmjD081 IHRvcDsnPlBhdGllbnQgTm GfKRg5F6MyZie1QFGuyLdp EY5qcCWkNJnjCu5irKpcsC fkYV1lKOXq czrmv691XyNcy0rnVNHdlV OcRDhnPVB1J40uk6X3SKBz YZFqKGV4mLJ5pY7dhYiskl ogbGVmdDsg yzKbsEkgVDmhAJuqE298SG RvcDsnPkJpcnRoIERhdGU6 HG92NP13oTUpe8D1dGI4U6 BhZGRpbmct fmdlvME7QWWoUXYpoS59Sk 9tiRsbHh7nBDHdFGI6OOQm dVKlZ2RgrE1aAeQdNIOgRP FfQ7OsnJDr VTlhQ462IRdwAfM6CNPtuz TzH1YcWJGmjEkkSwZ6u3L2 As6OE7G8VJ13SF92xWUys2 Z8kSL6X1Mz HHMvkwhmadzglXN8ZCAgFQ RwbJ78Eg3gtLpbWf3vWNMh YQK1WWLhdQVoL8OsvN1cYq AjMDAwMDAw D2PxfDTmOSemQ151IAnpNf G9UBSfpmUeV6BiHYOosTao EyD4y9H1Su4QGJm1TD73FZ 79fCBhx7E4 iDZ0S9PzFEBxftiixiexlM X9KTDkHMManI89Lp7jtObb Gn2uDOUgTRF1FQYvbPEaH9 YtbT0eZsQi SIJkZMJoU6UkgUFxZDqyP8 77MVdrVhI2ADFadpZyW3Sm CVLxdTnwHyN2p0J4Ya0ABY QeDD58JVJ9 nPD6UQ04UT65J3XvAcolvA FibGU+PHRhYmxlIHdpZHRo CXjrNEGmGxKytTwnIT0iGv 9yZGVyLWNv gFqrdPRqCcZmu8zwZDPfXR njTK7bvJgfW0GgrII3GWMc h0e8Ip47R91uK0CfqMO+PG AqsPS3yNZ7 zH3fRuKeKbV8TOqoQ066Vu KrgBPsDfxrm1grf4esbEt4 ZhD0KYQegtPvfWhmYYK7u5 MgQm15D53r IHdpZHRoPSIxNSUiIHZhbG tcgw0hgA3zEc5+PGNvbCB3 oHV4gA7lJqJhYdD4ANlrC4 49InRvcCIv Gvabr8srv3ugqTf6JnQdGS QtvwKfsOejDKP2l9VaZr72 Q5HroNfuq3DwKup0vp60nU Cvj0K5yMH5 G6TmBLWmmjtlcOIyrCybDS 2kGULmyaaqGDPgtT5jWNPc P6r5UgKwWrO5QLbsX6Xfbj Z0JZQsxTBw YUkjNRD5G71iw1B4INHxJA BuWGF0eMI0pN0hqEzycjdc bGVmdDsgdmVydGljYWwtYW bbW638VKXt sHhoDWSzbP7vBZDuvDKzzZ eiSF4aQHUpcakvUwhFMD6R AhevPd5TRcFATG63XM25dN Soe2P2bQF1 E1DeRMNyyztyvvktvOZ5MJ ScYIOcgX91zZKlQDmiZh8m s7Q0k254TGArCFJqbH35Ro 9udDogMTBw vFSDkQ3rtmwqv7meioxcKd ZzODLvBBi0XYb6GEHrsArr AeDxYYC5VeX6OKJ8uBMflU 1hbGlnbjog qX7zEfg+MDQvMDgvMTkzOD wvdGQ+SZLeZVR0iFtoTUro ZZUzeC0kJJDyP0k1IdDgSg Z0JXhfX0Hg GZQchnobZp70bF6xEpRdGb L9BOjhJ2RhgmT9GMOtdBIg GZwyTUD8O86ux2S8GPApKD FyHSN0tET2 mC3pdKbpsyrfdCAliSjzii SfsFguFHmlXIvsK804UEYb yMilRnirOBjtWHOlNN04HW 66fPRah7X2 bMD3J1YsVTXkidvwbaayyB I3QITbPBMiwP21iZLzFAvo Wr2fx7I7z821NSElLPYciK 24He6gvVwq WVXstDQJuU1otabwm8fdra ysOgNoPESgAAk6HZd7IIPf vSeoQnVkWTH3KhK1CUQ3uJ EceZ8uiDnv oqsxoO6nBnn+TUFMRTwvdG Q+STEjNNB5uLyxSGavZLZs eQ2cHLMoX2r8TyAqVvE5EI hzG6JoVYBw nncyOf27lU1yWfKaEfS6ZH fkB5VrdzU7PDIwaRAtRUbo TUH7M45jj6W2CRKbWCUrQQ W9uMG5xI0a bGlnbjogbGVmdDsgdmVydG diNLibHYiiR908BICafGpg Xj0UHO06CB17K7ZxWkjhyB FibGU+PHRh YmxlIHdpZHRoPScxMDAlJy ZiaWpfPH4jYt9oMSFmKGLv pEodiZPbRnRqk0xhFXTnWJ deFI4xqVkf W5DmbGT2RZTvc5q8Ir73C2 8bU0NzmSO+NKVesUF8xAV4 pH1pTiSrMtY0QRmgI941Ll RvcCIvPjxj g9kkg3ldxVu2MeYrYZRsfh MlcBfbSTQ8n1ClWm69I03v IHdpZHRoPSIyMCUiIHZhbG dzuo1kzY6q Ii8+PDZiaGV6dCO9dK8nAl KfFqK3DSznN949ZqIurTBg RkvcV88uN9UuvOS+PHRyPj z3CZSxqZkv FT2bqWBdPUjfOa4yMOT7Bx ZrYjOgBAoaL7AyNHMvooij hhadlDV5JFGtBBSrbS23Yv 6asUotAv8c LGZfJVV6FHEyjSTmL9RzuJ 5jZvWkQGAxIIQeJ8TwaMXi OXhwT816ULzxPqP1XMBmfj MrB9VnINYs bCrpIcR8s4H0Rk5ZlDavkD WaHX2lPpUvAXq4V1JtUit4 TQNohTuaRT1pgBOaLKliLc 1yaWdodDog FZ9fCHUyovord786OjDiz6 ehCFGxfJKaPKtxYJO2T77z e0G9GBPrTLRwFRA7mWS4sS 1hbGlnbjog bGVmdDsgdmVydGljYWwtYW anC299CTArmNkhWgLBHdo2 F3MkThh7VFRvwJllXU5loI YaULofQh3x aXvdxYdaKQ9dZJTcaphsi4 74EwZfs3wvPNJokYDlJEhn LME7M32jc4A1PGPyBRNlKY M5pHI2mX7d bGlnbjogbGVmdDsgdmVydG mbUWgzCQovD612HMWmoVmq It7NIps1U2QgUpe4QCEsjC kcPY5ukNAw CUlzFz6ddCntrNxzOZ1tQD Wmaoveu041FnFcp2msCPHa vRDrYRyhVSX8D96hx7O4QI MwMDAwMDA7 sHP0lZ7bbHuksqiafDCskJ krbrVgdXogIEysKBavS477 IHRvcDsnPlBheWVyOjwvdG Q+VE17dk23 E7QxWytlDzk4HKZaAIZ9kI J1cC7bVGRvTLjri5A1xGO5 M8TfnpTxha1lr5hkRHGkRI gwP05muBSp c2U (more content not included)... [facility] Progress Note - Nurseon 11-06 Progress Note - Nurse Chart reviewed by Dr. Quesada. Order for INR day of surgery in computer. Called Dr. Tineo's office regarding elevated WBC, results faxed to [facility]. Pt will be seen by cardiology on Friday11/16/2021. Will request notes. [Electronically Signed on: 11/15/2021 10:56 EST] Elsie Gregory RN [Verified on: 11/15/2021 10:56 EST] Elsie Gregory RN [facility] Provider Orderson 11-13-2021 Provider Orders [id number]#1.0 0OTGTIFF [facility] .Auto Diff 1on 11-12-2021 Auto [place] % 11 % Normal 10-17 [facility] Comment on above: Performed By: #### 1 [id number], [id number], [id number], [id number] #### [facility] (DEFAULT) [address] [place] [address] Baso Abs# 0.0 x10 Normal 0.0-0.2 [facility] Comment on above: Performed By: #### 1 [id number], [id number], [id number], [id number] #### [facility] (DEFAULT) [address] [place] [address]26 Basophils/100 WBC (Bld) 0.3 % Normal 0.2-2.0 [facility] Comment on above: Performed By: #### 1 [id number], [id number], [id number], [id number] #### [facility] (DEFAULT) [address] [place] [address] 47743 Eos Abs# 0.2 x10 Normal 0.0-0.4 [facility] Comment on above: Performed By: #### 1 [id number], 8262208, [id number], [id number] #### [facility] (DEFAULT) [address] [place] [address] 62159 Eosinophils/100 WBC (Bld) 1.6 % Normal 0.9-4.0 [facility] Comment on above: Performed By: #### 1 [id number], 5024007, [id number], [id number] #### [facility] (DEFAULT) [address] [place] [address] 93666 Lymph Abs# 2.6 x10 Normal 1.3-2.9 [facility] Comment on above: Performed By: #### 1 [id number], 5187471, [id number], [id number] #### [facility] (DEFAULT) [address] [place] [address] 06041 Lymphocytes/100 WBC (Bld) 19 % Normal 14-48 [facility] Comment on above: Performed By: #### 1 [id number], 8449869, [id number], [id number] #### [facility] (DEFAULT) [address] [place] [address] 01779 [place] Abs# 1.5 x10 High 0.0-0.8 [facility] Comment on above: Performed By: #### 1 [id number], 5045854, [id number], [id number] #### [facility] (DEFAULT) [address] [place] [address] 77097 Neut Abs# 9.1 x10 Normal 1.5-9.2 [facility] Comment on above: Performed By: #### 1 [id number], 3228104, [id number], [id number] #### [facility] (DEFAULT) [address] [place], [place] [address] Neutrophils/100 WBC (Bld) 68 % Normal 44-88 [facility] Comment on above: Performed By: #### 1 [id number], 7723241, [id number], [id number] #### [facility] (DEFAULT) [address] [place] [address] 79599 BMP Standardon 11-12-2021 eGFR Non AA >60 Invalid Interpretation Code [facility] Comment on above: Performed By: #### 1 [id number], 3761424, [id number], [id number] #### [facility] (DEFAULT) [address] [place] [address] eGFR AA >60 Invalid Interpretation Code [facility] Comment on above: Result Comment: Transfer Car Operator Drier jasiel Kidney disease could be indicated at eGFRs of less than 60 ml/min/1.73m2. Kidney Failure is indicated at less than 15 ml/min/1.73m2 Performed By: #### 1 [id number], 4081314, [id number], 71898028 #### [facility] (DEFAULT) [address] [place] [address] 62817 Anion gap [Moles/Vol] 15.0 mmol/L Normal 5.0-19.0 [facility] Comment on above: Performed By: #### 1 [id number], 2256392, 6107612286, 31271357 #### [facility] (DEFAULT) [address] [place] [address] 33384 Calcium [Mass/Vol] 9.4 mg/dL Normal 8.9-10.3 [facility] Comment on above: Performed By: #### 1 [id number], 3894868, 3078081471, 00725345 #### [facility] (DEFAULT) [address] [place] [address] 49906 Chloride [Moles/Vol] 98 mmol/L Low 101-111 [facility] Comment on above: Performed By: #### 1 [id number], 6758339, 6167444765, 74267876 #### [facility] (DEFAULT) [address] [place] [address] 14557 CO2 [Moles/Vol] 26 mmol/L Normal 21-32 [facility] Comment on above: Performed By: #### 1 [id number], 2540110, 2496384915, 70022960 #### [facility] (DEFAULT) [address] [place] [address] 28047 Creatinine [Mass/Vol] 0.95 mg/dL Normal 0.90-1.30 [facility] Comment on above: Performed By: #### 1 [id number], 1188562, 3844236938, 80433266 #### [facility] (DEFAULT) [address] [place] [address] 94276 Glucose [Mass/Vol] 104.0 mg/dL Normal 74.0-118.0 [facility] Comment on above: Performed By: #### 1 [id number], 8367815, 5362477849, 28570059 #### [facility] (DEFAULT) [address] [place] [address] 86382 Osmolality 274 mOsm/L Invalid Interpretation Code [facility] Comment on above: Performed By: #### 1 [id number], 5963254, 3813063661, 99833564 #### [facility] (DEFAULT) [address] [place] [address] 36179 Potassium [Moles/Vol] 4.0 mmol/L Normal 3.6-5.1 [facility] Comment on above: Performed By: #### 1 [id number], 0425873, 0146573445, 20200280 #### [facility] (DEFAULT) [address] [place] [address] 19952 Sodium [Moles/Vol] 135.0 mmol/L Low 136.0-144.0 [facility] Comment on above: Performed By: #### 1 [id number], 8662365, 6965561704, 21211210 #### [facility] (DEFAULT) [address] [place] [address] Urea nitrogen [Mass/Vol] 23 mg/dL Normal 8-26 [facility] Comment on above: Performed By: #### 1 [id number], 2988318, 8719975387, 28948713 #### [facility] (DEFAULT) [address] [place] [address] Urea nitrogen/Creatinine [Mass ratio] 24.0 mg/mg High 4.6-16.2 [facility] Comment on above: Performed By: #### 1 [id number], 2123028, 9305151188, 07261108 #### [facility] (DEFAULT) [address] [place] [address] CBC w/ Auto Diffon Erythrocyte distribution width (RBC) [Ratio] 14.3 % Normal 11.5-15.0 [facility] Comment on above: Performed By: #### 1 [id number], 8670153, 6977082342, 04459984 #### [facility] (DEFAULT) [address] [place] [address] Hematocrit (Bld) [Volume fraction] 45.4 % Normal 34.8-51.9 [facility] Comment on above: Performed By: #### 1 774621524, 5918470, 4126956007, 91972725 #### [facility] (DEFAULT) [address] [place] [address] 50577 Hemoglobin (Bld) [Mass/Vol] 14.8 g/dL Normal 11.8-17.7 [facility] Comment on above: Performed By: #### 1 303661547, 9953726, 5290023227, 25236623 #### [facility] (DEFAULT) [address] [place] [address] Instr WBC 13.4 x10 Invalid Interpretation Code [facility] Comment on above: Performed By: #### 1 [id number], 7971160, 6601221958, 26221304 #### [facility] (DEFAULT) [address] [place] [address] Man Diff? Auto Normal [facility] Comment on above: Performed By: #### 1 150972453, 3775215, 5015672228, 67102686 #### [facility] (DEFAULT) [address] [place] [address] 00672 MCH (RBC) [Entitic mass] 32 pg Normal 24-34 [facility] Comment on above: Performed By: #### 1 [id number], 6437426, 1957287037, 58075553 #### [facility] (DEFAULT) [address] [place] [address] 64958 MCHC (RBC) [Mass/Vol] 33 g/dL Normal 26-37 [facility] Comment on above: Performed By: #### 1 445954155, 8806742, 3069642284, 44699913 #### [facility] (DEFAULT) [address] [place] [address] 44323 MCV (RBC) [Entitic vol] 97 fL Normal 81-100 [facility] Comment on above: Performed By: #### 1 [id number], 3405685, 8169040954, 53729109 #### [facility] (DEFAULT) [address] [place] [address] 43214 Platelet 274 x10 Normal 138-427 [facility] Comment on above: Performed By: #### 1 444391491, 0634766, 6742112409, 95277802 #### [facility] (DEFAULT) [address] [place] [address] 95288 Platelet mean volume (Bld) [Entitic vol] 10.0 fL Normal 6.3-10.2 [facility] Comment on above: Performed By: #### 1 494741657, 9745727, 8482725999, 61602352 #### [facility] (DEFAULT) [address] [place] [address] 23125 RBC 4.70 x10 Normal 3.70-5.30 [facility] Comment on above: Performed By: #### 1 [id number], 6234500, 4101721106, 96056012 #### [facility] (DEFAULT) [address] [place] [address] 53320 WBC 13.4 x10 High 3.5-10.5 [facility] Comment on above: Result Comment: Slid e Reviewed Performed By: #### 1 [id number], 2218235, 4208746573, 66035736 #### [facility] (DEFAULT) [address] [place] [address] HgbA1c Standardon 11-12-2021 .Hb 16.4 Invalid Interpretation Code [facility] Comment on above: Performed By: #### 1 [id number], 3379844, 3844075422, 70595443 #### [facility] (DEFAULT) [address] [place] [address] .Hgb A1c 0.86 g/dL Invalid Interpretation Code [facility] Comment on above: Performed By: #### 1 554663833, 7555924, 4288428291, 28586346 #### [facility] (DEFAULT) [address] [place] [address] Glucose [Mass/Vol] 153 mg/dL Invalid Interpretation Code [facility] Comment on above: Performed By: #### 1 [id number], 3891795, 2274332323, 98136301 #### [facility] (DEFAULT) [address] [place] [address] HbA1c (Bld) [Mass fraction] 6.9 % High 4.6-6.2 [facility] Comment on above: Performed By: #### 1 696104073, 4733996, 7446670076, 90326365 #### [facility] (DEFAULT) [address] [place] [address] UA Atooy7gb 11-12-2021 UA Bacteria Trace Normal [facility] Comment on above: Order Comment: Urina lysis Microscopic order added on by [employer] Expert Rules system. Performed By: #### 5 [id number], [id number] ####[facility] (DEFAULT)[address] [place] [address] UA RBC 0-2 Normal [facility] Comment on above: Order Comment: Urina lysis Microscopic order added on by [employer] Rules system. Performed By: #### 5 [id number], [id number] ####[facility] (DEFAULT)[address] [place] [address] UA Squam Epi Rare [facility] Comment on above: Order Comment: Urina lysis Microscopic order added on by [employer] Expert Rules system. Performed By: #### 5 [id number], [id number] ####[facility] (DEFAULT)[address] [place] [address] 27039 UA WBC 0-2 [facility] Comment on above: Order Comment: Urina lysis Microscopic order added on by [employer] Expert Rules system. Performed By: #### 5 [id number], [id number] ####[facility] (DEFAULT)[address] [place] [address] UA w Culture if Ind Standard on 11-12-2021 Breakpoint UA [facility] Comment on above: Performed By: #### 5 [id number], [id number] ####[facility] (DEFAULT)[address] [place] [address] Color (U) Yellow [facility] Comment on above: Performed By: #### 5 [id number], [id number] ####[facility] (DEFAULT)[address] [place] [address] Culture? Not Indicated Invalid Interpretation Code [facility] Comment on above: Result Comment: Resu lt created by rule GL_MAGR_ADD_UA_CULT Result created by rule GL_MAGR_ADD_UA_CULT Result created by rule GL_MAGR_ADD_UA_CULT1 Performed By: #### 5 [id number], [id number] ####[facility] (DEFAULT)[address] [place] [address] Glucose (U) [Mass/Vol] Negative [facility] Comment on above: Performed By: #### 5 3583972, [id number] ####[facility] (DEFAULT)[address] [place] [address] Ketones Ql (U) Negative [facility] Comment on above: Performed By: #### 5 [id number], [id number] ####[facility] (DEFAULT)[address] [place] [address] Micro? Indicated Invalid Interpretation Code [facility] Comment on above: Result Comment: Resu lt created by rule GL_MAGR_ADD_UA_MICRO Performed By: #### 5 [id number], [id number] ####[facility] (DEFAULT)[address] [place] [address] UA Bilirubin Negative Normal [facility] Comment on above: Performed By: #### 5 0533243, [id number] ####[facility] (DEFAULT)[address] [place] [address] UA Blood SMALL Abnormal NEGATIVE [facility] Comment on above: Performed By: #### 5 [id number], [id number] ####[facility] (DEFAULT)[address] [place] [address] UA Clarity CLEAR Normal CLEAR [facility] Comment on above: Performed By: #### 5 [id number], [id number] ####[facility] (DEFAULT)[address] [place] [address] UA Leuk Est Negative Normal NEGATIVE [facility] Comment on above: Performed By: #### 5 [id number], [id number] ####[facility] (DEFAULT)[address] [place] [address] UA Nitrite Negative Normal [facility] Comment on above: Performed By: #### 5 2879222, [id number] ####[facility] (DEFAULT)[address] [place] [address] UA pH 5.5 Normal 5-8 [facility] Comment on above: Performed By: #### 5 5529623, [id number] ####[facility] (DEFAULT)[address] [place] [address] UA Protein 30 Abnormal NEGATIVE [facility] Comment on above: Performed By: #### 5 0891756, [id number] ####[facility] (DEFAULT)[address] [place] [address] UA Spec Grav 1.025 Normal 1.001-1.035 [facility] Comment on above: Performed By: #### 5 4721322, [id number] ####[facility] (DEFAULT)[address] [place] [address] UA Urobilinogen 0.2 mg/dL Normal 0.2-1.0 [facility] Comment on above: Performed By: #### 5 7244381, [id number] ####[facility] (DEFAULT)[address] [place] [address] Urine Source Clean Catch Normal [facility] Comment on above: Performed By: #### 5 [id number], [id number] ####[facility] (DEFAULT)[address] [place] [address] XR Bone Length Studies Scano gramson 11-12-2021 [...] MD 11/13/21 2:15 pm Technologist: LT ELVIRA Normal [facility] Operative Reporton 1 Operative Report MR#: [id number] I [facility] Pt. Name: Lani Mclean Room #: 6AB [id number] Discharge Date: Birthdate: 1940 OPERATIVE REPORT DATE [...] arthrotomy was closed itself with #2 interrupted ojpbkw-fn-vpyfr suture. The remainder of the incision in layered fashion. Sterile dressing applied. At the conclusion of the case, all sponge and needle counts correct. I was present for the critical portions of this case. Electronically Signed by: Duke Headley M.D. 01/22/2021 05:56 P Duke Headley M.D. Date Dict: 01/08/2021/07:09 Gregory/Duke Headley M.D. Date Trans: 01/09/2021 01:49 A/travis [id number] cc: Mignon Cai D.O. [address] [place] [address] [place] [facility] POC GLUCOSE LABon 01-09-2021 Glucose [Mass/Vol] 201 mg/dL High 70-100 [facility] Comment on above: Performed By: #### 8 5499 #### [facility] [address] [place] [address], [facility] Glucose [Mass/Vol] 200 mg/dL High 70-100 [facility] Comment on above: Performed By: #### 8 5499 #### [facility] [address] [place] [address], [facility] POC GLUCOSE LABon 01-08-2021 Glucose [Mass/Vol] 394 mg/dL High 70-100 [facility] Comment on above: Order Comment: NOTE: Result Checked Performed By: #### 8 5499 #### [facility] [address] [place] [address], [facility] Glucose [Mass/Vol] 134 mg/dL High 70-100 [facility] Comment on above: Performed By: #### 8 5499 #### [facility] [address] [place] [address], [facility] PORTABLE KNEE LEFT 2 VWSon 0 01-08-2021 PORTABLE KNEE LEFT 2 VWS [facility] Department of Radiology [address] [place] [address] ======== Patient Name: LANI MCLEAN : 1940 Sex: M Age: Race: White Pt. Location: OUTP Patient Status: O Ordered Date: 01/08/2021 8:45:00 AM Completed Date: 01/08/2021 10:57 AM Requesting Provider: DAVE WHITEHEAD Attending Provider: DUKE HEADLEY Report Copy To: Signs & Symptoms: Pain History: Comments: Hardware Evaluation, will call when in pacu Exam: PORTABLE KNEE LEFT 2 [facility] ======== PORTABLE KNEE LEFT 2 [facility] 01/08/2021 10:57 AM CLINICAL INDICATIONS: Pain TECHNOLOGIST [...] above. Electronically signed: Twan Stewart. Transcribed by: [email or web address], User Resident: Electronically Signed by: TWAN STEWART @ 01/08/2021 03:56 PM Normal [facility] Comment on above: Order Comment: Hardw are Evaluation, will call when in pacu KNEE LEFT 3 Son 11-16-2020 KNEE LEFT 3 S [facility] Department of Radiology [address] [place] [id number] ======== Patient Name: LANI MCLEAN : 1940 Sex: M Age: Race: NA Pt. Location: Patient Status: O Ordered Date: 11/16/2020 2:30:00 PM Completed Date: 11/16/2020 03:01 PM Requesting Provider: DUKE HEADLEY Attending Provider: DUKE HEADLEY Report Copy To: Signs & Symptoms: M17.12 Unilateral primary osteoarthritis, left knee I10 History: Agustina Comments: evaluate Exam: KNEE LEFT 3 VWS ======== KNEE LEFT 3 S CLINICAL INFORMATION: Patient complains of left knee pain for years. VIEWS: AP,Lateral and Tangential views were obtained. COMPARISON: None. IMPRESSION: 1. No evidence of acute fracture. There is varus alignment with severe medial and moderate patellofemoral degenerative changes. Vascular calcifications. Osteopenia. Small knee joint effusion. Normal patellar alignment. Electronically signed: Kota Sierra. Transcribed by: [email or web address], User Resident: Electronically Signed by: KOTA SIERRA @ 11/16/2020 07:42 PM Normal [facility] Comment on above: Order Comment: evalu ate Vital Signs Date Time Vital Sign Value Performing Clinician Facility 01-28-2024 10:42-0400 Body height 172.72 cm [facility] 01-28-2024 10:42-0400 Body mass index (BMI) [Ratio] 26.4 kg/m2 [facility] 01-28-2024 10:42-0400 Body temperature 98.1 [degF] [facility] 01-28-2024 10:42-0400 Body weight 78.92 kg [facility] 01-28-2024 10:42-0400 Diastolic blood pressure 60 mm[Hg] [facility] 01-28-2024 10:42-0400 Heart rate 72 /min [facility] 01-28-2024 10:42-0400 Respiratory rate 18 /min [facility] 01-28-2024 10:42-0400 SaO2% (BldA) [Mass fraction] 95 % [facility] 01-28-2024 10:42-0400 Systolic blood pressure 114 mm[Hg] [facility] 09-11-2023 10:30-0500 Body height 172.72 cm Mignon C[facility] Other [employer] Other 09-11-2023 10:30-0500 Body mass index (BMI) [Ratio] 27.06 kg/m2 Mignon C[facility] Other [employer] Other 09-11-2023 10:30-0500 Body temperature 98.2 [degF] Mignon C[facility] Other [employer] Other 09-11-2023 10:30-0500 Body weight 80.74 kg Mignon Cai Other [employer] Other 09-11-2023 10:30-0500 Diastolic blood pressure 82 mm[Hg] Mignon Cai Other [employer] Other 09-11-2023 10:30-0500 Respiratory rate 18 /min Mignon Cai Other [employer] Other 09-11-2023 10:30-0500 SaO2% (BldA) [Mass fraction] 95 % Mignon Cai Other [employer] Other 09-11-2023 10:30-0500 Systolic blood pressure 136 mm[Hg] Mignon Cai Other [employer] Other 05-08-2023 09:10-0400 Body height 172.72 cm Mignon Cai Other [employer] Other 05-08-2023 09:10-0400 Body mass index (BMI) [Ratio] 27.67 kg/m2 Mignon Cai Other [employer] Other 05-08-2023 09:10-0400 Body temperature 98 [degF] Mignon Cai Other [employer] Other 05-08-2023 09:10-0400 Body weight 82.56 kg Mignon Cai Other [employer] Other 05-08-2023 09:10-0400 Diastolic blood pressure 70 mm[Hg] Mignon Cai Other [employer] Other 05-08-2023 09:10-0400 Respiratory rate 18 /min Mignon Cai Other [employer] Other 05-08-2023 09:10-0400 SaO2% (BldA) [Mass fraction] 95 % Mignon Cai Other [employer] Other 05-08-2023 09:10-0400 Systolic blood pressure 138 mm[Hg] Mignon Cai Other [employer] Other 01-02-2023 10:10-0400 Body height 172.72 cm Mignon Cai Other [employer] Other 01-02-2023 10:10-0400 Body mass index (BMI) [Ratio] 27.67 kg/m2 Mignon Cai Other [employer] Other 01-02-2023 10:10-0400 Body weight 82.56 kg Mignon aCi Other [employer] Other 01-02-2023 10:10-0400 Diastolic blood pressure 64 mm[Hg] Mignon Cai Other [employer] Other 01-02-2023 10:10-0400 Respiratory rate 18 /min Mignon Cai Other [employer] Other 01-02-2023 10:10-0400 SaO2% (BldA) [Mass fraction] 97 % Mignon Cai Other [employer] Other 01-02-2023 10:10-0400 Systolic blood pressure 116 mm[Hg] Mignon Cai Other [employer] Other 08-28-2022 10:50-0500 Body height 172.72 cm Mignon Cai Other [employer] Other 08-28-2022 10:50-0500 Body mass index (BMI) [Ratio] 28.89 kg/m2 Mignon Masoodcarolina Other [employer] Other 08-28-2022 10:50-0500 Body temperature 97.7 [degF] Mignon Cai Other [employer] Other 08-28-2022 10:50-0500 Body weight 86.18 kg Mignon Cai Other [employer] Other 08-28-2022 10:50-0500 Diastolic blood pressure 72 mm[Hg] Mignon Cai Other [employer] Other 08-28-2022 10:50-0500 Respiratory rate 18 /min Mignon Cai Other [employer] Other 08-28-2022 10:50-0500 SaO2% (BldA) [Mass fraction] 97 % Mignon Cai Other [employer] Other 08-28-2022 10:50-0500 Systolic blood pressure 126 mm[Hg] Mignon Cai Other [employer] Other 04-25-2022 10:10-0400 Body height 172.72 cm Mignon Cai Other [employer] Other 04-25-2022 10:10-0400 Body mass index (BMI) [Ratio] 26.45 kg/m2 Mignon Cai Other [employer] Other 04-25-2022 10:10-0400 Body temperature 97.6 [degF] Mignon Cai Other [employer] Other 04-25-2022 10:10-0400 Body weight 78.93 kg Mignon Cai Other [employer] Other 04-25-2022 10:10-0400 Diastolic blood pressure 74 mm[Hg] Mignon Cai Other [employer] Other 04-25-2022 10:10-0400 Respiratory rate 18 /min Mignon Cai Other [employer] Other 04-25-2022 10:10-0400 SaO2% (BldA) [Mass fraction] 98 % Mignon Cai Other [employer] Other 04-25-2022 10:10-0400 Systolic blood pressure 122 mm[Hg] Mignon Cai Other [employer] Other 11-14-2021 15:40-0500 Body height 172.72 cm Mignon Cai Other [employer] Other 11-14-2021 15:40-0500 Body mass index (BMI) [Ratio] 28.73 kg/m2 Mignon Cai Other [employer] Other 11-14-2021 15:40-0500 Body temperature 98.3 [degF] Mignon Cai Other [employer] Other 11-14-2021 15:40-0500 Body weight 85.73 kg Mignon Cai Other [employer] Other 11-14-2021 15:40-0500 Diastolic blood pressure 76 mm[Hg] Mignon Masoodcarolina Other [employer] Other 11-14-2021 15:40-0500 Respiratory rate 18 /min Mignon Cai Other [employer] Other 11-14-2021 15:40-0500 SaO2% (BldA) [Mass fraction] 96 % Mignon Masoodcarolina Other [employer] Other 11-14-2021 15:40-0500 Systolic blood pressure 138 mm[Hg] Mignon Correiacarolina Other [employer] Other Encounters Encounter Date Encounter Type Care Provider Facility Start: 02-03-2024 End: 02-03-2024 ambulatory [facility] Start: 01-28-2024 End: 01-28-2024 ambulatory [facility] Work Phone: Start: 01-28-2024 End: 01-28-2024 Patient encounter procedure [facility] [place] Work Phone: Start: 01-20-2024 Non-patient / Non-visit [facility] Work Phone: Start: 12-23-2023 End: 12-23-2023 ambulatory [facility] Start: 12-23-2023 End: 12-23-2023 Follow-up encounter Lani Birmingham MD Work Phone: [facility] Medication Therapy Management Comment on above: Persistent atrial fi brillation (CMS-HCC) (Primary Dx); skilled nursing (current) use of anticoagulants [Z79.01] Start: 11-11-2023 End: 11-11-2023 [facility] Start: 11-11-2023 End: 11-11-2023 Follow-up encounter Lani Birmingham MD Work Phone: [facility] Medication Therapy Management Comment on above: Persistent atrial fi brillation (CMS-HCC) (Primary Dx); skilled nursing (current) use of anticoagulants [Z79.01] Start: 10-14-2023 End: 10-14-2023 [facility] Start: 10-14-2023 End: 10-14-2023 Follow-up encounter Lani Birmingham MD Work Phone: [facility] Medication Therapy Management Comment on above: Persistent atrial fi brillation (CMS-HCC) (Primary Dx); 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] Start: 09-11-2023 End: 09-11-2023 ambulatory Mignon Cai Other [employer] Other Start: 09-11-2023 Office outpatient vi sit 25 minutes Mignon Cai [facility] Start: 09-05-2023 End: 09-05-2023 ambulatory Mignon Cai Other [employer] Other Start: 09-05-2023 Telephone encounter Mignon Cai [facility] Start: 07-14-2023 End: 07-14-2023 ambulatory Mignon Cai Other [employer] Other Start: 07-14-2023 Telephone encounter Mignon Cai [facility] Start: 05-08-2023 End: 05-08-2023 ambulatory Mignon Cai Other [employer] Other Start: 05-08-2023 Office outpatient vi sit 25 minutes Mignon Cai [facility] [place] Start: 01-02-2023 End: 01-02-2023 ambulatory Mignon Cai Other [employer] Other Start: 01-02-2023 Office outpatient vi sit 25 minutes Mignon Cai [facility] [place] Start: 12-27-2022 End: 12-27-2022 ambulatory Mignon Cai Other [employer] Other Start: 12-27-2022 Telephone encounter Mignon Cai [facility] [place] Start: 12-24-2022 End: 12-25-[address] MIGNON CAI Facility:[facility] Start: 09-09-2022 Telephone encounter Mignon Cai [facility] [place] Start: 09-09-2022 End: 09-10-[address] MIGNON CAI [facility] [employer] Other Start: 08-28-2022 End: 08-28-2022 ambulatory Mignon Cai Other [employer] Other Start: 08-28-2022 Office outpatient vi sit 25 minutes Mignon Cai [facility] [place] Start: 08-21-2022 End: 08-22-[address] MIGNON CAI Facility:[facility] Start: 08-19-2022 End: 08-19-2022 ambulatory Mignon aCi Other [employer] Other Start: 08-19-2022 Telephone encounter Mignon Cia [facility] [place] Start: 04-25-2022 End: 04-25-2022 ambulatory Mignon Cai Other [employer] Other Start: 04-25-2022 Office outpatient vi sit 25 minutes Mignon Cai [facility] [place] Start: 04-15-2022 End: 04-16-[address] MIGNON CAI Facility:[facility] Start: 04-02-2022 End: 04-02-2022 ambulatory Mignon Cai Other [employer] Other Start: 04-02-2022 Telephone encounter Mignon Cai [facility] [place] Start: 03-19-2022 End: 03-19-2022 ambulatory Mignon Cai Other [employer] Other Start: 03-19-2022 Telephone encounter Mignon Cai [facility] [place] Start: 02-22-2022 End: 02-25-2022 Evaluation and management of inpatient DR MIGNON CAI Facility:[facility] Start: 02-20-2022 End: 02-20-2022 ambulatory Mignon Cai Other [employer] Other Start: 02-20-2022 Telephone encounter Mignon Cai [facility] [place] Start: 12-19-2021 End: 12-19-2021 ambulatory Mignon Cai Other [employer] Other Start: 12-19-2021 Telephone encounter Mignon Cai [facility] [place] Start: 11-28-2021 End: 11-28-2021 ambulatory Mignon Cai Other [employer] Other Start: 11-28-2021 Telephone encounter Mignon Cai [facility] [place] Start: 11-14-2021 End: 11-14-2021 ambulatory Mignon Cai Other [employer] Other Start: 11-14-2021 Encounter for other preprocedural examination Mignon Cai [facility] [place] Start: 11-14-2021 Office outpatient vi sit 15 minutes Mignon Cai [facility] [place] Start: 11-14-2021 Telephone encounter Mignon Cai [facility] [place] Start: 01-08-2021 End: 01-09-2021 ambulatory [facility] Facility:[facility] Procedures Date Procedure Procedure Detail Performing Clinician Start: 12-23-2023 [employer] Work Phone: Start: 11-11-2023 [employer] Work Phone: Start: 10-14-2023 [employer] Work Phone: Start: 08-21-[address] MIGNON CAI Comment on above: Performed By: #### F ERR, FETIBC, B12FOL, PSAD #### [facility] [address] [place] [address] Dr. Miles Murphy Start: 01-08-2021 ANESTH KNEE ARTHROPLASTY [facility] Start: 01-08-2021 Arthrp kne condyle&p latu medial&lat compartments [facility] Plan of Treatment Date Care Activity Detail Author Start: 08-08-2024 Adult BMI Screening Adult BMI Screening [facility] Start: 08-08-2024 Tobacco Screening Tobacco Screening [facility] Start: 02-03-2024 End: 02-03-2024 Follow-up encounter 02/03/2024 11:00 AM EDT Follow Up Anticoagulation [facility] Medication Therapy Management [address] [place] [address] Lani Birmingham MD [employer] [place] [address] [facility] Start: 12-23-2023 End: 12-23-2023 Follow-up encounter 12/23/2023 11:00 AM EDT Follow Up Anticoagulation [facility] Medication Therapy Management [address] [place] [address] Lani Birmingham MD [employer] [place] [address] [facility] Start: 11-11-2023 End: 11-11-2023 Follow-up encounter 11/11/2023 11:00 AM EST Follow Up Anticoagulation [facility] Medication Therapy Management [address] [place] [address] Lani Birmingham MD [address] [facility], [address] [place] [address] [facility] Medication Therapy Management Start: 06-06-2023 COVID-19 Vaccine () COVID-19 Vaccine () [facility] Start: 2003 Fall Risk Screening Fall Risk Screening [facility] Start: 01-12-1988 Administration of varicella zoster vaccine Zoster (Shingles) Vaccine (1 of 2) [facility] Start: 1957 DTaP,Tdap and Td Vaccines (1 - Tdap) DTaP,Tdap and Td Vaccines (1 - Tdap) [facility] Start: 01-12-1956 Adult BMI Follow Up Plan Adult BMI Follow Up Plan [facility] Start: 1950 Depression Screening Depression Screening [facility] Start: 1938 Medicare Annual Wellness Visit Medicare Annual Wellness Visit [facility] Bacteria identified in Urine by Culture [facility] Comprehensive metabo lic 2000 panel - Serum or Plasma [facility] Immunizations Immunization Date Immunization Notes Care Provider Fa jose guadalupe 07-15-2023 influenza, seasonal, injectable Mignon Cai Other [facility] 09-13-2022 COVID-19 Pfizer (bivalent) Mignon Cai Other [facility] 07-04-2021 COVID-19 Vaccine Pfi zer - Documentation Purposes Only Mignon Cai Other [facility] 12-15-2020 COVID-19 Vaccine Pfi zer - Documentation Purposes Only Mignon Cai Other [facility] 11-24-2020 COVID-19 Vaccine Pfi zer - Documentation Purposes Only Mignon Cai Other [facility] 07-10-2020 influenza, seasonal, injectable Mignon Cai Other [facility] 07-14-2019 influenza, seasonal, injectable Mignon Cai Other [facility] Payers Date Payer Category Payer Medicare ANTH MEDICARE ANTH MEDICARE ADVANTAGE [id number] 2022-Present [phone] [address] [place] [address] [id number] 1959 Medicare [id number] 1959 Unknown [id number] 1959 Unknown [id number] 1938 Unknown [id number] 1938 Unknown [id number] 1938 Unknown [id number] 1938 Unknown [id number] 1938 Unknown [id number] 1938 Unknown [id number] 1938 Unknown [id number] 6 1938 Unknown [id number] [id number] 6 1938 Unknown [id number] [id number] 6 1938 Unknown [id number] 6 Unknown [employer]/BS [id number] Social History Date Type Detail Facility Unknown if ever smoked [facility] Other Start: 11-02-2020 End: 08-08-2023 Sex Assigned At [facility] Other Start: 08-08-2023 [facility] History of tobacco use Current smoker [facility] History of tobacco use [facility] Start: 11-02-2020 End: 08-08-2023 Cigarettes smoked current (pack per day) - Reported [address] [facility] Start: 08-08-2023 Tobacco use and exposure Smokeless tobacco non-user [facility] Start: 08-08-2023 Alcohol intake Current non-dr extruder tender of alcohol (finding) [facility] Housing Instability Unknown [facility] Start: 08-08-2023 Tobacco Comment Quit smoking 2 5 years ago [facility] Start: 1940 Sex Assigned At Not on file [facility] Start: 01-28-2024 Tobacco smoking stat [facility] Never smoked tobacco (finding) [facility] Start: 1940 Sex Assigned At Male F [facility] Medical Equipment Procedure Code Equipment Code Equipment Origin al Text Equipment Identifier Dates One Touch Ultra Test Strips One Touch Cement Bn Bio 40 gm Rpl [id number] - [id number] Start: 02-19-2022 Component Ptlr 3 2mm Persona Alply Kn Strl Lf - Sna - [id number] Start: 02-19-2022 Plate Tib 74x46m m Nxgn Kn Cmnt Mdlr Stm Prect 5 Tiv Pmma Rpl [id number] + [id number] - Sna - [id number])[id number], [id number] FDA Start: 02-19-2022 Screw Bn 35mm 6. 5mm St Hip Actb Trlg Strl Rpl [id number] + [id number] + 32 - Sna - [id number] ()[id number])[id number], [id number] [facility] Start: 02-19-2022 Lancets Start: 01-28-2024 End: 01-28-2024 Lancets Start: 01-28-2024 Goals Date Patient Goal Desired Activity /State Personal health goal Comment on above: Formatting of this n ote might be different from the original. Evaluation of progress towards goal: Safe dc transition home with [facility] ortho PT and family support. Clinical Notes 11-14-2021 to 12-23-2023 Jonnathan Angeles, [facility] - 12/23/2023 11:00 AM Smiley Angeles, [facility] - 11/11/2023 11:00 AM Evie Angeles, [facility] - 10/14/2023 11:00 AM EST Note Date & Type Note Facility 12-23-2023 History of Present illness Narrative 15 minute zivi-ec-[id number] follow-up anticoagulation appointment. INR performed in office [...] that persists or worsens. Jonnathan Angeles RPH 12/23/23 1056 documented in this encounter [facility] 11-11-2023 History of Present illness Narrative 15 minute kbxe-wq-glaj follow-up anticoagulation appointment. INR performed in office [...] RPH 11/11/23 1102 documented in this encounter [facility] 10-14-2023 History of Present illness Narrative 15 minute [id number]-[id number] follow-up anticoagulation appointment. INR performed in office [...] RPH 10/14/23 1110 documented in this encounter [facility] 09-11-2023 Evaluation note Encounter Date Diagnosis [...] (ICD-10 - I48.91) Continue to follow with chemical recovery operator as directed. Sep, Nocturia (ICD-10 - [...] of time and then it will improve. [employer] Other 12-01-2023 Evaluation note* Encounter Date Diagnosis Assessment Notes Treatment Notes Treatment Clinical Notes Sep, Diabetes mellitus, type 2 (ICD-10 - E11.9) Sep, Hypertension (ICD-10 - I10) [employer] Other 10-09-2023 Evaluation note* Encounter Date Diagnosis Assessment Notes Treatment Notes Treatment Clinical Notes Jul, Hypertension (ICD-10 - I10) [employer] Other 08-03-2023 Evaluation note* Encounter Date Diagnosis [...] - M54.2) He saw a chiropractor in [place] for evaluation of his neck. He voices that he was told that the left side of his neck/muscles were the cause of his pain. On exam the muscles are tight. [employer] Other 03-30-2023 Evaluation note* Encounter Date Diagnosis [...] is to continue to follow with his chemical recovery operator. He voices that he will see his chemical recovery operator once a year and has his [...] due to aging. Will continue to monitor. [employer] Other 12-05-2022 Evaluation note* Encounter Date Diagnosis Assessment Notes Treatment Notes Treatment Clinical Notes Sep, Hematuria (ICD-10 - R31.9) [employer] Other 11-23-2022 Evaluation note* Encounter Date Diagnosis [...] (ICD-10 - I48.91) Continue to follow with chemical recovery operator as scheduled. Aug, Vitamin B12 deficiency [...] need to discuss having him see a real estate closing coordinator. Aug, Hematuria (ICD-10 - R31.9) I did [...] this. He will call if it worsens. [employer] Other 07-21-2022 Evaluation note* Encounter Date Diagnosis [...] need to discuss referring him to a real estate closing coordinator for evaluation. Apr, Hyperlipidemia (ICD-10 - E78.5) [...] I48.91) He continues to follow with his chemical recovery operator who controls his Coumadin. Apr, Nocturia [...] has not had any issues with diarrhea. [employer] Other 05-19-2022 NotePROCEDURE: XR KNEE RT 3V [...] Electronically authenticated by: JOSEPH PRINCE Date: 2022-02-21 19:31[facility]03-01-2022 NoteHNO ID: [id number] Author: Ulysses Sherman MD Service: ? Author Type: Physician Type: Progress Notes Filed: 12/04/2021 2:34 PM Note Text: PATIENT NAME: Lani Mclean DATE: 12/04/2021 PRIMARY CARE PHYSICIAN: Mignon Cai DO OTHER PHYSICIANS: Dr. Tineo, Dr. Mitchell ([facility]) HPI: This is an 81 year [...] - blood sugar diagnostic (ONE TOUCH TEST [facility]) - Amaye-3-QAM-EPA-Fish Oil (FISH OIL) 1,000 mg (120 mg-180 [...] Alert, oriented x person, (more content not included)...[facility]02-09-2022 Evaluation note* Encounter Date Diagnosis Assessment [...] through [facility]. [facility]. Nov, Pre-op evaluation (ICD-10 - Z01.818) He is here for pre-surgical clearance today. He has had presurgical clearance done and has plans in place for bridging for his Coumadin. He was also started on an Iron supplement and will possibly start Glucerna. [employer] Other Evaluation noteNo InformationNort [employer] Other Evaluation note* Diagnosis Persistent atrial fibrillation ([facility])- Primary Atrial fibrillation skilled nursing (current) use of anticoagulants [Z79.01] Long-term (current) use of anticoagulants [facility] Diagnosis Onset Date Resolution Status Anemia acute Atrial fibrillation acute Diabetes type 2, controlled acute Hyperlipidemia acute Hypertension acute Leukocytosis acute Other custodial (current) drug therapy acute Vitamin B 12 deficiency [facility] Work Phone: Hisivsd general Narrative - Reported* Type Description Date [...] Fever when child Medical History Pneumonia Vaccine 2 Surgical History right index fingernail removed due to infection Surgical History heart monitor - Dr Mitchell 08/2017 Surgical History left knee replacement 01/08/2021 Hospitalization History ear aches as a child Hospitalization History pneumonia 06/2014 [employer] Other Hisfikg general Narrative - Reported* Type Description Date [...] Fever when child Medical History Pneumonia Vaccine 2 Surgical History right index fingernail removed due to infection Surgical History heart monitor - Dr Mitchell 08/2017 Surgical History left knee replacement 01/08/2021 Surgical History right knee replacement- Dr. Correa 02-20-22 Hospitalization History ear aches as a child Hospitalization History pneumonia 06/2014 [employer] Other InstructionsNot on filedocumented in this encounter [email or web address] Summary Purpose Family History No Family History Records Found Relationship Condition Age at Onset Recorded Date/T chris daughter Heart disease Unknown Unknown father Unknown grandparent Unknown Not Specified Unknown Advance Directives No Advanced Directives Records FoundLatest Code Status on File Code Status Date Activated Date Inactivated Comments Full Code 02/19/2022 1:17 PM 02/20/2022 6:18 PM Advance Directive Response Recorded Date/ Time Advance Directives No November 10, 2023 3:24pm Reason for Referral Reason appt consult for e brit and treatment of hematuria Diagnosis 1 Hematuria (R31.9) Referral Organization [facility] [place] Referring Provider First Name Mignon Referring Provider Last Name Trell Referring Provider Specialty Family Prac gasper Referred Organization Unknown Facility Referred Provider EVELYN EGAN Referred Provider Specialty Urology Referral Priority Routine General Notes RiceBrandy garciah 09/09/2022 02:17:04 PM > referral faxed with TE message, last visit note, last several UA/culture results and current insurance cards. pt understands he will be contacted to schedule this appt. Chief Complaint and Reason for Visit Chief Complaint review labs Reason for Visit Anemia Atrial fibrillation Diabetes type 2, controlled Hyperlipidemia Hypertension Leukocytosis Other custodial (current) drug therapy Vitamin B 12 deficiency Additional Source Comments (unrecognized sect ion and content) No Status Records FoundNo Status Records FoundNo Status Records FoundNo Status Records FoundNo Status Records Found INFORMATION SOURCE (unrecogn ized section and content) DATE CREATED AUTHOR 02/08/2021 [facility] DATE CREATED AUTHOR AUTHOR'S ORGANIZ ATION 12/28/2021 [facility] DATE CREATED AUTHOR AUTHOR'S ORGANIZ ATION 02/28/2022 [facility] DATE CREATED AUTHOR AUTHOR'S ORGANIZ ATION 12/29/2022 [facility] DATE CREATED AUTHOR AUTHOR'S ORGANIZ ATION 02/04/2024 [facility] REASON FOR VISIT (unrecogniz ed section and content) fyipresurgical clearanceclin icalclinicalApptAPPTClinical Acute Illnessreview labsclinical FYIreview labsClinicalrefillreview labsreview labsClinicalrefillsreview labs Care Teams (unrecognized sec tion and content) Administrative Specialist Relationship Specialty Start Date End Date Mignon Cai DO [address] [place] [address] [place] [address] PCP - General 03/10/17 Team Status: Active Member Role Status Dates Ciaran Escoto LPN Care Manager Active Mignon Cai , DO Primary Care Provider Active Team Status: Active Member Role Status Dates Mignon Cai , DO Primary Care Provide r, Attending Provider Active Start: January 20, 2024 Team Status: Inactive Member Role Status Dates Mignon Masoodcarolina , DO Primary Care Provide r, Attending Provider Active Start: January 28, 2024 End: January 28, 2024 Goals (unrecognized section and content) Goals may be documented in a n alternate section FOR RECORDS PERTAINING TO PATIENTS WHO ARE [...] BE BASED ON THE PRIMARY CLINICAL RECORDS. [employer] provides no warranty or guarantee of the accuracy or completeness of information in this document.
--- NOTE | 2024-03-13 20:25 | ECG_ITS ---
[facility] Test Date: 2024-03-13 Pat Name: LANI LEON Department: Room: - Gender: Male Homeworker: : 1940 Requested By: MIGNON CAI Order Number: [id number] Reading MD: AALIYAH CLARK Measurements Intervals [place] Rate: 76 P: -13327 NE: -16272 QRS: 38 QRSD: 80 T: 64 QT: 394 QTc: 424 Interpretive Statements 14192 Atrial fibrillation with aberrant conduction, or ventricular premature complexes 9140 abnormal rhythm ECG Compared to ECG 02/21/2022 16:48:40 Aberrant conduction of supraventricular beat(s) now present Electronically Signed On 03-14-2024 6:37:11 EDT by AALIYAH CLARK
--- NOTE | 2024-03-13 20:25 | XR_ITS ---
The [address] [address] Patient Name: LANI LEON MRN: [id number] date: 1940 Sex: M Assigned Patient Location: ED.MAIN Current Patient Location: ER Accession/Order Number: [id number] Exam Date: 03/13/2024 21:12 Report Date: 03/13/2024 22:42 At the request of: SRAVANTHI ANTOINE Procedure: XR chest 1V EXAM: XR chest 1V HISTORY: SOB COMPARISON: Chest x-ray 02/21/2022 TECHNIQUE: Single AP radiograph of the chest FINDINGS: Near complete opacification of the left lung. No pneumothorax. Left heart border is obscured by pulmonary opacification but likely within normal size limits. No acute osseous abnormality. XR/XR chest 1V IMPRESSION: Near complete opacification of the left lung which could be seen with infectious process or large effusion. Electronically authenticated by: NADIRA BRIDGES Date: 03/13/2024 22:42
--- NOTE | 2024-03-13 20:27 | ED_ITS ---
HPI - SOB/Dyspnea General Chief Complaint: Shortness of Breath/Dyspnea Stated Complaint: sob, falls Time Seen by Provider: 03/13/24 20:16 Source: patient and friend Mode of arrival: Wheelchair Limitations: no limitations History of Present Illness HPI Narrative: 84-year-old male presents to the emergency department for shortness of breath. He is not complaining of fever or cough or chest pain. His neighbor brings him in and gives some of the history. He reports that normally the patient gets out and around his property quite well and was doing so without difficulty until yesterday. Today the patient called the neighbor and said they needed to go to the hospital because he is short of breath. It seems to be worse with exertion. The patient got short of breath getting out to the car. Related Data Allergies Allergy/AdvReac Type Severity Reaction Status Date / Time No Known Drug Allergies Allergy Verified 03/13/24 20:27 Review of Systems ROS Narrative A ten point review of systems is negative except as noted above. Exam Narrative Exam Narrative: Nurses note and vital signs reviewed and patient is not hypoxic. General: The patient appears in no acute respiratory distress. He appears mildly dyspneic. Skin: Warm, dry, no pallor noted. There is no rash noted. Head: Normocephalic, atraumatic Eye: Normal conjunctiva, no drainage Ears, Nose, Mouth, and Throat: oral mucosa is moist. Nares patent. Cardiovascular: Irregularly irregular Respiratory: Breath sounds are equal bilaterally. No rales are present but a few rhonchi are present. Back: non-tender GI: Soft and nontender Musculoskeletal: The patient has no evidence of calf tenderness, no pitting edema, symmetrical pulses noted bilaterally Neurological: Awake and alert Psychiatric: Cooperative Constitutional Vital Signs, click to edit/add: Last Vital Signs Temp 97.8 F 03/13/24 23:56 Pulse 66 03/13/24 23:56 Resp 20 03/13/24 23:56 BP 134/90 03/13/24 23:56 Pulse Ox 92 L 03/13/24 23:56 O2 Del Method Room Air 03/13/24 23:56 O2 Flow Rate 2.5 03/13/24 21:01 Course Vital Signs Vital signs: Vital Signs Temperature 98.1 F 03/13/24 20:18 Pulse Rate 64 03/13/24 20:18 Respiratory Rate 22 H 03/13/24 20:18 Blood Pressure 144/73 H 03/13/24 20:18 Pulse Oximetry 90 L 03/13/24 20:18 Oxygen Delivery Method Nasal Cannula 03/13/24 20:18 Oxygen Delivery Flow Rate 3 03/13/24 20:18 Temperature 97.8 F 03/13/24 23:56 Pulse Rate 66 03/13/24 23:56 Respiratory Rate 20 03/13/24 23:56 Blood Pressure 134/90 03/13/24 23:56 Pulse Oximetry 92 L 03/13/24 23:56 Oxygen Delivery Method Room Air 03/13/24 23:56 Oxygen Delivery Flow Rate 2.5 03/13/24 21:01 MDM - SOB/Dyspnea MDM Narrative Medical decision making narrative: Large lung mass is noted along with pleural effusion which is likely malignant. The patient had an O2 sat in the lower 80s but this came up into the 90s with nasal cannula oxygen. He is hemodynamically stable. Findings are discussed with the patient and the likelihood that this is a malignancy was discussed as well. The patient appears to be interested in treatment modalities. Pulmonology is not available now at this hospital and the patient is requesting transfer to [facility] and this is being accomplished. He has been accepted there by the hospitalist. He is agreeable and stable for transfer. 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 Findings are discussed thoroughly with the patient and the neighbor who accompanies him. Differential Diagnosis Differential diagnosis: Likely congestive heart failure, community acquired pneumonia and other (Lung mass, effusion) Lab Data Attestation: I reviewed the patient's lab results. Labs: Lab Results 03/13/24 03/14/24 Range/Units 20:36 00:17 WBC 18.1 H (4.0-11.0) 10^3/uL RBC 4.10 L (4.70-6.10) 10^6/uL Hgb 12.7 L (14.0-18.0) g/dL Hct 37.9 L (42.0-54.0) % MCV 92.4 (80.0-94.0) fL MCH 31.0 (25.9-34.0) pg MCHC 33.5 (29.9-35.2) g/dL RDW 13.4 (11.0-15.0) % Plt Count 247 (150-450) 10^3/uL MPV 10.6 (9.5-13.5) fL Neut % (Auto) 81.4 H (43.0-75.0) % Lymph % (Auto) 7.3 L (20.5-60.0) % Mcculloch % (Auto) 7.7 (1.7-12.0) % Eos % (Auto) 0.7 L (0.9-7.0) % Baso % (Auto) 0.4 (0.2-2.0) % Neut # (Auto) 14.8 H (1.4-6.5) 10^3/uL Lymph # (Auto) 1.3 (1.2-3.8) 10^3/uL Mcculloch # (Auto) 1.4 H (0.3-0.8) 10^3/uL Eos # (Auto) 0.1 (0.0-0.7) 10^3/uL Baso # (Auto) 0.1 (0.0-0.1) 10^3/uL Abs Immat Gran (auto) 0.45 H (0.00-0.03) 10^3/uL Imm/Tot Granulo (auto) 2.5 H (0.0-0.5) % Sodium 136 (136-145) mmol/L Potassium 2.8 L* (3.5-5.1) mmol/L Chloride 98 (98-107) mmol/L Carbon Dioxide 29.1 (21.0-32.0) mmol/L Anion Gap 11.7 BUN 20.0 H (7.0-18.0) mg/dL Creatinine 0.99 (0.70-1.30) mg/dL Est GFR ( Amer) >60 (>=60) Est GFR (Non-Af Amer) >60 (>=60) BUN/Creatinine Ratio 20.2 Glucose 195 H (74-106) mg/dL Lactate 2.3 H* 1.5 (0.4-2.0) mmol/L Calcium 8.5 (8.5-10.1) mg/dL Troponin I High Sens 17.9 (4.0-76.1) pg/mL NT-Pro-B Natriuret Pep 1726.0 (<=1800.0) pg/mL Procalcitonin <0.05 (0.00-0.50) ng/mL SARS-CoV-2 Ag (CV2AG) Negative (NEGATIVE) Imaging Data Chest x-ray: Radiologist's impression: ITS Impressions Chest X-Ray 03/13/24 20:25 IMPRESSION: Near complete opacification of the left lung which could be seen with infectious process or large effusion. Electronically authenticated by: NADIRA BRIDGES Date: 03/13/2024 22:[address] 03/13/24 21:25 IMPRESSION: 1. Irregular soft tissue mass at the left hilum/suprahilar region measuring 5.7 x 5.1 x 7.9 cm (AP, transverse, CC) is highly concerning for malignancy. The mass is inseparable from the left bronchus airway with endobronchial lesion/mucous seen. The mass also extends to the left mediastinal AP window and left prevascular space which may potentially affect the recurrent laryngeal nerve. The mass also abuts and encases multiple left upper interlobar and segmental pulmonary arteries. Recommend Pulmonology consultation with bronchoscopy to further evaluate. 2. Extensive postobstructive consolidation at the left upper lobe reflecting postobstructive pneumonitis and atelectasis secondary to the left hilar mass obstructing the left bronchial airway. 3. Left pleural effusion occupying approximately 20% of the left thorax. There is a 9 mm nodular density at the left pleural space (image 94 series 5). Finding raises the question of malignant effusion with probable small pleural-based lesion. 4. Multiple left supraclavicular lymphadenopathy. 5. Mild cardiomegaly with heavy calcifications at the left and right coronary arteries. Moderate calcifications at the aortic valves. 6. 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 7. T8 vertebral body superior endplate compression fracture height loss of 20% without bony retropulsion. Electronically authenticated by: LINDY NICK Date: 03/14/2024 00:[address] 03/13/24 21:38 IMPRESSION: 1. No mass or pathologic lymph nodes within the neck. 2. Asymmetric pulmonary consolidation and associated pleural fluid on the left. Electronically authenticated by: ABDULKADIR MICHAEL Date: 03/13/2024 23:55 ECG Data Attestation: I personally reviewed and interpreted this ECG as follows: (EKG on my interpretation shows atrial fibrillation with PVCs. The patient has a history of A-fib.) Discharge Plan Discharge Chief Complaint: Shortness of Breath/Dyspnea Clinical Impression: Lung mass, Pleural effusion Patient Disposition: [facility] Time of Disposition Decision: 01:08 Discharge Location: [facility] Condition: Fair Mode of Transportation: EMS
[2024-03-13 20:46] LABS: Basophils Absolute Auto 0.1 10^3/uL (0.0-0.1); Basophils Percent Auto 0.4 % (0.2-2.0); Eosinophils Absolute Auto 0.1 10^3/uL (0.0-0.7); Eosinophils Percent Auto 0.7 % (0.9-7.0); Hematocrit 37.9 % (42.0-54.0); Hemoglobin 12.7 g/dL (14.0-18.0); Immature Granulocytes Abs Auto 0.45 10^3/uL (0.00-0.03); Immature Granulocytes Pct Auto 2.5 % (0.0-0.5); Lymphocytes Absolute Auto 1.3 10^3/uL (1.2-3.8); Lymphocytes Percent Auto 7.3 % (20.5-60.0); Mean Corpuscular HGB Conc 33.5 g/dL (29.9-35.2); Mean Corpuscular Volume 92.4 fL (80.0-94.0); Mean Platelet Volume 10.6 fL (9.5-13.5); Monocytes Absolute Auto 1.4 10^3/uL (0.3-0.8); Monocytes Percent Auto 7.7 % (1.7-12.0); Neutrophils Absolute Auto 14.8 10^3/uL (1.4-6.5); Neutrophils Percent Auto 81.4 % (43.0-75.0); Platelet Count 247 10^3/uL (150-450); Red Cell Distribution Width 13.4 % (11.0-15.0); White Blood Count 18.1 10^3/uL (4.0-11.0)
[2024-03-13 20:55] LABS: SARS-CoV-2 Ag NEGATIVE (NEGATIVE)
[2024-03-13] MEDS: ALBUTEROL SULFATE 2.5 MG/3 ML VIAL NEB IH (20:58)
[2024-03-13 21:07] LABS: Anion Gap 11.7; BUN Creatinine Ratio 20.2; Calcium 8.5 mg/dL (8.5-10.1); Carbon Dioxide 29.1 mmol/L (21.0-32.0); Chloride 98 mmol/L (98-107); Estimated GFR (African America >60 (>=60); Estimated GFR (Non-African Ame >60 (>=60); Glucose 195 mg/dL (74-106); Sodium 136 mmol/L (136-145); Troponin I High Sensitivity 17.9 pg/mL (4.0-76.1)
[2024-03-13 21:12] LABS: Potassium 2.8 mmol/L (3.5-5.1)
--- NOTE | 2024-03-13 21:25 | CT_ITS ---
The [address] [address] Patient Name: LANI LEON MRN: [id number] date: 1940 Sex: M Assigned Patient Location: ER Current Patient Location: ER Accession/Order Number: [id number] Exam Date: 03/13/2024 22:30 Report Date: 03/14/2024 00:26 At the request of: SRAVANTHI ANTOINE Procedure: CT chest w con EXAM: CT chest w con HISTORY: Abnormal chest x-ray, effusion versus pneumonia , complaint of shortness of breath for one week, worse today. COMPARISON: Multiple priors, most recent chest x-ray 03/13/2024 TECHNIQUE: Multiple axial views CT chest with 100 cc Omnipaque 300 IV contrast. Coronal sagittal reformats performed. FINDINGS: Irregular soft tissue mass at the left hilum/suprahilar region measuring 5.7 x 5.1 x 7.9 cm (AP, transverse, CC) is highly concerning for malignancy (image 50 series 5). The mass is inseparable from the left bronchus airway with endobronchial lesion/mucous seen. The mass also extends to the left mediastinal AP window and left prevascular space (image 38 series 5) which may potentially affect the recurrent laryngeal nerve. The mass also abuts and encases multiple left upper interlobar and segmental pulmonary arteries. Extensive postobstructive consolidation at the left upper lobe. Left pleural effusion occupying approximately 20% of the left thorax. There is a 9 mm nodular density at the left pleural space (image 94 series 5). Multiple left supraclavicular lymphadenopathy (image 16-19 series 5). For reference, a left supraclavicular lymph node measuring 1.2 x 1.1 cm. A 0.9 x 1.6 cm right hilar lymph node (image 45 series 5). Calcified plaques at the right posterior pleura. Mild centrilobular pulmonary emphysema. Mild cardiomegaly with heavy calcifications at the left and right coronary arteries. Moderate calcifications at the aortic valves. Small hiatal hernia. 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 Partially visualized bilateral 1 cm renal cystic structures. T8 vertebral body superior endplate compression fracture height loss of 20% without bony retropulsion. CT/CT chest w con IMPRESSION: 1. Irregular soft tissue mass at the left hilum/suprahilar region measuring 5.7 x 5.1 x 7.9 cm (AP, transverse, CC) is highly concerning for malignancy. The mass is inseparable from the left bronchus airway with endobronchial lesion/mucous seen. The mass also extends to the left mediastinal AP window and left prevascular space which may potentially affect the recurrent laryngeal nerve. The mass also abuts and encases multiple left upper interlobar and segmental pulmonary arteries. Recommend Pulmonology consultation with bronchoscopy to further evaluate. 2. Extensive postobstructive consolidation at the left upper lobe reflecting postobstructive pneumonitis and atelectasis secondary to the left hilar mass obstructing the left bronchial airway. 3. Left pleural effusion occupying approximately 20% of the left thorax. There is a 9 mm nodular density at the left pleural space (image 94 series 5). Finding raises the question of malignant effusion with probable small pleural-based lesion. 4. Multiple left supraclavicular lymphadenopathy. 5. Mild cardiomegaly with heavy calcifications at the left and right coronary arteries. Moderate calcifications at the aortic valves. 6. 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 7. T8 vertebral body superior endplate compression fracture height loss of 20% without bony retropulsion. Electronically authenticated by: LINDY NICK Date: 03/14/2024 00:26
--- NOTE | 2024-03-13 21:38 | CT_ITS ---
The [address] [address] Patient Name: LANI LEON MRN: [id number] date: 1940 Sex: M Assigned Patient Location: ER Current Patient Location: Accession/Order Number: [id number] Exam Date: 03/13/2024 22:30 Report Date: 03/13/2024 23:55 At the request of: SRAVANTHI ANTOINE Procedure: CT soft tissue neck w con EXAM: CT soft tissue neck w con HISTORY: voice change COMPARISON: None. TECHNIQUE: Axial images of the neck were obtained following the intravenous administration of contrast. Sagittal and coronal reformations were provided. FINDINGS: No mass, enhancing abnormality or evidence of an abscess within the neck. No pathologic lymph nodes are seen. The pharynx, larynx and trachea appear normal. The thyroid enhances homogeneously. There are calcifications along the course of the aortic arch and in the region of the carotid bifurcations. Aside from scattered vascular calcification, the intracranial contents are unremarkable. The salivary glands appear normal. There is addition to an asymmetric area of pulmonary consolidation, pleural fluid is also seen on the left. Superimposed fibrotic change is seen at the right pulmonary apex. The bones are osteopenic. Superimposed degenerative change of the vertebral column. No lytic or destructive lesion is seen. There is a retention cyst within the left maxillary antrum. Small amount of mucosal thickening is also seen within the right maxillary sinus. The mastoids are well-aerated. CT/CT soft tissue neck w con IMPRESSION: 1. No mass or pathologic lymph nodes within the neck. 2. Asymmetric pulmonary consolidation and associated pleural fluid on the left. Electronically authenticated by: ABDULKADIR MICHAEL Date: 03/13/2024 23:55
--- NOTE | 2024-03-13 21:40 | PC.NURSE ---
Fell last week at the [facility] bruised face and neck. Since voice has been hoarse.
[2024-03-13 22:10] LABS: Lactate/Lactic Acid 2.3 mmol/L (0.4-2.0)
[2024-03-13 22:18] LABS: PROCALCITONIN <0.05 ng/mL (0.00-0.50)
[2024-03-13] MEDS: CEFTRIAXONE 1,000 MG in 0.9 % SODIUM CHLORIDE 50 ML 100 MG IV (22:47)
[2024-03-13] MEDS: AZITHROMYCIN 500 MG in 0.9 % SODIUM CHLORIDE 250 ML 250 MG IV (23:48)
[2024-03-14 00:46] LABS: Lactate/Lactic Acid 1.5 mmol/L (0.4-2.0)
[2024-03-14] MEDS: POTASSIUM BICARBONATE/CIT 25 MEQ TABLET EFF 50 MEQ PO (02:17)
[2024-03-14 02:20] VITALS: BP 145/72; PULSE 78; O2SAT 93
== END 2024-03-14 03:05 | disposition short-term general hospital (02) ==
PROVIDERS: Emergency Provider Emergency Medicine; PCP Family Medicine
DX: R91.8 Other nonspecific abnormal finding of lung field (principal); J90 Pleural effusion, not elsewhere classified; Z20.822 Contact with and (suspected) exposure to COVID-19
CPT/HCPCS: 36415; 70491; 71045; 71260; 80048; 83605; 83880; 84145; 84484; 85025; 87040; 87811; 93005; 94640; 96365; 96367; 99285; J0456; Q9967